=== PATIENT | female | born 1980 | race Caucasian/White ===

== ENCOUNTER 2017-11-08 15:42 | Emergency (ER) | payer BC, SELFPAY ==
[2017-11-08 15:43] VITALS: BP 166/101; PULSE 105; RESP 16; TEMP 36.1; O2SAT 97; BMI 40.2
--- NOTE | 2017-11-08 15:59 | ED.VISSUMM ---
- ER Visit Summary Date of Service: 11/08/17 Chief Complaint: Sore throat and headache and neck pain History of Present Illness: The patient is a 37 F no significant past medical history of depression. She has had viral meningitis in the past. States on Sunday at an area urgent care she was diagnosed with strep throat with strep test. Was placed on amoxicillin twice daily. She has been taking amoxicillin. States she was also diagnosed with otitis media that appears to be getting better. States she is having more neck pain and also has a headache. States the headache is gradual. She denies any fever. She denies any nausea vomiting she has had diarrhea. Physical Examination: Well-appearing young female standing up in the room. Vital signs are stable afebrile. Pulse ox 97% room air no signs of hypoxia. She does not look dehydrated. She does not look septic or toxic. She is in no distress. HEENT exam posterior pharynx with erythema and small small exudate. No trouble swallowing or breathing. No stridor or drooling. No peritonsillar abscess. Airways patent. TMs are normal bilaterally. Neck is without any lymphadenopathy. She is able to touch chin to chest. There is no significant meningismus. Trachea midline nontender. Lungs clear to auscultation bilaterally. Heart regular rate and rhythm no murmur. Rate about 100. Abdomen soft and nontender. Normal bowel sounds no peritoneal signs. She is moving all 4 extremities. Neurovascular intact. They are nontender without edema. There is no redness. There is no joint pain or swelling. There is no effusions redness. Back exam normal. Skin unremarkable no rashes. No petechiae or purpura. Neurologic exam is normal. NIH is 0. 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 Dorsi plantar flexion intact. Test Results: Patient I discussed lumbar puncture which I do not feel is necessary. She had that done previously when she had viral meningitis and defers at this time. Emergency Department Course and Treatment: Treated with Motrin and discharged home. Treatment Plan: Plenty of fluids and rest. Tylenol Motrin for pain. Return to ER feeling worse or see her primary care physician if not improving. Continue and finish her current antibiotic. Disposition: Discharge Impression: Recently diagnosed with strep tonsillitis This note was generated with [employer] dictation software. It may contain incorrect words, spelling, and punctuation that were not noted in review of the chart prior to signing ED Disposition - Plan for ED Patient: Chief Complaint: Headache Referrals: Danyelle Santacruz [Primary Care Provider] -
[2017-11-08] MEDS: Ibuprofen 600 MG Tablet PO (16:03)
--- NOTE | 2017-11-08 16:03 | ED.DCSUM_ITS ---
- ER Visit Summary Date of Service: 11/08/17 Chief Complaint: Sore throat and headache and neck pain History of Present Illness: The patient is a 37 F no significant past medical history of depression. She has had viral meningitis in the past. States on Sunday at an area urgent care she was diagnosed with strep throat with strep test. Was placed on amoxicillin twice daily. She has been taking amoxicillin. States she was also diagnosed with otitis media that appears to be getting better. States she is having more neck pain and also has a headache. States the headache is gradual. She denies any fever. She denies any nausea vomiting she has had diarrhea. Physical Examination: Well-appearing young female standing up in the room. Vital signs are stable afebrile. Pulse ox 97% room air no signs of hypoxia. She does not look dehydrated. She does not look septic or toxic. She is in no distress. HEENT exam posterior pharynx with erythema and small small exudate. No trouble swallowing or breathing. No stridor or drooling. No peritonsillar abscess. Airways patent. TMs are normal bilaterally. Neck is without any lymphadenopathy. She is able to touch chin to chest. There is no significant meningismus. Trachea midline nontender. Lungs clear to auscultation bilaterally. Heart regular rate and rhythm no murmur. Rate about 100. Abdomen soft and nontender. Normal bowel sounds no peritoneal signs. She is moving all 4 extremities. Neurovascular intact. They are nontender without edema. There is no redness. There is no joint pain or swelling. There is no effusions redness. Back exam normal. Skin unremarkable no rashes. No petechiae or purpura. Neurologic exam is normal. NIH is 0. Bilateral 5 out of 5 chief airport guide strength. Dorsi plantar flexion intact. Test Results: Patient I discussed lumbar puncture which I do not feel is necessary. She had that done previously when she had viral meningitis and defers at this time. Emergency Department Course and Treatment: Treated with Motrin and discharged home. Treatment Plan: Plenty of fluids and rest. Tylenol Motrin for pain. Return to ER feeling worse or see her primary care physician if not improving. Continue and finish her current antibiotic. Disposition: Discharge Impression: Recently diagnosed with strep tonsillitis This note was generated with [employer] dictation software. It may contain incorrect words, spelling, and punctuation that were not noted in review of the chart prior to signing ED Disposition - Plan for ED Patient: Chief Complaint: Headache Referrals: Danyelle Santacruz [Primary Care Provider] -
--- NOTE | 2017-11-08 16:03 | ED.DEP ---
ED Disposition - Plan for ED Patient: Disposition: Home or Assisted Living Chief Complaint: Headache Instructions: Strep Throat Referrals: Danyelle Santacruz [NON-STAFF] - 3-5 Days if not improving Additional Instructions: NT of fluids and rest. Tylenol and Motrin for pain. Finish your current antibiotic. Return to the ER feeling worse or see her primary care physician if not improving.
[2017-11-08 16:15] VITALS: PULSE 102; RESP 15; O2SAT 97
== END 2017-11-08 16:15 | disposition home or self-care (01) ==
PROVIDERS: Emergency Provider Emergency Medicine; Family Provider Family Medicine; PCP Family Medicine
DX: J03.00 Acute streptococcal tonsillitis, unspecified (principal); J02.0 Streptococcal pharyngitis; R19.7 Diarrhea, unspecified; F32.9 Major depressive disorder, single episode, unspecified; Z86.19 Personal history of other infectious and parasitic diseases; Z90.49 Acquired absence of other specified parts of digestive tract; Z79.2 Long term (current) use of antibiotics; Z79.899 Other long term (current) drug therapy
CPT/HCPCS: 99283

== ENCOUNTER → 2020-10-18 14:15 | Outpatient (CLI) | payer BC, SELFPAY ==
--- NOTE | 2020-10-18 14:19 | BI_ITS ---
MAMMOGRAPHY - BILATERAL DIAGNOSTIC REASON FOR EXAM: Female, 40 years old. Right breast lump and thickening. PERTINENT HISTORY: Non-contributory. TECHNIQUE: Digital bilateral breast ermias (3D mammographic acquisition) in the CC and MLO projections. 2-D mediolateral oblique (MLO) and craniocaudad (CC) views of both breasts were obtained. CAD: Full Field Digital Mammography with Computer Added Detection was performed. COMPARISON: No comparison mammograms available at this time. If any prior films become available, an addendum to this report can be generated. FINDINGS: Breast Composition: There are scattered areas of fibroglandular density. There are no dominant masses or suspicious calcifications. Asymmetry of breast tissue were more breast tissue is seen in the upper outer quadrant of the right breast as compared to the left side. This corresponds to the palpable abnormality. Correlation with ultrasound is recommended. No other significant abnormalities are identified. BI/DIAG MAMM W/CAD, BILAT IMPRESSION: Asymmetry of breast tissue where more breast tissue is seen in the upper outer quadrant of the right breast as compared to the left side. Correlation with ultrasound is recommended. ASSESSMENT CATEGORY: BIRADS Category 0: Incomplete. Need additional imaging evaluation. A letter regarding these results will be sent to the patient by the facility within 30 days. Approximately 10% of breast cancers are not detected by mammography. A normal mammogram should not delay biopsy of a clinically suspicious abnormality. Electronically Signed: Emmanuel Castro MD at 15:20 EST , Service support ,
--- NOTE | 2020-10-18 14:19 | US_ITS ---
STUDY: ULTRASOUND BREAST - RIGHT REASON FOR EXAM: Female, 40 years old. Palpable lump in the right breast. TECHNIQUE: Axial and longitudinal images of the RIGHT breast were performed with a high resolution ultrasound transducer. # OF IMAGES: 33 COMPARISON: Comparison is made with mammogram done earlier today. FINDINGS: RIGHT Breast: The lateral half of the right breast was examined by ultrasound. No sonographic abnormality is seen. US/Breast Limited Unilateral IMPRESSION: No sonographic abnormality is seen. ASSESSMENT CATEGORY: BIRADS Category 2: Benign. A letter regarding these results will be sent to the patient by the facility within 30 days. Electronically Signed: Emmanuel Castro MD at 15:52 EST , Service support ,
== END ==
PROVIDERS: PCP Family Medicine; Referring Provider Obstetrics & Gynecology; Visit Provider Obstetrics & Gynecology
DX: N63.10 Unspecified lump in the right breast, unspecified quadrant (principal)
CPT/HCPCS: 76642; 77062; 77066; G0279

== ENCOUNTER → 2021-09-22 | Outpatient (CLI) | payer OTHER, SELFPAY ==
[2021-09-28 08:41] LABS: HPV APTIMA, High Risk Negative (Negative)
== END | disposition home or self-care (01) ==
LOC: LABSPEC 10:14
PROVIDERS: PCP Family Medicine; Visit Provider Obstetrics & Gynecology
DX: Z12.4 Encounter for screening for malignant neoplasm of cervix (principal)
CPT/HCPCS: 87624; 88175; G0145

== ENCOUNTER 2022-03-20 09:56 | Day surgery (SDC) | payer OTHER, SELFPAY ==
[2022-03-20] VITALS (9 sets, daily range): BP systolic 96–153; BP diastolic 52–101; PULSE 78–98; RESP 14–18; TEMP 36.1–37.6; O2SAT 93–99; BMI 36.9
--- NOTE | 2022-03-20 10:29 | CT_ITS ---
We are attempting to reach an attending provider to discuss findings. An addendum with communication details will be sent when the communication is complete. EXAM: CT ABDOMEN AND PELVIS WITH INTRAVENOUS CONTRAST CLINICAL INDICATION: right sided abd pain. prior cholecystectomy TECHNIQUE: Helically acquired images were obtained of the abdomen and pelvis with intravenous contrast. This CT exam was performed using one or more of the following dose reduction techniques: automated exposure control, adjustment of the mA and/or kV according to patient size, and/or use of iterative reconstruction technique. This report was created using [employer] technology. CONTRAST: IV 75mL Isovue-300 COMPARISON: None. FINDINGS: LOWER THORAX: Unremarkable. Lung bases are clear. No cardiomegaly. No pericardial effusion. ABDOMEN: LIVER: Unremarkable. Homogeneous. No focal mass. GALLBLADDER AND BILE DUCTS: Cholecystectomy noted. No intra- or extrahepatic biliary ductal dilation. PANCREAS: Unremarkable. No focal cystic or solid mass. SPLEEN: Unremarkable. Normal size without focal cystic or solid mass. ADRENALS: Unremarkable. No nodules. KIDNEYS AND URETERS: 3 mm nonobstructive stone noted within the lower pole of the right kidney. STOMACH AND BOWEL: Diverticulosis of the colon noted without evidence of acute diverticulitis. PELVIS: APPENDIX: The appendix is enlarged measuring 13 mm in maximum diameter without adjacent fat stranding. The appearance may be secondary to early acute or chronic appendicitis. BLADDER: Urinary bladder is decompressed. REPRODUCTIVE: Unremarkable as visualized. No mass. ABDOMEN and PELVIS: INTRAPERITONEAL SPACE: Unremarkable. No ascites or other fluid collection. No free air. BONES/JOINTS: Unremarkable. No suspicious lytic or blastic abnormality. SOFT TISSUES: Unremarkable. No discrete abdominal or pelvic wall hernia. VASCULATURE: Unremarkable. Abdominal aorta is non-dilated. LYMPH NODES: Unremarkable. No enlarged lymph nodes. CT/Abdomen/Pelvis W IV Cont ONLY IMPRESSION: 1. 3 mm right renal stone. No urinary tract obstruction. 2. Enlarged appendix without discrete inflammatory change which may represent early acute or chronic appendicitis. Mucocele of the appendix not excluded. 3. Diverticulosis coli. Electronically Signed: Philip Green MD at 12:08 EDT ,
--- NOTE | 2022-03-20 10:30 | EDS_ITS ---
HPI HPI - GI History of Present Illness Chief Complaint: Abd Pain Informant: patient Abdominal Pain/Flank Pain Onset: Yesterday Context: Gradual Onset Timing: Continuous Quality: Aching Location: RUQ and RLQ Current Severity: Moderate Maximum Severity: Moderate Worsened by: Nothing Relieved by: Nothing Nausea/Vomiting/Emesis GI Symptom: Positive for Nausea and Vomiting Onset: Today Quality: Positive for Nonbilious Severity: Mild Diarrhea/Melena/Hematochezia GI Symptom: Negative for Diarrhea or Melena Associated Symptoms Associated Symptoms: Negative for Dysuria, Frequency or Hematuria Narrative Narrative: 41-year-old female history depression. Prior cholecystectomy. States she started having abdominal pain yesterday which began epigastric then went to her right upper and right lower quadrant. The pain is worse today. Associated nausea and vomiting. No diarrhea. No dysuria. No fever but chills yesterday and today. Denies any abdominal trauma. No dysuria. Prior similar symptoms: No Recent Illness/Hospitalization: No PFSH PFSH Home Medications sertraline 25 mg tablet (Zoloft) 50 mg PO DAILY 11/08/17 [History Last Taken 11/07/17] Allergy/AdvReac Type Severity Reaction Status Date / Time acetaminophen [From Percocet] AdvReac Itching Verified 03/20/22 09:58 oxycodone [From Percocet] AdvReac Itching Verified 03/20/22 09:58 Social History Smoking Status: Never smoker ROS ROS ED ROS Narrative Abdominal pain. Nausea and vomiting. Chills. Review of Systems ROS Unobtainable: Denies due to encephalopathy Constitutional Constitutional ED: Reports chills; Denies fever(s) ENT ENT ED: Denies ear pain or rhinorrhea Cardiovascular Cardiovascular: Denies chest pain Respiratory/Chest Respiratory/Chest: Denies cough Gastrointestinal Gastrointestinal: Reports abdominal pain, nausea and vomiting; Denies diarrhea or melena Genitourinary Genitourinary ED: Denies dysuria or hematuria Musculoskeletal Musculoskeletal: Denies arthralgias Integumentary Denies abscess Neurologic Neurologic: Denies headache(s) Psychiatric Psychiatric: Denies anxiety Endocrine Endocrinology: Denies polydipsia Hematologic/Lymphatic Hematologic/Lymphatic: Denies easy bleeding Allergic/Immunologic Allergic/Immunologic ED: Denies mouth swelling EXAM Physical Exam Narrative Exam Narrative: .41-year-old female vital signs are stable afebrile. H EENT exam unremarkable. Lungs are clear. Heart regular rhythm rate about 95 no murmur. Chest wall nontender. Abdomen soft nondistended normal bowel sounds she has pretty exquisite tenderness in both the right lower quadrant and right upper quadrant. She does guard. There is no rebound. Left side of abdomen is nontender. No hernia. No obstruction. No distention. Moving all 4 extremities. Nontender no edema. Back nontender. Neuro exam normal. Const Vital Signs: 03/20/22 09:57 Temperature 97.0 F L Temperature Source Temporal Pulse Rate 96 Respiratory Rate 14 Blood Pressure 153/101 H Blood Pressure Mean 118 Pulse Ox 99 Oxygen Delivery Method Room Air Positive well nourished, well developed and obese; Negative for cachectic, contractures or unkempt General Appearance ED: well developed; Negative for unkempt, cachectic or contractures Nutritional Appearance: obese; Negative for cachectic HEENT Reports moist mucous membranes normocephalic and atraumatic; Negative for trauma or tenderness Eyes PERRL and EOMs intact bilaterally Neck no lymphadenopathy, supple and no JVD General: Negative for tenderness Lymph Lymphatic: Negative for other Resp normal respiratory effort and clear to auscultation bilaterally Effort and Inspection: Negative for respiratory distress or retractions Auscultation: Negative for rales, rhonchi or wheezes Cardio regular rate, regular rhythm, S1 normal heart sound and S2 normal heart sound Rate: Negative for bradycardia Rhythm: Negative for abnormal rhythm GI non-distended and no masses; Negative for non-tender Inspection: Negative for abdominal distention Auscultation: normoactive bowel sounds Palpation: soft, tender and guarding; Negative for rigid, hepatomegaly, splenomegaly, hernia, mass, pulsatile mass or rebound tenderness present Back/Spine no CVA tenderness General Back: Negative for CVA tenderness Cervical Spine: Negative for cervical spine tenderness Thoracic Spine / Upper Back: Negative for thoracic spinal tenderness Lumbar Spine / Lower Back: Negative for lumbar spinal tenderness Extremity full ROM General Extremety ED: Negative for edema or tenderness General Extremity: Negative for edema Neuro moves all extremities Sensorium / Orientation: alert Motor Exam: strength 5/5 throughout Psych mental status grossly normal Appearance: Negative for unkempt Attitude: No agitated Mood & Affect: Negative for depressed Skin no wounds General Skin Exam: Negative for jaundice Lesions: no lesions Rashes: no rashes Trauma: Negative for abrasion Nails: Negative for discolored MDM MDM MDM Narrative Medical decision making narrative: 41-year-old female with right-sided abdominal pain. Prior cholecystectomy in the past. She will be treated with IV fluids, Zofran for nausea and morphine for her pain. CAT scan and labs are pending. Repeat exam patient still has exquisite pain in right lower quadrant. She and I went over test results specifically her CAT scan concerning for acute appendicitis. This fits her exam and symptoms. She will be given a second dose of morphine. I have general surgery on page Dr. William Malcolm. She will also be started on IV Zosyn. Lab Data Attestation: I reviewed the patient's lab results. Lab results narrative: CBC shows a white count 9. H&H 13 and 41. Chemistries normal gap of 5. Normal BUN and creatinine. Liver enzymes normal. Lipase normal. test negative. Urine shows 10-25 white cells. 10-25 red cells. 1+ bacteria. No nitrites. No urinary symptoms. CAT scan is concerning for a prominent appendix and the radiologist feels may be acute appendicitis. Labs: Laboratory Results - last 24 hr 03/20/22 03/20/22 03/20/22 11:10 11:10 11:10 WBC 9.0 RBC 4.61 Hgb 13.7 Hct 41.3 MCV 89.6 MCH 29.7 MCHC 33.2 RDW Std Deviation 42.6 RDW Coeff of [place]ipp[place] 13.0 Plt Count 267 MPV 10.1 Immature Gran % (Auto) 0.600 Neut % (Auto) 69.0 Lymph % (Auto) 20.1 [place] % (Auto) 7.5 Eos % (Auto) 1.8 Baso % (Auto) 1.0 Absolute Neuts (auto) 6.2 Absolute Lymphs (auto) 1.80 Nucleated RBC % 0 Sodium 140 Potassium 3.5 Chloride 108 H Carbon Dioxide 27.0 Anion Gap 5 BUN 12 Creatinine 0.85 Estim Creat Clear Calc 70.28 Est GFR (MDRD) Af Amer 95 Est GFR (MDRD) Non-Af 79 BUN/Creatinine Ratio 14.1 Glucose 91 Calcium 8.9 Total Bilirubin 0.40 AST 15 ALT 18 Alkaline Phosphatase 95 Total Protein 7.4 Albumin 3.2 Globulin 4.2 Albumin/Globulin Ratio 0.8 L Lipase 80 Serum , Qual NEGATIVE Urine Color Urine Clarity Urine pH Ur Specific [place] Urine Protein Urine Glucose (UA) Urine Ketones Urine Occult Blood Urine Nitrite Urine Bilirubin Urine Urobilinogen Ur Leukocyte Esterase Urine RBC Urine WBC Ur Squamous Epith Cells Urine Bacteria Urine Mucus 03/20/22 11:10 WBC RBC Hgb Hct MCV MCH MCHC RDW Std Deviation RDW Coeff of [place]ippa Plt Count MPV Immature Gran % (Auto) Neut % (Auto) Lymph % (Auto) [place] % (Auto) Eos % (Auto) Baso % (Auto) Absolute Neuts (auto) Absolute Lymphs (auto) Nucleated RBC % Sodium Potassium Chloride Carbon Dioxide Anion Gap BUN Creatinine Estim Creat Clear Calc Est GFR (MDRD) Af Amer Est GFR (MDRD) Non-Af BUN/Creatinine Ratio Glucose Calcium Total Bilirubin AST ALT Alkaline Phosphatase Total Protein Albumin Globulin Albumin/Globulin Ratio Lipase Serum , Qual Urine Color Yellow Urine Clarity Clear Urine pH 6.0 Ur Specific [place] 1.020 Urine Protein 15 H Urine Glucose (UA) Normal Urine Ketones 5 H Urine Occult Blood 150 H Urine Nitrite Negative Urine Bilirubin Negative Urine Urobilinogen Normal Ur Leukocyte Esterase 100 H Urine RBC 10-25 SEEN Urine WBC 10-25 SEEN Ur Squamous Epith Cells 0-5 SEEN Urine Bacteria 1+ Urine Mucus 0 SEEN Radiography Diagnostic Testing: Clinical Impression(s) from Imaging Studies Abdomen/Pelvis CT 03/20/22 10:29 IMPRESSION: 1. 3 mm right renal stone. No urinary tract obstruction. 2. Enlarged appendix without discrete inflammatory change which may represent early acute or chronic appendicitis. Mucocele of the appendix not excluded. 3. Diverticulosis coli. Electronically Signed: Philip Green MD at 12:08 EDT , ADDENDUM: 03/20/22 1220 IMPRESSION: 1. 3 mm right renal stone. No urinary tract obstruction. 2. Enlarged appendix without discrete inflammatory change which may represent early acute or chronic appendicitis. Mucocele of the appendix not excluded. 3. Diverticulosis coli. N.B. : The above Results were Read Back by Philip Green MD to Yury Kapadia MD, MD, and understanding confirmed on 03/20/2022 12:13:16 (ET). Electronically Signed: Philip Green MD at 12:08 EDT , Discharge Plan Triage Chief Complaint: Abd Pain ED Provider: Eder Kapadia Dx/Rx/DC Orders Clinical Impression: Abdominal pain, Acute appendicitis Prescriptions: No Action sertraline [Zoloft] 25 MG tablet 50 mg PO DAILY Primary Care Provider: Jr Marinelli Referrals: Jr Marinelli MD [Primary Care Provider] -
[2022-03-20] MEDS: 0.9% Normal Saline 1,000 ML 1000 ML IV (11:12)
[2022-03-20] MEDS: Ondansetron 4 MG/2 ML Vial IV ×2 (11:12→12:39)
[2022-03-20] MEDS: morphine 8 MG/ML Syringe IV ×2 (11:14→12:40)
[2022-03-20 11:29] LABS: Mucous, Urine 0 SEEN /hpf (<or=2+)
[2022-03-20 11:31] LABS: Absolute Neutrophil Count 6.2 X10^3/uL (2.0-7.7); Basophil# 0.09 X10^3/uL; Eosinophil# 0.16 X10^3/uL; Eosinophils% 1.8 % (0-5); Hematocrit 41.3 % (37-47); Hemoglobin 13.7 g/dL (12.0-15.0); Lymphocyte % 20.1 % (19-41); Mean Corp Hgb Conc 33.2 g/dL (32-36); Mean Corpuscular Hgb 29.7 pg (27.0-32.0); Mean Corpuscular Volume 89.6 fL (81-99); Mean Platelet Vol. 10.1 fl (6.2-12.0); Monocyte# 0.67 X10^3/uL; Monocyte% 7.5 % (0-10); NRBC Flagged by Analyzer 0 % (0-5); Neutrophil # 6.18 X10^3/uL (2.7-7.7); Platelet Count 267 K/mm3 (150-450); RBC Distribution Width SD 42.6 fl (35.1-43.9); Red Blood Count 4.61 M/mm3 (4.2-5.4)
[2022-03-20 11:36] LABS: Color, Urine Yellow (Yellow); Glucose, Dipstick Normal (Normal); Ketone-Dipstick 5 mg/dl (Negative); Leukocyte Esterase-Dipstick 100 /ul (Negative); Nitrite-Dipstick Negative (Negative); Occult Blood-Urine 150 /ul (Negative); Protein-Dipstick 15 mg/dl (Negative); Urine Bilirubin Dipstick Negative (Negative); Urine Clarity Clear (Clear); Urine Urobilinogen Normal (Normal)
[2022-03-20 11:48] LABS: Bacteria 1+ /hpf (None Seen); Red Blood Cells-Urine 10-25 SEEN /hpf (0-5); Squamous Epithelial Cells - UA 0-5 SEEN /hpf (5-10); White Blood Cells 10-25 SEEN /hpf (0-5)
[2022-03-20 11:49] LABS: ALB/GLOB Ratio 0.8 RATIO (0.9-2.4); AST(SGOT) 15 U/L (15-37); Alanine Aminotransfer ALT/SGPT 18 U/L (13-56); Albumin, Serum 3.2 g/dL (3.2-5.0); Alkaline Phosphatase 95 U/L (45-117); Anion Gap 5 (5-15); BUN 12 mg/dL (7-18); BUN/Creat Ratio 14.1 RATIO (10-20); Calcium,Total 8.9 mg/dL (8.5-10.1); Chloride 108 mmol/L (98-107); Creatinine, Serum 0.85 mg/dL (0.55-1.02); EST Glomerular Filtration Rate 79 mL/min (>60); Est Glom Filt Rate - Afr Amer 95 mL/min (>60); Estimated Creatinine Clearance 70.28 ml/min; Globulin 4.2 g/dL (2.2-4.2); Glucose 91 mg/dL (74-106); Lipase 80 U/L (73-393); Potassium 3.5 mmol/L (3.5-5.1); Protein, Total 7.4 g/dL (6.4-8.2); Sodium Level 140 mmol/L (136-145)
[2022-03-20 12:05] LABS: Internal QC Validated? YES +Cl - CLEAR BKGD; Pregnancy, Serum, hCG Quali. NEGATIVE Negative
--- NOTE | 2022-03-20 13:39 | EX.PCM.CON.S ---
Assessment & Plan Assessment/Plan (1) Acute appendicitis: PLAN: Plan will be to perform a laparoscopic appendectomy.I have counseled the patient as to the risks of the procedure, including but not limited to: infection, bleeding, injury to any blood vessels/nerves, injury to any bowel/bladder, injury to any intraabdominal organs such as the liver/spleen, perforation of the GI tract, intraabdominal abscess/bleeding, incisional hernias, injury to the common bile duct/biliary ducts, injury to the spermatic cord/vessels/testicles, recurrence of hernia(s), complications of anesthesia, etc. The patient verbalizes understanding. HPI Consult Data Date of Consult: 03/20/22 HPI Narrative HPI Narrative: GABE ENRIQUE, is a 41-year-old female history depression.? Prior cholecystectomy.? States she started having abdominal pain yesterday which began epigastric then went to her right upper and right lower quadrant.? The pain is worse today.? Associated nausea and vomiting.? No diarrhea.? No dysuria.? No fever but chills yesterday and today.? Denies any abdominal trauma.? No dysuria. Prior similar symptoms: No Recent Illness/Hospitalization: No [facility] Home Medications sertraline 25 mg tablet (Zoloft) 50 mg PO DAILY 11/08/17 [History Last Taken 11/07/17] Allergy/AdvReac Type Severity Reaction Status Date / Time acetaminophen [From Percocet] AdvReac Itching Verified 03/20/22 09:58 oxycodone [From Percocet] AdvReac Itching Verified 03/20/22 09:58 Social History Smoking Status: Never smoker ROS Constitutional Constitutional: Reports anorexia and chills Cardiovascular Cardiovascular: Denies chest pain Respiratory/Chest Respiratory/Chest: Denies cough Gastrointestinal Gastrointestinal: Reports abdominal pain Physical Exam Const alert and oriented x3 General Appearance: ill appearing Positive for acutely HEENT normocephalic and head/scalp atraumatic Resp clear to auscultation bilaterally Cardio Rate: regular rate Rhythm: regular rhythm GI Palpation: tender McBurney's point Lab / Micro Data Result Diagrams: 03/20/22 11:10 03/20/22 11:10 Labs: Laboratory Results - last 24 hr 03/20/22 11:10: WBC 9.0, RBC 4.61, Hgb 13.7, Hct 41.3, MCV 89.6, MCH 29.7, MCHC 33.2, RDW Std Deviation 42.6, RDW Coeff of Pippa 13.0, Plt Count 267, MPV 10.1, Immature Gran % (Auto) 0.600, Neut % (Auto) 69.0, Lymph % (Auto) 20.1, [place] % (Auto) 7.5, Eos % (Auto) 1.8, Baso % (Auto) 1.0, Absolute Neuts (auto) 6.2, Absolute Lymphs (auto) 1.80, Nucleated RBC % 0 03/20/22 11:10: Sodium 140, Potassium 3.5, Chloride 108 H, Carbon Dioxide 27.0, Anion Gap 5, BUN 12, Creatinine 0.85, Estim Creat Clear Calc 70.28, Est GFR (MDRD) Af Amer 95, Est GFR (MDRD) Non-Af 79, BUN/Creatinine Ratio 14.1, Glucose 91, Calcium 8.9, Total Bilirubin 0.40, AST 15, ALT 18, Alkaline Phosphatase 95, Total Protein 7.4, Albumin 3.2, Globulin 4.2, Albumin/Globulin Ratio 0.8 L, Lipase 80 03/20/22 11:10: Serum , Qual NEGATIVE 03/20/22 11:10: Urine Color Yellow, Urine Clarity Clear, Urine pH 6.0, Ur Specific [place] 1.020, Urine Protein 15 H, Urine Glucose (UA) Normal, Urine Ketones 5 H, Urine Occult Blood 150 H, Urine Nitrite Negative, Urine Bilirubin Negative, Urine Urobilinogen Normal, Ur Leukocyte Esterase 100 H, Urine RBC 10-25 SEEN, Urine WBC 10-25 SEEN, Ur Squamous Epith Cells 0-5 SEEN, Urine Bacteria 1+, Urine Mucus 0 SEEN Radiology Impression Abdomen/Pelvis CT 03/20/22 10:29 IMPRESSION: 1. 3 mm right renal stone. No urinary tract obstruction. 2. Enlarged appendix without discrete inflammatory change which may represent early acute or chronic appendicitis. Mucocele of the appendix not excluded. 3. Diverticulosis coli. Electronically Signed: Philip Green MD at 12:08 EDT , ADDENDUM: 03/20/22 1220 IMPRESSION: 1. 3 mm right renal stone. No urinary tract obstruction. 2. Enlarged appendix without discrete inflammatory change which may represent early acute or chronic appendicitis. Mucocele of the appendix not excluded. 3. Diverticulosis coli. N.B. : The above Results were Read Back by Philip Green MD to Yury Kapadia MD, , and understanding confirmed on 03/20/2022 12:13:16 (ET). Electronically Signed: Philip Green MD at 12:08 EDT ,
[2022-03-20] MEDS: Lactated Ringers 1,000 ML 100 ML IV (14:00)
--- NOTE | 2022-03-20 14:05 | APP_PTH ---
PATIENT: GABE MEJIA LOC: [facility] [place] U#:[id number] AGE/SX: 41/F ROOM: RE03/20/[address]: Dr. Joaquin Malcolm MD : 1980 BED: DIS: 03/20/2022 SPEC #: [id number] RECD: 03/20/22 16:56 STATUS: FRANCISCO RETanya #: [id number] JULIAN: 03/20/22 14:[address]: Joaquin Malcolm DEPT: SURGICAL PATHOLOGY RECD BY: Mahi Aguiar ENTERED: 03/21/22 06:50 SP TYPE: APPENDIX OTHR DR: Dr. Jr Marinelli MD Tissues: Appendix, NOS Procedures: Surgery Specimen Level III HEADER OPERATION: Laparoscopic appendectomy PRE-OP DIAGNOSIS: Acute appendicitis TISSUE SUBMITTED: Appendix MICROSCOPIC DIAGNOSIS Appendix, appendectomy: Acute appendicitis and periappendicitis. SUNI:kristal 03/22/2022 MICROSCOPIC DESCRIPTION Slides are reviewed. GROSS DESCRIPTION Received in fixative is one container labeled with the patient's name and designated appendix. The specimen consists of an appendix measuring 6.5 cm in length and up to 1 cm in diameter. The attached periappendiceal adipose tissue measures up to 3 cm in width. No obvious perforation is identified. The lumen contains fecal material mixed with purulent material. No fecalith is identified. Wall Steamer sections are submitted in two cassettes. / SJ:rg 03/21/2022 TC:2 CPT: 67236
[2022-03-20] MEDS: Bupivacaine Mpf 0.5% 30 ML VIAL (14:22)
--- NOTE | 2022-03-20 14:43 | OP.PCM_ITS ---
Problems Associated Problem List Diagnoses (1) Acute appendicitis: Report of Operation Date of Procedure: 03/20/22 Pre-Operative Diagnosis: Acute appendicitis Post-Operative Diagnosis: Same Surgery/Procedure Performed:: Laparoscopic appendectomy Surgeon: Joaquin Malcolm decontamination technician: Reva Lutz Type of Anesthesia: General Anesthesiologist: Jake Dockery Drains: None Estimated Blood Loss (mL): < 5 cc Description of Procedure: Patient was brought into the operating room. Placed in the supine position. Under excellent general anesthetic the abdomen was sterilely prepped and draped in the usual fashion. Local was injected infraumbilically. Incision was made and carried down to the fascia. The fascia was grasped with a [place]. Varies needle was placed inside the abdomen. The abdomen was insufflated to 15 torr. A 10/12 trocar was placed without difficulty. Suprapubic #5 trocar was placed the left lower quadrant #5 trocar was placed. Both of these were placed under direct visualization without injury to underlying structures. Patient was placed in the headdown and rotated to the left position. Patient was noted to have a dilated and acutely inflamed appendix I came down on the mesoappendix with the Enseal. I then transected the base of the appendix with a 45 linear cutter. Placed the specimen in a specimen bag and delivered through the umbilical port without difficulty. I had very little blood loss there was no pus identified. I ran the small bowel no Meckel's diverticulum was identified the small intestine all look normal.. I irrigated out the pelvis some turbid fluid was identified but no pus was seen. Trochars were removed. Good pneumostasis was noted. I closed the fascia the umbilical port with a [id number] stitch of 0 Vicryl. Skin incisions were closed with subcuticular stitches of 4-0 Monocryl. Steri-Strips were applied. Sterile dressings were applied. Patient tolerated the procedure well. Admit VTE Documentation VTE Present on Admission: No VTE Mechan Device Prophylaxis: SCD's VTE Pharm Prophylaxis ordered?: No Reason prophylaxis not ordered:: Treatment Not Indicated
--- NOTE | 2022-03-20 14:49 | DCINST_ITS ---
Discharge Instructions Procedure Appendectomy Diet Discharge Diet: Light diet - advance as tolerated (if you have questions about your diet instructions, please talk to you doctor.) Activity Discharge Activity: May Not Drive (for 3-5 days or while taking narcotic pain meds.) May shower in (days): 1 Dressing / Incision Call your doctor if your incision/area has: Continuous Slow Oozing, Sudden Increased Bleeding, Increased Pain/ Swelling, Increased Redness and Foul Smelling Discharge Call your doctor if you observe: Fever of 101 or Higher Suture Line Care: Avoid Pulling/Pushing and Avoid Pinching/Bending Additional Dressing/Incision Instructions:: Keep dressing clean and dry. Change or remove dressing in 2 days. Leave steri strips for 1 week. May protect with a gauze bandaid. Follow Up Care Please Follow Up With: Moriah Borges PA-C When: Call office to schedule an appointment to be seen in 1 week. Test Results: Test results from this visit will be discussed in further detail at your follow- up appointment, if applicable. Discharge Plan Admission Attending Provider: Joaquin aMlcolm Primary Care Provider: Jr Marinelli Discharge Orders/Prescriptions Prescriptions: New hydrocodone-acetaminophen 5-325 mg tablet 1 tab PO Q6H 5 Days Qty: 20 0RF No Action sertraline [Zoloft] 25 MG tablet 50 mg PO DAILY Referrals / Follow Up: Jr Marinelli MD [Primary Care Provider] - Moriah Borges PA-C [PHYSICIAN NEW ORDER CLERK] - Disposition Disposition (needs filled in before D/C Order can be placed): Home, Self Care
[2022-03-20] MEDS: HYDROcodone Bitartrate/Apap 5/325 Tablet PO (16:16)
== END 2022-03-20 16:37 | disposition home or self-care (01) ==
LOC: ED 12:42 → SDC 12:47
PROVIDERS: Emergency Provider Emergency Medicine; PCP Family Medicine; Visit Provider Surgery
PROC: 0DTJ4ZZ Resection of Appendix, Percutaneous Endoscopic Approach (ICD-10-PCS; CPT 44970; principal; 2022-03-20 13:45)
DX: K35.80 Unspecified acute appendicitis (principal); F32.A Depression, unspecified; E66.9 Obesity, unspecified; Z68.36 Body mass index [BMI] 36.0-36.9, adult; Z79.899 Other long term (current) drug therapy; Z90.49 Acquired absence of other specified parts of digestive tract
CPT/HCPCS: 44970; 74177; 80053; 81001; 83690; 84703; 85025; 88304; 99284; J7030; Q9967; A4216; C1760; J2405

== ENCOUNTER 2022-04-04 17:46 | Emergency (ER) | payer OTHER, SELFPAY ==
[2022-04-04 17:48] VITALS: BP 146/100; PULSE 95; RESP 16; TEMP 36.7; O2SAT 97; BMI 37.3
[2022-04-04 18:51] LABS: Squamous Epithelial Cells - UA 0 SEEN /hpf (5-10)
[2022-04-04 18:53] LABS: Absolute Lymphocyte Count 2.49 X10^3/uL (0.83-4.51); Absolute Neutrophil Count 7.8 X10^3/uL (2.0-7.7); Basophil# 0.08 X10^3/uL; Basophil% 0.7 % (0-1); Eosinophil# 0.33 X10^3/uL; Eosinophils% 2.9 % (0-5); Hematocrit 43.1 % (37-47); Lymphocyte # 2.49 X10^3/ul (0.83-4.51); Lymphocyte % 21.6 % (19-41); Mean Corp Hgb Conc 32.5 g/dL (32-36); Mean Corpuscular Hgb 29.5 pg (27.0-32.0); Mean Corpuscular Volume 90.7 fL (81-99); Mean Platelet Vol. 9.9 fl (6.2-12.0); Monocyte# 0.76 X10^3/uL; Monocyte% 6.6 % (0-10); NRBC Flagged by Analyzer 0 % (0-5); Neutrophil # 7.83 X10^3/uL (2.7-7.7); Neutrophil % 67.9 % (47-70); Platelet Count 278 K/mm3 (150-450); RBC Distribution Width CV 12.7 % (11.6-14.6); RBC Distribution Width SD 42.1 fl (35.1-43.9); Red Blood Count 4.75 M/mm3 (4.2-5.4); White Blood Count 11.5 K/mm3 (4.4-11.0)
--- NOTE | 2022-04-04 18:55 | CT_ITS ---
We are attempting to reach an attending provider to discuss findings. An addendum with communication details will be sent when the communication is complete. STUDY: CT Abdomen And Pelvis W/ Contrast Injection 04/04/2022 8:02 PM REASON FOR EXAM: Female, 41 years old. ABDOMINAL PAIN rlq pain Technologist Notes pain is mid abdomen radiating to rlq and back, n/v/d, appy 2 weeks ago TECHNIQUE: Transaxial images were obtained without oral contrast, and with IV 100mL Isovue-370 intravenous contrast. Individualized dose optimization techniques were used for this CT. COMPARISON: None. FINDINGS: The visualized lung bases are unremarkable. The visualized portions of the heart are within normal limits. Unremarkable liver. There is non-visualization of the gallbladder, which may be secondary to either contraction or a prior cholecystectomy. Unremarkable spleen. Unremarkable pancreas. Unremarkable bilateral adrenal glands. Non obstructive 2 mm right renal parenchymal stones. No acute findings of the left kidney. Unremarkable visualized stomach. Unremarkable small intestine. Unremarkable colon. There are surgical clips in the region of the appendix consistent with a prior appendectomy. There are no acute findings of the abdominal aorta. Unremarkable inferior vena cava. Subcentimeter mesenteric lymph nodes. Occluded Superior mesenteric vein. Overlying inflammatory changes causing mesenteric inflammation. Unremarkable urinary bladder. Normal visualized uterus. There is an umbilical hernia containing fat. Unremarkable osseous structures. CT/Abdomen/Pelvis W IV Cont ONLY IMPRESSION: (NOT LISTED IN ORDER OF SIGNIFICANCE) Occluded Superior mesenteric vein. Overlying inflammatory changes causing mesenteric inflammation. Other findings as above. Critical finding called and case discussed. Electronically Signed: Seth Peralta MD at 20:04 EDT ,
--- NOTE | 2022-04-04 19:00 | ED.VIS.GI ---
HPI HPI - GI History of Present Illness Chief Complaint: Abd Pain Narrative Narrative: This is a 41-year-old female presenting with right flank pain. Patient states started a couple of days ago. She states is worse than labor. She states it is dull and achy in nature. She states she is having bowel movements. She denies any dysuria or hematuria. She denies vaginal complaints. Patient recently had a pending [facility] Home Medications sertraline 25 mg tablet (Zoloft) 50 mg PO DAILY 11/08/17 [History Last Taken 11/07/17] oxycodone-acetaminophen 5 mg-325 mg tablet tab 04/04/22 [History Last Taken Unknown] Allergy/AdvReac Type Severity Reaction Status Date / Time No Known Allergies Allergy Verified 04/04/22 18:32 Social History Smoking Status: Never smoker EXAM Physical Exam Const Vital Signs: 04/04/22 17:48 04/04/22 20:00 04/04/22 21:00 Temperature 98.0 F 98 F 98.1 F Temperature Source Temporal Temporal Temporal Pulse Rate 95 99 95 Respiratory Rate 16 18 17 Blood Pressure 146/100 H 140/88 H 116/72 Blood Pressure Mean 115 105 86 Pulse Ox 97 97 96 Oxygen Delivery Method Room Air Room Air Room Air MDM MDM MDM Narrative Medical decision making narrative: Patient presenting with right-sided abdominal pain. She is status post appendectomy about a month ago. She states he had some mild pain after surgery but this pain abruptly started a couple of days ago. She presents almost like a kidney stone. Patient given morphine and Zofran as well as IV fluids. I obtained a urinalysis which does show some blood however she is currently menstruating. BMP is within normal limits. Because the patient is postoperative I opted to do a CT scan with IV contrast rather than a flank study. This did identify an occluded superior mesenteric vein. At this point the patient was asking for pain medication he was given 1 mg of Dilaudid. I spoke with on-call vascular surgeon at [facility] who recommended transport and starting a heparin drip. Accepting physician will be Dr Turner and he requested that patient be transported ED to ED. There is a delay in transport as we have no EMS that can be available within 4 hours. I did attempt to call med flight and they are not flying due to weather. Patient still having pain and given another milligram of Dilaudid. She was given another dose of Zofran as well. Updated her on the delay in transport. Patient's pain will be treated until she can be transported. Impression: 1. Superior mesenteric vein occlusion 2. Nausea Lab Data Attestation: I reviewed the patient's lab results. Labs: Laboratory Results - last 24 hr 04/04/22 04/04/22 04/04/22 18:40 18:45 18:45 WBC 11.5 H RBC 4.75 Hgb 14.0 Hct 43.1 MCV 90.7 MCH 29.5 MCHC 32.5 RDW Std Deviation 42.1 RDW Coeff of [place] 12.7 Plt Count 278 MPV 9.9 Immature Gran % (Auto) 0.300 Neut % (Auto) 67.9 Lymph % (Auto) 21.6 [place] % (Auto) 6.6 Eos % (Auto) 2.9 Baso % (Auto) 0.7 Absolute Neuts (auto) 7.8 H Absolute Lymphs (auto) 2.49 Nucleated RBC % 0 PT INR APTT Sodium 139 Potassium 3.4 L Chloride 106 Carbon Dioxide 26.0 Anion Gap 7 BUN 10 Creatinine 0.90 Estim Creat Clear Calc 66.37 Est GFR (MDRD) Af Amer 90 Est GFR (MDRD) Non-Af 74 BUN/Creatinine Ratio 11.2 Glucose 96 Calcium 9.4 Serum , Qual Urine Color Tari Urine Clarity Cloudy Urine pH 5.0 Ur Specific [place] 1.025 Urine Protein 100 H Urine Glucose (UA) Normal Urine Ketones 5 H Urine Occult Blood 250 H Urine Nitrite Negative Urine Bilirubin Negative Urine Urobilinogen Normal Ur Leukocyte Esterase 100 H Urine RBC 25-50 SEEN Urine WBC 5-10 SEEN Ur Squamous Epith Cells 0 SEEN Urine Bacteria 2+ Urine Mucus 3+ 04/04/22 04/04/22 18:45 20:35 WBC RBC Hgb Hct MCV MCH MCHC RDW Std Deviation RDW Coeff of [place] Plt Count MPV Immature Gran % (Auto) Neut % (Auto) Lymph % (Auto) [place] % (Auto) Eos % (Auto) Baso % (Auto) Absolute Neuts (auto) Absolute Lymphs (auto) Nucleated RBC % PT 13.8 INR 1.1 APTT 23.0 L Sodium Potassium Chloride Carbon Dioxide Anion Gap BUN Creatinine Estim Creat Clear Calc Est GFR (MDRD) Af Amer Est GFR (MDRD) Non-Af BUN/Creatinine Ratio Glucose Calcium Serum , Qual NEGATIVE Urine Color Urine Clarity Urine pH Ur Specific [place] Urine Protein Urine Glucose (UA) Urine Ketones Urine Occult Blood Urine Nitrite Urine Bilirubin Urine Urobilinogen Ur Leukocyte Esterase Urine RBC Urine WBC Ur Squamous Epith Cells Urine Bacteria Urine Mucus Radiography Diagnostic Testing: Clinical Impression(s) from Imaging Studies Abdomen/Pelvis CT 04/04/22 18:55 IMPRESSION: (NOT LISTED IN ORDER OF SIGNIFICANCE) Occluded Superior mesenteric vein. Overlying inflammatory changes causing mesenteric inflammation. Other findings as above. Critical finding called and case discussed. Electronically Signed: Seth Peralta MD at 20:04 EDT , ADDENDUM: 04/04/222019 IMPRESSION: (NOT LISTED IN ORDER OF SIGNIFICANCE) Occluded Superior mesenteric vein. Overlying inflammatory changes causing mesenteric inflammation. Other findings as above. Critical finding called and case discussed. N.B. : The above Results were Read Back by Seth Peralta MD to MD oriana, and understanding confirmed on 04/04/2022 20:13:36 (ET). Electronically Signed: Seth Peralta MD at 20:04 EDT , Discharge Plan Triage Chief Complaint: Abd Pain ED Provider: Kenton Alford Dx/Rx/DC Orders Prescriptions: No Action sertraline [Zoloft] 25 MG tablet 50 mg PO DAILY oxycodone-acetaminophen 5-325 mg tablet Primary Care Provider: Jr Marinelli Referrals: Jr Marinelli MD [Primary Care Provider] - Disposition Disposition: Home, Self Care
[2022-04-04 19:05] LABS: Color, Urine Amber (Yellow); Glucose, Dipstick Normal (Normal); Ketone-Dipstick 5 mg/dl (Negative); Leukocyte Esterase-Dipstick 100 /ul (Negative); Nitrite-Dipstick Negative (Negative); Occult Blood-Urine 250 /ul (Negative); Protein-Dipstick 100 mg/dl (Negative); Specific Gravity, Urine 1.025 (1.002-1.030); Urine Bilirubin Dipstick Negative (Negative); Urine Clarity Cloudy (Clear); Urine Urobilinogen Normal (Normal)
[2022-04-04 19:15] LABS: Internal QC Validated? YES +Cl - CLEAR BKGD; Pregnancy, Serum, hCG Quali. NEGATIVE Negative
[2022-04-04 19:17] LABS: Anion Gap 7 (5-15); BUN 10 mg/dL (7-18); BUN/Creat Ratio 11.2 RATIO (10-20); Calcium,Total 9.4 mg/dL (8.5-10.1); Chloride 106 mmol/L (98-107); EST Glomerular Filtration Rate 74 mL/min (>60); Est Glom Filt Rate - Afr Amer 90 mL/min (>60); Estimated Creatinine Clearance 66.37 ml/min; Glucose 96 mg/dL (74-106); Potassium 3.4 mmol/L (3.5-5.1); Sodium Level 139 mmol/L (136-145)
[2022-04-04 19:20] LABS: Bacteria 2+ /hpf (None Seen); Red Blood Cells-Urine 25-50 SEEN /hpf (0-5); White Blood Cells 5-10 SEEN /hpf (0-5)
[2022-04-04 19:21] LABS: Mucous, Urine 3+ /hpf (<or=2+)
[2022-04-04] MEDS: Ondansetron 4 MG/2 ML Vial IV ×2 (19:24→22:06)
[2022-04-04] MEDS: Morphine 4 MG/ML Syringe IV (19:24)
[2022-04-04 20:00] VITALS: BP 140/88; PULSE 99; RESP 18; TEMP 36.6; O2SAT 97
[2022-04-04] MEDS: Heparin Injection (Vial) 5,000 UNIT/ML VIAL 7500 UNIT IV (20:46)
[2022-04-04] MEDS: HYDROmorphone 1 MG/ML Syringe IV ×3 (20:47→23:55)
--- NOTE | 2022-04-04 20:47 | ED.RN ---
called physicians the eta is 4 hours, talked to doctor he said to try and see if med flight would fly the patient, but with weather coming in they will check.
[2022-04-04 20:58] LABS: International Normalized Ratio 1.1; Prothrombin Time (Protime)PT. 13.8 SECONDS (11.7-14.9)
[2022-04-04 21:00] VITALS: BP 116/72; PULSE 95; RESP 17; TEMP 36.7; O2SAT 96
[2022-04-04] MEDS: HEPARIN/D5w 25,000 UNITS 25,000 UNITS/250 ML IV.SOLN. 14 UNITS CONT INF (21:01)
[2022-04-04] MEDS: 0.9% Normal Saline 1,000 ML 999 ML IV (21:01)
--- NOTE | 2022-04-04 21:57 | ED.RN ---
physicians ambulance called and eta for transport 1 hr
[2022-04-04 22:00] VITALS: BP 110/70; PULSE 96; RESP 17; O2SAT 96
[2022-04-05] VITALS: BP 141/84; PULSE 63; RESP 12; O2SAT 95
== END 2022-04-05 00:12 | disposition short-term general hospital (02) ==
LOC: ED 19:36
PROVIDERS: Emergency Provider Student in an Organized Health Care Education/Training Program; PCP Family Medicine; Visit Provider Student in an Organized Health Care Education/Training Program
DX: K55.069 Acute infarction of intestine, part and extent unspecified (principal)
CPT/HCPCS: 74177; 80048; 81001; 84703; 85025; 85610; 85730; 87811; 96365; 96366; 96375; 96376; 99284; J7030; Q9967; A4216; J2405

== ENCOUNTER 2023-11-10 13:49 | Emergency (ER) | payer OTHER, MEDICAID, SELFPAY ==
[2023-11-10 13:50] VITALS: BP 139/111; PULSE 107; RESP 18; TEMP 37.2; O2SAT 99; BMI 42.0
--- NOTE | 2023-11-10 14:23 | CT_ITS ---
INDICATION: Pain EXAMINATION: CT ABDOMEN AND PELVIS WITHOUT CONTRAST - CT Abdomen And Pelvis W/O Contrast Injection TECHNIQUE: Helically acquired images were obtained of the abdomen and pelvis without oral or IV contrast. A radiation dose optimization technique was used for this scan. IV Contrast dosage and agent: None. Oral contrast: None. RADIATION DOSAGE (If Supplied By Facility): CTDIvol = ( 21.19 ) mGy, DLP = ( 1074.57 ) mGycm COMPARISON: Prior study dated: 04/04/2022 FINDINGS: LOWER CHEST: Lung bases are clear. No cardiomegaly or pericardial effusion. LIVER: Homogeneous. No focal mass. GALLBLADDER AND BILIARY TREE: The gallbladder again is not visualized. No intra- or extrahepatic biliary ductal dilation. PANCREAS: No focal cystic or solid mass. SPLEEN: Normal size without focal cystic or solid mass. ADRENAL GLANDS: No nodules. KIDNEYS AND URETERS: 3 mm nonobstructing stone in the lower pole of the right kidney. No hydronephrosis. PERITONEUM: No ascites or free air. No other fluid collection. BOWEL: Previous appendectomy. No stomach or bowel distension. No focal inflammatory change. LYMPH NODES: No enlarged mesenteric or retroperitoneal lymph nodes. VESSELS: Aorta is non-dilated. URINARY BLADDER: Unremarkable. REPRODUCTIVE ORGANS: Bilateral adnexal cysts measuring about 3 cm on each side. ABDOMINAL WALL: No discrete abdominal or pelvic wall hernia. BONES: No lytic or blastic abnormality. CT/Abdomen/Pelvis without Cont IMPRESSION: 1. No focal acute inflammatory changes. 2. Small bilateral adnexal cysts. Electronically Signed: Khoi Foote MD at 15:08 EST ,
--- OUTSIDE RECORDS SUMMARY | 2023-11-10 14:25 | XMS RPT_ITS | CCD ---
Author Name Unknown Address [address] [place] [address] Organization [facility] Care Team Providers Care [employer] Name Role Phone Kyle Quick Unavailable Unavailable Kyle Quick Unavailable Unavailable No Doctor Assigned, Nodr Unavailable Unavail able Kyle Quick Unavailable Unavailable Kyle Quick Unavailable Unavailable No Doctor Assigned, Nodr Unavailable Unavail able Free, Text Entry Unavailable Unavailable Kyle Quick Unavailable NATASHA, DR OR[place] Diana Admitting Unavaila ble NATASHA, DR [place] Diana Primary Care Unavaila ble NATASHA, DR [place] Diana Attending Unavaila ble VACCAKBAR CROOKS Consulting Unavailable VACCARIAKBAR MARADIAGA Referring Unavailable PROVIDER, UNKNOWN Consulting Unavailable PROVIDER, UNKNOWN Consulting Unavailable PROVIDER, UNKNOWN Consulting Unavailable AKBAR MERCADO Consulting Unavailable CAPRICE FINLEY Admitting Unavailable CAPRICE FINLEY Primary Care Unavailable CAPRICE FINLEY Attending Unavailable PROVIDER, UNKNOWN Consulting Unavailable PROVIDER, UNKNOWN Consulting Unavailable PROVIDER, UNKNOWN Consulting Unavailable Akbar Mercado Primary Care Provider Caprice Finley PA-C Primary Care Provider CONSULT, SURGERY - GENERAL (EMERGENT) Consulting Unavailable MARTIN DICKENS Admitting Unavailable MARTIN DICKENS Attending Unavailable SELF, SELF Referring Unavailable Akbar Mercado Primary Care Provider Paulina Bowers Unavailable Unavailable Unavailable Dr. PAULINA BOWERS Referring Unava ilable ELISSA, Dr. PAULINA KRAFT Attending Unava ilable ELISSA, Dr. PAULINA KRAFT Primary Care Unava ilable ANITA JENSEN Attending Unavailable VACCARIAKBAR MARADIAGA Primary Care Unavai lable VACCTANMAYELLO, AKBAR WRAY Primary Care Manavai lablatanya MERCADO, AKBAR WRAY Primary Care Taisha NAVARRO, SANTI ALVAREZ Attending Manava ilable MELANIE, SANTI ALVAREZ Admitting Unava ilable Allergies Allergy Classification Reported Allergen(s) Allergy Type Date of Onset Reaction(s) Facility (1 source) Acetaminophen / oxyCODONE Drug Allergy Itching, Hives/Urticaria [facility] (1 source) Acetaminophen / oxyCODONE Drug Allergy [facility] Repository (4 sources) oxyCODONE; Translations: [OXYCODONE] Drug Allergy 2 Itching [facility] Medications Current Medications Medication Drug Class(es) Dates Sig (Normalized) Sig (Original) acetaminophen 325 mg oral tablet (3 sources) Start: 04-07-2022 End: 04-10-2022 take 2 tablets by mouth every six hours as needed acetaminophen 325 MG tablet Take 2 tablets by mouth every 6 hours as needed for up to 3 days. 24 tablet 0 04/07/2022 04/10/2022 Active Completed/Discontinued Medications Medication Drug Class(es) Dates Sig (Normalized) Sig (Original) acetaminophen 325 mg / oxyCODONE hydrochloride 5 mg oral tablet (3 sources) Opioid Agonist Start: 03-21-2022 take 1 tablet by mouth every four hours as needed oxyCODONE-acetamino phen (PERCOCET) 5-325 mg tablet Indications: Acute appendicitis with localized peritonitis, without perforation, abscess, or gangrene Take 1 tablet by mouth every 4 hours as needed. 30 tablet 0 03/21/2022 Active Problems Active Problems Problem Classification Problem Date Documented Da te Episodic/Chronic Allergic reactions (1 source) Allergic reaction; Translations: [Allergy, unspecified, not elsewhere classified] Episodic Anxiety disorders (6 sources) Anxiety; Translations: [Anxiety disorder, unspecified] Onset: 04-06-2022 04-06-2022 Chronic Appendicitis and other appendiceal conditions (1 source) Acute appendicitis with localized peritonitis; Translations: [Acute appendicitis with localized peritonitis, without perforation or gangrene] Episodic Immunizations and screening for infectious disease (4 sources) Exposure to streptococcal pharyngitis; Translations: [Contact with or exposure to other communicable diseases] Episodic Nausea and vomiting (3 sources) Nausea and vomiting; Translations: [Nausea with vomiting] Episodic Other injuries and conditions due to external causes (2 sources) Motion sickness; Translations: [Motion sickness] Episodic Other nutritional; endocrine; and metabolic disorders (10 sources) Body mass index 40+ - severely obese; Translations: [Body Mass Index 40.0-44.9, adult] Chronic Other upper respiratory infections (1 source) Bacterial sinusitis; Translations: [Chronic sinusitis, unspecified] Chronic Peripheral and visceral atherosclerosis (3 sources) Superior mesenteric vein thrombosis ; Translations: [Acute infarction of intestine, part and extent unspecified] Onset: 04-05-2022 Episodic Phlebitis; thrombophlebitis and thromboembolism (5 sources) H/O: Deep vein thrombosis; Translations: [Personal history of venous thrombosis and embolism] Episodic Superficial injury; contusion (1 source) Contusion of hand; Translations: [Contusion of hand(s)] 09-05-2021 Episodic Unclassified (2 sources) RT HAND INJURY 09-05-2021 Past or Other Problems Problem Classification Problem Date Documented Da te Episodic/Chronic Unclassified (1 source) BILATERAL MACROMASTIA Onset: 04-09-2023 Results Test Name Value Interpretation Reference Range Facil ity Vital Signs Date Time Vital Sign Value Performing Clinician Facility 08-28-2022 09:59-0500 Body height 157.48 cm Paulina Eun [employer] Work Phone: [facility] Work Phone: 08-28-2022 09:59-0500 Body mass index (BMI) [Ratio] 43.9 kg/m2 Paulnia Eun [employer] Work Phone: [facility] Work Phone: 08-28-2022 09:59-0500 Body surface area Derived from formula 2.07 m2 Paulina L [employer] Work Phone: [facility] Work Phone: 08-28-2022 09:59-0500 Body weight 108.86 kg Paulina L [employer] Work Phone: [facility] Work Phone: 08-28-2022 09:59-0500 Diastolic blood pressure 83 mm[Hg] Paulina L Oberhauser Work Phone: [facility] Work Phone: 08-28-2022 09:59-0500 Heart rate 83 /min Paulina L Oberhauser Work Phone: [facility] Work Phone: 08-28-2022 09:59-0500 Systolic blood pressure 133 mm[Hg] Paulina L Oberhauser Work Phone: [facility] Work Phone: 07-30-2022 10:04-0400 Body temperature 97.59 [degF] Bing Praisler-Alfonso SHRIMP HEADER.[employer] Work Phone: [facility] 07-30-2022 10:04-0400 Body weight 107.41 kg Bing Praisler-Wood SHRIMP HEADER.[employer] CONSULTANT SAL[employer] Work Phone: [facility] 07-30-2022 10:04-0400 Diastolic blood pressure 80 mm[Hg] Bing Praisler-Wood SHRIMP HEADER.[employer] CONSULTANT SAL[employer] Work Phone: [facility] 07-30-2022 10:04-0400 Heart rate 87 /min Bing Praisler-Wood SHRIMP HEADER.[employer] CONSULTANT SAL[employer] Work Phone: [facility] 07-30-2022 10:04-0400 Respiratory rate 18 /min Bing Praisler-Wood SHRIMP HEADER.FASHION CONSULTANT SALES Work Phone: [facility] 07-30-2022 10:04-0400 SaO2% (BldA) [Mass fraction] 97 % Bing Praisler-Wood SHRIMP HEADER.FASHION CONSULTANT SALES Work Phone: [facility] 07-30-2022 10:04-0400 Systolic blood pressure 118 mm[Hg] Bing Praisler-Wood SHRIMP HEADER.[employer]ASH[employer] CONSULTANT SALES Work Phone: [facility] 04-07-2022 09:46-0400 Body temperature 98.29 [degF] Reggie Major MD, PhD Work Phone: [facility] 04-07-2022 09:46-0400 Diastolic blood pressure 68 mm[Hg] Reggie Major MD, PhD Work Phone: [facility] 04-07-2022 09:46-0400 Heart rate 80 /min Reggie Major MD, PhD Work Phone: [facility] 04-07-2022 09:46-0400 Respiratory rate 18 /min Reggie Major MD, PhD Work Phone: [facility] 04-07-2022 09:46-0400 SaO2% (BldA) [Mass fraction] 95 % Reggie Major MD, PhD Work Phone: [facility] 04-07-2022 09:46-0400 Systolic blood pressure 116 mm[Hg] Reggie Major MD, PhD Work Phone: [facility] 04-05-2022 17:15-0400 Body height 157.5 cm Reggie Major MD, PhD Work Phone: [facility] 04-05-2022 17:15-0400 Body mass index (BMI) [Ratio] 41.92 kg/m2 Reggie Major MD, PhD Work Phone: [facility] 04-05-2022 17:15-0400 Body weight 103.96 kg Reggie Major MD, PhD Work Phone: [facility] 03-27-2022 13:27-0400 Body height 157.5 cm Moriah Borges PA-C Work Phone: [facility] 03-27-2022 13:27-0400 Body temperature 97.3 [degF] Moriah Jony PA-C Work Phone: [facility] 03-27-2022 13:27-0400 Body weight 107.05 kg Moriah [place] PA-C Work Phone: [facility] 03-27-2022 13:27-0400 Diastolic blood pressure 80 mm[Hg] Moriah [place] PA-C Work Phone: [facility] 03-27-2022 13:27-0400 Heart rate 103 /min Moriah Jony PA-C Work Phone: [facility] 03-27-2022 13:27-0400 SaO2% (BldA) [Mass fraction] 98 % Moriah Jony PA-C Work Phone: [facility] 03-27-2022 13:27-0400 Systolic blood pressure 118 mm[Hg] Moriah Jony PA-C Work Phone: [facility] 09-05-2021 16:04-0500 Body height 157.4 cm Text Entry Free [facility] 09-05-2021 16:04-0500 Body temperature 97.7 [degF] Text Entry Free [facility] 09-05-2021 16:04-0500 Diastolic blood pressure 85 mm[Hg] Text Entry Free [facility] 09-05-2021 16:04-0500 Heart rate 87 /min Text Entry Free [facility] 09-05-2021 16:04-0500 SaO2% (BldA) [Mass fraction] 95 % Text Entry Free [facility] 09-05-2021 16:04-0500 Systolic blood pressure 135 mm[Hg] Text Entry Free [facility] Encounters Encounter Date Encounter Type Care Provider Facility Start: 04-09-2023 End: 04-09-2023 ambulatory SANTI ALVAREZ [facility] Start: 12-05-2022 End: 12-05-2022 ambulatory AKBAR MERCADO Facility:[facility] Start: 11-22-2022 AUDIT Paulina Richard user Work Phone: [facility] Work Phone: Start: 11-10-2022 AUDIT Paulina Richard user Work Phone: [facility] Work Phone: Start: 10-27-2022 AUDIT Paulina Richard user Work Phone: [facility] Work Phone: Start: 08-28-2022 Office outpatient ne w 45 minutes Paulina L Elissa Work Phone: [facility] Work Phone: Start: 08-28-[address] PAULINA BOWERS Facility:[facility] Start: 07-30-2022 End: 07-30-2022 ambulatory AKBAR MERCADO Facility:[facility] Start: 07-30-2022 End: 07-30-2022 Patient encounter procedure Bing Bauer APRN.[employer]ASHION CONSULTANT SALES Work Phone: [facility] Procedures Date Procedure Procedure Detail Performing Clinician Start: 04-07-2022 CONTINUOUS CARDIAC MONITORING STRIP Other Other Start: 04-07-2022 Assay of magnesium Adi Mccarthy MD Start: 04-06-2022 CONTINUOUS CARDIAC MONITORING STRIP Other Other Start: 04-06-2022 Thromboplastin time partial plasma/whole blood Abdoulaye Moon MD Work Phone: Start: 04-06-2022 CONTINUOUS CARDIAC MONITORING STRIP Other Other Start: 04-05-2022 Assay of lipase Marcia Baldwin MD Work Phone: Start: 04-05-2022 Cardiolipin antibody each ig class Yisel Moore MD Work Phone: Start: 04-05-2022 EXTRA LIGHT BLUE TOP DOUBLE SPIN LUPUS Adi Mccarthy MD Start: 04-05-2022 LAWUP-PATH Adi Mccarthy MD Start: 04-05-2022 Fibrinogen activity Yisel sweet MD Work Phone: Start: 04-05-2022 EXTRA MICRO Collins Chaudhry Work Phone: Start: 04-05-2022 URINALYSIS REFLEX TO CULTURE Collins Wright MD Work Phone: Start: 04-05-2022 Urnls dip stick/tablet reagent auto microscopy Collins Wright MD Work Phone: Start: 04-05-2022 Thromboplastin time partial plasma/whole blood Kyle Lind MD Work Phone: Start: 04-05-2022 Assay of lactate Abdoulaye Moon MD Work Phone: Start: 04-05-2022 Assay of lipase Reggie street MD, PhD Work Phone: Start: 04-05-2022 CBC AND ELECTRONIC DIFF Reggie Bennett MD, PhD Work Phone: Start: 04-05-2022 Complete blood count with white cell differential, automated Reggie Major MD, PhD Work Phone: Start: 04-05-2022 DNA EXTRACTION, EZ1 Yisel sweet MD Work Phone: Start: 04-05-2022 F2 gene analysis [id number] >a variant Yisel Moore MD Work Phone: Start: 04-05-[address]UBE [address] MD, PhD Work Phone: Start: 04-05-2022 Hepatic function panel Reggie Nieves MD, PhD Work Phone: Start: 04-05-2022 JAK2 SUB-TEST, BLOOD Yisel arroyo MD Work Phone: Start: 04-05-[address] TUBE Reggie [address] MD, PhD Work Phone: Start: 04-05-2022 LT BLUE TOP TUBE Reggie street MD, PhD Work Phone: Start: 04-05-2022 MINT GREEN TOP TUBE Reggie street MD, PhD Work Phone: Start: 04-05-2022 MOLECULAR SUMMARY Yisel sweet MD Work Phone: Start: 04-05-[address] MD, PhD Work Phone: Appendectomy Paulina Vaughnhau ser Work Phone: Cholecystectomy Paulina Haq Johana ismael Work Phone: History of appendectomy S/P appe ndectomy, follow-up exam Moriah Borges PA-C Work Phone: Operative procedure on ankle Paulina Vaughnhauser Work Phone: Plan of Treatment Date Care Activity Detail Author Start: 06-01-2022 Influenza vaccination [facility] Start: 2021 DEPRESSION ASSESSMENT DEPRESSION ASSESSMENT [facility] Start: 2012 HPV TESTING HPV TESTING [facility] Start: 2003 PAP TESTING PAP TESTING [facility] Start: 2003 Screening for malignant neoplasm of cervix CERVICAL CANCER SCREENING DISCUSSION [facility] Start: 2001 Third diphtheria, tetanus and acellular pertussis (DTaP) vaccination TDAP (ADULT) [facility] Start: 2001 Urine microalbumin profile DTAP,TDAP,TD (1 - Tdap) [facility] Start: 2000 HEPATITIS C SCREENING HEPATITIS C SCREENING [facility] Start: 2000 HIV SCREENING HIV SCREENING [facility] Start: 2000 Tetanus vaccination TETANUS [facility] Start: 1997 HIV screening HIV SCREENING DISCUSSION [facility] Start: 1994 Adult depression screening assessment DEPRESSION SCREENING [facility] Start: 1987 COVID-19 VACCINE (#1) COVID-19 VACCINE (#1) [facility] Start: 03-31-1983 COVID-19 VACCINE (#1) COVID-19 VACCINE (#1) [facility] Start: 1982 HEPATITIS B (1 of 3 - 3-dose series) HEPATITIS B (1 of 3 - 3-dose series) [facility] Start: 1982 Hepatitis C antibody, confirmatory test [facility]PATIT[facility] SIX [employer]ORSE HITCH DRIVER, BLOOD CALR SIX HORSE HITCH DRIVER, BLOOD Lab Routine 04/05/2022 2:27 AM EDT [facility] CALR MUTATION ANALYS IS, MYELOPROLIFERATIVE NEOPLASM MPN, BLOOD, FINAL CALR MUTATION ANALYSIS, MYELOPROLIFERATIVE NEOPLASM MPN, BLOOD, FINAL Lab Routine 04/05/2022 2:27 AM EDT [facility] EXTRA LAVENDER TOP EXTRA LAVENDE R TOP Lab Routine 04/06/2022 6:08 AM EDT [facility] URINE Lab Routine 04/06/2022 6:12 AM EDT [facility] FACTOR V & PROTHROMB IN ANALYSIS, FINAL FACTOR V & PROTHROMBIN ANALYSIS, FINAL Lab Routine 04/05/2022 2:27 AM EDT [facility] FACTOR V LEIDEN, SIX HORSE HITCH DRIVER FACT OR V LEIDEN, SIX HORSE HITCH DRIVER Lab Routine 04/05/2022 2:27 AM EDT [facility] PI LINKED AG PI LINKED AG Lab Routine 04/06/2022 8:30 AM EDT [facility] Work Phone: PROTHROMBIN VARIANT, SIX HORSE HITCH DRIVER PROTHROMBIN VARIANT, SIX HORSE HITCH DRIVER Lab Routine 04/05/2022 2:27 AM EDT [facility] Payers Date Payer Category Payer Medicaid [id number] 2021 Unknown [id number] 2021 Unknown MMO MMO [employer] [id number] 2021-Present [phone] [address] [address] [place] [address] PPO [id number] 2017 Unknown 2016 Unknown [employer]M [employer]UE CARD PPO OOS [id number] 2016-Present [phone] [address] [place] [address] PPO [id number] 2016 Unknown [id number] 1982 Unknown [id number] 1982 Unknown [id number] 1982 Unknown [id number] 1982 Unknown [id number] 1982 Unknown [id number] Social History Date Type Detail Facility [facility] Tobacco smoking consumption unknown [facility] Start: 05-09-2015 End: 07-30-2022 Tobacco smoking status NHIS Never smoked tobacco [facility] Work Phone: Start: 05-09-2015 End: 07-30-2022 Tobacco use and exposure Smokeless tobacco non-user [facility] Work Phone: Start: 03-27-2022 End: 07-30-2022 Alcohol intake Not Asked [facility] Start: 1982 Sex Assigned At Not on file C [facility] Start: 03-17-2022 End: 04-05-2022 Exposure to SARS-CoV-2 (event) Not sure [facility] Start: 04-06-2022 Alcohol intake Current drinke r of alcohol (finding) [facility] Start: 04-06-2022 History SDOH Alcohol Comment Social [facility] Drinks caffeinated tea Drinks caffeinated tea -[facility] Work Phone: Clinical Notes 03-21-2022 to 12-05-2022 Bing Bauer APRN.[employer]ASHION CONSULTANT SALES - 07/30/2022 10:19 AM EDTPatient InstructionsNursing Notes - Collins Pedroza RN - 04/07/2022 1:23 PM EDTNursing Notes - Collins Pedroza RN - 04/07/2022 1:23 PM EDTAttachments Note Date & Type Note Facility 12-05-2022 Note HNO ID: [id number] Author: Bing Bauer APRN.[employer] CONSULTANT [employer] Service: ? Author Type: Nurse Practitioner Type: Progress Notes Filed: 12/05/2022 1:26 PM Note Text: Subjective Eye Problem Pertinent negatives include no chills, congestion, fever or rash. Viridiana Enrique is a 42 year old female who presents with bilateral eyelid itching for the past 5 days. She saw her PCP and she gave her allergy eye drops and prednisone to take. She took both of these and there was no improvement. Her eyes have not been itching or red, only the eyelids. She denies associated URI symptoms. Review of Systems Constitutional: Negative for chills and fever. HENT: Negative for congestion and ear pain. Eyes: Negative for blurred vision, double vision, pain, discharge and redness. See HPI Respiratory: Negative. Skin: Positive for itching. Negative for rash. BP 106/76 Pulse 86 Temp 36.6 ?C (97.8 ?F) (Tympanic) Resp 18 Wt 105.9 kg (233 lb 6.4 oz) LMP 01/06/2019 SpO2 99% BMI 42.69 kg/m? PAST MEDICAL HISTORY Diagnosis Date Depression Viral meningitis PAST SURGICAL HISTORY Procedure Laterality Date APPENDECTOMY 03/20/2022 LAPAROSCOPY SURG CHOLECYSTECTOMY Cholecystectomy, lap ALLERGIES Oxycodone MEDICATIONS sertraline (ZOLOFT) 50 mg tablet ondansetron (ZOFRAN) 8 mg tablet Take 1 tablet by mouth every 8 hours as needed for nausea/vomiting. (Patient not taking: Reported on 07/30/2022) oxyCODONE-acetaminophen (PERCOCET) 5-325 mg tablet Take 1 tablet by mouth every 4 hours as needed. (Patient not taking: Reported on 07/30/2022) naproxen (NAPROSYN) 500 mg tablet Take 1 tablet by mouth twice daily as needed (pain/inflammation, take with food.). (Patient not taking: Reported on 07/30/2022) FAMILY HISTORY Problem Relation Age of Onset Hypertension Mother Social History Tobacco Use Smoking status: Never Smokeless tobacco: Never Objective Physical Exam Vitals and nursing note reviewed. Constitutional: General: She is not in acute distress. Appearance: She is obese. She is not toxic-appearing. Eyes: General: Lids are normal. No allergic shiner. Right eye: No discharge. Left eye: No discharge. Conjunctiva/sclera: Right eye: Right conjunctiva is not injected. No chemosis. Left eye: Left conjunctiva is not injected. No chemosis. Comments: Patient states bilateral upper eyelids are itchy. No swelling or rash noted. Cardiovascular: Rate and Rhythm: Normal rate. Pulmonary: Effort: Pulmonary effort is normal. Skin: General: Skin is warm and dry. Findings: No erythema or rash. Neurological: Mental Status: She is alert. ASSESSMENT/PLAN: 1. Eyelid abnormality - ICD9: 374.9, ICD10: H02.9 - MOMETASONE 0.1 % TOPICAL CREAM - Follow-up with dermatology or your eye doctor in 3-5 days if symptoms have not improved or sooner if symptoms worsen - Discussed expected course of illness Bing Bauer APRN.FASHION CONSULTANT SALES [facility] 07-30-2022 Note HNO ID: [id number] Author: Bing Bauer APRN.PRAVIN Service: ? Author Type: Nurse Practitioner Type: Progress Notes Filed: 07/30/2022 10:28 AM Note Text: Subjective Sinus Problem Associated symptoms include congestion, coughing and headaches. Pertinent negatives include no chills, fever, myalgias or sore throat. Viridiana Enrique is a 41 year old female who presents with 2 weeks of cough, nasal congestion and drainage, sinus pressure and headache. States her teeth have been hurting the past couple days. She has been taking OTC cough and sinus medication. Review of Systems Constitutional: Negative for chills and fever. HENT: Positive for congestion and sinus pain. Negative for ear pain and sore throat. Respiratory: Positive for cough. Negative for shortness of breath and wheezing. Cardiovascular: Negative. Musculoskeletal: Negative for myalgias. Neurological: Positive for headaches. BP 118/80 Pulse 87 Temp 36.4 ?C (97.6 ?F) (Tympanic) Resp 18 Wt 107.4 kg (236 lb 12.8 oz) LMP 01/06/2019 SpO2 97% BMI 43.31 kg/m? PAST MEDICAL HISTORY Diagnosis Date Depression Viral meningitis PAST SURGICAL HISTORY Procedure Laterality Date APPENDECTOMY 03/20/2022 LAPAROSCOPY SURG CHOLECYSTECTOMY Cholecystectomy, lap ALLERGIES Oxycodone MEDICATIONS sertraline (ZOLOFT) 50 mg tablet amoxicillin-clavulanic acid (AUGMENTIN) 875-125 mg per tablet Take 1 tablet by mouth twice daily for 7 days. ondansetron (ZOFRAN) 8 mg tablet Take 1 tablet by mouth every 8 hours as needed for nausea/vomiting. (Patient not taking: Reported on 07/30/2022) oxyCODONE-acetaminophen (PERCOCET) 5-325 mg tablet Take 1 tablet by mouth every 4 hours as needed. (Patient not taking: Reported on 07/30/2022) naproxen (NAPROSYN) 500 mg tablet Take 1 tablet by mouth twice daily as needed (pain/inflammation, take with food.). (Patient not taking: Reported on 07/30/2022) FAMILY HISTORY Problem Relation Age of Onset Hypertension Mother Social History Tobacco Use Smoking status: Never Smokeless tobacco: Never Objective Physical Exam Vitals and nursing note reviewed. Constitutional: Appearance: She is obese. HENT: Right Ear: Tympanic membrane, ear canal and external ear normal. Left Ear: Tympanic membrane, ear canal and external ear normal. Nose: Nasal tenderness, mucosal edema, congestion and rhinorrhea present. Mouth/Throat: Mouth: Mucous membranes are moist. Pharynx: Oropharynx is clear. Uvula midline. No oropharyngeal exudate or posterior oropharyngeal erythema. Cardiovascular: Rate and Rhythm: Normal rate and regular rhythm. Heart sounds: Normal heart sounds. Pulmonary: Effort: Pulmonary effort is normal. No respiratory distress. Breath sounds: Normal breath sounds. No wheezing or rales. Musculoskeletal: Cervical back: Neck supple. Lymphadenopathy: Cervical: No cervical adenopathy. Skin: General: Skin is warm and dry. Findings: No erythema or rash. Neurological: Mental Status: She is alert. ASSESSMENT/PLAN: 1. Bacterial sinusitis - ICD9: 473.9, 041.9, ICD10: J32.9, B96.89 - Will begin treatment with Augmentin 875 mg PO BID for 7 days - Supportive care with plenty of fluids, rest, and analgesia prn. - AMOXICILLIN 875 MG-POTASSIUM CLAVULANATE 125 MG TABLET - Follow-up with your PCP in 3-5 days if symptoms have not improved or sooner if symptoms worsen - Discussed red flags and need for immediate medical evaluation if any occur. - Discussed supportive care treatment with fluids, rest and analgesia. - Discussed expected course of illness Bing Bauer APRN.[facility] 07-30-2022 History of Present illness Narrative Subjective Sinus Problem Associated symptoms include congestion, coughing and headaches. Pertinent negatives include no chills, fever, myalgias or sore throat. Viridiana Enrique is a 41 year old female who presents with 2 weeks of cough, nasal congestion and drainage, sinus pressure and headache. States her teeth have been hurting the past couple days. She has been taking OTC cough and sinus medication. Review of Systems Constitutional: Negative for chills and fever. HENT: Positive for congestion and sinus pain. Negative for ear pain and sore throat. Respiratory: Positive for cough. Negative for shortness of breath and wheezing. Cardiovascular: Negative. Musculoskeletal: Negative for myalgias. Neurological: Positive for headaches. BP 118/80 Pulse 87 Temp 36.4 C (97.6 F) (Tympanic) Resp 18 Wt 107.4 kg (236 lb 12.8 oz) LMP 01/06/2019 SpO2 97% BMI 43.31 kg/m PAST MEDICAL HISTORY Diagnosis Date Depression Viral meningitis PAST SURGICAL HISTORY Procedure Laterality Date APPENDECTOMY 03/20/2022 LAPAROSCOPY SURG CHOLECYSTECTOMY Cholecystectomy, lap ALLERGIES Oxycodone MEDICATIONS sertraline (ZOLOFT) 50 mg tablet amoxicillin-clavulanic acid (AUGMENTIN) 875-125 mg per tablet Take 1 tablet by mouth twice daily for 7 days. ondansetron (ZOFRAN) 8 mg tablet Take 1 tablet by mouth every 8 hours as needed for nausea/vomiting. (Patient not taking: Reported on 07/30/2022) oxyCODONE-acetaminophen (PERCOCET) 5-325 mg tablet Take 1 tablet by mouth every 4 hours as needed. (Patient not taking: Reported on 07/30/2022) naproxen (NAPROSYN) 500 mg tablet Take 1 tablet by mouth twice daily as needed (pain/inflammation, take with food.). (Patient not taking: Reported on 07/30/2022) FAMILY HISTORY Problem Relation Age of Onset Hypertension Mother Social History Tobacco Use Smoking status: Never Smokeless tobacco: Never Objective Physical Exam Vitals and nursing note reviewed. Constitutional: Appearance: She is obese. HENT: Right Ear: Tympanic membrane, ear canal and external ear normal. Left Ear: Tympanic membrane, ear canal and external ear normal. Nose: Nasal tenderness, mucosal edema, congestion and rhinorrhea present. Mouth/Throat: Mouth: Mucous membranes are moist. Pharynx: Oropharynx is clear. Uvula midline. No oropharyngeal exudate or posterior oropharyngeal erythema. Cardiovascular: Rate and Rhythm: Normal rate and regular rhythm. Heart sounds: Normal heart sounds. Pulmonary: Effort: Pulmonary effort is normal. No respiratory distress. Breath sounds: Normal breath sounds. No wheezing or rales. Musculoskeletal: Cervical back: Neck supple. Lymphadenopathy: Cervical: No cervical adenopathy. Skin: General: Skin is warm and dry. Findings: No erythema or rash. Neurological: Mental Status: She is alert. ASSESSMENT/PLAN: 1. Bacterial sinusitis - ICD9: 473.9, 041.9, ICD10: J32.9, B96.89 - Will begin treatment with Augmentin 875 mg PO BID for 7 days - Supportive care with plenty of fluids, rest, and analgesia prn. - AMOXICILLIN 875 MG-POTASSIUM CLAVULANATE 125 MG TABLET - Follow-up with your PCP in 3-5 days if symptoms have not improved or sooner if symptoms worsen - Discussed red flags and need for immediate medical evaluation if any occur. - Discussed supportive care treatment with fluids, rest and analgesia. - Discussed expected course of illness Bing Bauer APRN.[facility] documented in this encounter [facility] 07-30-2022 Instructions Bing Bauer APRN.[facility] - 07/30/2022 10:18 AM EDT ASSESSMENT/PLAN: 1. Bacterial sinusitis - ICD9: 473.9, 041.9, ICD10: J32.9, B96.89 - Will begin treatment with Augmentin 875 mg PO BID for 7 days - Supportive care with plenty of fluids, rest, and analgesia prn. - AMOXICILLIN 875 MG-POTASSIUM CLAVULANATE 125 MG TABLET - Follow-up with your PCP in 3-5 days if symptoms have not improved or sooner if symptoms worsen - Discussed red flags and need for immediate medical evaluation if any occur. - Discussed supportive care treatment with fluids, rest and analgesia. - Discussed expected course of illness Bing Bauer APRN.[employer] [facility] PATIENT INFO ACUTE SINUSITIS OVERVIEW Rhinosinusitis, or more commonly sinusitis, is the medical term for inflammation (swelling) of the lining of the sinuses and nose. The sinuses are the hollow areas within the facial bones that are connected to the nasal openings. The sinuses are lined with mucous membranes, similar to the inside of the nose. There are two main types of sinusitis: acute and chronic. Acute sinusitis is inflammation that lasts for less than four weeks while chronic sinusitis lasts for more than 12 weeks. Acute sinusitis is common, affecting approximately one million people per year in the [place]. ACUTE SINUSITIS CAUSES The most common cause of acute sinusitis is a viral infection associated with the common cold. Bacterial sinusitis occurs much less commonly, in only 0.5 to 2 percent of cases, usually as a complication of viral sinusitis. Because antibiotics are effective only against bacterial, and not viral, infections, most people do not need antibiotics for acute sinusitis. ACUTE SINUSITIS SYMPTOMS Symptoms of acute sinusitis include: Nasal congestion or blockage Thick, yellow to green discharge from the nose Pain in the teeth Pain or pressure in the face that is worse when bending forwards Other acute sinusitis symptoms can include fever (temperature greater than 100.4 F or 38 C), fatigue, cough, difficulty or inability to smell, ear pressure or fullness, headache, and bad breath. In most cases, these symptoms develop over the course of one day and begin to improve within seven to 10 days. DO I NEED TO BE EXAMINED? It is difficult to know if you have a viral or bacterial sinus infection initially. However, most people with a viral infection improve without treatment within seven to 10 days after symptoms begin. Bacterial sinusitis also sometimes improves without treatment, although it can also worsen and require treatment. If one or more of the following bothersome symptoms last more than seven days, an examination by a healthcare provider is recommended: Thick, yellow to green discharge from the nose Face or tooth pain, especially if it is only on one side Tenderness over the maxillary sinuses (located on the left and right side of the nose, inside the cheekbones) Symptoms that initially improve and then worsen When to seek immediate help -- If you have one or more of the following symptoms, you should seek medical attention immediately (even if symptoms have been present for less than seven days): High fever (>102.5 F or 39.2 C) Sudden, severe pain in the face or head Double vision or difficulty seeing Confusion or difficulty thinking clearly Swelling or redness around one or both eyes Stiff neck, shortness of breath ACUTE SINUSITIS TREATMENT Initial treatment of a sinus infection aims to relieve symptoms since almost everyone will improve within the first seven to 10 days. Experts recommend avoiding antibiotics during this time unless there is clear evidence of a severe bacterial infection. Initial treatment Pain relief -- Non-prescription pain medications, such as acetaminophen (eg, Tylenol ) or ibuprofen (eg, Motrin , Advil ) are recommended for pain. Nasal irrigation and saline sprays -- Rinsing the nose with a salt-water (saline) solution is called nasal irrigation or nasal lavage. Saline is also available in a standard nasal spray, although this is not as effective as using larger amounts of water in an irrigation. Nasal irrigation is particularly useful for treating drainage down the back of the throat, sneezing, nasal dryness, and congestion. The treatment helps by rinsing out allergens and irritants from the nose. Saline rinses also clean the nasal lining and can be used before applying sprays containing medications, to get a better effect from the medication. Nasal lavage with warmed saline can be performed as needed, once per day, or twice daily for increased symptoms. Nasal lavage carries few risks when performed correctly. Saline nasal sprays and irrigation kits can be purchased [id number]. Saline mixes can also be purchased or patients can make their own solution. A variety of devices, including bulb syringes, Neti pots, and bottle sprayers, may be used to perform nasal lavage; instructions for nasal lavage are provided in the table. At least 200 mL (about 3/4 cup) of fluid is recommended for each nostril. Nasal decongestants -- Nasal decongestant sprays, including oxymetazoline (Afrin ) and phenylephrine (Glenn-synephrine ) can be used to temporarily treat congestion. However, these sprays should not be used for more than two to three days due to the risk of rebound congestion (when the nose is congested constantly unless the medication is used repeatedly). Other treatments -- Other treatments for congestion, such as oral antihistamines (such as diphenhydramine/Benadryl ) or zinc supplements are not proven to improve symptoms of sinusitis and can have unwanted side effects. Medications to thin secretions (such as guaifenesin) may help to clear mucus. Secondline treatment -- If symptoms have not improved in seven to ten days, you should arrange for medical evaluation. You may need further treatment. Nasal glucocorticoids -- Nasal glucocorticoids (steroids delivered by a nasal spray) can help to reduce swelling inside the nose, usually within two to three days. These drugs have few side effects and dramatically relieve symptoms in most people. There are a number of nasal glucocorticoids available by prescription. These drugs are all effective, but differ in how frequently they must be used and how much they cost. You may need to use a nasal decongestant for a few days before starting a nasal glucocorticoid to reduce nasal swelling; this will allow the nasal glucocorticoid to reach more areas of the nasal passages Do I need an antibiotic? -- If bothersome symptoms of sinusitis persist for 10 or more days, it is possible that you have bacterial sinusitis. The need for antibiotics depends upon the severity of your symptoms. Mild symptoms -- There are two possible treatment options if you have mild sinusitis symptoms: treat with antibiotics or continue to watch and wait for one week. Watching and waiting is a reasonable option because up to 75 percent of people with bacterial sinusitis improve within one month without antibiotics. During the watch and wait period, treatments to improve symptoms are recommended. If symptoms worsen or do not improve after watching and waiting, treatment with an antibiotic is usually recommended. Treatments to relieve symptoms are recommended while using antibiotics. Moderate or severe symptoms -- Most healthcare providers will prescribe an antibiotic for moderate to severe symptoms (temperature >38.3 C or 101 F and/or severe pain that interferes with usual activities). Treatments to relieve symptoms are also recommended during antibiotic treatment. One of the least expensive and most effective antibiotics for sinusitis is amoxicillin. An alternate antibiotic will be prescribed if you are allergic to penicillin. Regardless of which antibiotic is prescribed, it is important to follow the dosing instructions carefully and to finish the entire course of treatment. Taking the medication less often than prescribed or stopping the medication early can lead to complications, such as a recurrent infection. What if I do not improve with treatment? -- If you do not improve or worsen after a course of antibiotics, you should be re-examined. In some cases, symptoms of sinusitis improve but then recur. This is usually because the infection was not completely eliminated by the antibiotic. An alternate antibiotic, extended antibiotic treatment, and/or further testing may be recommended, depending upon your individual situation. documented in this encounter [facility] 04-07-2022 Note Formatting of this n ote might be different from the original. Patient discharge home in stable condition with stable vital signs. Patient left with all personal belonging, discharge instructions, and scripts, IV access discontinued, all patient questions answered at this time. Patient assisted to vehicle by [facility] staff via wheelCollins gale [facility]07[facility] Miscellaneous Notes Patient discharge home in stable condition with stable vital signs. Patient left with all personal belonging, discharge instructions, and scripts, IV access discontinued, all patient questions answered at this time. Patient assisted to vehicle by [facility] staff via wheelchairCollins RN Problem: Patient Care Overview Goal: Plan of Care Review Outcome: Met This Shift Goal: Discharge Needs Assessment Outcome: Met This Shift Problem: Pain, Acute (Adult) Goal: Acceptable Pain Control/Comfort Level Description: Patient will demonstrate the desired outcomes by discharge/transition of care. Outcome: Met This Shift Flowsheets (Taken 04/07/2022 1320) Acceptable Pain Control/Comfort Level: making progress toward outcome Problem: Patient Care Overview Goal: Individualization & Mutuality Outcome: Ongoing Problem: Pain, Acute (Adult) Goal: Identify Related Risk Factors and Signs and Symptoms Description: Related risk factors and signs and symptoms are identified upon initiation of Human Response Clinical Practice Guideline (CPG) Outcome: Ongoing I certify that this patient requires inpatient services at this time. I anticipate the expected length of stay will include at least two midnights. Inpatient services are due to the following medical concerns 41 y.o. 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 Plans for post hospitalization care will be discharge to home vs home w/ [facility] pending PT/OT evaluation. 16:02 Called [id number] to get report from ED RN, Fransisca - No answer 16:05 Called [id number] to get report from ED RN, Fransisca - No answer 16:08 Called [id number] to get report from ED RN, Fransisca - No answer 16:12 Called [phone] to get report from ED RN, Fransisca - No answer On admission to [facility], from the ED a dual RN initial assessment of skin condition was performed by Brooklyn Crain RN and Jovany Matute RN. Skin Assessment: WDL LDA Added: N Brooklyn Crain RN Report given to Jeanne on the floor at this time. All questions and concerns addressed at this time. Spoke with charge master analyst in ED, who stated he would have Fransisca the bedside nurse call to give repot on patient to receiving bed side nurse textile converter attempted to call and receive report from ED RN, no answer. Will await call back documented in this encounter [facility] 04-07-2022 Note Formatting of this n ote might be different from the original. Problem: Patient Care Overview Goal: Plan of Care Review Outcome: Met This Shift Goal: Discharge Needs Assessment Outcome: Met This Shift Problem: Pain, Acute (Adult) Goal: Acceptable Pain Control/Comfort Level Description: Patient will demonstrate the desired outcomes by discharge/transition of care. Outcome: Met This Shift Flowsheets (Taken 04/07/2022 1320) Acceptable Pain Control/Comfort Level: making progress toward outcome Problem: Patient Care Overview Goal: Individualization & Mutuality Outcome: Ongoing Problem: Pain, Acute (Adult) Goal: Identify Related Risk Factors and Signs and Symptoms Description: Related risk factors and signs and symptoms are identified upon initiation of Human Response Clinical Practice Guideline (CPG) Outcome: Ongoing [facility] 04-07-2022 History of Present illness Narrative Patient discharged prior to hematology clinic appointment was scheduled. 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 After review of chart, Electronics Computer Mechanic has not identified needs at this time. Patient is expected to discharge in 2-3 days. Should discharge needs arise please place a consult order for case management. Risk of Readmission: 2.6 Category Reference: High:16-100 Mod-High:10-16 Mod-Low: 5-10 Low: 0-5 Hayley DOMINGO RN [facility] Clinical Electronics Computer Mechanic #[id number] Occupational Therapy Attempt Note 04/06/2022 OT Therapy Completed: Screen Pt declines need for occupational therapy services as she reports independence with activities of daily living and will have assist for IADL's at home. No further acute OT warranted at this time. OT sign off 04/06/22. Paulina Simmons OT Time In: 954 Time Out: 1000 Total Visit Time: 5 minutes Total Treatment Time (skilled, billable minutes): 0 minutes Acute Physical Therapy Evaluation Prior to Admission AMPAC score(s): PRIOR LEVEL AM-PAC Mobility Raw Score: 24 Current AM-PAC score(s): CURRENT AM-PAC Mobility Raw Score: 22 Based on the above AM-PAC score(s) and PT clinical judgment, patient is a good candidate for discharge to Home Barriers to discharge home: Pain management concerns Mobility equipment available at home: none used ADL equipment available at home: Equipment needed for discharge: none Current therapy frequency recommendation in acute: Therapy Frequency: no therapy warranted Precautions and Weightbearing Status: Patient Safety Communication Prior to Visit: Nursing Respiratory Status O2 Device: room air Subjective: Pt pleasant and agreeable to PT session. Pain: General Pain Documentation (Adult, OB, Peds) Presence of Pain: complains of pain/discomfort Pain Location: abdomen, back DVPRS (Defense and Veterans Pain Rating Scale) DVPRS: Rest: 7- severe pain DVPRS: Activity: 8- severe pain Home Setting Residence: House Lives With: spouse, dependent child(lan) (kids ages 12, 9, and 5 years old) Second floor setup: bedroom, walk in shower Number of stairs to enter home: 4 Number of stairs in home: 12 Stair Railings at Home: entry - with rail, interior - with rail Mobility Equipment Available: none used Previous Level of Function Ambulation Skills: independent Level of Ambulation: community Objective/Observation: Vitals/Vitals Responses to Treatment: Vitals not assessed this session; no adverse event to warrant vitals assessment. Cognition Overall Cognitive Status: Within Functional Limits Arousal/Alertness: Appropriate responses to stimuli Orientation Level: Oriented X4 Following Commands: Follows all commands and directions without difficulty Vision Screen Currently wearing corrective lenses: Yes Speech Speech: no gross deficits noted Successful Methods (Communication Strategies): verbal speech Hearing Hearing: no gross deficits noted Extremity Assessments: RUE Assessment RUE Assessment: Within Functional Limits LUE Assessment LUE Assessment: Within Functional Limits RLE Assessment RLE Assessment: Within Functional Limits LLE Assessment LLE Assessment: Within Functional Limits Sensation Overall Sensation: Intact Skin Integrity Skin Integrity Description: WFL (visible areas) Edema Edema: none noted Mobility Assessment: Supine to Sit Mobility [place] Level: Supine->Sit: modified independence Bed Features/Set-up: Supine->Sit: Use of bed rail, Head of bed elevated Balance: Sitting Balance Static Sitting-Level of Assistance: Independent Dynamic Sitting-Level of Assistance: Independent Standing Balance Static Standing-Level of Assistance: Supervision, Independent Dynamic Standing-Level of Assistance: Supervision Transfer Assessment: Sit to Stand Transfer [place] Level: Sit->Stand: (supervision - I) Stand to Sit Transfer [place] Level: Stand->Sit: (supervision - I) Gait/Functional Mobility: Gait Assessment [place] Level: Gait: supervision Gait Distance (feet): 100 Gait Deviations Identified: decreased gait speed, decreased curtis Gait Skilled Rationale: verbal Skilled Intervention/Details - Gait: pt denies need for cane/WW Wheelchair Assessment Patient currently uses wheelchair?: No Stairs: Stairs Assessment [place] Level: Stair Negotiation: supervision Assistive Device: Stair Negotiation: right rail (ascending) Number of stairs: 6 Stairs Skilled Rationale: verbal, nonreciprocal pattern, reciprocal pattern Outcome Score(s): CURRENT [facility] Basic Mobility Inpatient Short Form Turning over in bed: 4 - No Assistance Sitting/standing from chair: 4 - No Assistance Moving from lying on back to sittin - No Assistance Moving to and from bed to chair: 4 - No Assistance Walk in hospital room: 3 - A Little Assistance Climbing 3-5 steps with a railin - A Little Assistance CURRENT [facility] Mobility Raw Score: 22 CURRENT [facility] Mobility Functional Limitation/Modifier: 20.91% Currently Impaired in Basic Mobility - CJ Assessment & Plan: Patient was admitted for with a 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 Pt presents as a transfer from [facility], where she was seen earlier today and found to have an SMV thrombus on CT and seen for therapy evaluation related to impaired functional mobility/abd/back pain. Pt Supervision - Independent with all transfers/gait/stairs without assistive device at this time. pt limited by decreased endurance and abd/back pain. PT reviewed importance of OOB activity/hallway gait at least 2-3 times/day with the pt to help improve her endurance and help manage her pain. Pt displayed understanding and reports she will comply with this mobility program. Current clinical presentation is Stable - unchanging or predictable (Low). Plan for next session: No acute care PT warranted. Acute PT Goals Notes from 04/05/2022 10:50 PM through 04/06/2022 10:50 AM All below goals are written for this pt to improve his/her mobility by discharge. 1. Educate pt on importance of OOB activity/hallway gait at least 2-3 times/day and pt display understanding - met. Evaluating Therapist: Danyelle Chang PT Additional Details: Co-evaluation/co-treatment performed?: No simultaneous skilled care performed I used facemask, protective eye shield, and gloves in today's patient interaction. Evaluation Complexity Components History: Moderate (1-2 personal factors and/or comorbidities) Body Systems Review: Low (Addressing 1-2 elements) Clinical Presentation: Stable - unchanging or predictable (Low) Clinical Decision Making: Low Time In: 718 Time Out: 727 Total Visit Time: 9 minutes Total Treatment Time (skilled, billable minutes): 9 minutes Patient location at end of session: edge of bed Alarms on at end of session: none and RN aware Needs in reach. Upon discontinuation of Acute Care Physical Therapy Services or patient discharge from the hospital this note represents the current Physical Therapy Discharge Summary. documented in this encounter [facility] 04-07-2022 Hospital Discharge instructions Yisel Moore MD - 04/07/2022 12:20 PM EDT - Continue taking Xarelto for 6 months. Follow up with your PCP 1-2 weeks after discharge (and after completion of 6 months of treatment) The following attachments cannot be sent through Care Everywhere.rivaroxaban (Malay)documented in this encounter [facility] 04-06-2022 Consult note Associated Order (s): IP CONSULT TO HEMATOLOGY HEMATOLOGY CONSULT INITIAL EVALUATION IDENTIFICATION PATIENT: Viridiana Enrique ADMIT DATE: 04/05/2022 TIME OF EVALUATION: 04/06/2022 1:21 PM HOSPITAL STAY: LOS: 1 day CONSULTING SERVICE: Hematology REASON FOR CONSULTATION: 41F hx unprovoked DVT, now with SMV thrombus on heparin. hypercoagulable work up pending. please eval for recs, thanks! HISTORY OF PRESENT ILLNESS Viridiana Enrique is a 41 y.o. female with a PMH of unprovoked proximal LLE DVT (2015), cholecystectomy and anxiety who presented with three days of nausea, vomiting, and worsening abdominal pain. Pt had an unprovoked proximal LE DVT around 2015 and was put on Xarelto for 3 months. Prior to this hospitalization, she was not on any anticoagulations. On 03/20/22, Ms. Enrique underwent appendectomy for acute appendicitis. On 04/02/22, began experiencing mild epigastric which worsened over the course of 2 days. Pain is a 10/10 stabbing pain, radiating along her right flank and around to her back. 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 She was placed on heparin gtt and transferred to [facility]. She states that she has been on a combined progesterone-estrogen OCP (norgestimate ethinyl estradiol) for a year now. She stopped taking it after presenting to OSH for this SMV thrombosis. She has no history of miscarriages or other clotting complications. PAST MEDICAL, SURGICAL, FAMILY, and SOCIAL HISTORY Past Medical History: Diagnosis Date Anxiety Past Surgical History: Procedure Laterality Date APPENDECTOMY LAPAROSCOPIC N/A 03/20/2022 acute appendicitis at OSH CHOLECYSTECTOMY Family History Problem Relation Age of Onset Bleeding or Clotting Problems Maternal Grandfather clotting issue (unknown) Social History Socioeconomic History Marital status: MEDICATIONS SCHEDULED: acetaminophen (TYLENOL) tablet 650 mg, 650 mg, Q4H sertraline (ZOLOFT) tablet 100 mg, 100 mg, Daily FLUIDS/DRIPS: heparin infusion PRNs: acetaminophen, 650 mg, Q6H PRN alum/mag hydrox.-simethicone, 30 mL, Q6H PRN benzocaine-menthol, 1 lozenge, Q2H PRN guaiFENesin, 400 mg, Q6H PRN HYDROmorphone, 0.5 mg, Q3H PRN melatonin, 6 mg, QHS PRN ondansetron 4mg/2ml, 4 mg, Q6H PRN Or ondansetron, 4 mg, Q6H PRN oxyCODONE, 5 mg, Q4H PRN polyethylene glycol, 17 g, Daily PRN Polyvinyl Alcohol-Povidone PF, 1 drop, Q1H PRN prochlorperazine, 10 mg, Q6H PRN sodium chloride 0.9%, 250 mL, PRN ALLERGIES: She has no allergies on file. REVIEW OF SYSTEMS CONSTITUTIONAL: chills and sweats SKIN: No rash, itching, lesions, bruises, ulcers. HENT: No congestion, rhinorrhea, or sore throat. EYES: No blurry or diminished vision. CARDIOVASCULAR: No chest pain, palpitations. RESPIRATORY: No cough or shortness of breath. GASTROINTESTINAL: Nausea, Vomiting, Diarrhea, Abdominal Pain GENITOURINARY: No dysuria, frequency, hesitancy, hematuria. MUSCULOSKELETAL: No joint pains, no decreased range of motion. NEUROLOGICAL: No dizziness or headaches, no weakness. PSYCHIATRIC: Anxiety, no depression ALLERGY/IMMUNOLOGY: No history of environmental allergies or urticaria. ENDOCRINE: No polydipsia or polyuria, no cold/heat intolerance. HEME: No easy bruising or easy bleeding. OBJECTIVE DATA Temp: [97.5 F (36.4 C)-98.5 F (36.9 C)] 97.5 F (36.4 C) Pulse (Heart Rate): [66-94] 66 Resp Rate: [16-20] 16 BP: (101-162)/(62-102) 101/64 O2 Sat (%): [92 %-98 %] 96 % Weight: [104 kg (229 lb 3.2 oz)] 104 kg (229 lb 3.2 oz) I/O last 3 completed shifts: In: 108.6 [I.V.:108.6] Out: 200 [Urine:200] Oxygen Therapy: Oxygen Therapy O2 Sat (%): 96 % O2 Device: room air Oxygen Concentration (%): 2 Oxygen Delivery/Consumption Hemodynamics BSA (Calculated - sq m): 2.03 m2 Physical Exam: Gen: NAD, A&Ox4, well appearing, responds appropriately HEENT: atraumatic, normocephalic, face symmetric, EOMI, sclerae anicteric, mucous membranes moist, normal oral mucosa and dentition Resp: reduced breath sounds, no visible chest wall deformities, non-labored breathing, CTAB, no wheezes/crackles/rales CV: RRR, normal S1/S2, no murmurs/rubs/gallops GI: soft, tender on palpation and rebound tenderness, non-distended, NABS, no guarding Ext: warm and well perfused, pulses intact, no LE edema, no clubbing or cyanosis Skin: intact, no rashes/bruises/ulcers Neuro: A&Ox4, speech fluent, CN II-XII grossly intact Body mass index is 41.92 kg/m . LABS AND IMAGING CBC Lab Results Component Value Date WBC 8.78 04/05/2022 HGB 11.5 04/05/2022 HCT 35.3 04/05/2022 PLATELET 224 04/05/2022 MCV 89.1 04/05/2022 EDIF Lab Results Component Value Date RBCDISTRIBU 12.7 04/05/2022 GRNLOCYT 62.5 04/05/2022 LYMPHOCYT 27.2 04/05/2022 MONOCYTELEC 6.1 04/05/2022 EOSINOPHILS 3.1 04/05/2022 BASOPHILS 0.8 04/05/2022 LYMPHOCYTABS 2.82 04/05/2022 EOSINOPHLABS 0.32 04/05/2022 PLATELET 224 04/05/2022 MPV 10.3 04/05/2022 Last 3 Hemoglobin Lab Results Component Value Date HGB 11.5 04/05/2022 HGB 12.4 04/05/2022 Last 3 WBC Lab Results Component Value Date WBC 8.78 04/05/2022 WBC 10.35 04/05/2022 Last 3 Platelets Lab Results Component Value Date PLATELET 224 04/05/2022 PLATELET 239 04/05/2022 No results found for: RETIC, RETICABS No results found for: IRON, FERRITIN No results found for: HAPTOGLOBIN Chemistry Bun/Creat/Cl/CO2/Glucose: 9/0.72/107/24/81 (04/05 2357) Na/K+/Phos/Mg/Ca: 140/3.5/3.2/2.0/-- (04/05 2357) Lab Results Component Value Date ALT 8 (L) 04/05/2022 AST 15 04/05/2022 ALKPHOS 79 04/05/2022 BILITOTAL 0.4 04/05/2022 BILIDIRECT <0.1 04/05/2022 No results found for: LDH Coagulation Studies Lab Results Component Value Date PT 13.8 04/05/2022 PTT 86.7 (H) 04/06/2022 INR 1.1 04/05/2022 Lab Results Component Value Date FIBRINOGEN 555 (H) 04/05/2022 Imaging 04/04/22 CT Abdomen/Pelvis with contrast: 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 Pt has been on combined progesterone/estregon OCP and had acute appendicitis s/p appendectomy 2 weeks prior to presentation (03/20/22). 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 Due to history of unprovoked DVT in 2016 and current provoked SMV thrombus, would recommend lifelong anticoagulation. Would not recommend hypercoagulablity workup inpatient in the setting of acute thrombosis due to consumption of protein C / S and antithrombin III and potential false elevation of lupus anticoagulant. Would recommend hypercoagulability workup in the outpatient setting. Estrogen-based OCP is a mild pro-thrombotic risk factor. Recommend switching to progesterone OCP or non-estrogen contraception. Can continue estrogen-based OCP IF patient is on full dose of anticoagulation. In terms of anticoagulation, would recommend switching from heparin to DOAC if that is okay from perspective of acute care surgery team. Pt needs to be on full dose Xarelto for at least 6 months with peak and trough monitoring at anticoagulation clinic. RECOMMENDATIONS: - do not recommend hypercoagulability workup in the acute setting due to unreliable results - will place referral for hematology outpatient appointment - recommend switching to Xarelto if acceptable from ACS standpoint - will need loading dose followed by maintenance - Xarelto for at least 6 months with outpatient peak and trough monitoring at anticoag clinic - recommend switching to [id number] contraception - okay to continue estrogen-based OCP as long as also taking full dose of Xarelto / anticoagulant This consult was discussed with Dr. Lui, the attending physician. If you have any questions or need any further information, please feel free to contact the Hematology Consult Service. Our pager number is found under the heading IM Consult Serv Hematology on [email or web address]. Thank you for allowing us to participate in the care of Viridiana Enrique. Laly Jones MS3 Associated attestation - David Carrasquillo MD - 04/06/2022 10:17 PM EDT I saw the patient independently and did a history physical exam review of the records and labs. I discussed the plan on rounds and with MS3. Robert and reviewed his note. I concur with the history physical and plan of care. 41 yo F with previous history of unprovoked LLE DVT (2016) s/p rivaroxaban x 3 months. 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 Patient is also on OCPs and has a history of thrombosis on maternal grandfather (apparently first event occurred in youth). We will recommend patient to transition OCPs to progesterone based. Will require anticoagulation t least x 6 months before determining. 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 Patient should be followed at 6 months from anticoagulation to determine length of anticoagulation. David Chavez MD Hematology [facility] 04-06-2022 Consult note Associated Order (s): IP CONSULT TO HEMATOLOGY HEMATOLOGY CONSULT INITIAL EVALUATION IDENTIFICATION PATIENT: Viridiana Enrique ADMIT DATE: 04/05/2022 TIME OF EVALUATION: 04/06/2022 1:21 PM HOSPITAL STAY: LOS: 1 day CONSULTING SERVICE: Hematology REASON FOR CONSULTATION: 41F hx unprovoked DVT, now with SMV thrombus on heparin. hypercoagulable work up pending. please eval for recs, thanks! HISTORY OF PRESENT ILLNESS Viridiana Enrique is a 41 y.o. female with a PMH of unprovoked proximal LLE DVT (2015), cholecystectomy and anxiety who presented with three days of nausea, vomiting, and worsening abdominal pain. Pt had an unprovoked proximal LE DVT around 2015 and was put on Xarelto for 3 months. Prior to this hospitalization, she was not on any anticoagulations. On 03/20/22, Ms. Enrique underwent appendectomy for acute appendicitis. On 04/02/22, began experiencing mild epigastric which worsened over the course of 2 days. Pain is a 10/10 stabbing pain, radiating along her right flank and around to her back. 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 She was placed on heparin gtt and transferred to [facility]. She states that she has been on a combined progesterone-estrogen OCP (norgestimate ethinyl estradiol) for a year now. She stopped taking it after presenting to OSH for this SMV thrombosis. She has no history of miscarriages or other clotting complications. PAST MEDICAL, SURGICAL, FAMILY, and SOCIAL HISTORY Past Medical History: Diagnosis Date Anxiety Past Surgical History: Procedure Laterality Date APPENDECTOMY LAPAROSCOPIC N/A 03/20/2022 acute appendicitis at OSH CHOLECYSTECTOMY Family History Problem Relation Age of Onset Bleeding or Clotting Problems Maternal Grandfather clotting issue (unknown) Social History Socioeconomic History Marital status: MEDICATIONS SCHEDULED: acetaminophen (TYLENOL) tablet 650 mg, 650 mg, Q4H sertraline (ZOLOFT) tablet 100 mg, 100 mg, Daily FLUIDS/DRIPS: heparin infusion PRNs: acetaminophen, 650 mg, Q6H PRN alum/mag hydrox.-simethicone, 30 mL, Q6H PRN benzocaine-menthol, 1 lozenge, Q2H PRN guaiFENesin, 400 mg, Q6H PRN HYDROmorphone, 0.5 mg, Q3H PRN melatonin, 6 mg, QHS PRN ondansetron 4mg/2ml, 4 mg, Q6H PRN Or ondansetron, 4 mg, Q6H PRN oxyCODONE, 5 mg, Q4H PRN polyethylene glycol, 17 g, Daily PRN Polyvinyl Alcohol-Povidone PF, 1 drop, Q1H PRN prochlorperazine, 10 mg, Q6H PRN sodium chloride 0.9%, 250 mL, PRN ALLERGIES: She has no allergies on file. REVIEW OF SYSTEMS CONSTITUTIONAL: chills and sweats SKIN: No rash, itching, lesions, bruises, ulcers. HENT: No congestion, rhinorrhea, or sore throat. EYES: No blurry or diminished vision. CARDIOVASCULAR: No chest pain, palpitations. RESPIRATORY: No cough or shortness of breath. GASTROINTESTINAL: Nausea, Vomiting, Diarrhea, Abdominal Pain GENITOURINARY: No dysuria, frequency, hesitancy, hematuria. MUSCULOSKELETAL: No joint pains, no decreased range of motion. NEUROLOGICAL: No dizziness or headaches, no weakness. PSYCHIATRIC: Anxiety, no depression ALLERGY/IMMUNOLOGY: No history of environmental allergies or urticaria. ENDOCRINE: No polydipsia or polyuria, no cold/heat intolerance. HEME: No easy bruising or easy bleeding. OBJECTIVE DATA Temp: [97.5 F (36.4 C)-98.5 F (36.9 C)] 97.5 F (36.4 C) Pulse (Heart Rate): [66-94] 66 Resp Rate: [16-20] 16 BP: (101-162)/(62-102) 101/64 O2 Sat (%): [92 %-98 %] 96 % Weight: [104 kg (229 lb 3.2 oz)] 104 kg (229 lb 3.2 oz) I/O last 3 completed shifts: In: 108.6 [I.V.:108.6] Out: 200 [Urine:200] Oxygen Therapy: Oxygen Therapy O2 Sat (%): 96 % O2 Device: room air Oxygen Concentration (%): 2 Oxygen Delivery/Consumption Hemodynamics BSA (Calculated - sq m): 2.03 m2 Physical Exam: Gen: NAD, A&Ox4, well appearing, responds appropriately HEENT: atraumatic, normocephalic, face symmetric, EOMI, sclerae anicteric, mucous membranes moist, normal oral mucosa and dentition Resp: reduced breath sounds, no visible chest wall deformities, non-labored breathing, CTAB, no wheezes/crackles/rales CV: RRR, normal S1/S2, no murmurs/rubs/gallops GI: soft, tender on palpation and rebound tenderness, non-distended, NABS, no guarding Ext: warm and well perfused, pulses intact, no LE edema, no clubbing or cyanosis Skin: intact, no rashes/bruises/ulcers Neuro: A&Ox4, speech fluent, CN II-XII grossly intact Body mass index is 41.92 kg/m . LABS AND IMAGING CBC Lab Results Component Value Date WBC 8.78 04/05/2022 HGB 11.5 04/05/2022 HCT 35.3 04/05/2022 PLATELET 224 04/05/2022 MCV 89.1 04/05/2022 EDIF Lab Results Component Value Date RBCDISTRIBU 12.7 04/05/2022 GRNLOCYT 62.5 04/05/2022 LYMPHOCYT 27.2 04/05/2022 MONOCYTELEC 6.1 04/05/2022 EOSINOPHILS 3.1 04/05/2022 BASOPHILS 0.8 04/05/2022 LYMPHOCYTABS 2.82 04/05/2022 EOSINOPHLABS 0.32 04/05/2022 PLATELET 224 04/05/2022 MPV 10.3 04/05/2022 Last 3 Hemoglobin Lab Results Component Value Date HGB 11.5 04/05/2022 HGB 12.4 04/05/2022 Last 3 WBC Lab Results Component Value Date WBC 8.78 04/05/2022 WBC 10.35 04/05/2022 Last 3 Platelets Lab Results Component Value Date PLATELET 224 04/05/2022 PLATELET 239 04/05/2022 No results found for: RETIC, RETICABS No results found for: IRON, FERRITIN No results found for: HAPTOGLOBIN Chemistry Bun/Creat/Cl/CO2/Glucose: 9/0.72/107/24/81 (04/05 2357) Na/K+/Phos/Mg/Ca: 140/3.5/3.2/2.0/-- (04/05 2357) Lab Results Component Value Date ALT 8 (L) 04/05/2022 AST 15 04/05/2022 ALKPHOS 79 04/05/2022 BILITOTAL 0.4 04/05/2022 BILIDIRECT <0.1 04/05/2022 No results found for: LDH Coagulation Studies Lab Results Component Value Date PT 13.8 04/05/2022 PTT 86.7 (H) 04/06/2022 INR 1.1 04/05/2022 Lab Results Component Value Date FIBRINOGEN 555 (H) 04/05/2022 Imaging 04/04/22 CT Abdomen/Pelvis with contrast: 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 Pt has been on combined progesterone/estregon OCP and had acute appendicitis s/p appendectomy 2 weeks prior to presentation (03/20/22). 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 Due to history of unprovoked DVT in 2016 and current provoked SMV thrombus, would recommend lifelong anticoagulation. Would not recommend hypercoagulablity workup inpatient in the setting of acute thrombosis due to consumption of protein C / S and antithrombin III and potential false elevation of lupus anticoagulant. Would recommend hypercoagulability workup in the outpatient setting. Estrogen-based OCP is a mild pro-thrombotic risk factor. Recommend switching to progesterone OCP or non-estrogen contraception. Can continue estrogen-based OCP IF patient is on full dose of anticoagulation. In terms of anticoagulation, would recommend switching from heparin to DOAC if that is okay from perspective of acute care surgery team. Pt needs to be on full dose Xarelto for at least 6 months with peak and trough monitoring at anticoagulation clinic. RECOMMENDATIONS: - do not recommend hypercoagulability workup in the acute setting due to unreliable results - will place referral for hematology outpatient appointment - recommend switching to Xarelto if acceptable from ACS standpoint - will need loading dose followed by maintenance - Xarelto for at least 6 months with outpatient peak and trough [facility] - recommend switching to [id number] contraception - okay to continue estrogen-based OCP as long as also taking full dose of Xarelto / anticoagulant This consult was discussed with Dr. Lui, the attending physician. If you have any questions or need any further information, please feel free to contact the Hematology Consult Service. Our pager number is found under the heading IM Consult Serv Hematology on [email or web address]. Thank you for allowing us to participate in the care of Viridiana Enrique. Laly Jones, MS3 Associated attestation - David Carrasquillo MD - 04/06/2022 10:17 PM EDT I saw the patient independently and did a history physical exam review of the records and labs. I discussed the plan on rounds and with MS3. Robert and reviewed his note. I concur with the history physical and plan of care. 41 yo F with previous history of unprovoked LLE DVT (2015) s/p rivaroxaban x 3 months. 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 Patient is also on OCPs and has a history of thrombosis on maternal grandfather (apparently first event occurred in youth). We will recommend patient to transition OCPs to progesterone based. Will require anticoagulation t least x 6 months before determining. 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 Patient should be followed at 6 months from anticoagulation to determine length of anticoagulation. David Chavez MD Hematology documented in this encounter [facility] 04-06-2022 Note Formatting of this n ote might be different from the original. I certify that this patient requires inpatient services at this time. I anticipate the expected length of stay will include at least two midnights. Inpatient services are due to the following medical concerns 41 y.o. 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 Plans for post hospitalization care will be discharge to home vs home w/ HHC pending PT/OT evaluation. [facility] 04-05-2022 Note Formatting of this n ote might be different from the original. 16:02 Called [phone] to get report from ED RN, Fransisca - No answer 16:05 Called [phone] to get report from ED RN, Fransisca - No answer 16:08 Called [phone] to get report from ED RN, Fransisca - No answer 16:12 Called [phone] to get report from ED RN, Fransisca - No answer [facility] 04-05-2022 Note Formatting of this n ote might be different from the original. On admission to [facility], from the ED a dual RN initial assessment of skin condition was performed by Brooklyn Crain RN and Jovany Matute RN. Skin Assessment: WDL LDA Added: N Brooklyn Crain RN [facility] 04-05-2022 Note Formatting of this n ote might be different from the original. Report given to Jeanne on the floor at this time. All questions and concerns addressed at this time. [facility] 04-05-2022 Note Formatting of this n ote might be different from the original. Spoke with charge master analyst in ED, who stated he would have Fransisca the bedside nurse call to give repot on patient to receiving bed side nurse [facility] 04-05-2022 Note Formatting of this n ote might be different from the original. textile converter attempted to call and receive report from ED RN, no answer. Will await call back [facility] 04-05-2022 Emergency department Note Call to the floor to give report at this time. They will have to call me back. [facility] 04-05-2022 Emergency department Note Call to the floor to give report at this time. They will have to call me back. Pt was laying on cot tearful at this time. Inquired about same and she stated, I have just been here so long and I am so tired. Pt stated she is still in pain of 9/10 and PO medication did not help. ERP notified of same. Pt medicated for pain at this time per MAR. Pt has c/o pain of 8/10 at this time. Pt is able to ambulate to the bathroom with slow steady gait. Pt is A/O x4. NAD. Denies NVD. Pt resting on bed. No c/o at this time. Heparin gtt running at ordered dose. See MAR for details. NAD. A/Ox4. Able to make own needs known. ED ATTENDING NOTE Please see resident notes from this encounter for additional information. I saw and examined the patient. I discussed the history and examination with the resident and agree with the plan of care unless otherwise indicated. RELEVANT HPI: Viridiana Enrique is a 41 y.o. female has no past medical history on file.; she presents with chief complaint of Abdominal Pain (Occlusion of mesenteric vein ) Patient with appendectomy 2 weeks represented to outside hospital with concerns for worsening abodminal pain x2 days with associated nbnb emesis and watery diarrhea. Had a CT obtained demonstrating mesenteric vein occlusion. Started on heparin and transferred. Received pain meds, zofra, and 1L NS bolus. No fevers/chills, dysuria. ROS A review of systems was obtained and is negative other than those discussed in the above HPI and accompanying resident documentation. Systems reviewed include Constitutional, eyes, ENT, Cardiovascular, Pulmonary, Gastrointestinal, neurological, genitourinary, musculoskeletal, skin Allergies: Reviewed, originally patient had oxycodone listed but she's been tolerating this postop without difficulty. PERTINENT EXAM: Vital Signs: BP 122/72 Pulse 96 Ht 1.575 m (5' 2 ) SpO2 95% Alert, oriented x4. In no acute distress. Exquisite tenderness to midabdomen. No rebound. DIAGNOSTICS Labs: Results for orders placed or performed during the hospital encounter of 04/05/22 CHEM 6 (LYTES, BUN CREA) Result Value Ref Range BUN 10 7 - 25 mg/dL Sodium 138 135 - 145 mmol/L Potassium 4.0 3.5 - 5.0 mmol/L Chloride 107 98 - 108 mmol/L CO2 21 21 - 31 mmol/L Creatinine 0.74 0.50 - 1.20 mg/dL Bun/Crea Ratio 14 Anion Gap 14 7 - 17 mmol/L eGFR, CKD-EPI, Female >90 >=60 mL/min/1.73m2 GLUCOSE Result Value Ref Range Glucose 114 (H) 70 - 99 mg/dL HEPATIC FUNCTION PANEL Result Value Ref Range Albumin 3.7 3.5 - 5.0 g/dL Bilirubin Direct <0.1 <0.3 mg/dL Bilirubin Total 0.4 <1.5 mg/dL ALP 79 32 - 126 U/L ALT 8 (L) 9 - 48 U/L AST 15 10 - 39 U/L Total Protein 6.9 6.4 - 8.3 g/dL LIPASE Result Value Ref Range Lipase 51 11 - 82 U/L BETA HCG, QUANT, BLOOD Result Value Ref Range HCG (Quant) Serum <2.6 mIU/mL CBC AND ELECTRONIC DIFF Result Value Ref Range WBC Count 10.35 3.99 - 11.19 K/uL RBC Count 4.18 3.91 - 5.04 M/uL Hemoglobin 12.4 11.4 - 15.2 g/dL Hematocrit 37.0 34.9 - 44.3 % Mean Cell Volume 88.5 79.6 - 97.7 fL Mean Cell Hgb 29.7 25.9 - 33.9 pg Mean Cell Hgb Conc 33.5 31.4 - 35.9 g/dL RBC Distribution 13.1 10.8 - 14.9 % Platelet Count 239 150 - 393 K/uL Mean Platelet Volume 10.3 8.5 - 12.2 fL DIFF STATUS Electronic Differential Segs + Bands Auto 62.5 % Immature Grans % 0.3 % Lymphocyte % Auto 27.2 % Monocyte % Auto 6.1 % Eosinophil % Auto 3.1 % Basophil % Auto 0.8 % Nucleated RBC 0.0 <=0.2 /100 WBC Segs + Bands,Absolute Auto 6.47 1.64 - 7.28 K/uL Immature Grans Absolute <0.04 <=0.08 K/uL Abs Lymph Auto 2.82 1.16 - 3.51 K/uL Abs Becker Auto 0.63 0.22 - 0.87 K/uL Abs Eos Auto 0.32 0.00 - 0.42 K/uL Abs Baso Auto 0.08 0.00 - 0.15 K/uL MEDICAL DECISION MAKING Continue heparin, consult surgery and admit. Orders Placed This Encounter RAINBOW DRAW CBC, EDIF, PLATELET CHEM 6 (LYTES, BUN CREA) GLUCOSE HEPATIC FUNCTION PANEL LIPASE BETA HCG, QUANT, BLOOD GOLD TOP TUBE MINT GREEN TOP TUBE LAVENDER TOP TUBE LT BLUE TOP TUBE CBC AND ELECTRONIC DIFF PTT PTT PLATELET COUNT DISCONTD: heparin 25,000 units in dextrose 5% 250 mL premix infusion heparin 25,000 units in dextrose 5% 250 mL premix infusion ED Course: I have reviewed the history, physical, and plan with the resident/DARCIE and agree. Prior medical records were reviewed. All pertinent labs and imaging results were reviewed and interpreted by me. The patient was updated regarding findings, and was re-assessed during ED stay. This note was dictated using medical voice recognition software. Attempts at proofreading were made, but errors may occasionally still occur. Reggie Major MD, PhD 04/05/22 0333 dEPARTMENT of Emergency Medicine CHIEF COMPLAINT Critical Lab Values HPI Viridiana Enrique is a 41 y.o. 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 Of note, did have appendectomy 2 weeks ago. Reports she is currently having bowel movements. Received morphine, zofran, 1 L fluids. Patient does reports history of DVT to her LLE which she believes was unprovoked (was treated with several months of A/C). Patient denies any fever/chills, chest pain, SOB, dysuria, hematuria, rashes, headache, lower extremity edema, hemoptysis, history of cancer. 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 PAST MEDICAL HISTORY No past medical history on file. SURGICAL HISTORY No past surgical history on file. CURRENT MEDICATIONS No current facility-administered medications for this encounter. No current outpatient medications on file. ALLERGIES Not on File FAMILY HISTORY No family history on file. SOCIAL HISTORY Social History Socioeconomic History Marital status: Not on file Spouse name: Not on file Number of children: Not on file Years of education: Not on file Highest education level: Not on file Occupational History Not on file Tobacco Use Smoking status: Not on file Smokeless tobacco: Not on file Substance and Sexual Activity Alcohol use: Not on file Drug use: Not on file Sexual activity: Not on file Other Topics Concern Not on file Social History Narrative Not on file Social Determinants of Health Financial Resource Strain: Not on file Food Insecurity: Not on file Transportation Needs: Not on file Physical Activity: Not on file Stress: Not on file Social Connections: Not on file Intimate Partner Violence: Not on file Housing Stability: Not on file PHYSICAL EXAM There were no vitals taken for this visit. Physical Exam Vitals and nursing note reviewed. Constitutional: General: She is not in acute distress. Appearance: Normal appearance. She is not ill-appearing, toxic-appearing or diaphoretic. HENT: Head: Normocephalic. Nose: Nose normal. Mouth/Throat: Mouth: Mucous membranes are moist. Pharynx: Oropharynx is clear. Eyes: Extraocular Movements: Extraocular movements intact. Pupils: Pupils are equal, round, and reactive to light. Cardiovascular: Rate and Rhythm: Normal rate and regular rhythm. Pulses: Normal pulses. Heart sounds: Normal heart sounds. No murmur heard. No friction rub. No gallop. Pulmonary: Effort: Pulmonary effort is normal. No respiratory distress. Breath sounds: Normal breath sounds. No stridor. No wheezing, rhonchi or rales. Abdominal: Palpations: Abdomen is soft. Tenderness: There is abdominal tenderness in the right upper quadrant, right lower quadrant and epigastric area. There is no right CVA tenderness or left CVA tenderness. Comments: Epigastric pain radiating to the right flank and right lower back region. Musculoskeletal: General: No tenderness. Right lower leg: No edema. Left lower leg: No edema. Skin: General: Skin is warm. Neurological: Mental Status: She is alert and oriented to person, place, and time. ED labs: Results for orders placed or performed during the hospital encounter of 04/05/22 CBC AND ELECTRONIC DIFF Result Value Ref Range WBC Count 10.35 3.99 - 11.19 K/uL RBC Count 4.18 3.91 - 5.04 M/uL Hemoglobin 12.4 11.4 - 15.2 g/dL Hematocrit 37.0 34.9 - 44.3 % Mean Cell Volume 88.5 79.6 - 97.7 fL Mean Cell Hgb 29.7 25.9 - 33.9 pg Mean Cell Hgb Conc 33.5 31.4 - 35.9 g/dL RBC Distribution 13.1 10.8 - 14.9 % Platelet Count 239 150 - 393 K/uL Mean Platelet Volume 10.3 8.5 - 12.2 fL DIFF STATUS Electronic Differential Segs + Bands Auto 62.5 % Immature Grans % 0.3 % Lymphocyte % Auto 27.2 % Monocyte % Auto 6.1 % Eosinophil % Auto 3.1 % Basophil % Auto 0.8 % Nucleated RBC 0.0 <=0.2 /100 WBC Segs + Bands,Absolute Auto 6.47 1.64 - 7.28 K/uL Immature Grans Absolute <0.04 <=0.08 K/uL Abs Lymph Auto 2.82 1.16 - 3.51 K/uL Abs Becker Auto 0.63 0.22 - 0.87 K/uL Abs Eos Auto 0.32 0.00 - 0.42 K/uL Abs Baso Auto 0.08 0.00 - 0.15 K/uL Imaging: No orders to display ED COURSE & MEDICAL DECISION MAKING Pertinent Labs & Imaging studies if performed reviewed. (See chart for details) Medication list reviewed. Viridiana Enrique is a 41 y.o. 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 Of note, did have appendectomy 2 weeks ago. 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 Patient was afebrile and hemodynamically stable on arrival. On exam, abdomen is soft and without sites of acute abdomen. There is significant TTP to the epigastric region that wraps around the right abdomen/flank and to the right lower back. General surgery consulted. Will hold off on antibiotics at this time given afebrile but would have low threshold to start. Will continue heparin gtt with standard sliding scale as recommended by central pharmacy. Weight 92.5kg at OSH. Update: No significant derangements in chemistry, chemistry, or LFTs. Beta HCG negative. Update: Per surgery, ok for medicine admission with ongoing heparin gtt and pain management if lactate normal as patient otherwise well appearing. Lactate is 0.6. Plan for medicine admission. 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 Surgery consulted. On heparin gtt. 0524 Lactate, Whole Blood: 0.6 0524 Per surgery, ok for medicine admission and ongoing heparin gtt if lactate normal as patient otherwise well appearing. Lactate is 0.6. Plan for medicine admission. Medications - No data to display This patient was discussed with the attending physician who was in the immediate care area during the evaluation and decision making process. Part of this documentation was created with voice recognition software. Efforts are made to check for errors but may occasionally go unnoticed. Abdoulaye Moon MD Resident 04/05/22 Abdoulaye Moon MD Resident 04/05/22 0530 Pt transferred from OSH c/o abdominal pain associated with n/v. 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 Pt transferred for further evaluation at this time. Pt started on Heparin at OSH. 8 mg zofran and 100 mcg given by ems prior to arrival Bed: [facility] Expected date: Expected time: Means of arrival: Comments: Zeina 10 documented in this encounter [facility] 04-05-2022 Emergency department Note Pt was laying on cot tearful at this time. Inquired about same and she stated, I have just been here so long and I am so tired. [facility] 04-05-2022 Emergency department Note Pt stated she is still in pain of 9/10 and PO medication did not help. ERP notified of same. [facility] 04-05-2022 Emergency department Note Pt medicated for pain at this time per MAR. [facility] 04-05-2022 Emergency department Note Pt has c/o pain of 8/10 at this time. Pt is able to ambulate to the bathroom with slow steady gait. Pt is A/O x4. NAD. Denies NVD. [facility] 04-05-2022 Emergency department Note Pt resting on bed. No c/o at this time. Heparin gtt running at ordered dose. See MAR for details. NAD. A/Ox4. Able to make own needs known. [facility] 04-05-2022 Physician Emergency department Note ED ATTENDING NOTE Please see resident notes from this encounter for additional information. I saw and examined the patient. I discussed the history and examination with the resident and agree with the plan of care unless otherwise indicated. RELEVANT HPI: Viridiana Enrique is a 41 y.o. female has no past medical history on file.; she presents with chief complaint of Abdominal Pain (Occlusion of mesenteric vein ) Patient with appendectomy 2 weeks represented to outside hospital with concerns for worsening abodminal pain x2 days with associated nbnb emesis and watery diarrhea. Had a CT obtained demonstrating mesenteric vein occlusion. Started on heparin and transferred. Received pain meds, zofra, and 1L NS bolus. No fevers/chills, dysuria. ROS A review of systems was obtained and is negative other than those discussed in the above HPI and accompanying resident documentation. Systems reviewed include Constitutional, eyes, ENT, Cardiovascular, Pulmonary, Gastrointestinal, neurological, genitourinary, musculoskeletal, skin Allergies: Reviewed, originally patient had oxycodone listed but she's been tolerating this postop without difficulty. PERTINENT EXAM: Vital Signs: BP 122/72 Pulse 96 Ht 1.575 m (5' 2 ) SpO2 95% Alert, oriented x4. In no acute distress. Exquisite tenderness to midabdomen. No rebound. DIAGNOSTICS Labs: Results for orders placed or performed during the hospital encounter of 04/05/22 CHEM 6 (LYTES, BUN CREA) Result Value Ref Range BUN 10 7 - 25 mg/dL Sodium 138 135 - 145 mmol/L Potassium 4.0 3.5 - 5.0 mmol/L Chloride 107 98 - 108 mmol/L CO2 21 21 - 31 mmol/L Creatinine 0.74 0.50 - 1.20 mg/dL Bun/Crea Ratio 14 Anion Gap 14 7 - 17 mmol/L eGFR, CKD-EPI, Female >90 >=60 mL/min/1.73m2 GLUCOSE Result Value Ref Range Glucose 114 (H) 70 - 99 mg/dL HEPATIC FUNCTION PANEL Result Value Ref Range Albumin 3.7 3.5 - 5.0 g/dL Bilirubin Direct <0.1 <0.3 mg/dL Bilirubin Total 0.4 <1.5 mg/dL ALP 79 32 - 126 U/L ALT 8 (L) 9 - 48 U/L AST 15 10 - 39 U/L Total Protein 6.9 6.4 - 8.3 g/dL LIPASE Result Value Ref Range Lipase 51 11 - 82 U/L BETA HCG, QUANT, BLOOD Result Value Ref Range HCG (Quant) Serum <2.6 mIU/mL CBC AND ELECTRONIC DIFF Result Value Ref Range WBC Count 10.35 3.99 - 11.19 K/uL RBC Count 4.18 3.91 - 5.04 M/uL Hemoglobin 12.4 11.4 - 15.2 g/dL Hematocrit 37.0 34.9 - 44.3 % Mean Cell Volume 88.5 79.6 - 97.7 fL Mean Cell Hgb 29.7 25.9 - 33.9 pg Mean Cell Hgb Conc 33.5 31.4 - 35.9 g/dL RBC Distribution 13.1 10.8 - 14.9 % Platelet Count 239 150 - 393 K/uL Mean Platelet Volume 10.3 8.5 - 12.2 fL DIFF STATUS Electronic Differential Segs + Bands Auto 62.5 % Immature Grans % 0.3 % Lymphocyte % Auto 27.2 % Monocyte % Auto 6.1 % Eosinophil % Auto 3.1 % Basophil % Auto 0.8 % Nucleated RBC 0.0 <=0.2 /100 WBC Segs + Bands,Absolute Auto 6.47 1.64 - 7.28 K/uL Immature Grans Absolute <0.04 <=0.08 K/uL Abs Lymph Auto 2.82 1.16 - 3.51 K/uL Abs Becker Auto 0.63 0.22 - 0.87 K/uL Abs Eos Auto 0.32 0.00 - 0.42 K/uL Abs Baso Auto 0.08 0.00 - 0.15 K/uL MEDICAL DECISION MAKING Continue heparin, consult surgery and admit. Orders Placed This Encounter RAINBOW DRAW CBC, EDIF, PLATELET CHEM 6 (LYTES, BUN CREA) GLUCOSE HEPATIC FUNCTION PANEL LIPASE BETA HCG, QUANT, BLOOD GOLD TOP TUBE MINT GREEN TOP TUBE LAVENDER TOP TUBE LT BLUE TOP TUBE CBC AND ELECTRONIC DIFF PTT PTT PLATELET COUNT DISCONTD: heparin 25,000 units in dextrose 5% 250 mL premix infusion heparin 25,000 units in dextrose 5% 250 mL premix infusion ED Course: I have reviewed the history, physical, and plan with the resident/DARCIE and agree. Prior medical records were reviewed. All pertinent labs and imaging results were reviewed and interpreted by me. The patient was updated regarding findings, and was re-assessed during ED stay. This note was dictated using medical voice recognition software. Attempts at proofreading were made, but errors may occasionally still occur. Reggie Major MD, PhD 04/05/22 0333 [facility] Work Phone: 04-05-2022 Physician Emergency department Note dEPARTMENT of Emergency Medicine CHIEF COMPLAINT Critical Lab Values HPI Viridiana Enrique is a 41 y.o. 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 Of note, did have appendectomy 2 weeks ago. Reports she is currently having bowel movements. Received morphine, zofran, 1 L fluids. Patient does reports history of DVT to her LLE which she believes was unprovoked (was treated with several months of A/C). Patient denies any fever/chills, chest pain, SOB, dysuria, hematuria, rashes, headache, lower extremity edema, hemoptysis, history of cancer. 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 PAST MEDICAL HISTORY No past medical history on file. SURGICAL HISTORY No past surgical history on file. CURRENT MEDICATIONS No current facility-administered medications for this encounter. No current outpatient medications on file. ALLERGIES Not on File FAMILY HISTORY No family history on file. SOCIAL HISTORY Social History Socioeconomic History Marital status: Not on file Spouse name: Not on file Number of children: Not on file Years of education: Not on file Highest education level: Not on file Occupational History Not on file Tobacco Use Smoking status: Not on file Smokeless tobacco: Not on file Substance and Sexual Activity Alcohol use: Not on file Drug use: Not on file Sexual activity: Not on file Other Topics Concern Not on file Social History Narrative Not on file Social Determinants of Health Financial Resource Strain: Not on file Food Insecurity: Not on file Transportation Needs: Not on file Physical Activity: Not on file Stress: Not on file Social Connections: Not on file Intimate Partner Violence: Not on file Housing Stability: Not on file PHYSICAL EXAM There were no vitals taken for this visit. Physical Exam Vitals and nursing note reviewed. Constitutional: General: She is not in acute distress. Appearance: Normal appearance. She is not ill-appearing, toxic-appearing or diaphoretic. HENT: Head: Normocephalic. Nose: Nose normal. Mouth/Throat: Mouth: Mucous membranes are moist. Pharynx: Oropharynx is clear. Eyes: Extraocular Movements: Extraocular movements intact. Pupils: Pupils are equal, round, and reactive to light. Cardiovascular: Rate and Rhythm: Normal rate and regular rhythm. Pulses: Normal pulses. Heart sounds: Normal heart sounds. No murmur heard. No friction rub. No gallop. Pulmonary: Effort: Pulmonary effort is normal. No respiratory distress. Breath sounds: Normal breath sounds. No stridor. No wheezing, rhonchi or rales. Abdominal: Palpations: Abdomen is soft. Tenderness: There is abdominal tenderness in the right upper quadrant, right lower quadrant and epigastric area. There is no right CVA tenderness or left CVA tenderness. Comments: Epigastric pain radiating to the right flank and right lower back region. Musculoskeletal: General: No tenderness. Right lower leg: No edema. Left lower leg: No edema. Skin: General: Skin is warm. Neurological: Mental Status: She is alert and oriented to person, place, and time. ED labs: Results for orders placed or performed during the hospital encounter of 04/05/22 CBC AND ELECTRONIC DIFF Result Value Ref Range WBC Count 10.35 3.99 - 11.19 K/uL RBC Count 4.18 3.91 - 5.04 M/uL Hemoglobin 12.4 11.4 - 15.2 g/dL Hematocrit 37.0 34.9 - 44.3 % Mean Cell Volume 88.5 79.6 - 97.7 fL Mean Cell Hgb 29.7 25.9 - 33.9 pg Mean Cell Hgb Conc 33.5 31.4 - 35.9 g/dL RBC Distribution 13.1 10.8 - 14.9 % Platelet Count 239 150 - 393 K/uL Mean Platelet Volume 10.3 8.5 - 12.2 fL DIFF STATUS Electronic Differential Segs + Bands Auto 62.5 % Immature Grans % 0.3 % Lymphocyte % Auto 27.2 % Monocyte % Auto 6.1 % Eosinophil % Auto 3.1 % Basophil % Auto 0.8 % Nucleated RBC 0.0 <=0.2 /100 WBC Segs + Bands,Absolute Auto 6.47 1.64 - 7.28 K/uL Immature Grans Absolute <0.04 <=0.08 K/uL Abs Lymph Auto 2.82 1.16 - 3.51 K/uL Abs Becker Auto 0.63 0.22 - 0.87 K/uL Abs Eos Auto 0.32 0.00 - 0.42 K/uL Abs Baso Auto 0.08 0.00 - 0.15 K/uL Imaging: No orders to display ED COURSE & MEDICAL DECISION MAKING Pertinent Labs & Imaging studies if performed reviewed. (See chart for details) Medication list reviewed. Viridiana Enrique is a 41 y.o. 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 Of note, did have appendectomy 2 weeks ago. 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 Patient was afebrile and hemodynamically stable on arrival. On exam, abdomen is soft and without sites of acute abdomen. There is significant TTP to the epigastric region that wraps around the right abdomen/flank and to the right lower back. General surgery consulted. Will hold off on antibiotics at this time given afebrile but would have low threshold to start. Will continue heparin gtt with standard sliding scale as recommended by central pharmacy. Weight 92.5kg at OSH. Update: No significant derangements in chemistry, chemistry, or LFTs. Beta HCG negative. Update: Per surgery, ok for medicine admission with ongoing heparin gtt and pain management if lactate normal as patient otherwise well appearing. Lactate is 0.6. Plan for medicine admission. 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 Surgery consulted. On heparin gtt. 0524 Lactate, Whole Blood: 0.6 0524 Per surgery, ok for medicine admission and ongoing heparin gtt if lactate normal as patient otherwise well appearing. Lactate is 0.6. Plan for medicine admission. Medications - No data to display This patient was discussed with the attending physician who was in the immediate care area during the evaluation and decision making process. Part of this documentation was created with voice recognition software. Efforts are made to check for errors but may occasionally go unnoticed. Abdoulaye Moon MD Resident 04/05/22 Abdoulaye Moon MD Resident 04/05/22 0530 [facility] Work Phone: 04-05-2022 Emergency department Note Pt transferred from OSH c/o abdominal pain associated with n/v. 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 Pt transferred for further evaluation at this time. Pt started on Heparin at OSH. 8 mg zofran and 100 mcg given by ems prior to arrival [facility] 04-05-2022 Emergency department Note Bed: [facility] Expected date: Expected time: Means of arrival: Comments: [id number] [facility] 03-27-2022 Note HNO ID: [id number] Author: Moriah Borges PA-C Service: ? Author Type: Physician Box Inspector Type: Progress Notes Filed: 03/27/2022 4:06 PM Note Text: FOLLOW UP VISIT - APPENDICITIS NAME: Viridiana [facility] NO.: [id number] DATE OF SERVICE: 03/27/2022 : 1980 REFERRING PHYSICIAN: Akbar Mercado MD Viridiana is a patient I am following with Dr. Malcolm for acute appendicitis. Dr. Malcolm performed a laparoscopic appendectomy on 03/20/22. The patient's appendix demonstrated acute appendicitis and periappendicitis without perforation. The patient did well post operatively. The patient currently notes nausea since surgery. She states otherwise she has been doing well, and pain has been improving each day. She is no longer taking the narcotic pain medication. she denies fever, chills or abdominal pain. she does note some mild incisional discomfort. VITALS: Blood pressure 118/80, pulse 103, temperature 36.3 ?C (97.3 ?F), height 157.5 cm (5' 2 ), weight 107 kg (236 lb), last menstrual period 01/06/2019, SpO2 98 %. On examination, the abdomen is benign. The incisions are healing well without signs of infection or inflammation. There is no right lower quadrant tenderness. Assessment IMPRESSION: status post laparoscopic appendectomy for acute appendicitis PLAN: If the patient notes any problems or signs of wound infections, the patient should contact me immediately. she may return to her regular activities as tolerated. -zofran prescribed for nausea, discussed bland diet -contact office if symptoms worsen or are not improving with these measures over the next few days Diagnoses: (Z09) S/P appendectomy, follow-up exam (primary encounter diagnosis) Return to Clinic: The patient is instructed to follow-up with me as needed. Moriah Borges PA-C [facility] 03-27-2022 Instructions Moriah Borges PA-C - 03/27/2022 1:39 PM EDT The following instructions are important for you related to your office visit today with the [facility]. INSTRUCTIONS FOLLOWING YOUR RECENT SURGERY You should be returning to your regular diet, If you have having persistent issues with tolerating your diet, please contact our office It is not unusual to have incisional pain for the first 1-2 weeks following surgery. If this persists beyond 2 weeks, contact the office You may return to your regular activities. You may drive if you are no longer taking narcotic pain medication. You should perform no lifting greater than 20lbs for the next 3weeks. It is not unusual to have loose stools following surgery. This is usually self limited and related to the antibiotics that were given during your surgical procedure. Fiber supplementation and yogurt with active cultures may help you return to regular bowel activity. If you note loose stools persisting for over 2 weeks, or significant cramping or loose bloody stools, contact the office immediately. Contact the office immediately if any of your incisions become increasingly tender, red or have drainage. Again, if you have any difficulties or concerns, contact our office immediately. If you note any additional difficulties, questions, or concerns, you should contact our office immediately @ [phone] and ask to be transferred to the General Surgery department. documented in this encounter [facility] 03-27-2022 History of Present illness Narrative FOLLOW UP VISIT - APPENDICITIS NAME: Viridiana Enrique [facility] NO.: [id number] DATE OF SERVICE: 03/27/2022 : 1980 REFERRING PHYSICIAN: Akbar Mercado MD Viridiana is a patient I am following with Dr. Malcolm for acute appendicitis. Dr. Malcolm performed a laparoscopic appendectomy on 03/20/22. The patient's appendix demonstrated acute appendicitis and periappendicitis without perforation. The patient did well post operatively. The patient currently notes nausea since surgery. She states otherwise she has been doing well, and pain has been improving each day. She is no longer taking the narcotic pain medication. she denies fever, chills or abdominal pain. she does note some mild incisional discomfort. VITALS: Blood pressure 118/80, pulse 103, temperature 36.3 C (97.3 F), height 157.5 cm (5' 2 ), weight 107 kg (236 lb), last menstrual period 01/06/2019, SpO2 98 %. On examination, the abdomen is benign. The incisions are healing well without signs of infection or inflammation. There is no right lower quadrant tenderness. Assessment IMPRESSION: status post laparoscopic appendectomy for acute appendicitis PLAN: If the patient notes any problems or signs of wound infections, the patient should contact me immediately. she may return to her regular activities as tolerated. -zofran prescribed for nausea, discussed bland diet -contact office if symptoms worsen or are not improving with these measures over the next few days Diagnoses: (Z09) S/P appendectomy, follow-up exam (primary encounter diagnosis) Return to Clinic: The patient is instructed to follow-up with me as needed. Moriah Borges PA-C documented in this encounter [facility] 03-21-2022 Miscellaneous Notes Sent an order for Percocet to her pharmacy in [facility] since the [place] is not working. Patient called stating that the [place] is not working, taking every 4 hours, taking 500 mg of tylenol with the [place] and ibuprofen 600mg in between. Is walking and icing site, unable control pain. Patient willing to take benadryl d/t itching with oxycode. Please advise. documented in this encounter [facility] Acute appendicitis with localized peritonitis, without perforation, abscess, or gangrene- Primary [facility] Diagnosis Superior mesenteric vein thrombosis- Primary Acute vascular insufficiency of intestine Superior mesenteric artery thrombosis Acute vascular insufficiency of intestine [facility] Bacterial sinusitis- Primary Unspecified sinusitis (chronic) [facility] Patient is a 41 y.o. female who is here to establish care. 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 They did not find anything clotting disorder. * Anxiety - she is on sertraline 150mg qhs and Vistaril prn. She has tried to get off of it and has withdrawal symptoms. -[facility] Phone: History of Present illness Narrative* Patient is a 41 y.o. female who is here to establish care. 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 They did not find anything clotting disorder. * Anxiety - she is on sertraline 150mg qhs and Vistaril prn. She has tried to get off of it and has withdrawal symptoms. [facility] Work Phone: Reason for referral (narrative)* Consultation (Routine) - New Request Specialty Diagnoses / Procedures Referred By Dominique sandoval Referred To Contact Hematology Diagnoses Superior mesenteric vein thrombosis Martin Dickens MD [address] [place] [id number] Referral ID Status Reason Start Date Expiration Date V isits Requested Visits Authorized [id number] New Request 04/07/2022 05/02/2023 1 1 * Adjunctive Therapy (Routine) - New Request Specialty Diagnoses / Procedures Referred By Dominique t Referred To Contact Cardiovascular Medicine Diagnoses Superior mesenteric vein thrombosis David Carrasquillo MD [address] [place] [address] Referral ID Status Reason Start Date Expiration Date V isits Requested Visits Authorized [id number] New Request 04/07/2022 05/02/2023 1 1 * (Routine) Specialty Diagnoses / Procedures Referred By Dominique t Referred To Contact Adi Mccarthy MD Referral ID Status Reason Start Date Expiration Date Visits Re quested Visits Authorized * (Routine) Specialty Diagnoses / Procedures Referred By Dominique t Referred To Contact Adi Mccarthy MD Referral ID Status Reason Start Date Expiration Date Visits Re quested Visits Authorized * (Routine) - New Request Specialty Diagnoses / Procedures Referred By Contac t Referred To Contact Procedures DVT/VTE RISK ASSESSMENT Martin Dickens MD [address] [place] [address] Referral ID Status Reason Start Date Expiration Date V isits Requested Visits Authorized [id number] New Request 04/05/2022 04/30/2023 1 1 * (Routine) - New Request Specialty Diagnoses / Procedures Referred By Contac t Referred To Contact Procedures PLATELET MONITORING PER PROTOCOL Reggie Major MD, PhD [address] [place] [address] Referral ID Status Reason Start Date Expiration Date V isits Requested Visits Authorized [id number] New Request 04/05/2022 04/30/2023 1 1 [facility] Summary Purpose Family History No Family History Records FoundUnknown Family Member Name Dates Details Family history of diabetes m ellitus: Other(V18.0, Z83.3) Status:Active Family history of hypertensi on: Other(V17.49, Z82.49) Status:Active Unknown Family Member Name Dates Details Family history of diabetes m ellitus: Other(V18.0, Z83.3) Status:Active Family history of hypertensi on: Other(V17.49, Z82.49) Status:Active Unknown Family Member Name Dates Details Family history of diabetes m ellitus: Other(V18.0, Z83.3) Status:Active Family history of hypertensi on: Other(V17.49, Z82.49) Status:Active Unknown Family Member Name Dates Details Family history of diabetes m ellitus: Other(V18.0, Z83.3) Status:Active Family history of hypertensi on: Other(V17.49, Z82.49) Status:Active Unknown Family Member Name Dates Details Family history of hypertensi on: Other(V17.49, Z82.49) Status:Active Family history of diabetes m ellitus: Other(V18.0, Z83.3) Status:Active Advance Directives No Advanced Directives Records FoundLatest Code Status on File Code Status Date Activated Date Inactivated Comments Full Code 04/05/2022 3:39 PM Chief Complaint * 41 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 * Medication proposed * Pt recently released from hematology due to DVT in stomach * 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 * 41 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 * Medication proposed * Pt recently released from hematology due to DVT in stomach * 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 Additional Source Comments INFORMATION SOURCE (unrecogn ized section and content) DATE CREATED AUTHOR AUTHOR'S ORGANIZ ATION 09/09/2021 [facility] DATE CREATED AUTHOR AUTHOR'S ORGANIZ ATION 10/29/2021 [facility] DATE CREATED AUTHOR AUTHOR'S ORGANIZ ATION 12/08/2021 [facility] DATE CREATED AUTHOR AUTHOR'S ORGANIZ ATION 05/12/2022 [facility] DATE CREATED AUTHOR AUTHOR'S ORGANIZ ATION 08/28/2022 [facility] DATE CREATED AUTHOR AUTHOR'S ORGANIZ ATION 08/28/2022 [facility] DATE CREATED AUTHOR AUTHOR'S ORGANIZ ATION 12/07/2022 [facility] DATE CREATED AUTHOR AUTHOR'S ORGANIZ ATION 04/14/2023 [facility] <item> Privacy Markings (unrecogniz ed section and content) Section Author: Esme Bassett PROHIBITION ON REDISCLOSURE OF CONFIDENTIAL INFORMATION This notice accompanies a disclosure of information concerning a client made to you with the consent of such client. Source Comments (unrecognize d section and content) In the event this informatio n is protected by the Federal Confidentiality of Alcohol and Drug Abuse Patient Records regulations: The Federal rules restrict any use of the information to criminally investigate or prosecute any alcohol or drug abuse patient.[facility] the event this information is protected by the Federal Confidentiality of Alcohol and Drug Abuse Patient Records regulations: The Federal rules restrict any use of the information to criminally investigate or prosecute any alcohol or drug abuse patient.[facility] the event this information is protected by the Federal Confidentiality of Alcohol and Drug Abuse Patient Records regulations: The Federal rules restrict any use of the information to criminally investigate or prosecute any alcohol or drug abuse patient.[facility] Reason for Visit (unrecogniz ed section and content) Reason Comments Pain post surgical Reason Comments Abdominal Pain Occlusion of mesente ismael vein Specialty Diagnoses / Procedures Referred By Dominique sandoval Referred To Contact Martin Dickens MD [address] [place] [address] [facility] [address] [place] [address] Referral ID Status Reason Start Date Expiration Date Visits Re quested Visits Authorized [id number] 1 1 Reason Comments Sinus Problem Sinus pain and press ure, WARD and chest congestion x 2 weeks Care Teams (unrecognized sec tion and content) [employer] Relationship Specialty Start Date End Date Akbar Mercado [address] [phone] PCP - General Family Practice 06/03/17 [employer] Relationship Specialty Start Date End Date Caprice Finley PA-C [address] [place] [phone] PCP - General Physician Box Inspector 04/05/22 [employer] Relationship Specialty Start Date End Date Akbar Mercado [address] [place] [phone] PCP - General Family Medicine 06/03/17 Scheduled Active and Recently Administ ered Medications (unrecognized section and content) Continuous Medication Order 04/05/2022 04/06/2022 04/07/2022 heparin 25,000 units in dextrose 5% 250 mL premix infusion (CANCELED) STANDARD SLIDING SCALE FOR PATIENTS WEIGHT LESS THAN 125KG: Initiate dose at 18 units/kg/hr. If PTT is less than 47, increase dose by 3 units/kg/hr. If PTT is 47-60, increase dose by 2 units/kg/hr. If PTT is 61-71, increase dose by 1 unit/kg/hr. If PTT is 72-95, no change. If PTT is 96-111, decrease dose by 1 unit/kg/hr. If PTT is 112-126, hold infusion for 60 minutes and decrease dose by 2 units/kg/hr. If PTT greater than 126, hold infusion and check PTT every 2 hours. Once PTT is in goal range or below, restart infusion at 3 units/kg/hr lower than the most recent dose. Note: Round PTT to nearest whole number (e.g. 70.5=71, 70.4=70)., Indications: Superior mesenteric vein occlusion 0349 ($$New Bag$$ - Provider: Praveen Barragan RN)0352 (Rate/Dose Verify - Provider: Luda Eagle RN)0606 (Paused - Provider: Luda Eagle RN)0611 (Restarted - Provider: Luda Eagle RN)0723 (Paused - Provider: Luda Eagle RN)0725 (Paused - Provider: Luda Eagle RN)0725 (Paused - Provider: Luda Eagle RN)0731 (Rate/Dose Change - Provider: Luda Eagle RN)0736 (Rate/Dose Verify - Provider: Luda Eagle RN)0808 (Rate/Dose Verify - Provider: Luda Eagle RN)1035 (Rate/Dose Change - Provider: Luda Eagle RN)1044 (Rate/Dose Verify - Provider: Luda Eagle RN)1340 ($$New Bag$$ - Provider: Aliyah Murillo RN)1731 (Rate/Dose Change - Provider: Brooklyn Crain RN)2000 (Rate/Dose Verify - Provider: Summer Keating RN) 0358 ($$New Bag$$ - Provider: Summer Keating RN)1900 (Stopped - Provider: Summer Keating RN) PRN Medication Order 04/05/2022 04/06/2022 04/07/2022 acetaminophen (TYLENOL) tablet 650 mg 650 mg, Oral, EVERY 6 HOURS NEEDED, Starting on Sun04/05/22 at 1538, Until Sun04/07/22 at 1529, Mild Pain, Oral temp > 100.4 F, Maximum dose of acetaminophen is 4000 mg from all sources in 24 hours. 2311 (Given - Provider: Summer Keating RN - Comment: Given per MD approval.) alum/mag hydrox.-simethicone oral suspension 30 mL 30 mL, Oral, EVERY 6 HOURS NEEDED, Starting on Sun04/05/22 at 1538, Until Sun04/07/22 at 1529, Indigestion, Per 5 mL is equivalent to: (Alum-Mag Hydroxide 200-225 mg and Simethicone 20 mg) and (Alum-Mag Hydroxide 200-200 mg and Simethicone 20 mg) benzocaine-menthol (CEPACOL) 15-3.6 MG per lozenge 1 lozenge 1 lozenge, Oral, EVERY 2 HOURS NEEDED, Starting on Sun04/05/22 at 1538, Until Sun04/07/22 at 1529, Sore Throat, Max 8 lozenges/day Patient may self-administer. guaiFENesin (ROBITUSSIN) oral solution 400 mg 400 mg, Oral, EVERY 6 HOURS NEEDED, Starting on Sun04/05/22 at 1538, Until Sun04/07/22 at 1529, Cough, Congestion HYDROmorphone (DILAUDID) injection 0.5 mg (CANCELED) 0.5 mg, Intravenous, EVERY 3 HOURS NEEDED, Starting on Sun04/05/22 at 1709, Until Sun04/06/22 at 1439, Severe Pain, only for breakthrough pain if oxycodone not working after 30 minutes 2053 (Given - Provider: Summer Keating RN) 08 (Given - Provider: Libertad Bergeron RN) melatonin tablet 6 mg 6 mg, Oral, DAILY AT BEDTIME NEEDED, Starting on Sun04/05/22 at 1538, Until Sun04/07/22 at 1529, Insomnia ondansetron (ZOFRAN) tablet 4 mg(Linked Group 2) 4 mg, Oral, EVERY 6 HOURS NEEDED, Starting on Sun04/05/22 at 1538, Until Sun04/07/22 at 1529, Nausea / Vomiting, 1st line for Nausea/Vomiting 0609 (See Alternative - Provider: Summer Keating RN)1452 (See Alternative - Provider: Libertad Bergeron RN)2311 (See Alternative - Provider: Summer Keating RN) 0817 (See Alternative - Provider: Collins Pedroza, RN) ondansetron 4mg/2ml (ZOFRAN) injection 4 mg(Linked Group 2) 4 mg, Intravenous, EVERY 6 HOURS NEEDED, Starting on Sun04/05/22 at 1538, Until Sun04/07/22 at 1529, Nausea / Vomiting, 1st line for Nausea/Vomiting 0609 (Given - Provider: Summer Keating RN)1452 (Given - Provider: Libertad Bergeron RN)2311 (Given - Provider: Summer Keating RN) 0817 (Given - Provider: Collins Pedroza, RN) oxyCODONE (ROXICODONE) tablet 5 mg 5 mg, Oral, EVERY 4 HOURS NEEDED, Starting on Sun04/05/22 at 1710, Until Sun04/07/22 at 1529, Moderate Pain, Severe Pain 2000 (Given - Provider: Azalia Worrell RN) 0252 (Given - Provider: Summer Keating RN)0650 (Given - Provider: Summer Keating RN)1356 (Given - Provider: Libertad Bergeron RN)2026 (Given - Provider: Summer Keating RN) 0024 (Given - Provider: Summer Keating RN)0817 (Given - Provider: Collins Pedroza, RN)1259 (Given - Provider: Collins Pedroza, JASON) polyethylene glycol (MIRALAX) packet 17 g 17 g, Oral, DAILY NEEDED, Starting on Sun04/05/22 at 1538, Until Sun04/07/22 at 1529, Constipation 1st Line Polyvinyl Alcohol-Povidone PF (REFRESH) ophthalmic solution 1 drop 1 drop, Both Eyes, EVERY 1 HOUR NEEDED, Starting on Sun04/05/22 at 1538, Until Sun04/07/22 at 1529, Dry Eyes, Patient may self-administer. prochlorperazine (COMPAZINE) injection 10 mg 10 mg, Intravenous, EVERY 6 HOURS NEEDED, Starting on Sun04/05/22 at 2129, Until Sun04/07/22 at 1529, Nausea / Vomiting, Refractory Nausea Vomiting, For IV route: dilute dose with 10mL normal saline and give by slow IV push at a rate of 5mg/min. Maximum of 40mg/day. sodium chloride 0.9% IV solution 250 mL Intravenous, at 20 mL/hr, NEEDED, Starting on Sun04/05/22 at 1534, Until Sun04/07/22 at 1529, Carrier Fluid - See Admin. Inst, 250mL 0.9NS to be used as carrier fluid for intermittent small volume or piggyback medication administration as needed. Infusion rate of the carrier fluid should be set at 20 mL/hr unless the rate as the intermittent medication is less than 20 mL/hr. For intermittent medications with a rate less than 20 mL/hr set the carrier fluid at that rate of the intermittent or piggy back medication. Linked Groups Order Group 1: Rivaroxaban (XARELTO) tablet 15 mgJump to med 15 mg, Oral, 2 TIMES DAILY, 42 doses, First dose on Sun04/06/22 at 1700, Last dose on Sun04/27/22 at 0900
Due to the rapid onset of action of rivaroxaban, no overlap is needed with other anticoagulants (e.g. enoxaparin, heparin). Administer doses of 15mg or greater with food. For patients who cannot swallow whole tablets, the tablets may be crushed and mixed with applesauce immediately prior to use. If administered via feeding tube, crush tablets and mix with 50 mL water. Tube must empty into the stomach for this route.
Indications: Venous Thromboembolism Followed by Rivaroxaban (XARELTO) tablet 20 mgJump to med 20 mg, Oral, DAILY WITH DINNER, First dose on Sun04/27/22 at 1700, Until Discontinued
Due to the rapid onset of action of rivaroxaban, no overlap is needed with other anticoagulants (e.g. enoxaparin, heparin). Administer doses of 15mg or greater with food. For patients who cannot swallow whole tablets, the tablets may be crushed and mixed with applesauce immediately prior to use. If administered via feeding tube, crush tablets and mix with 50 mL water. Tube must empty into the stomach for this route.
Indications: Venous Thromboembolism Group 2: ondansetron 4mg/2ml (ZOFRAN) injection 4 mgJump to med 4 mg, Intravenous, EVERY 6 HOURS NEEDED, Starting on Sun04/05/22 at 1538, Until Sun04/07/22 at 1529, Nausea / Vomiting, 1st line for Nausea/Vomiting Or ondansetron (ZOFRAN) tablet 4 mgJump to med 4 mg, Oral, EVERY 6 HOURS NEEDED, Starting on Sun04/05/22 at 1538, Until Sun04/07/22 at 1529, Nausea / Vomiting, 1st line for Nausea/Vomiting FOR RECORDS PERTAINING TO PATIENTS WHO ARE OR HAVE BEEN ENROLLED IN A CHEMICAL DEPENDENCY/SUBSTANCEABUSE PROGRAM, SOME INFORMATION MAY BE OMITTED. This clinical summary was aggregated from multiple sources. Caution should be exercised in using it in the provision of clinical care. This summary normalizes information from multiple sources, and as a consequence, information in this document may materially change the coding, format and clinical context of patient data. In addition, data may be omitted in some cases. CLINICAL DECISIONS SHOULD BE BASED ON THE PRIMARY CLINICAL RECORDS. [email or web address] [facility]. provides no warranty or guarantee of the accuracy or completeness of information in this document.
[2023-11-10] MEDS: 0.9% Normal Saline (1000mL) 1,000 ML 1000 ML IV (14:27)
[2023-11-10] MEDS: Ondansetron 4 MG/2 ML Vial IV (14:27)
[2023-11-10] MEDS: Morphine 4 MG/ML Syringe IV ×2 (14:28→15:06)
--- NOTE | 2023-11-10 14:32 | EDS_ITS ---
HPI History of Present Illness Chief Complaint: Flank Pain Informant: patient Narrative Narrative: Patient presents with right lower quadrant and flank pain. Patient states she woke up about 4:00 this morning. Thought she just had a little upset stomach. She had some discomfort in the right lower quadrant. Occasionally radiates to the back. She thinks the pain woke her up but it was not as bad then. Has been waxing and waning since but never goes away. When the pain is bad she gets nauseated. Still in the same position. No urinary symptoms. No vaginal symptoms. Last menstrual period couple weeks ago and normal. She has had appendectomy and cholecystectomy in the past. No fevers or chills. Never had kidney stones. She states at home she just could not get comfortable and was pacing and moving. PFSH [facility] Medical History DVT (deep venous thrombosis) Knee injury Lupus anticoagulant positive Right leg DVT Superior mesenteric vein thrombosis Home Medications sertraline 25 mg tablet (Zoloft) 50 mg PO DAILY 11/08/17 [History Last Taken 11/07/17] hydroxyzine HCl 25 mg tablet 25 mg PO Q8H PRN anxiety 05/04/22 [History Last Taken Unknown] ondansetron 4 mg disintegrating tablet 4 mg PO Q8H PRN PRN Nausea #10 tabs 11/10/23 [Rx Last Taken Unknown] oxycodone-acetaminophen 5 mg-325 mg tablet 1 tab PO Q6H PRN PRN Pain 3 days #12 TABLETS 11/10/23 [Rx Last Taken Unknown] sulfamethoxazole 800 mg-trimethoprim 160 mg tablet (Bactrim DS) 1 tab PO BID #14 tabs 11/10/23 [Rx Last Taken Unknown] tamsulosin 0.4 mg capsule (Flomax) 0.4 mg PO DAILY #7 caps 11/10/23 [Rx Last Taken Unknown] Allergy/AdvReac Type Severity Reaction Status Date / Time No Known Allergies Allergy Verified 11/10/23 13:49 Family History Mother Hypertension Grandmother Hypertension Grandfather DVT (deep venous thrombosis) maternal Surgical History Hx of appendectomy Hx of cholecystectomy Social History number of children: 3 current occupational status: employed 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 Some specific details below. Constitutional: No recent fevers or chills. EYE: No visual complaints or pain. ENT: No difficulty swallowing. No swelling. No pain. CV: No chest pain or palpitations. Respiratory: No dyspnea. No hemoptysis. No difficulty taking breaths. GI: Please see history of present illness. : No frequency dysuria or hematuria. Some radiation of the pain to her right flank area. Musculoskeletal: No recent trauma. No pains. No numbness tingling weakness or radicular symptoms. Skin: No rash. Nondiaphoretic. Neuro: No weakness or numbness. Endocrine: No polyuria or polydipsia. EXAM Physical Exam Narrative Exam Narrative: CONSTITUTIONAL: Patient is nontoxic in appearance. The patient looks somewhat uncomfortable. She is sitting on a chair at the edge of the bed leaning forward on her hands. HEENT: No notable trauma. Mucous membranes moist. EYES: No conjunctival injection. No pallor. CARDIOVASCULAR: Regular rate. Regular rhythm. No notable murmur. No JVD. RESPIRATORY: No respiratory distress. Breathing is unlabored. No wheezes. No rhonchi. No rales. No pain with a deep breath. GASTROINTESTINAL: Not distended. Bowel sounds are normal. Despite the pain, pressing on her abdomen really does not change it. No rebound or guarding. GENITOURINARY: No tenderness over the bladder. She does have some mild right- sided CVA tenderness. MUSCULOSKELETAL: Atraumatic. No peripheral edema. No cord. No tenderness along the deep venous system. No asymmetry. NEUROLOGICAL: Patient is alert and appropriate. No focal deficit noted. SKIN: No noted rashes. No diaphoresis. PSYCHIATRIC: Patient is calm. Mood is appropriate. Const Vital Signs: 11/10/23 13:50 11/10/23 16:07 Temperature 99 F Temperature Source Temporal Pulse Rate 107 H 90 Respiratory Rate 18 16 Blood Pressure 139/111 H 123/80 H Blood Pressure Mean 120 94 Pulse Ox 99 94 Oxygen Delivery Method Room Air Room Air MDM MDM MDM Narrative Medical decision making narrative: My independent interpretation of her CT does show a stone in the right kidney and a few calcifications along the right ureter but no significant hydro. Final reading shows no acute process. Patient's CBC is normal. Patient's electrolytes show no marked abnormalities. Minimally low potassium. LFTs are normal. Lipase is normal. Serum is negative. Urine does show some red cells few white cells 2+ bacteria. A little bit concerning for potential UTI. Although this does not seem to fully explain her symptoms. Since there was some ovarian cyst on scan, I did do pelvic ultrasound to make sure there is no sign of torsion and this is negative. Patient's uncomfortable. Her onset of pain was somewhat sudden. She is pacing when it started. She could not get comfortable. But there is really no tenderness. Everything points to a kidney stone is the origin of her symptoms and I am going to treat this as if it is a kidney stone. Because her urine show s some borderline findings I am going to treat as a UTI also. We discussed returning with fevers, vomiting, worsening pain, lightheadedness or any other concern. Lab Data Attestation: I reviewed the patient's lab results. Labs: Laboratory Results - last 24 hr 11/10/23 14:17 WBC 9.8 RBC 4.45 Hgb 13.2 Hct 40.5 MCV 91.0 MCH 29.7 MCHC 32.6 RDW Std Deviation 43.2 RDW Coeff of Pippa 13.0 Plt Count 265 MPV 10.4 Immature Gran % (Auto) 0.300 Neut % (Auto) 73.9 H Lymph % (Auto) 18.3 L Person % (Auto) 5.2 Eos % (Auto) 1.7 Baso % (Auto) 0.6 Absolute Neuts (auto) 7.2 Absolute Lymphs (auto) 1.79 Nucleated RBC % 0 Sodium 141 Potassium 3.4 L Chloride 111 H Carbon Dioxide 26.0 Anion Gap 4 L BUN 10 Creatinine 0.92 Estim Creat Clear Calc 91.24 Est GFR (MDRD) Af Amer 87 Est GFR (MDRD) Non-Af 72 BUN/Creatinine Ratio 10.9 Glucose 119 H Calcium 8.9 Total Bilirubin 0.30 AST 18 ALT 15 Alkaline Phosphatase 78 Total Protein 7.1 Albumin 3.3 Globulin 3.8 Albumin/Globulin Ratio 0.9 Lipase 29 Serum , Qual NEGATIVE Urine Color Yellow Urine Clarity Clear Urine pH 6.0 Ur Specific [place] 1.020 Urine Protein 30 H Urine Glucose (UA) Normal Urine Ketones 5 H Urine Occult Blood 250 H Urine Nitrite Negative Urine Bilirubin 1 H Urine Urobilinogen 1 H Ur Leukocyte Esterase 100 H Urine RBC 10-25 SEEN Urine WBC 5-10 SEEN Ur Squamous Epith Cells 0-5 SEEN Urine Bacteria 2+ Urine Mucus 0 SEEN Radiography Diagnostic Testing: Clinical Impression(s) from Imaging Studies Abdomen/Pelvis CT 11/10/23 14:23 IMPRESSION: 1. No focal acute inflammatory changes. 2. Small bilateral adnexal cysts. Electronically Signed: Khoi Foote MD at 15:08 EST , Transvaginal US 11/10/23 15:59 IMPRESSION: No evidence of ovarian torsion. Multi fibroid uterus. Electronically Signed: David Kaplan MD at 17:59 EST , Discharge Plan Triage Chief Complaint: Flank Pain ED Provider: Yared Polanco Dx/Rx/DC Orders Clinical Impression: Acute right flank pain, UTI (urinary tract infection) Instructions: ED Flank Pain, Uncertain Cause, ED Kidney Stone with Pain Prescriptions: New oxycodone-acetaminophen [oxycodone-acetaminophen] 5-325 mg tablet 1 tab PO Q6H PRN PRN (Reason: Pain) 3 Days Qty: 12 0RF ondansetron [ondansetron] 4 mg tablet,disintegrating 4 mg PO Q8H PRN PRN (Reason: Nausea) Qty: 10 0RF tamsulosin [Flomax] 0.4 mg capsule 0.4 mg PO DAILY Qty: 7 0RF sulfamethoxazole-trimethoprim [Bactrim DS] 800-160 mg tablet 1 tab PO BID Qty: 14 0RF No Action hydroxyzine HCl 25 mg tablet 25 mg PO Q8H PRN (Reason: anxiety) sertraline [Zoloft] 25 MG tablet 50 mg PO DAILY Primary Care Provider: Bindu Finley Referrals: Bindu Finley, AMADA [Primary Care Provider] - 3-5 Days Disposition Disposition: Home, Self Care
[2023-11-10 14:36] LABS: Mucous, Urine 0 SEEN /hpf (<or=2+)
[2023-11-10 14:40] LABS: Absolute Lymphocyte Count 1.79 X10^3/uL (0.83-4.51); Absolute Neutrophil Count 7.2 X10^3/uL (2.0-7.7); Basophil# 0.06 X10^3/uL; Basophil% 0.6 % (0-1); Eosinophil# 0.17 X10^3/uL; Eosinophils% 1.7 % (0-5); Hematocrit 40.5 % (37-47); Hemoglobin 13.2 g/dL (12.0-15.0); Lymphocyte # 1.79 X10^3/ul (0.83-4.51); Lymphocyte % 18.3 % (19-41); Mean Corp Hgb Conc 32.6 g/dL (32-36); Mean Corpuscular Hgb 29.7 pg (27.0-32.0); Mean Platelet Vol. 10.4 fl (6.2-12.0); Monocyte# 0.51 X10^3/uL; Monocyte% 5.2 % (0-10); NRBC Flagged by Analyzer 0 % (0-5); Neutrophil # 7.22 X10^3/uL (2.7-7.7); Neutrophil % 73.9 % (47-70); Platelet Count 265 K/mm3 (150-450); RBC Distribution Width SD 43.2 fl (35.1-43.9); Red Blood Count 4.45 M/mm3 (4.2-5.4); White Blood Count 9.8 K/mm3 (4.4-11.0)
[2023-11-10 14:41] LABS: Color, Urine Yellow (Yellow); Glucose, Dipstick Normal (Normal); Ketone-Dipstick 5 mg/dl (Negative); Leukocyte Esterase-Dipstick 100 /ul (Negative); Nitrite-Dipstick Negative (Negative); Occult Blood-Urine 250 /ul (Negative); Protein-Dipstick 30 mg/dl (Negative); Urine Clarity Clear (Clear); Urine Urobilinogen 1 mg/dl (Normal)
[2023-11-10 14:43] LABS: Urine Bilirubin Dipstick 1 mg/dL (Negative)
[2023-11-10 14:49] LABS: White Blood Cells 5-10 SEEN /hpf (0-5)
[2023-11-10 14:50] LABS: Bacteria 2+ /hpf (None Seen); Red Blood Cells-Urine 10-25 SEEN /hpf (0-5); Squamous Epithelial Cells - UA 0-5 SEEN /hpf (5-10)
[2023-11-10 14:53] LABS: ALB/GLOB Ratio 0.9 RATIO (0.9-2.4); AST(SGOT) 18 U/L (15-37); Alanine Aminotransfer ALT/SGPT 15 U/L (13-56); Albumin, Serum 3.3 g/dL (3.2-5.0); Alkaline Phosphatase 78 U/L (45-117); Anion Gap 4 (5-15); BUN 10 mg/dL (7-18); BUN/Creat Ratio 10.9 RATIO (10-20); Calcium,Total 8.9 mg/dL (8.5-10.1); Chloride 111 mmol/L (98-107); Creatinine, Serum 0.92 mg/dL (0.55-1.02); EST Glomerular Filtration Rate 72 mL/min (>60); Est Glom Filt Rate - Afr Amer 87 mL/min (>60); Estimated Creatinine Clearance 91.24 ml/min; Globulin 3.8 g/dL (2.2-4.2); Glucose 119 mg/dL (74-106); Lipase 29 U/L (13-75); Potassium 3.4 mmol/L (3.5-5.1); Protein, Total 7.1 g/dL (6.4-8.2); Sodium Level 141 mmol/L (136-145)
[2023-11-10 15:06] LABS: Pregnancy, Serum, hCG Quali. NEGATIVE Negative (0-9 Nonpreg)
[2023-11-10] MEDS: Ketorolac 15 MG/ML Vial IV (15:06)
--- NOTE | 2023-11-10 15:59 | US_ITS ---
INDICATION: Right pelvic side pain, question torsion EXAMINATION: Ultrasound US Transvaginal Non-OB TECHNIQUE: Transvaginal (for optimal evaluation of the adnexa) pelvic ultrasound was performed. Grayscale, spectral waveform, and color flow Doppler evaluation of the adnexa. COMPARISON: None. FINDINGS: UTERUS: Anteverted. The uterus measures 8.9 cm in length.. Multiple uterine fibroids. The endometrial stripe measures 5 mm in AP diameter which is within normal limits. RIGHT OVARY: Measures 4.1 x 2.9 x 2.6 cm. Non-enlarged, normal echogenicity. There is normal arterial inflow and venous outflow present in the right ovary. LEFT OVARY: Measures 3.3 x 3.3 x 2.4 cm. Non-enlarged, normal echogenicity. There is normal arterial inflow and venous outflow present in the left ovary. FREE FLUID: None. US/Transvaginal Non- IMPRESSION: No evidence of ovarian torsion. Multi fibroid uterus. Electronically Signed: David Kaplan MD at 17:59 EST ,
[2023-11-10] MEDS: HYDROmorphone 0.5 MG/0.5 ML SYRINGE IV ×2 (16:04→18:52)
[2023-11-10 16:07] VITALS: BP 123/80; PULSE 90; RESP 16; O2SAT 94
[2023-11-10 18:50] VITALS: BP 130/87; PULSE 90; RESP 20; O2SAT 96
== END 2023-11-10 18:58 | disposition home or self-care (01) ==
PROVIDERS: Emergency Provider Emergency Medicine; PCP Physician Assistant; Visit Provider Emergency Medicine
DX: N20.0 Calculus of kidney (principal); N39.0 Urinary tract infection, site not specified; R10.31 Right lower quadrant pain; Z90.49 Acquired absence of other specified parts of digestive tract; Z86.718 Personal history of other venous thrombosis and embolism; Z79.899 Other long term (current) drug therapy
CPT/HCPCS: 74176; 76830; 80053; 81001; 83690; 84703; 85025; 93976; 96361; 96374; 96375; 96376; 99283; A4216; J2405

== ENCOUNTER 2025-03-05 18:44 | Emergency (ER) | payer MEDICAID, SELFPAY ==
[2025-03-05 18:45] VITALS: BP 187/109; PULSE 101; RESP 16; TEMP 37.1; O2SAT 98; BMI 45.1
--- NOTE | 2025-03-05 18:54 | EKG12_ITS ---
Test Reason : DYSRHYTHMIA Blood Pressure : */* mmHG Vent. Rate : 86 BPM Atrial Rate : 86 BPM P-R Int : 134 ms QRS Dur : 82 ms QT Int : 396 ms P-R-T Axes : 26 3 7 degrees QTcB Int : 473 ms Normal sinus rhythm Minimal voltage criteria for LVH, may be normal variant ( R in aVL ) Borderline ECG Confirmed by AMA ABREU, ZULEYKA ([id number]), film or videotape editor MÓNICA MAGANA ([id number]) on 03/09/2025 6:47:18 AM Referred By: TL Confirmed By: ZULEYKA SERRATO MD
--- NOTE | 2025-03-05 19:04 | US_ITS ---
PROCEDURE: VENOUS DUPLEX IMAG/HEBER EXTREM 03/05/2025 REASON FOR EXAM: F 44 y/o with bilateral lower extremity swelling TECHNIQUE: Grayscale color flow and doppler analysis of the bilateral lower extremities. COMPARISON: None FINDINGS: There is no intraluminal echogenicity to suggest the presence of a deep venous thrombosis. Appropriate respiratory variation, augmentation and venous compression is noted. US/Venous Duplex Imag/Heber Extrem IMPRESSION: No evidence of deep venous thrombosis in either lower extremity. Reading Location: [id number]
[2025-03-05 19:12] LABS: Absolute Lymphocyte Count 2.85 X10^3/uL (0.83-4.51); Absolute Neutrophil Count 8.4 X10^3/uL (2.0-7.7); Basophil% 0.8 % (0-1); Eosinophil# 0.37 X10^3/uL; Eosinophils% 2.9 % (0-5); Hematocrit 39.5 % (37-47); Hemoglobin 13.3 g/dL (12.0-15.0); Lymphocyte # 2.85 X10^3/ul (0.83-4.51); Lymphocyte % 22.7 % (19-41); Mean Corp Hgb Conc 33.7 g/dL (32-36); Mean Corpuscular Hgb 30.1 pg (27.0-32.0); Mean Corpuscular Volume 89.4 fL (81-99); Mean Platelet Vol. 10.1 fl (6.2-12.0); Monocyte# 0.81 X10^3/uL; Monocyte% 6.5 % (0-10); NRBC Flagged by Analyzer 0 % (0-5); Neutrophil # 8.37 X10^3/uL (2.7-7.7); Neutrophil % 66.7 % (47-70); Platelet Count 275 K/mm3 (150-450); RBC Distribution Width CV 12.9 % (11.6-14.6); Red Blood Count 4.42 M/mm3 (4.2-5.4); White Blood Count 12.6 K/mm3 (4.4-11.0)
[2025-03-05 19:52] LABS: Troponin T High Sensitivity < 6 ng/L (<=14)
[2025-03-05 19:55] LABS: Anion Gap 13 (5-15); BUN 10 mg/dL (4-19); BUN/Creat Ratio 14.3 RATIO (10-20); Calcium,Total 8.5 mg/dL (7.6-11.0); Chloride 103 mmol/L (98-108); EST Glomerular Filtration Rate 111 (>60); Estimated Creatinine Clearance 123.59 ml/min (50-250); Glucose 109 mg/dL (70-99); Potassium 3.6 mmol/L (3.3-5.1); Sodium Level 138 mmol/L (133-145)
--- NOTE | 2025-03-05 19:55 | EDS_ITS ---
HPI History of Present Illness Chief Complaint: Edema Informant: patient and parent Narrative Narrative: Here with mother for evaluation on off leg swelling last 2 weeks however worsening left side. Today noticed some chest discomfort. No dyspnea. No recent travel or surgeries. No PEs however she had a right lower extremity nonprovoked DVT 6 years ago. She had later abdominal vein DVT post appendectomy. She was on anticoagulants both x 3 to 6 months. None currently. Denies cough. Called her PCP started on Lasix today. Swelling seems warm worsening throughout the day improves in the morning. Mild pain at the ankles. Denies tobacco history. Denies family history of MIs at young age. Denies hypertension diabetes or hyperlipidemia. 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 DVT (deep venous thrombosis) Knee injury Home Medications ?Medication ?Instructions ?Recorded ?Last Taken ?Type sertraline 25 mg tablet (Zoloft) 50 mg PO DAILY 11/07/17 History hydroxyzine HCl 25 mg tablet 25 mg PO Q8H PRN anxiety 05/04/22 Unknown History ondansetron 4 mg disintegrating 4 mg PO Q8H PRN PRN Na usea #10 tabs 11/10/23 Unknown Rx tablet oxycodone-acetaminophen 5 mg-325 1 tab PO Q6H PRN PRN Pain 3 days 11/10/23 Unknown Rx mg tablet #12 TABLETS sulfamethoxazole 800 1 tab PO BID #14 tabs Unknown Rx mg-trimethoprim 160 mg tablet (Bactrim DS) tamsulosin 0.4 mg capsule (Flomax) 0.4 mg PO DAILY #7 caps 11/10/23 Unknown Rx Allergy/AdvReac Type Severity Reaction Status Date / Time No Known Allergies Allergy Verified 03/05/25 18:45 Family History Mother Hypertension Grandmother Hypertension Grandfather DVT (deep venous thrombosis) maternal Surgical History Hx of cholecystectomy Hx of appendectomy Social History number of children: 3 current occupational status: employed 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 Smoking Status: Never smoker alcohol intake: never substance use type: does not use caffeine: No ROS ROS ED Constitutional Constitutional ED: Denies chills, fever(s) or sweats ENT ENT ED: Denies sore throat Cardiovascular Cardiovascular: Reports chest pain and leg edema; Denies palpitations or racing heartbeat Respiratory/Chest Respiratory/Chest: Denies cough, dyspnea or dyspnea on exertion Gastrointestinal Gastrointestinal: Denies abdominal pain, diarrhea, nausea or vomiting Genitourinary Genitourinary ED: Denies dysuria, hematuria or urinary frequency Musculoskeletal Musculoskeletal: Denies back pain, extremity pain or neck pain Integumentary Denies rash or wounds Neurologic Neurologic: Denies headache(s), paresthesias or weakness EXAM Physical Exam Const Vital Signs: 03/05/25 18:45 03/05/25 19:05 03/05/25 19:06 Temperature 98.7 F Temperature Source Temporal Pulse Rate 101 H Respiratory Rate 16 Respiratory Effort Normal Non-Labored Respiratory Pattern Normal Blood Pressure 187/109 H Blood Pressure Mean 135 Pulse Ox 98 Oxygen Delivery Method Room Air Room Air 03/05/25 20:43 Temperature Temperature Source Pulse Rate 83 Respiratory Rate Respiratory Effort Respiratory Pattern Blood Pressure 151/102 H Blood Pressure Mean 118 Pulse Ox Oxygen Delivery Method Positive well nourished and well developed General Appearance ED: well developed and NAD HEENT Reports moist mucous membranes normocephalic and atraumatic Eyes General Eye ED: Yes normal appearance of both eyes Neck full ROM Chest Wall Chest: Negative for tenderness Resp normal respiratory effort and normal air movement Effort and Inspection: symmetric chest movement; Negative for respiratory distress Cardio regular rhythm and no murmurs Peripheral Pulses: pulses 2+ throughout GI normal to inspection, nondistended, normoactive bowel sounds and non-tender Palpation: Negative for guarding or rebound tenderness present Extremity normal to inspection Extremity Narrative: No calf tenderness bilaterally. Pulses intact distally. General Extremety ED: Negative for edema or tenderness General Extremity: Negative for edema Neuro oriented x3 and no sensory deficits noted Sensorium / Orientation: awake and alert Skin no rashes or lesions noted and no wounds MDM MDM MDM Narrative Medical decision making narrative: Interventions / MDM: Differential diagnosis: Atypical chest pain, peripheral edema Diagnosis considered but do not suspect: DVT ultrasound negative. PE however D- dimer negative. My EKG interpretation: Sinus rhythm 86, no ST changes isolated T wave version lead III nonspecific. QTc 473. Imaging independently reviewed and interpreted by myself: 1 view chest x-ray: No acute process. External documents reviewed: N/A Test considered but not ordered:N/A ED course: Bilateral leg swelling left greater than right. No significant swelling on my exam. Slight tachycardia in triage at 101. She has chest discomfort. Ultrasounds of legs will be ordered. Cardiac workup including D-di amarjit for low risk Wells criteria for PE. 2133: Workup negative. Troponin negative x 2 D-dimer negative. Chest x-ray negative. Ultrasounds negative for DVT both legs. Reassured on findings. She will continue her diuretics and follow-up with her PCP. She states that appointment on Sunday. All questions were answered. Re-evaluation: stable Disposition discussed with patient/family/significant other: Patient and mother Case discussed with consulting clinician: N/A This note was generated with [employer] ([employer]) dictation software. It may contain incorrect words, spelling, and punctuation that were not noted in checking the note before signing. Lab Data Attestation: I reviewed the patient's lab results. Labs: Laboratory Results - last 24 hr 03/05/25 03/05/25 03/05/25 19:00 19:05 20:48 WBC 12.6 H RBC 4.42 Hgb 13.3 Hct 39.5 MCV 89.4 MCH 30.1 MCHC 33.7 RDW Std Deviation 42.0 RDW Coeff of Pippa 12.9 Plt Count 275 MPV 10.1 Immature Gran % (Auto) 0.400 Neut % (Auto) 66.7 Lymph % (Auto) 22.7 Gem % (Auto) 6.5 Eos % (Auto) 2.9 Baso % (Auto) 0.8 Absolute Neuts (auto) 8.4 H Absolute Lymphs (auto) 2.85 Nucleated RBC % 0 PT 12.7 INR 0.9 APTT 23.8 L D-Dimer Quant (PE/DVT) < 0.27 L Sodium 138 Potassium 3.6 Chloride 103 Carbon Dioxide 22.0 Anion Gap 13 BUN 10 Creatinine 0.70 Estim Creat Clear Calc 123.59 Est GFR (MDRD) Non-Af 111 BUN/Creatinine Ratio 14.3 Glucose 109 H Calcium 8.5 Troponin T High Sens < 6 Troponin T Hi Sens 2 Hr < 6 Urine Test Negative Radiography Diagnostic Testing: Clinical Impression(s) from Imaging Studies Venous Duplex 03/05/25 19:04 IMPRESSION: No evidence of deep venous thrombosis in either lower extremity. Reading Location: [id number] Chest X-Ray 03/05/25 21:10 IMPRESSION: No acute airspace abnormality. Reading [facility] Discharge Plan Triage Chief Complaint: Edema ED Provider: Vj Andersen Dx/Rx/DC Orders Clinical Impression: Peripheral edema, Chest pain Instructions: ED Chest Pain, Uncertain Cause, ED Peripheral Edema, Bilateral Prescriptions: No Action hydroxyzine HCl 25 mg tablet 25 mg PO Q8H PRN (Reason: anxiety) sertraline [Zoloft] 25 MG tablet 50 mg PO DAILY oxycodone-acetaminophen [oxycodone-acetaminophen] 5-325 mg tablet 1 tab PO Q6H PRN PRN (Reason: Pain) 3 Days Qty: 12 0RF ondansetron [ondansetron] 4 mg tablet,disintegrating 4 mg PO Q8H PRN PRN (Reason: Nausea) Qty: 10 0RF tamsulosin [Flomax] 0.4 mg capsule 0.4 mg PO DAILY Qty: 7 0RF sulfamethoxazole-trimethoprim [Bactrim DS] 800-160 mg tablet 1 tab PO BID Qty: 14 0RF Primary Care Provider: Luisa Bowers Referrals: Luisa Bowers DO [Primary Care Provider] - 3-5 Days Activity Restrictions/Additional Instructions: Ultrasound of both legs negative for DVT. Your cardiac workup including D-dimer negative. Continue your diuretics by your PCP. Follow-up with your doctor for reevaluation. Print Language: Greek Disposition Disposition: Home, Self Care
[2025-03-05 19:56] LABS: Internal QC Validated? YES +Cl - CLEAR BKGD; Pregnancy, Urine Negative Negative; Record Kit Lot#,Urine Preg 947241
[2025-03-05 20:43] VITALS: BP 151/102; PULSE 83
[2025-03-05 21:00] LABS: International Normalized Ratio 0.9; Prothrombin Time (Protime)PT. 12.7 SECONDS (11.7-14.9)
[2025-03-05 21:01] LABS: D-Dimer Quantitative (DVT/PE) < 0.27 FEU/ug/m (0.27-0.49); Partial Thromboplast Time 23.8 Seconds (24.1-36.2)
--- NOTE | 2025-03-05 21:10 | RAD_ITS ---
PROCEDURE: CHEST 1 VIEW (PORTABLE) 03/05/2025 REASON FOR EXAM: CHEST PAIN TECHNIQUE: Frontal view of the chest. COMPARISON: None FINDINGS: Cardiomediastinal silhouette is within normal limits. Lungs are clear. No sizable pneumothorax. RAD/Chest 1 View (Portable) IMPRESSION: No acute airspace abnormality. Reading Location: [facility]
[2025-03-05 21:28] LABS: Troponin T High Sens 2 HR < 6 ng/L (<=14)
[2025-03-05 21:48] VITALS: BP 149/109; PULSE 83; RESP 18; TEMP 36.4; O2SAT 99
== END 2025-03-05 21:48 | disposition home or self-care (01) ==
PROVIDERS: Emergency Provider Emergency Medicine; PCP Internal Medicine; Visit Provider Emergency Medicine
DX: R60.0 Localized edema (principal); R07.89 Other chest pain
CPT/HCPCS: 71045; 80048; 81025; 84484; 85025; 85379; 85610; 85730; 93005; 93970; 99284; A4216

== ENCOUNTER 2025-03-17 00:11 | Emergency (ER) | payer MEDICAID, SELFPAY ==
[2025-03-17 00:13] VITALS: BP 166/102; PULSE 103; RESP 18; TEMP 36.4; O2SAT 97; BMI 45.1
--- NOTE | 2025-03-17 01:38 | CT_ITS ---
PROCEDURE: ABDOMEN/PELVIS WITHOUT CONT 03/17/2025 REASON FOR EXAM: FLANK PAIN TECHNIQUE: ABDOMEN/PELVIS WITHOUT CONT Noncontrast technique limits evaluation of the abdominal and pelvic viscera. Coronal and Sagittal reconstruction series were provided. One or more dose reduction techniques were used (e.g., Automated exposure control, adjustment of the mA and/or kV according to patient size, use of iterative reconstruction technique). ORAL CONTRAST TYPE: None. AMOUNT: mL COMPARISON: 11-10-2023 FINDINGS: Non visualized right renal calculus. Currently detected mild right hydroureteronephrosis with no obvious distal ureteric calculi, possibly sequel of passed stone. Both kidneys are of average size and showing smooth outline with preserved parenchymal thickness. No renal calculi. No left hydronephrosis. Average sized liver showing homogenous parenchymal attenuation. No dilated intra or extra-hepatic biliary tracts. Gall bladder is not identified Fatty changes of the pancreas with clear surrounding fat planes. The unenhanced spleen, adrenal glands, aorta and IVC are unremarkable. Under distension of the urinary bladder showing minimal uniform mural thickening with no obvious masses. Few pelvic phleboli. No obvious masses related to the pelvic viscera. The appendix is not identified. No right iliac inflammatory changes. The examined ascending colon, the transverse colon, the descending colon & small bowel loops are unremarkable. The stomach is unremarkable. No ascites or free air. No obvious pathologically enlarged lymph nodes. Scanned osseous structures show no osseous destruction. Scanned lung bases show no obvious abnormalities. CT/Abdomen/Pelvis without Cont IMPRESSION: Non visualized right renal calculus. Currently detected mild right hydroureteronephrosis with no obvious distal uret modesto calculi, possibly sequel of passed stone. No acute pelvi-abdominal abnormalities, collections or free air. Reading Location: [facility]
[2025-03-17 01:43] LABS: Mucous, Urine 0 SEEN /hpf (<or=2+); Squamous Epithelial Cells - UA 0 SEEN /hpf (5-10)
[2025-03-17 01:44] VITALS: BP 115/57
[2025-03-17] MEDS: 0.9% Normal Saline (1000mL) 1,000 ML 999 ML IV (01:44)
[2025-03-17] MEDS: HYDROmorphone 1 MG/ML Syringe IV (01:45)
[2025-03-17] MEDS: Ondansetron 4 MG/2 ML Vial IV (01:45)
[2025-03-17 01:46] LABS: Absolute Neutrophil Count 7.5 X10^3/uL (2.0-7.7); Basophil# 0.14 X10^3/uL; Basophil% 1.1 % (0-1); Eosinophil# 0.41 X10^3/uL; Eosinophils% 3.1 % (0-5); Hematocrit 41.8 % (37-47); Hemoglobin 13.8 g/dL (12.0-15.0); Lymphocyte % 30.4 % (19-41); Mean Corpuscular Hgb 29.7 pg (27.0-32.0); Mean Corpuscular Volume 90.1 fL (81-99); Mean Platelet Vol. 10.3 fl (6.2-12.0); Monocyte# 1.04 X10^3/uL; Monocyte% 7.9 % (0-10); NRBC Flagged by Analyzer 0 % (0-5); Neutrophil # 7.51 X10^3/uL (2.7-7.7); Neutrophil % 57.2 % (47-70); Platelet Count 288 K/mm3 (150-450); RBC Distribution Width CV 13.1 % (11.6-14.6); RBC Distribution Width SD 42.8 fl (35.1-43.9); Red Blood Count 4.64 M/mm3 (4.2-5.4); White Blood Count 13.1 K/mm3 (4.4-11.0)
[2025-03-17 01:47] LABS: Color, Urine Yellow (Yellow); Glucose, Dipstick Normal (Normal); Ketone-Dipstick Negative (Negative); Leukocyte Esterase-Dipstick 100 /ul (Negative); Nitrite-Dipstick Negative (Negative); Occult Blood-Urine 250 /ul (Negative); Protein-Dipstick 30 mg/dl (Negative); Specific Gravity, Urine 1.025 (1.002-1.030); Urine Clarity Sl. Cloudy (Clear); Urine Urobilinogen Normal (Normal)
[2025-03-17 02:04] LABS: Bacteria 2+ /hpf (None Seen); Internal QC Validated? YES +Cl - CLEAR BKGD; Pregnancy, Urine Negative Negative; Red Blood Cells-Urine 5-10 SEEN /hpf (0-5); Urine Bilirubin Dipstick 1 mg/dL (Negative); White Blood Cells 0-5 SEEN /hpf (0-5)
[2025-03-17 02:08] LABS: Anion Gap 13 (5-15); BUN 13 mg/dL (4-19); BUN/Creat Ratio 15.7 RATIO (10-20); Calcium,Total 9.4 mg/dL (7.6-11.0); Carbon Dioxide 22.6 mmol/L (21.0-32.0); Chloride 102 mmol/L (98-108); EST Glomerular Filtration Rate 95 (>60); Glucose 106 mg/dL (70-99); Potassium 3.5 mmol/L (3.3-5.1); Sodium Level 138 mmol/L (133-145)
[2025-03-17] MEDS: Ketorolac 30 MG/ML Syringe IV (02:32)
[2025-03-17 02:34] VITALS: BP 118/56; PULSE 75; RESP 12; O2SAT 96
--- OUTSIDE RECORDS SUMMARY | 2025-03-17 02:36 | XMS RPT_ITS | CCD ---
Author Organization [facility] CliniSyct Care Team Providers Care Manager Talent Name Role Phone Lev Quick Unavailable Unavailable Lev Quick Unavailable Unavailable No Doctor Assigned, Nodr Unavailable Unavail able Lve Quick Unavailable Unavailable Lev Quick Unavailable Unavailable No Doctor Assigned, Nodr Unavailable Unavail able Free, Text Entry Unavailable Unavailable Lev Quick Unavailable NATASHA, DR EDGARD Diana Admitting Unavaila ble NATASHA, DR EDGARD Diana Primary Care Unavaila ble NATASHA, DR EDGARD Diana Attending Unavaila ble VACCAKBAR CROOKS Consulting Unavailable VACCARIHIREN, AKBAR Referring Unavailable PROVIDER, UNKNOWN Consulting Unavailable PROVIDER, UNKNOWN Consulting Unavailable PROVIDER, UNKNOWN Consulting Unavailable VACCVALERIY, AKBAR Consulting Unavailable BINDU FINLEY Admitting Unavailable BINDU FINLEY Primary Care Unavailable BINDU FINLEY Attending Unavailable PROVIDER, UNKNOWN Consulting Unavailable PROVIDER, UNKNOWN Consulting Unavailable PROVIDER, UNKNOWN Consulting Unavailable Akbar Marinelli Primary Care Provider Bindu Finley PA-C Primary Care Provider CONSULT, SURGERY - GENERAL (EMERGENT) Consulting Unavailable MARTIN DICKENS Admitting Unavailable MARTIN DICKENS Attending Unavailable SELF, SELF Referring Unavailable Akbar Marinelli Primary Care Provider Paulina Bowers Unavailable Unavailable Unavailable Dr. PAULINA BOWERS Referring Unava ilable LILIANA, Dr. PAULINA KRAFT Attending Unava ilable LILIANA, Dr. PAULINA KRAFT Primary Care Unava ilable AVINASH SEE Attending Unavailab le PAULINA BOWERS Primary Care Unavailable Paulina Bowers DO Primary Care Provider [phone] SANTI NAVARRO Attending Unava ilable SANTI NAVARRO Admitting Unava ilable Yves Akbar Rickey Primary Care Provider Paulina Bowers DO Primary Care Provider PAULINA BOWERS Primary Care Unavailable JOANN ANDINO Referring Unavailable OBPAULINA VEGA Primary Care Unavailable OBPAULINA VEGA Primary Care Unavailable Unavailable Primary Care Provider UnavailDr. Vj Abernathy Emergency Provider ObDr. Paulina vega DO Primary Care Provider PAULINA BOWERS Referring Unavailable PAULINA BOWERS Attending Unavailable PAULINA BOWERS Attending Unavailable PAULINA BOWERS Referring Unavailable Vj Andersen Attending Unavailable Paulina Bowers Primary Care Unavailable Allergies Allergy Classification Reported Allergen(s) Allergy Type Date of Onset Reaction(s) Facility (1 source) Acetaminophen / oxyCODONE Drug Allergy Itching, Hives/Urticaria [facility] (1 source) Acetaminophen / oxyCODONE Drug Allergy [facility] (1 source) Acetaminophen Drug Allergy 2 Itching [facility] Work Phone: (9 sources) oxyCODONE; Translations: [OXYCODONE] Drug Allergy [address] [facility] Medications Current Medications Medication Drug Class(es) Dates Sig (Normalized) Sig (Original) acetaminophen 325 mg oral tablet (5 sources) Start: 04-07-2022 End: 04-10-2022 take 2 tablets by mouth every six hours as needed acetaminophen 325 MG tablet Take 2 tablets by mouth every 6 hours as needed for up to 3 days. 24 tablet 04/07/2022 Active Start: 04-05-2022 End: 04-07-2022 acetaminophen (TYLENOL) tabl et 650 mg acetaminophen 325 mg / HYDROcodone bitartrate 5 mg oral tablet (1 source) Opioid Agonist Start: 03-20-2022 take 1 tablet by mouth every six hours Hydrocodone-Acetaminophen Active 1 TABLET PO EVERY 6 HOURS 20 5 March 20, 2022 acetaminophen 325 mg / oxyCODONE hydrochloride 5 mg oral tablet (10 sources) Opioid Agonist Start: 11-10-2023 take 1 tablet by mouth every six hours as needed for pain Oxycodone-Acetaminophen 5-325 mg tablet Active 1 {tbl} PO EVERY 6 HOURS NEEDED as needed for Pain 12 November 10, 2023 Start: 11-10-2023 take 1 tablet by khang th every six hours as needed Oxycodone-Acetaminophen Active 1 TABLET PO EVERY 6 HOURS NEEDED 12 November 10, 2023 Start: 04-04-2022 End: 05-04-2022 Oxycodone-Acetaminophen 5-32 5 mg tablet Discontinued {tbl} April 04, 2022 12:00am May 04, 2022 2:43pm Start: 04-04-2022 End: 05-04-2022 Oxycodone-Acetaminophen Disc ontinued TABLET April 03, 2022 11:00pm May 04, 2022 1:43pm Start: 03-21-2022 End: 12-26-2024 take 1 tablet by mouth every four hours as needed oxyCODONE-acetaminophen (PERCOCET) 5-325 mg tablet Indications: Acute appendicitis with localized peritonitis, without perforation, abscess, or gangrene Take 1 tablet by mouth every 4 hours as needed. 30 tablet 03/21/2022 12/26/2024 Discontinued (Other) Comment on above: Take 1 tablet by khang th every 4 hours as needed. amoxicillin 875 mg / clavulanate 125 mg oral tablet (2 sources) Penicillin-class Antibacterial Start: 2 End: 2 take 1 tablet by mouth twice daily amoxicillin-clavul anic acid (AUGMENTIN) 875-125 mg per tablet Indications: Bacterial sinusitis Take 1 tablet by mouth twice daily for 7 days. 14 tablet 0 07/30/2022 08/06/2022 Active Start: 08-05-2019 End: 08-11-2019 take 1 tablet by mouth twice daily at mealtime amoxicillin-clavulanate 875 mg-125 mg oral tablet ; 875 milligram(s) orally 2 times a day Quantity: 14 Refills: 0 Ordered: 05-Aug-2019 Yury Angel Start: 05-Aug-2019 End: 11-Aug-2019 Status: Other Generic Substitution Allowed Comments: Finish all this medication unless otherwise directed by prescriber.Take with food or milk. Comment on above: Finish all this medi cation unless otherwise directed by prescriber.Take with food or milk. Take 1 tablet by khang th twice daily for 7 days. CONTROL (1 source) CONTROL Quantity: 0 Refills: 0 Ordered: 05-Sep-2021 Ruby Perdomo Generic Substitution Allowed doxycycline monohydrate 100 mg oral tablet (1 source) Tetracycline-class Drug Start: 04-30-20 24 End: 05-07-20 24 take 1 tablet by mouth twice daily doxycycline monohydrate 100 mg tablet Take 1 tablet by mouth two times a day for 7 days. 14 tablet 0 04/30/2024 05/07/2024 Active furosemide 20 mg oral tablet (2 sources) Loop Diuretic Start: 03-05-20 End: 03-17-20 take 1 tablet by mouth once daily furOSEmide (Lasix) 20 MG tablet Indications: Leg edema Take 1 tablet by mouth daily for 7 days. 7 tablet 03/10/2025 03/17/2025 Active norethindrone 0.35 mg oral tablet (2 sources) take 1 tablet by mouth once daily Jencycla 0.35 MG tablet Take 1 tablet by mouth daily. Active oxyCODONE hydrochloride 5 mg oral capsule (6 sources) Opioid Agonist Start: 04-07-20 End: 04-10-20 take 1 capsule by mouth every six hours as needed oxycodone 5 MG capsule Indications: Superior mesenteric vein thrombosis Take 1 capsule by mouth every 6 hours as needed for up to 3 days. 12 capsule 04/07/2022 Active Start: 04-05-2022 End: 04-07-2022 take 1 tablet by mouth every four hours as needed oxyCODONE (ROXICODONE) tablet 5 mg sulfamethoxazole 800 mg / trimethoprim 160 mg oral tablet (2 sources) Dihydrofolate Reductase Inhibitor Antibacterial, Sulfonamide Antimicrobial Start: 11-10-2023 Sulfamethoxazole-Trimethopri m (Bactrim Ds) 800-160 mg tablet Active 1 {tbl} PO TWICE A DAY November 10, 2023 1:00am tamsulosin hydrochloride 0.4 mg oral capsule (2 sources) alpha-Adrenergic Ingris Start: 11-10-2023 take 1 capsule by mouth once daily Tamsulosin (Flomax) 0.4 mg capsule Active 0.4 mg PO DAILY 7 February 10th, 2024 1:00am Completed/Discontinued Medications Medication Drug Class(es) Dates Sig (Normalized) Sig (Original) aluminum hydroxide 40 mg/ml / magnesium hydroxide 40 mg/ml / simethicone 4 mg/ml oral suspension (1 source) Start: 04-05-2022 End: 04-07-2022 take 30 mL by mouth every six hours as needed alum/mag hydrox.-simethicone oral suspension 30 mL apixaban 5 mg oral tablet (2 sources) Factor Xa Inhibitor Start: 04-06-2022 End: 04-06-2022 take 1 tablet by mouth every twelve hours apixaban 5 MG tablet Indications: Superior mesenteric vein thrombosis Take 1 tablet by mouth every 12 hours. 60 tablet 1 04/06/2022 04/06/2022 Discontinued (Stop Taking at Discharge) Start: 04-06-2022 End: 04-07-2022 take 2 tablets by mouth twice daily, then take 1 tablet by mouth twice daily Apixaban Starter Pack (Eliquis DVT/PE Starter Pack) 5 MG Tab Therapy Pack Indications: Superior mesenteric vein thrombosis Take 10 mg by mouth 2 times daily for 7 days, THEN 5 mg 2 times daily. 60 Each 1 04/06/2022 04/07/2022 Discontinued (Stop Taking at Discharge) azithromycin 500 mg oral tablet (4 sources) Macrolide Antimicrobial Start: 09-15-2022 take 1 tablet by mouth once daily Azithromycin 500 MG Oral Tablet TAKE 1 TABLET DAILY UNTIL FINISHED. Quantity: 7 Refills: 0 Ordered: 15-Sep-2022 Paulina Bowers DO Start : 15-Sep-2022 Active benzocaine 15 mg / menthol 3.6 mg oral lozenge (1 source) Standardized Chemical Allergen Start: 04-05-2022 End: 04-07-2022 benzocaine-menthol (CEPACOL) 15-3.6 MG per lozenge 1 lozenge benzonatate 100 mg oral capsule (2 sources) Non-narcotic Antitussive Start: 04-30-2024 End: 12-26-2024 take 1 capsule by mouth every eight hours as needed benzonatate (TESSALON PERLES) 100 mg capsule Take 1 capsule by mouth three times a day as needed. 21 capsule 04/30/2024 12/26/2024 Discontinued (Other) guaiFENesin 20 mg/ml oral solution (1 source) Start: 04-05-2022 End: 04-07-2022 take 400 mg by mouth every six hours as needed guaiFENesin (ROBITUSSIN) oral solution 400 mg 250 ml heparin sodium, porcine 100 unt/ml injection (1 source) Unfractionated Heparin, Anti-coagulant Start: 04-05-2022 End: 04-06-2022 heparin 25,000 units in dextrose 5% 250 mL premix infusion 1 ml HYDROmorphone hydrochloride 1 mg/ml cartridge (6 sources) Opioid Agonist Start: 04-05-2022 End: 04-06-2022 HYDROmorphone (DILAUDID) injection 0.5 mg Start: 04-05-2022 End: 04-05-2022 HYDROmorphone (DILAUDID) inj ection 1 mg hydrOXYzine hydrochloride 25 mg oral tablet (10 sources) Antihistamine Start: 08-28-2022 take 1 tablet by mouth three to four times daily as needed hydrOXYzine HCl - 25 MG Oral Tablet TAKE 1 TABLET 3 TO 4 TIMES DAILY NEEDED FOR ITCHING. Quantity: 30 Refills: 0 Ordered: 22-Nov-2022 Paulina Bowers DO Start : 22-Nov-2022 Active Start: 05-04-2022 take 1 tablet by khang th every eight hours as needed for anxiety Hydroxyzine Hcl 25 mg tablet Active 25 mg PO Q8H as needed for anxiety May 04, 2022 2:42pm Start: 04-26-2022 End: 05-04-2022 Hydroxyzine Hcl 25 mg tablet Discontinued NMA PO April 26, 2022 12:00am May 04, 2022 2:44pm Start: 04-26-2022 End: 05-04-2022 Hydroxyzine Hcl Discontinued EACH PO April 25, 2022 11:00pm May 04, 2022 1:44pm melatonin 3 mg oral tablet (1 source) Start: 04-05-2022 End: 04-07-2022 melatonin tablet 6 mg naproxen 500 mg oral tablet (6 sources) Nonsteroidal Anti-inflammatory Drug Start: 04-21-2021 End: 12-26-2024 take 1 tablet by mouth every twelve hours as needed naproxen (NAPROSYN) 500 mg tablet Take 1 tablet by mouth twice daily as needed (pain/inflammation , take with food.). 20 tablet 04/21/2021 12/26/2024 Discontinued (Other) Comment on above: Take 1 tablet by khang th twice daily as needed (pain/inflammation, take with food.). ondansetron 4 mg disintegrating oral tablet (19 sources) Serotonin-3 Receptor Antagonist Start: 11-10-2023 End: 01-12-2025 take 1 tablet by mouth every eight hours as needed Ondansetron 4 MG Tab Dispersible tablet Take 1 tablet by mouth Every 8 hours as needed. 11/20/2024 01/12/2025 Discontinued (Therapy completed) Start: 10-27-2022 take 1 tablet by khang th every four to six hours as needed for nausea Ondansetron 4 MG Oral Tablet Disintegrating take 1 tablets every 4-6 hours as needed for nausea Quantity: 30 Refills: 0 Ordered: 10-Nov-2022 Paulina Bowers DO Start : 10-Nov-2022 Active Start: 04-26-2022 End: 08-16-2022 take 1 tablet by mouth every eight hours as needed for nausea and vomiting Ondansetron Hcl 4 mg tablet Discontinued 4 mg PO Q8H as needed for nausea and vomiting May 04, 2022 2:43pm August 16, 2022 2:38pm Start: 04-05-2022 End: 04-05-2022 ondansetron 4mg/2ml (ZOFRAN) injection 4 mg Start: 03-27-2022 End: 12-26-2024 take 1 tablet by mouth every eight hours as needed ondansetron (ZOFRAN) 8 mg tablet Take 1 tablet by mouth every 8 hours as needed for nausea/vomiting. 10 tablet 03/27/2022 12/26/2024 Discontinued (Other) Comment on above: Take 1 tablet by khang th every 8 hours as needed for nausea/vomiting. ondansetron 4mg/2ml (ZOFRAN) injection 4 mg (1 source) Start : 04-05 End: 04-07 take 4 mg intravenously every six hours as needed ondansetron 4mg/2ml (ZOFRAN) injection 4 mg polyethylene glycol 3350 52810 mg powder for oral solution (2 sources) Osmotic Laxative Start : 04-05 End: 04-07 polyethylene glycol (MIRALAX) packet 17 g polyvinyl alcohol 0.014 ml/ml / povidone 6 mg/ml ophthalmic solution (1 source) Start : 04-05 End: 04-07 take 1 drop(s) into the eye(s) every hour as needed Polyvinyl Alcohol-Povidone PF (REFRESH) ophthalmic solution 1 drop predniSONE 20 mg oral tablet (1 source) Start : 11-22 take 2 tablets by mouth once daily predniSONE 20 MG Oral Tablet Take 2 tablets by mouth daily x 5 days Quantity: 10 Refills: 0 Ordered: 22-Nov-2022 Paulina Bowers DO Start : 22-Nov-2022 Active 2 ml prochlorperazine 5 mg/ml injection (1 source) Phenothiazine Start : 04-05 End: 04-07 take 10 mg intravenously every six hours as needed prochlorperazine (COMPAZINE) injection 10 mg rivaroxaban 20 mg oral tablet (7 sources) Factor Xa Inhibitor Start : 04-26 End: 08-16 take 1 tablet by mouth once daily at dinner Rivaroxaban (Xarelto) 20 mg tablet Discontinued 20 mg PO DAILY April 26, 2022 12:00am August 16, 2022 2:37pm must administer with evening meal Start: 04-06-2022 End: 04-07-2022 Rivaroxaban (XARELTO) tablet 15 mg Start: 04-06-2022 End: 05-08-2022 Rivaroxaban (Xarelto Starter Pack) 15 & 20 MG Tab Therapy Pack tablet Indications: Superior mesenteric vein thrombosis Take 15 mg by mouth 2 times daily for 21 days, THEN 20 mg daily for 10 days. 52 Each 3 04/07/2022 Active 72 hr scopolamine 0.0139 mg/hr transdermal system (2 sources) Anticholinergic Start: 11-10-2022 Scopolamine 1 MG/3DAYS Transdermal Patch 72 Hour APPLY 1 PATCH EVERY 3 DAYS Quantity: 8 Refills: 0 Ordered: 10-Nov-2022 Paulina Bowers DO Start : 10-Nov-2022 Active 0.25 mg, 0.5 mg dose 1.5 ml semaglutide 1.34 mg/ml pen injector (5 sources) Start: 08-28-2022 inject 0.25 mg by subcutaneous injection every week, then inject 0.5 mg by subcutaneous injection every week Ozempic (0.25 or 0.5 MG/DOSE) 2 MG/1.5ML Subcutaneous Solution Pen-injector Inject 0.25mg subq once weekly x 4 weeks, then increase to 0.5mg once weekly Quantity: 4 Refills: 5 Ordered: 28-Aug-2022 Paulina Bowers DO Start : 28-Aug-2022 Active sertraline 150 mg oral capsule (20 sources) Serotonin Reuptake Inhibitor Start: 08-28-2022 take 1 tablet by mouth once daily Sertraline HCl - 150 MG Oral Capsule Take 1 tablet once daily Quantity: 90 Refills: 3 Ordered: 28-Aug-2022 Paulina Bowers DO Start : 28-Aug-2022 Active Start: 02-20-2022 End: 04-07-2022 take 1 tablet by mouth once daily sertraline 100 MG tablet Take 1 tablet by mouth daily. 02/20/2022 Active Start: 11-08-2017 take 2 tablets by mo [facility] once daily Sertraline (Zoloft) 25 MG tablet Active 50 mg PO DAILY November 08, 2017 1:00am Start: 05-03-2017 sertraline (ZO LOFT) 50 mg tablet 05/03/2017 Active take 1 tablet by khang once daily Zoloft 25 mg oral tablet ; 1 tab(s) orally once a day Quantity: 0 Refills: 0 Ordered: 10-Jul-2019 Teresa Villalobos Generic Substitution Allowed 1000 ml sodium chloride 9 mg /ml injection (1 source) Start: 04-05-2022 End: 04-07-2022 sodium chloride 0.9% IV solution 250 mL Problems Active Problems Problem Classification Problem Date Documented Da te Episodic/Chronic Abdominal pain (8 sources) Abdominal pain; Translations: [Unspecified abdominal pain] Episodic Allergic reactions (1 source) Allergic reaction; Translations: [Allergy, unspecified, not elsewhere classified] Episodic Anxiety disorders (11 sources) Anxiety; Translations: [Anxiety disorder, unspecified] Onset: 04-06-2022 04-06-2022 Chronic Appendicitis and other appendiceal conditions (7 sources) Acute appendicitis; Translations: [Unspecified acute appendicitis] Episodic Fluid and electrolyte disorders (2 sources) Dehydration; Translations: [Dehydration] Onset: 02-09-2024 Episodic Immunizations and screening for infectious disease (6 sources) Exposure to streptococcal pharyngitis; Translations: [Contact with or exposure to other communicable diseases] 08-16-2022 Episodic Intestinal infection (2 sources) Viral intestinal infection, unspecified; Translations: [Viral intestinal infection, unspecified] Onset: 02-09-2024 Episodic Nausea and vomiting (3 sources) Nausea and vomiting; Translations: [Nausea with vomiting] Episodic Nonmalignant breast conditions (2 sources) Breast lump; Translations: [Unspecified lump in unspecified breast] 04-26-2022 Episodic Nonspecific chest pain (3 sources) Chest discomfort; Translations: [Other chest pain] 04-26-2022 Episodic Other injuries and conditions due to external causes (2 sources) Motion sickness; Translations: [Motion sickness] Episodic Other lower respiratory disease (2 sources) Dyspnea; Translations: [Shortness of breath] 04-26-2022 Episodic Other lower respiratory disease (2 sources) Cough; Translations: [Acute cough] 04-30-2024 Episodic Other non-traumatic joint disorders (1 source) Pain in left knee; Translations: [Pain in joint, lower leg] 04-21-2021 Episodic Other nutritional; endocrine; and metabolic disorders (13 sources) Body mass index 40+ - severely obese; Translations: [Body Mass Index 40.0-44.9, adult] Onset: 01-12-2025 01-12-2025 Chronic Other nutritional; endocrine; and metabolic disorders (2 sources) Obesity; Translations: [Obesity, unspecified] 04-26-2022 Chronic Other upper respiratory disease (2 sources) Nasal congestion; Translations: [Nasal congestion] 01-12-2025 Episodic Other upper respiratory infections (1 source) Bacterial sinusitis; Translations: [Chronic sinusitis, unspecified] Chronic Other upper respiratory infections (1 source) Viral upper respiratory tract infection; Translations: [Acute upper respiratory infection, unspecified] 12-26-2024 Episodic Phlebitis; thrombophlebitis and thromboembolism (7 sources) H/O: Deep vein thrombosis; Translations: [Personal history of venous thrombosis and embolism] 05-04-2022 Episodic Comment on above: 2016 Pneumonia (except that caused by tuberculosis or sexually transmitted disease) (1 source) Infective pneumonia; Translations: [Pneumonia, unspecified organism] 04-30-2024 Episodic Residual codes; unclassified (1 source) Peripheral edema; Translations: [Localized edema] 03-05-2025 Episodic Residual codes; unclassified (1 source) Edema of lower extremity; Translations: [Localized edema] 03-10-2025 Episodic Residual codes; unclassified (1 source) Localized edema; Translations: [Localized edema] Onset: 03-11-2025 Episodic Superficial injury; contusion (1 source) Contusion of hand; Translations: [Contusion of hand(s)] 09-05-2021 Episodic Unclassified (2 sources) RT HAND INJURY 09-05-2021 Comment on above: RT HAND INJURY Unclassified (1 source) Contusion of right hand 09-05-2021 Unclassified (1 source) Acute cough; Translations: [Acute cough] Onset: 04-30-2024 Urinary tract infections (2 sources) Urinary tract infectious disease; Translations: [Urinary tract infection, site not specified] 11-10-2023 Episodic Past or Other Problems Problem Classification Problem Date Documented Da te Episodic/Chronic Mood disorders (2 sources) Mood disorders Onset: 01-12-2025 01-12-2025 Peripheral and visceral atherosclerosis (9 sources) Superior mesenteric vein thrombosis ; Translations: [Acute infarction of intestine, part and extent unspecified] Onset: 04-05-2022 Episodic Comment on above: March 2022, post appe ndectomy Unclassified (1 source) BILATERAL MACROMASTIA Onset: 04-09-2023 Results Test Name Value Interpretation Reference Range Facility 12 Lead EKGon 03-05-2025 [address] [facility] Cardiovascular Services [address] [place] [address] 12 Lead EKG 03/05/251942 MR#: [id number] Acct: [id number] Name: VIRIDIANA NICK Rep #: [id number] : 1980 44 From: Mariely Cason MD Attending Dr: Status: DEP ER Ordering Dr: Vj Andersen DO Date: 03/05/25 Location: ED Sex: F C Admitted: Test Reason : DYSRHYTHMIA Blood Pressure : */* mmHG Vent. Rate : 86 BPM Atrial Rate : 86 BPM P-R Int : 134 ms QRS Dur : 82 ms QT Int : 396 ms P-R-T Axes : 26 3 7 degrees QTcB Int : 473 ms Normal sinus rhythm Minimal voltage criteria for LVH, may be normal variant ( R in aVL ) Borderline ECG Confirmed by AMA ABREU, ZULEYKA ([id number]), editor map MORIAH MAGANA ([id number]) on 03/09/2025 6:47:18 AM Referred By: TL Confirmed By: ZULEYKA CASON MD 03/09/25 0647 Date Mariely Cason MD CC: Dr. Paulina Bowers DO; Dr. Vj Andersen DO Signed Normal [facility] Absolute lymphocyte countOrd ered By: Vj Andersen on 03-05-2025 Lymphocytes Auto (Unsp spec) [#/Vol] 2.85 10*3/uL 0.83-4.51 [facility] Absolute neutrophil countOrd ered By: Vj Andersen on 03-05-2025 Neutrophils (Bld) [#/Vol] 8.4 10*3/uL High 2.0-7.7 [facility] Activated partial thrombopla stin time (aPTT) in platelet poor plasma by coagulation aOrdered By: Vj Andersen on 03-05-2025 aPTT Coag (PPP) [Time] 23.8 s Low 24.1-36.2 [facility] Anion gap in Serum or Plasma Ordered By: Vj Andersen on 03-05-2025 Anion gap [Moles/Vol] 13 mmol/L 5-15 [facility] Automated lymphocyte count a s percentage of total leukocytesOrdered By: Vj Andersen on 03-05-2025 Lymphocytes/100 WBC Auto (Unsp spec) 22.7 % 19-41 [facility] BUN/creatinine ratioOrdered By: Vj Andersen on 03-05-2025 Urea nitrogen/Creatinine [Mass ratio] 14.3 mg/mg 10-20 [facility] Basic Metabolic Profile (BMP )on 03-05-2025 BUN/CRE 14.3 RATIO Normal - [facility] Comment on above: Performed By: #### L 100.0100, L500.2500, L501.4021, L300.4310, L300.8000, L300.3900 #### [facility] [address] [place], [address] Calcium [Mass/Vol] 8.5 mg/dL Normal 7.6-11.0 [facility] Comment on above: Performed By: #### L 100.0100, L500.2500, L501.4021, L300.4310, L300.8000, L300.3900 #### [facility] [address] [place], [address] Chloride [Moles/Vol] 103 mmol/L Normal 98-108 [facility] Comment on above: Performed By: #### L 100.0100, L500.2500, L501.4021, L300.4310, L300.8000, L300.3900 #### [facility] [address] [place], [address] CO2 [Moles/Vol] 22.0 mmol/L Normal 21.0-32.0 [facility] Comment on above: Performed By: #### L 100.0100, L500.2500, L501.4021, L300.4310, L300.8000, L300.3900 #### [facility] [address] [place], [address] Creatinine [Mass/Vol] 0.70 mg/dL Normal 0.70-1.20 [facility] Comment on above: Performed By: #### L 100.0100, L500.2500, L501.4021, L300.4310, L300.8000, L300.3900 #### [facility] [address] [place], [address] ECRCL 123.59 ml/min Normal 50-250 [facility] Comment on above: Performed By: #### L 100.0100, L500.2500, L501.4021, L300.4310, L300.8000, L300.3900 #### [facility] [address] [place], [address] GAP 13 Normal 5-15 [facility] Comment on above: Performed By: #### L 100.0100, L500.2500, L501.4021, L300.4310, L300.8000, L300.3900 #### [facility] [address] [place], [address] GFR/1.73 sq M.predicted among non-blacks MDRD (S/P/Bld) [Vol rate/Area] 111 mL/min/{1.73_m2} Normal >60 [facility] Comment on above: Result Comment: mL/m in/1.73m2 CKD-EPI Creatinine Equation (2020) Performed By: #### L 100.0100, L500.2500, L501.4021, L300.4310, L300.8000, L300.3900 #### [facility] [address] [place], [address] Glucose [Mass/Vol] 109 mg/dL High 70-99 [facility] Comment on above: Performed By: #### L 100.0100, L500.2500, L501.4021, L300.4310, L300.8000, L300.3900 #### [facility] [address] [place], [address] Potassium [Moles/Vol] 3.6 mmol/L Normal 3.3-5.1 [facility] Comment on above: Result Comment: Hemo lysis present, Results??could be affected. ?? Performed By: #### L 100.0100, L500.2500, L501.4021, L300.4310, L300.8000, L300.3900 #### [facility] [facility] [address] [place], [address] Sodium [Moles/Vol] 138 mmol/L Normal 133-145 [facility] Comment on above: Performed By: #### L 100.0100, L500.2500, L501.4021, L300.4310, L300.8000, L300.3900 #### [facility] [address] [place], [address] Urea nitrogen [Mass/Vol] 10 mg/dL Normal 4-19 [facility] Comment on above: Performed By: #### L 100.0100, L500.2500, L501.4021, L300.4310, L300.8000, L300.3900 #### [facility] [address] [place], [address] Basophil percentageOrdered B y: Vj Andersen on 03-05-2025 Basophils/100 WBC (Bld) 0.8 % 0-1 [facility] CBC W/Diff, Automatedon Absolute Lymph 2.85 X10 3/uL Normal 0.83-4.51 [facility] Comment on above: Performed By: #### L 100.0100, L500.2500, L501.4021, L300.4310, L300.8000, L300.3900 #### [facility] [address] [place], [address] Absolute Neut 8.4 X10 3/uL High 2.0-7.7 [facility] Comment on above: Performed By: #### L 100.0100, L500.2500, L501.4021, L300.4310, L300.8000, L300.3900 #### [facility] [address] [place], [address] Basophils/100 WBC (Bld) 0.8 % Normal 0-1 [facility] Comment on above: Performed By: #### L 100.0100, L500.2500, L501.4021, L300.4310, L300.8000, L300.3900 #### [facility] [address] [place], [address] Eosinophils/100 WBC (Bld) 2.9 % Normal 0-5 [facility] Comment on above: Performed By: #### L 100.0100, L500.2500, L501.4021, L300.4310, L300.8000, L300.3900 #### [facility] [address] [place], [address] Erythrocyte distribution width (RBC) [Ratio] 12.9 % Normal 11.6-14.6 [facility] Comment on above: Performed By: #### L 100.0100, L500.2500, L501.4021, L300.4310, L300.8000, L300.3900 #### [facility] [address] [place], [address] Hematocrit (Bld) [Volume fraction] 39.5 % Normal 37-47 [facility] Comment on above: Performed By: #### L 100.0100, L500.2500, L501.4021, L300.4310, L300.8000, L300.3900 #### [facility] [address] [place], [address] Hemoglobin (Bld) [Mass/Vol] 13.3 g/dL Normal 12.0-15.0 [facility] Comment on above: Performed By: #### L 100.0100, L500.2500, L501.4021, L300.4310, L300.8000, L300.3900 #### [facility] [address] [place], [address] IG% 0.400 Normal 0.0-0.9 [facility] Comment on above: Result Comment: IG% - Immature Granulocytes (promyelocytes, myelocytes and metamyelocytes) > 1% indicates that a LEFT SHIFT is Present. Performed By: #### L 100.0100, L500.2500, L501.4021, L300.4310, L300.8000, L300.3900 #### [facility] [address] [place], [address] Lymphocytes/100 WBC (Bld) 22.7 % Normal 19-41 [facility] Comment on above: Performed By: #### L 100.0100, L500.2500, L501.4021, L300.4310, L300.8000, L300.3900 #### [facility] [address] [place], [address] MCH (RBC) [Entitic mass] 30.1 pg Normal 27.0-32.0 [facility] Comment on above: Performed By: #### L 100.0100, L500.2500, L501.4021, L300.4310, L300.8000, L300.3900 #### [facility] [address] [place], [address] MCHC (RBC) [Mass/Vol] 33.7 g/dL Normal 32-36 [facility] Comment on above: Performed By: #### L 100.0100, L500.2500, L501.4021, L300.4310, L300.8000, L300.3900 #### [facility] [address] [place], [address] MCV (RBC) [Entitic vol] 89.4 fL Normal 81-99 [facility] Comment on above: Performed By: #### L 100.0100, L500.2500, L501.4021, L300.4310, L300.8000, L300.3900 #### [facility] [address] [place], [address] Monocytes/100 WBC (Bld) 6.5 % Normal 0-10 [facility] Comment on above: Performed By: #### L 100.0100, L500.2500, L501.4021, L300.4310, L300.8000, L300.3900 #### [facility] [address] [place], [address] Neutrophils/100 WBC (Bld) 66.7 % Normal 47-70 [facility] Comment on above: Performed By: #### L 100.0100, L500.2500, L501.4021, L300.4310, L300.8000, L300.3900 #### [facility] [address] [place], [address] Nucleated RBC (Bld) [#/Vol] 0 10*3/uL Normal 0-5 [facility] Comment on above: Performed By: #### L 100.0100, L500.2500, L501.4021, L300.4310, L300.8000, L300.3900 #### [facility] [address] [place], [address] Platelet mean volume (Bld) [Entitic vol] 10.1 fL Normal 6.2-12.0 [facility] Comment on above: Performed By: #### L 100.0100, L500.2500, L501.4021, L300.4310, L300.8000, L300.3900 #### [facility] [address] [place], [address] Platelets (Bld) [#/Vol] 275 10*3/uL Normal 150-450 [facility] Comment on above: Performed By: #### L 100.0100, L500.2500, L501.4021, L300.4310, L300.8000, L300.3900 #### [facility] [address] [place], [address] RBC (Bld) [#/Vol] 4.42 10*6/uL Normal 4.2-5.4 [facility] Comment on above: Performed By: #### L 100.0100, L500.2500, L501.4021, L300.4310, L300.8000, L300.3900 #### [facility] [address] [place], [address] RDW SD 42.0 fl Normal 35.1-43.9 [facility] Comment on above: Performed By: #### L 100.0100, L500.2500, L501.4021, L300.4310, L300.8000, L300.3900 #### [facility] [address] [place], [address] WBC (Bld) [#/Vol] 12.6 10*3/uL High 4.4-11.0 [facility] Comment on above: Performed By: #### L 100.0100, L500.2500, L501.4021, L300.4310, L300.8000, L300.3900 #### [facility] [address] [place], [address] Carbon dioxide, total [Moles /volume] in Central venous bloodOrdered By: Vj Andersen on 03-05-2025 CO2 [Moles/Vol] 22.0 mmol/L 21.0-32.0 [facility] Chest 1 View (Portable)on Chest 1 View (Portable) [facility] Imaging Services [address] [place] [address] Chest 1 View (Portable) MR#: [id number] Acct: [id number] Name: VIRIDIANA NICK Rep #: [id number] : 1980 F 44 From: Master He PCP: Dr. Paulina Bowers DO Status: REG ER Study: Chest 1 View (Portable) Date of Exam: 03/05/25 Exam# [id number] Ordering Dr: Vj Andersen DO PROCEDURE: CHEST 1 VIEW (PORTABLE) 03/05/2025 REASON FOR EXAM: CHEST PAIN TECHNIQUE: Frontal view of the chest. COMPARISON: None FINDINGS: Cardiomediastinal silhouette is within normal limits. Lungs are clear. No sizable pneumothorax. RAD/Chest 1 View (Portable) IMPRESSION: No acute airspace abnormality. Reading [facility] CC: Dr. Paulina Bowers DO; Dr. Vj Andersen DO Enterprise Architect Manager: Signed Normal [facility] Chloride assayOrdered By: Gera Andersen on 03-05-2025 Chloride [Moles/Vol] 103 mmol/L 98-108 [facility] D-Dimer Quantitative (DVT/PE )on 03-05-2025 D-DIMER QUANT < 0.27 Low 0.27-0.49 [facility] Comment on above: Result Comment: NORM AL D-Dimer level (<0.50) indicates no DVT or PE. Performed By: #### L 100.0100, L500.2500, L501.4021, L300.4310, L300.8000, L300.3900 #### [facility] [address] [facility] [place], [address] Emergency Department Summary on 03-05-2025 Emergency Department Summary [facility] Medical Records Department [address] [place] [address] Emergency Department Summary 03/05/25 MR#: [id number] Acct: [id number] Name: VIRIDIANA NICK Rep #: [id number] : 1980 44 From: Vj Adrian PCP: Dr. Paulina Bowers DO Status:REG ER Location: ED HPI History of Present Illness Chief Complaint: Edema Informant: patient and parent Narrative Narrative: Here with mother for evaluation on off leg swelling last 2 weeks however worsening left side. Today noticed some chest discomfort. No dyspnea. No recent travel or surgeries. No PEs however she had a right lower extremity nonprovoked DVT 6 years ago. She had later abdominal vein DVT post appendectomy. She was on anticoagulants both x 3 to 6 months. None currently. Denies cough. Called her PCP started on Lasix today. Swelling seems warm worsening throughout the day improves in the morning. Mild pain at the ankles. Denies tobacco history. Denies family history of MIs at young age. Denies hypertension diabetes or hyperlipidemia. 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 Right leg DVT DVT (deep venous thrombosis) Knee injury Home Medications ???Medication ???Instructions ???Recorded ???Last Taken ???Type sertraline 25 mg tablet (Zoloft) 50 mg PO DAILY 11/08/17 11/07/17 H istory hydroxyzine HCl 25 mg tablet 25 mg PO Q8H PRN anxiety 05/04/22 Unknown History ondansetron 4 mg disintegrating 4 mg PO Q8H PRN PRN Nausea #10 tab s 11/10/23 Unknown Rx tablet oxycodone-acetaminop hen 5 mg-325 1 tab PO Q6H PRN PRN Pain 3 days 0 11/10/23 Unknown Rx mg tablet #12 TABLETS sulfamethoxazole 800 1 tab PO BID #14 tabs 11/10/23 Unk nown Rx mg-trimethoprim 160 mg tablet (Bactrim DS) tamsulosin 0.4 mg capsule (Flomax) 0.4 mg PO DAILY #7 caps 11/10/23 Unknown Rx Allergy/AdvReac Type Severity Reaction Status Date / Time No Known Allergies Allergy Verified 03/05/25 18:45 Family History Mother Hypertension Grandmother Hypertension Grandfather DVT (deep venous thrombosis) maternal Surgical History Hx of cholecystectomy Hx of appendectomy Social History number of children: 3 current occupational status: employed 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 Smoking Status: Never smoker alcohol intake: never substance use type: does not use caffeine: No ROS ROS ED Constitutional Constitutional ED: Denies chills, fever(s) or sweats ENT ENT ED: Denies sore throat Cardiovascular Cardiovascular: Reports chest pain and leg edema; Denies palpitations or racing heartbeat Respiratory/Chest Respiratory/Chest: Denies cough, dyspnea or dyspnea on exertion Gastrointestinal Gastrointestinal: Denies abdominal pain, diarrhea, nausea or vomiting Genitourinary Genitourinary ED: Denies dysuria, hematuria or urinary frequency Musculoskeletal Musculoskeletal: Denies back pain, extremity pain or neck pain Integumentary Denies rash or wounds Neurologic Neurologic: Denies headache(s), paresthesias or weakness EXAM Physical Exam Const Vital Signs: 03/05/25 18:45 03/05/25 19:05 03/05/25 19:06 Temperature 98.7 F Temperature Source Temporal Pulse Rate 101 H Respiratory Rate 16 Respiratory Effort Normal Non-Labored Respiratory Pattern Normal Blood Pressure 187/109 H Blood Pressure Mean 135 Pulse Ox 98 Oxygen Delivery Method Room Air Room Air 03/05/25 20:43 Temperature Temperature Source Pulse Rate 83 Respiratory Rate Respiratory Effort Respiratory Pattern Blood Pressure 151/102 H Blood Pressure Mean 118 Pulse Ox Oxygen Delivery Method Positive well nourished and well developed General Appearance ED: well developed and NAD HEENT Reports moist mucous membranes normocephalic and atraumatic Eyes General Eye ED: Yes normal appearance of both eyes Neck full ROM Chest Wall Chest: Negative for tenderness Resp normal respiratory effort and normal air movement Effort and Inspection: symmetric chest movement; Negative for respiratory distress Cardio regular rhythm and no murmurs Peripheral Pulses: pulses 2+ throughout GI normal to inspection, nondistended, normoactive bowel sounds and non-tender Palpation: Negative for guarding or rebound tenderness present Extremity normal to inspection Extremity Narrative: No calf tenderness bilaterally. Pulses intact distally. General Extremety ED: Negative for edema or tenderness General Extremity: Negative for edema Neuro oriented x3 and no sensory deficits noted Sensorium (more content not included)... Normal [facility] Eosinophil percentageOrdered By: Vj Andersen on 03-05-2025 Eosinophils/100 WBC (Bld) 2.9 % 0-5 [facility] Erythrocyte distribution wid th ratioOrdered By: Vj Andersen on 03-05-2025 Erythrocyte distribution width (RBC) [Ratio] 12.9 % 11.6-14.6 [facility] Erythrocyte distribution wid th standard deviationOrdered By: Vj Andersen on 03-05-2025 Erythrocyte distribution width (RBC) [Ratio] 42.0 fl 35.1-43.9 [facility] Glomerular filtration rate ( GFR) estimation/1.73 sq m using serum, plasma, or whole bOrdered By: Vj Andersen on 03-05-2025 GFR/1.73 sq M.predicted among non-blacks MDRD (S/P/Bld) [Vol rate/Area] 111 mL/min/{1.73_m2} >60 [facility] Comment on above: mL/min/1.73m2 CKD-EP I Creatinine Equation (2020) Hematocrit Auto (Bld) [Volum e fraction]Ordered By: Vj Andersen on 03-05-2025 Hematocrit (Bld) [Volume fraction] 39.5 % 37-47 [facility] Hemoglobin measurementOrdere d By: Vj Andersen on 03-05-2025 Hemoglobin (Bld) [Mass/Vol] 13.3 g/dL 12.0-15.0 [facility] Immature granulocytes/100 WB C Auto (Bld)Ordered By: Vj Andersen on 03-05-2025 Immature granulocytes/100 WBC (Bld) 0.400 % 0.0-0.9 [facility] Comment on above: IG% - Immature Granu locytes (promyelocytes, myelocytes and metamyelocytes) > 1% indicates that a LEFT SHIFT is Present. International normalized rat io (INR) calculationOrdered By: Vj Andersen on 03-05-2025 INR Coag (Bld) [Relative time] 0.9 {INR} [facility] L499.0042on 03-05-2025 Trop T High Sen < 6 Normal <=14 [facility] Comment on above: Performed By: #### L 499.0042 #### [facility] [address] [place], [address] L499.0043on 03-05-2025 Trop T High Sen Normal <=14 [facility] Comment on above: Result Comment: Canc elled via OM: Order cancelled - Patient discharged Performed By: #### L 499.0043 ####[facility] [address] [place], [address] L501.4021on 03-05-2025 Trop T High Sen < 6 Normal <=14 [facility] Comment on above: Performed By: #### L 100.0100, L500.2500, L501.4021, L300.4310, L300.8000, L300.3900 #### [facility] [address] [place], [place], [address] MCV (mean corpuscular volume ) determinationOrdered By: Vj Andersen on 03-05-2025 MCV (RBC) [Entitic vol] 89.4 fL 81-99 [facility] Mean corpuscular hemoglobin (MCH) determinationOrdered By: Vj Andresen on 03-05-2025 MCH (RBC) [Entitic mass] 30.1 pg 27.0-32.0 [facility] Mean corpuscular hemoglobin concentration (MCHC) determinationOrdered By: Vj Andersen on 03-05-2025 MCHC (RBC) [Mass/Vol] 33.7 g/dL 32-36 [facility] Mean platelet volume determi nationOrdered By: Vj Andersen on 03-05-2025 Platelet mean volume (Bld) [Entitic vol] 10.1 fL 6.2-12.0 [facility] Monocyte percentageOrdered B y: Vj Andersen on 03-05-2025 Monocytes/100 WBC (Bld) 6.5 % 0-10 [facility] Neutrophil percentageOrdered By: Vj Andersen on 03-05-2025 Neutrophils/100 WBC (Bld) 66.7 % 47-70 [facility] Nucleated red blood cell per centageOrdered By: Vj Andersen on 03-05-2025 Nucleated RBC/100 WBC (Bld) [Ratio] 0 % 0-5 [facility] Partial Thromboplast Timeon 03-05-2025 aPTT Coag (Bld) [Time] 23.8 s Low 24.1-36.2 [facility] Comment on above: Performed By: #### L 100.0100, L500.2500, L501.4021, L300.4310, L300.8000, L300.3900 #### [facility] [address] [place], [address] Platelet countOrdered By: Gera Andersen on 03-05-2025 Platelets (Bld) [#/Vol] 275 10*3/uL 150-450 [facility] Potassium measurement (mass/ volume)Ordered By: Vj Andersen on 03-05-2025 Potassium (Unsp spec) [Mass/Vol] 3.6 mmol/L 3.3-5.1 [facility] Comment on above: Hemolysis present, R esults could be affected. ,Urineon 03-05-2025 Beta HCG ( test) Ql (U) Negative Normal [facility] Comment on above: Result Comment: Very dilute urine specimens, as indicated by a low specific gravity, may not contain denial management representative levels of hCG. If is still suspected, a first morning urine specimen should be collected 48 hours later and tested. Performed By: #### L 400.7600 #### [facility] [address] [place], [address] Prothrombin Time w/INRon INR Coag (PPP) [Relative time] 0.9 {INR} Normal [facility] Comment on above: Performed By: #### L 100.0100, L500.2500, L501.4021, L300.4310, L300.8000, L300.3900 #### [facility] [address] [place], [address] Prothrombin timeOrdered By: Vj Andersen on 03-05-2025 PT Coag (PPP) [Time] 12.7 s Normal 11.7-14.9 [facility] Comment on above: Performed By: #### L 100.0100, L500.2500, L501.4021, L300.4310, L300.8000, L300.3900 #### [facility] [address] [place], [address] RBC Auto (Bld) [#/Vol]Ordere d By: Vj Andersen on 03-05-2025 RBC (Bld) [#/Vol] 4.42 10*6/uL 4.2-5.4 [facility] Serum creatinine measurement (mass/volume)Ordered By: Vj Andersen on 03-05-2025 Creatinine [Mass/Vol] 0.70 mg/dL 0.70-1.20 [facility] Serum glucose measurement (m ass/volume)Ordered By: Vj Andersen on 03-05-2025 Glucose [Mass/Vol] 109 mg/dL High 70-99 [facility] Serum or plasma calcium diana urement (mass/volume)Ordered By: Vj Andersen on 03-05-2025 Calcium [Mass/Vol] 8.5 mg/dL 7.6-11.0 [facility] Serum or plasma urea nitroge n measurement (mass/volume)Ordered By: Vj Andersen on 03-05-2025 Urea nitrogen [Mass/Vol] 10 mg/dL 4-19 [facility] Sodium levelOrdered By: Vj Andersen on 03-05-2025 Sodium [Moles/Vol] 138 mmol/L 133-145 [facility] Troponin T.cardiac [Mass/vol ume] in Serum or Plasma by High sensitivity methodOrdered By: Vj Andersen on 03-05-2025 Troponin T.cardiac High sensitivity method [Mass/Vol] < 6 ng/L <14 [facility] Troponin T.cardiac High sensitivity method [Mass/Vol] < 6 ng/L <14 [facility] Urine testOrdered By: Vj Andersen on 03-05-2025 HCG ( test) Ql (U) Negative [facility] Comment on above: Very dilute urine sp ecimens, as indicated by a low specificgravity, may not contain denial management representative levels of hCG. If is still suspected, a first morning urinespecimen should be collected 48 hours later and tested. Venous Duplex Imag/Heber Extre [facility] 03-05-2025 Venous Duplex Imag/Heber Extrem [facility] Imaging Services [address] [place] [address] Venous Duplex Imag/Heber Extrem MR#: [id number] Acct: [id number] Name: VIRIDIANA NICK Rep #: [id number] : 1980 F 44 From: Christiano Tariq MD PCP: Dr. Paulina Bowers, DO Status: REG ER Study: Venous Duplex Imag/Heber Extrem Date of Exam: Exam# [id number] Ordering Dr: Vj Andersen DO PROCEDURE: VENOUS DUPLEX IMAG/HEBER EXTREM 03/05/2025 REASON FOR EXAM: F 44 y/o with bilateral lower extremity swelling TECHNIQUE: Grayscale color flow and doppler analysis of the bilateral lower extremities. COMPARISON: None FINDINGS: There is no intraluminal echogenicity to suggest the presence of a deep venous thrombosis. Appropriate respiratory variation, augmentation and venous compression is noted. US/Venous Duplex Imag/Heber Extrem IMPRESSION: No evidence of deep venous thrombosis in either lower extremity. Reading Location: [id number] CC: Dr. Paulina Bowers, DO; Dr. Vj Andersen, DO Enterprise Architect Manager: Signed Normal [facility] White blood cell (WBC) count Ordered By: Vj Andersen on 03-05-2025 WBC (Bld) [#/Vol] 12.6 10*3/uL High 4.4-11.0 [facility] CBC (INCLUDES DIFF/PLT)on Basophils (Bld) [#/Vol] 0.099 10*3/uL Normal 0-200 [facility] Comment on above: Performed By: #### 6 399, 7600, 13720 #### [facility] [place] [address] Commercial Portfolio Manager: Lenny Jean MD Basophils/100 WBC (Bld) 1.0 % Normal [facility] Comment on above: Performed By: #### 6 399, 7600, 15128 #### [facility] [place] [address] Commercial Portfolio Manager: Lenny Jean MD Eosinophils (Bld) [#/Vol] 0.238 10*3/uL Normal 15-500 [facility] Comment on above: Performed By: #### 6 399, 7600, 77281 #### [facility] [place] [address] Commercial Portfolio Manager: Lenny Jean MD Eosinophils/100 WBC (Bld) 2.4 % Normal [facility] Comment on above: Performed By: #### 6 399, 7600, 65422 #### [facility] of [address], [address] [place] [address] Commercial Portfolio Manager: Lenny Jean MD Erythrocyte distribution width (RBC) [Ratio] 12.3 % Normal 11.0-15.0 [facility] Comment on above: Performed By: #### 6 399, 7600, 09038 #### [facility] of [address], [address] [place] [address] Commercial Portfolio Manager: Lenny Jean MD Hematocrit (Bld) [Volume fraction] 43.4 % Normal 35.0-45.0 [facility] Comment on above: Performed By: #### 6 399, 7600, 74862 #### [facility] of [address], [address] [place] [address] Commercial Portfolio Manager: Lenny Jean MD Hemoglobin (Bld) [Mass/Vol] 14.3 g/dL Normal 11.7-15.5 [facility] Comment on above: Performed By: #### 6 399, 7600, 67259 #### [facility] of [address], [address] [place] [address] Commercial Portfolio Manager: Lenny Jean MD Lymphocytes (Bld) [#/Vol] 2.455 10*3/uL Normal 850-3900 [facility] Comment on above: Performed By: #### 6 399, 7600, 59641 #### [facility] of [address], [address] [place] [address] Commercial Portfolio Manager: Lenny Jean MD Lymphocytes/100 WBC (Bld) 24.8 % Normal [facility] Comment on above: Performed By: #### 6 399, 7600, 48051 #### [facility] of [address], [address] [place] [address] Commercial Portfolio Manager: Lenny Jean MD MCH (RBC) [Entitic mass] 30.1 pg Normal 27.0-33.0 [facility] Comment on above: Performed By: #### 6 399, 7600, 23079 #### [facility] of [place] [address] Commercial Portfolio Manager: Lenny Jean MD MCHC (RBC) [Mass/Vol] 32.9 g/dL Normal 32.0-36.[address] [facility] Comment on above: Result Comment: For adults, a slight decrease in the calculated MCHC value (in the range of 30 to 32 g/dL) is most likely not clinically significant; however, it should be interpreted with caution in correlation with other red cell parameters and the patient's clinical condition. Performed By: #### 6 399, 7600, 28593 #### [facility] [place] [address] Commercial Portfolio Manager: Lenny Jean MD MCV (RBC) [Entitic vol] 91.4 fL Normal 80.0-100.0 [facility] Comment on above: Performed By: #### 6 399, 7600, 78387 #### [facility] [place] [address] Commercial Portfolio Manager: Lenny Jean MD Monocytes (Bld) [#/Vol] 0.644 10*3/uL Normal 200-950 [facility] Comment on above: Performed By: #### 6 399, 7600, 14117 #### [facility] [place] [address] Commercial Portfolio Manager: Lenny Jean MD Monocytes/100 WBC (Bld) 6.5 % Normal [facility] Comment on above: Performed By: #### 6 399, 7600, 56134 #### [facility] [place] [address] Commercial Portfolio Manager: Lenny Jean MD Neutrophils (Bld) [#/Vol] 6.465 10*3/uL Normal 2243-9329 [facility] Comment on above: Performed By: #### 6 399, 7600, 45554 #### [facility] [place] [address] Commercial Portfolio Manager: Lenny Jean MD Neutrophils/100 WBC (Bld) 65.3 % Normal [facility] Comment on above: Performed By: #### 6 399, 7600, 08493 #### [facility] of [address], [address] [place] [address] Commercial Portfolio Manager: Lenny Jean MD Platelet mean volume (Bld) [Entitic vol] 10.2 fL Normal 7.5-12.5 [facility] Comment on above: Performed By: #### 6 399, 7600, 88877 #### [facility] of [address], [address] [place] [address] Commercial Portfolio Manager: Lenny Jean MD Platelets (Bld) [#/Vol] 290 10*3/uL Normal 140-400 [facility] Comment on above: Performed By: #### 6 399, 7600, 91116 #### [facility] of [place] [address] Commercial Portfolio Manager: Lenny Jean MD RBC (Bld) [#/Vol] 4.75 10*6/uL Normal 3.80-5.10 [facility] Comment on above: Performed By: #### 6 399, 7600, 83696 #### [facility] of [place] [address] Commercial Portfolio Manager: Lenny Jean MD WBC (Bld) [#/Vol] 9.9 10*3/uL Normal 3.8-10.8 [facility] Comment on above: Performed By: #### 6 399, 7600, 23762 #### [facility] of [place] [address] Commercial Portfolio Manager: Lenny Jean MD [facility] METABOLIC PANE [facility] 01-20-2025 Albumin [Mass/Vol] 4.4 g/dL Normal 3.6-5.1 [facility] Comment on above: Performed By: #### 6 399, 7600, [id number] #### [facility] of [place] [address] Commercial Portfolio Manager: Lenny Jean MD Albumin/Globulin [Mass ratio] 1.6 {ratio} Normal 1.0-2.5 [facility] Comment on above: Performed By: #### 6 399, 7600, 11470 #### [facility] of [address], [address] [place] [address] Commercial Portfolio Manager: Lenny Jean MD ALP [Catalytic activity/Vol] 74 U/L Normal 31-125 [facility] Comment on above: Performed By: #### 6 399, 7600, [id number] #### [facility] of [address], [address] [place] [address] Commercial Portfolio Manager: Lenny Jean MD ALT [Catalytic activity/Vol] 8 U/L Normal 6-29 [facility] Comment on above: Performed By: #### 6 399, 7600, [id number] #### [facility] of [address], [address] [place] [address] Commercial Portfolio Manager: Lenny Jean MD AST [Catalytic activity/Vol] 13 U/L Normal 10-30 [facility] Comment on above: Performed By: #### 6 399, 7600, 64326 #### [facility] of [address], [address] [place] [address] Commercial Portfolio Manager: Lenny Jean MD Bilirubin [Mass/Vol] 0.3 mg/dL Normal 0.2-1.2 [facility] Comment on above: Performed By: #### 6 399, 7600, 98054 #### [facility] of [address], [address] [place] [address] Commercial Portfolio Manager: Lenny Jean MD BUN/CREATININE RATIO SEE NOTE: Normal 6-22 [facility] Comment on above: Result Comment: Not Reported: BUN and Creatinine are within reference range. Performed By: #### 6 399, 7600, 09255 #### [facility] of [address], [address] [place] [address] Commercial Portfolio Manager: Lenny Jean MD Calcium [Mass/Vol] 9.1 mg/dL Normal 8.6-10.2 [facility] Comment on above: Performed By: #### 6 399, 7600, [id number] #### [facility] of [address], [address] [place] [address] Commercial Portfolio Manager: Lenny Jean MD Chloride [Moles/Vol] 103 mmol/L Normal 98-110 [facility] Comment on above: Performed By: #### 6 399, 7600, 36494 #### [facility] of [address], [address] [place] [address] Commercial Portfolio Manager: Lenny Jean MD CO2 [Moles/Vol] 24 mmol/L Normal 20-32 [facility] Comment on above: Performed By: #### 6 399, 7600, 44171 #### [facility] of [address], [address] [place] [address] Commercial Portfolio Manager: Lenny Jean MD Creatinine [Mass/Vol] 0.72 mg/dL Normal 0.50-0.[address] [facility] Comment on above: Performed By: #### 6 399, 7600, 15951 #### [facility] of [address], [address] [place] [address] Commercial Portfolio Manager: Lenny Jean MD GFR/1.73 sq M.predicted among non-blacks MDRD (S/P/Bld) [Vol rate/Area] 107 mL/min/{1.73_m2} Normal > OR = 60 [facility] Comment on above: Performed By: #### 6 399, 7600, 90656 #### [facility] [address], [address] [place] [address] Commercial Portfolio Manager: Lenny Jean MD Globulin (S) [Mass/Vol] 2.7 g/dL Normal 1.9-3.7 [facility] Comment on above: Performed By: #### 6 399, 7600, [id number] #### [facility] of [address], [address] [place] [address] Commercial Portfolio Manager: Lenny Jean MD Glucose [Mass/Vol] 90 mg/dL Normal 65-99 [facility] Comment on above: Result Comment: Fasting reference interval Performed By: #### 6 399, 7600, 82083 #### [facility] of [address], [address] [place] [address] Commercial Portfolio Manager: Lenny Jean MD Potassium [Moles/Vol] 3.8 mmol/L Normal 3.5-5.[address] [facility] Comment on above: Performed By: #### 6 399, 7600, 99184 #### [facility] of [place] [address] Commercial Portfolio Manager: Lenny Jean MD Protein [Mass/Vol] 7.1 g/dL Normal 6.1-8.1 [facility] Comment on above: Performed By: #### 6 399, 7600, 22231 #### [facility] of [address], [address] [place] [address] Commercial Portfolio Manager: Lenny Jean MD Sodium [Moles/Vol] 138 mmol/L Normal 135-146 [facility] Comment on above: Performed By: #### 6 399, 7600, 05151 #### [facility] of [place] [address] Commercial Portfolio Manager: Lenny Jean MD Urea nitrogen [Mass/Vol] 10 mg/dL Normal 7-25 [facility] Comment on above: Performed By: #### 6 399, 7600, 67600 #### [facility] [place] [address] Commercial Portfolio Manager: Lenny Jean MD LIPID PANEL, STANDARD 04-2 Cholesterol [Mass/Vol] 135 mg/dL Normal <200 [facility] Comment on above: Performed By: #### 6 399, 7600, 42384 #### [facility] [place] [address] Commercial Portfolio Manager: Lenny Jean MD Cholesterol in HDL [Mass/Vol] 54 mg/dL Normal > OR = 50 [facility] Comment on above: Performed By: #### 6 399, 7600, 15801 #### [facility] [place] [address] Commercial Portfolio Manager: Lenny Jean MD Cholesterol in LDL [Mass/Vol] 66 mg/dL Normal [facility] Comment on above: Result Comment: Refe rence range: <100 Desirable range <100 mg/dL for primary prevention; <70 mg/dL for patients with CHD or diabetic patients with > or = 2 CHD risk factors. LDL-C is now calculated using the Soledad calculation, which is a validated novel method providing better accuracy than the Friedewald equation in the estimation of LDL-C. Emanuel CASTILLO et al. JAVI. 2013;310(19): 1291-1443 (http://education.[employer]/faq/UEX622) Performed By: #### 6 399, 7600, 90332 #### [facility] [address], [address] [place] [address] Commercial Portfolio Manager: Lenny Jean MD Cholesterol.total/Cally sterol in HDL [Mass ratio] 2.5 {ratio} Normal <5.0 [facility] Comment on above: Performed By: #### 6 399, 7600, 67953 #### [facility] [address], [address] [place] [address] Commercial Portfolio Manager: Lenny Jean MD NON HDL CHOLESTEROL 81 mg/dL (calc) Normal <130 [facility] Comment on above: Result Comment: For patients with diabetes plus 1 major ASCVD risk factor, treating to a non-HDL-C goal of <100 mg/dL (LDL-C of <70 mg/dL) is considered a therapeutic option. Performed By: #### 6 399, 7600, 30698 #### [facility] [address], [address] [place] [address] Commercial Portfolio Manager: Lenny Jean MD Triglyceride [Mass/Vol] 74 mg/dL Normal <150 [facility] Comment on above: Performed By: #### 6 399, 7600, 21842 #### [facility] [place] [address] Commercial Portfolio Manager: Lenny Jean MD TSH W/REFLEX TO FT4on 2024 TSH W/REFLEX TO FT4 2.01 mIU/L Normal [facility] Comment on above: Result Comment: Refe rence Range > or = 20 Years 0.40-4.50 Ranges First trimester 0.26-2.66 Second trimester 0.55-2.73 Third trimester 0.43-2.91 Performed By: #### 6 399, 1440, 19545 #### [facility] [address] [facility], [address] [place] [address] Commercial Portfolio Manager: Lenny Jean MD CNOVviviana 12-26-2024 CNOV Office Visit (UCWSTR) VIRIDIANA NICK ([id number]) 1980 F Date Time Provider Department 12/26/24 9:30 AM VIRGIL ARANA [facility] During your visit today, we recorded the following information about you: Temperature Pulse Respiration Blood pressure 97.1 degrees 80/minute 20/minute 132/85 Weight Last Period 108 kg 12/04/24 Virgil Arana MD 12/26/2024 10:05 AM Signed [facility] Subjective Viridiana Nick is a 44 year old female. Patient presents with: Cough: Chest congestion, sore throat, sinus pressure and pain, pressure in teeth, headeache x 3 days Patient had 4 days of upper respiratory symptoms. Has had nasal congestion, rhinorrhea, postnasal drainage, sore throat from drainage, ear pressure, and sinus pressure with radiation to her teeth. She denies fever vomiting or diarrhea but has had nausea. She has used NyQuil, cold and sinus medicine, and Sudafed. Cough Review of Systems Respiratory: Positive for cough. Objective BP 132/85 Pulse 80 Temp 36.2 ?C (97.1 ?F) Resp 20 Wt 108 kg (238 lb 1.6 oz) LMP 12/04/2024 (Approximate) SpO2 96% BMI 43.55 kg/m? Physical Exam Constitutional: Appearance: She is ill-appearing (Mild). HENT: Right Ear: Tympanic membrane and ear canal normal. Left Ear: Tympanic membrane and ear canal normal. Nose: Congestion present. Mouth/Throat: Pharynx: No oropharyngeal exudate or posterior oropharyngeal erythema. Eyes: Extraocular Movements: Extraocular movements intact. Conjunctiva/sclera: Conjunctivae normal. Pupils: Pupils are equal, round, and reactive to light. Cardiovascular: Rate and Rhythm: Normal rate and regular rhythm. Heart sounds: No murmur heard. Pulmonary: Effort: No respiratory distress. Breath sounds: No wheezing, rhonchi or rales. Musculoskeletal: Cervical back: Neck supple. No tenderness. Lymphadenopathy: Cervical: No cervical adenopathy. Neurological: Mental Status: She is alert. {ASSESSMENT/PLAN: 1. Viral URI - ICD9: 465.9, ICD10: J06.9 - suspect viral URI - Discussed supportive care treatment with rest, cold medicine, and analgesia (she can add ibuprofen for sore throat and sinus pressure). Decline strep testing - feels sore throat is related to drainage. She has viral sinusitis. An antibiotic may be useful if sinus symptoms persist beyond 1 week without improvement suggesting a secondary bacterial infection. Virgil Arana MD Differential Diagnoses - Viral URI is more likely for the following reason(s): suggested by HANDP Procedures Allergies As of Date: 12/26/2024 Noted Allergy Reaction OXYCODONE 03/21/2022 9 - Itching Date Reviewed: 12/26/2024 Reviewed by: Carolyn Feng LPN - Fully Assessed Reason for Visit: Cough [28] Cmt: Chest congestion, sore throat, sinus pressure and pain, pressure in teeth, headeache x 3 days Primary Visit Diagnosis:Viral URI [J06.9] Prescriptions as of 12/26/2024 - sertraline (ZOLOFT) 50 mg tablet Problem List As Of Date: 12/26/2024 (None) Medications Discontinued During This Encounter Prescriptions - naproxen (NAPROSYN) 500 mg tablet (Discontinued) Reported on 07/30/2022 - oxyCODONE-acetaminop hen (PERCOCET) 5-325 mg tablet (Discontinued) Reported on 07/30/2022 - ondansetron (ZOFRAN) 8 mg tablet (Discontinued) Reported on 07/30/2022 - benzonatate (TESSALON PERLES) 100 mg capsule (Discontinued) Reported on 12/26/2024 Level of Service: OFFICE/OUTPATIENT ESTABLISHED LOW [facility] 20 MIN [93169] Letter Text Encounter Status:Closed by VIRGIL ARANA on 12/26/24 [facility] CNOVon 04-30-2024 CNOV Office Visit (UCWSTR) VIRIDIANA NICK ([id number]) 1980 F Date Time Provider Department 04/30/24 11:45 AM JOANN ANDINO [facility] During your visit today, we recorded the following information about you: Temperature Pulse Respiration Blood pressure 97.7 degrees 98/minute 16/minute 110/70 Weight 105.2 kg Joann Andino APRN.C++ PROFESSOR 04/30/2024 12:45 PM Signed This note was created using [employer]. Subjective Viridiana Nick is a 43 year old female. 43 year old female with PMH presents for illness. Acute onset 4 days ago +fever +chest congestion + cough Non productive +body aches +fatigue, citing she has been sleeping nonstop Feeling of ear fullness Denies N/V/D Denies hemoptysis. Denies CP. Denies SOB Denies rhinorrhea Has used Robitussin, Tylenol and Ibuprofen Denies tobacco usage The history is provided by the patient. No senior application software engineer was used. Sinus Problem This is a new problem. The current episode started in the past 7 days. The problem occurs constantly. The problem has been gradually worsening. Associated symptoms include congestion, coughing, fatigue, a fever and headaches. Pertinent negatives include no abdominal pain, anorexia, arthralgias, change in bowel habit, chest pain, chills, diaphoresis, joint swelling, myalgias, nausea, neck pain, numbness, rash, sore throat, swollen glands, urinary symptoms, vertigo, visual change, vomiting or weakness. Nothing aggravates the symptoms. Treatments tried: see HPI. The treatment provided no relief. PAST MEDICAL HISTORY No date: Depression No date: Viral meningitis PAST SURGICAL HISTORY 03/20/2022: APPENDECTOMY Comment: No date: LAPAROSCOPY SURG CHOLECYSTECTOMY Comment: Cholecystectomy, lap ALLERGIES Oxycodone MEDICATIONS sertraline (ZOLOFT) 50 mg tablet doxycycline monohydrate 100 mg tablet Take 1 tablet by mouth two times a day for 7 days. benzonatate (TESSALON PERLES) 100 mg capsule Take 1 capsule by mouth three times a day as needed. ondansetron (ZOFRAN) 8 mg tablet Take 1 tablet by mouth every 8 hours as needed for nausea/vomiting. (Patient not taking: Reported on 07/30/2022) oxyCODONE-acetaminop hen (PERCOCET) 5-325 mg tablet Take 1 tablet by mouth every 4 hours as needed. (Patient not taking: Reported on 07/30/2022) naproxen (NAPROSYN) 500 mg tablet Take 1 tablet by mouth twice daily as needed (pain/inflammation, take with food.). (Patient not taking: Reported on 07/30/2022) FAMILY HISTORY Problem Relation Age of Onset Hypertension Mother Social History Tobacco Use Smoking status: Never Smokeless tobacco: Never Review of Systems Constitutional: Positive for fatigue and fever. Negative for chills and diaphoresis. HENT: Positive for congestion. Negative for sore throat. Respiratory: Positive for cough. Negative for apnea, choking and chest tightness. Cardiovascular: Negative for chest pain, palpitations and leg swelling. Gastrointestinal: Negative for abdominal pain, anorexia, change in bowel habit, nausea and vomiting. Musculoskeletal: Negative for arthralgias, joint swelling, myalgias and neck pain. Skin: Negative for color change, pallor and rash. Allergic/Immunologic : Negative for environmental allergies, food allergies and immunocompromised state. Neurological: Positive for headaches. Negative for dizziness, vertigo, facial asymmetry, weakness and numbness. Hematological: Negative for adenopathy. Does not bruise/bleed easily. Psychiatric/Behavior al: Negative for agitation and behavioral problems. Objective BP 110/70 Pulse 98 Temp 36.5 ?C (97.7 ?F) Resp 16 Wt 105.2 kg (231 lb 14.8 oz) LMP 01/06/2019 SpO2 97% BMI 42.42 kg/m? Physical Exam Vitals and nursing note reviewed. Constitutional: General: She is not in acute distress. Appearance: Normal appearance. She is normal weight. She is not ill-appearing, toxic-appearing or diaphoretic. HENT: Head: Normocephalic and atraumatic. Right Ear: Ear canal and external ear normal. Left Ear: Ear canal and external ear normal. Nose: Nose normal. No congestion or rhinorrhea. Mouth/Throat: Mouth: Mucous membranes are moist. Pharynx: No oropharyngeal exudate or posterior oropharyngeal erythema. Eyes: General: Right eye: No discharge. Left eye: No discharge. Extraocular Movements: Extraocular movements intact. Conjunctiva/sclera: Conjunctivae normal. Pupils: Pupils are equal, round, and reactive to light. Cardiovascular: Rate and Rhythm: Normal rate and regular rhythm. Pulses: Normal pulses. Heart sounds: Normal heart sounds. No murmur heard. No friction rub. Pulmonary: Effort: Pulmonary effort is normal. No respiratory distress. Breath sounds: Normal breath sounds. No stridor. No wheezing, rhonchi or rales. Chest: Chest wall: No tenderness. Abdominal: General: Abdomen (more content not included)... Normal [facility] XR CHEST 2V FRONTAL/LATon XR CHEST 2V FRONTAL/LAT * * *Final Repor t* * * DATE OF EXAM: Apr 30 2024 12:07PM WOX [id number] - XR CHEST 2V FRONTAL/LAT / PROCEDURE REASON: Acute cough * * * * Physician Interpretation * * * * EXAMINATION: CHEST RADIOGRAPH (2 VIEW FRONTAL and LATERAL) CLINICAL HISTORY: Acute cough MQ: XC2_6 EXAM DATE/TIME: 04/30/2024 12:07 PM COMPARISON: No relevant prior studies available. RESULT: Lines, tubes, and devices: None. Lungs and pleura: Focal airspace consolidation in the right lower lobe. No pleural effusion or pneumothorax. Cardiomediastinal silhouette: Normal cardiomediastinal silhouette. Bones and soft tissues: Mild degenerative changes IMPRESSION: Right lower lobe pneumonia. Enterprise Architect Manager: NABOR Transcribe Date/Time: Apr 30 2024 12:11P Dictated by : CHRISTOPH PERALES MD This examination was interpreted and the report reviewed and electronically signed by: CHRISTOPH PERALES MD on Apr 30 2024 12:11PM EST [id number] CN Normal [facility] XR Chest PA and Lateralon IMPRESSION: Right lower lobe pneumonia. Enterprise Architect Manager: NABOR Transcribe Date/Time: Apr 30 2024 12:11P Dictated by : CHRISTOPH PERALES MD This examination was interpreted and the report reviewed and electronically signed by: CHRISTOPH PERALES MD on Apr 30 2024 12:11PM [facility] DIVISION OF RADIOLOGY * * *Final Report* * * DATE OF EXAM: Apr 30 2024 12:07PM WOX [id number] - XR CHEST 2V FRONTAL/LAT / PROCEDURE REASON: Acute cough * * * * Physician Interpretation * * * * EXAMINATION: CHEST RADIOGRAPH (2 VIEW FRONTAL & LATERAL) CLINICAL HISTORY: Acute cough MQ: XC2_6 EXAM DATE/TIME: 04/30/2024 12:07 PM COMPARISON: No relevant prior studies available. RESULT: Lines, tubes, and devices: None. Lungs and pleura: Focal airspace consolidation in the right lower lobe. No pleural effusion or pneumothorax. Cardiomediastinal silhouette: Normal cardiomediastinal silhouette. Bones and soft tissues: Mild degenerative changes DIVISION OF RADIOLOGY Provider, [facility] Imaging Rule - 04/30/2024 * * *Final Report* * * DATE OF EXAM: Apr 30 2024 12:07PM WOX [id number] - XR CHEST 2V FRONTAL/LAT / PROCEDURE REASON: Acute cough * * * * Physician Interpretation * * * * EXAMINATION: CHEST RADIOGRAPH (2 VIEW FRONTAL & LATERAL) CLINICAL HISTORY: Acute cough MQ: XC2_6 EXAM DATE/TIME: 04/30/2024 12:07 PM COMPARISON: No relevant prior studies available. RESULT: Lines, tubes, and devices: None. Lungs and pleura: Focal airspace consolidation in the right lower lobe. No pleural effusion or pneumothorax. Cardiomediastinal silhouette: Normal cardiomediastinal silhouette. Bones and soft tissues: Mild degenerative changes IMPRESSION IMPRESSION: Right lower lobe pneumonia. Enterprise Architect Manager: NABOR Transcribe Date/Time: Apr 30 2024 12:11P Dictated by : CHRISTOPH PERALES MD This examination was interpreted and the report reviewed and electronically signed by: CHRISTOPH PERALES MD on Apr 30 2024 12:11PM [facility] Radiology Study observation (narrative) Bertram silva [facility] XR Chest PA and LateralOrder ed By: [facility] Provider on 04-30-[address] [facility] ED Prov Noteon 02-09-2024 ED Prov Note ED PROVIDER NOTE [facility] EMERGENCY DEPARTMENT NAME: Viridiana Enrique AGE: 43 y.o. : 1980 VISIT DATE: 02/09/2024 CSN: [id number] PCP: Paulina Bowers DO Chief Complaint Patient presents with Emesis With diarrhea x3 days, zofran not helping Chief complaint nausea vomiting History of present illness this is a 43-year-old female who is here with nausea vomiting diarrhea since . Abdominal cramping. Anything that she drinks goes through her system she is feeling her mouth dry. Dehydrated and weak. Denies hematemesis hematochezia or melena Past Medical History: Diagnosis Date Anxiety Past Surgical History: Procedure Laterality Date APPENDECTOMY BREAST REDUCTION Bilateral 04/09/2023 Procedure: BILATERAL VERTICAL REDUCTION MAMMOPLASTY; Surgeon: Santi Navarro DO; Location: [facility]; Service: Plastics CHOLECYSTECTOMY ORTHOPEDIC SURGERY History reviewed. No pertinent family history. Social History Socioeconomic History Marital status: Legally Tobacco Use Smoking status: Never Passive exposure: Never Smokeless tobacco: Never Vaping Use Vaping Use: Never used Substance and Sexual Activity Alcohol use: Yes Comment: occasional Drug use: Never Previous Medications Medication Sig sertraline (ZOLOFT) 50 MG tablet Take 1 (one) tablet (50 mg total) by mouth daily . No Known Allergies Review of Systems All other systems reviewed and are negative. Patient Vitals for the past 24 hrs: BP Temp Temp src Pulse Resp SpO2 Height Weight 02/09/24 1745 (!) 115/93 -- -- -- -- 96 % -- -- 02/09/24 1742 (!) 115/93 -- -- -- -- -- -- -- 02/09/24 1736 -- 97.8 degrees F (36.6 degrees C) Temporal (!) 105 16 95 % 5' 2 102.1 kg (225 lb) Physical Exam Vitals and nursing note reviewed. Exam conducted with a pastry sous chef present. Constitutional: General: She is in acute distress. Appearance: She is normal weight. HENT: Head: Normocephalic and atraumatic. Right Ear: Tympanic membrane normal. Left Ear: Tympanic membrane normal. Nose: Rhinorrhea present. Mouth/Throat: Mouth: Mucous membranes are dry. Eyes: Extraocular Movements: Extraocular movements intact. Pupils: Pupils are equal, round, and reactive to light. Cardiovascular: Rate and Rhythm: Normal rate and regular rhythm. Musculoskeletal: Cervical back: Normal range of motion and neck supple. Pulmonary: Effort: Pulmonary effort is normal. Breath sounds: Normal breath sounds. Skin: General: Skin is dry. Capillary Refill: Capillary refill takes 2 to 3 seconds. Neurological: Mental Status: She is alert. . Laboratory & Radiographic Imaging (if done): Results for orders placed or performed during the hospital encounter of 02/09/24 POC CBC and Differential Result Value Ref Range WBC 12.78 (H) 4.50 - 11.00 K/mcL RBC 5.73 (H) 4.00 - 5.20 M/mcL Hemoglobin 17.1 (H) 12.0 - 16.0 g/dL Hematocrit 52.9 (H) 36.0 - 46.0 % MCV 92.3 80.0 - 100.0 fL MCH 29.8 26.0 - 34.0 pg MCHC 32.3 31.0 - 37.0 g/dL RDW - CV 13.1 11.6 - 14.8 % Platelets 99 (L) 150 - 400 K/mcL MPV 11.8 9.4 - 12.4 fL Neutrophils 77.3 % Lymphocytes 13.8 % Monocytes 6.1 % Eosinophils 2.5 % Basophils 0.2 % IG Percent 0.10 % Neutrophils Abs 9.88 (H) 1.70 - 7.00 K/mcL Lymphocytes Abs 1.76 0.90 - 4.00 K/mcL Monocytes Abs 0.78 0.30 - 0.90 K/mcL Eosinophils Abs 0.32 0.00 - 0.50 K/mcL Basophils Abs 0.03 0.00 - 0.30 K/mcL IG Absolute 0.01 0.00 - 0.30 K/mcL Comment See Comment (CR) (none) POC CBC and Differential Result Value Ref Range WBC 12.39 (H) 4.50 - 11.00 K/mcL RBC 5.14 4.00 - 5.20 M/mcL Hemoglobin 15.4 12.0 - 16.0 g/dL Hematocrit 46.3 (H) 36.0 - 46.0 % MCV 90.1 80.0 - 100.0 fL MCH 30.0 26.0 - 34.0 pg MCHC 33.3 31.0 - 37.0 g/dL RDW - CV 12.5 11.6 - 14.8 % Platelets 292 150 - 400 K/mcL MPV 10.0 9.4 - 12.4 fL Neutrophils 78.7 % Lymphocytes 12.1 % Monocytes 6.1 % Eosinophils 2.7 % Basophils 0.2 % IG Percent 0.20 % Neutrophils Abs 9.76 (H) 1.70 - 7.00 K/mcL Lymphocytes Abs 1.50 0.90 - 4.00 K/mcL Monocytes Abs 0.76 0.30 - 0.90 K/mcL Eosinophils Abs 0.33 0.00 - 0.50 K/mcL Basophils Abs 0.02 0.00 - 0.30 K/mcL IG Absolute 0.02 0.00 - 0.30 K/mcL POC Basic Metabolic Panel Result Value Ref Range Glucose 97 65 - 99 mg/dL BUN 9 8 - 25 mg/dL Creatinine 0.74 0.40 - 1.10 mg/dL GFR 104 >=60 mL/min/1.73 m2 Sodium 128 (L) 135 - 145 mmol/L Potassium 11.6 (CH) 3.5 - 5.1 mmol/L Chloride 118 (H) 98 - 108 mmol/L TCO2 15 (L) 21 - 32 mmol/L Ionized Calcium 2.8 (CL) 4.5 - 5.3 mg/dL POC Basic Metabolic Panel Result Value Ref Range Glucose 102 (H) 65 - 99 mg/dL BUN 10 8 - 25 mg/dL Creatinine 0.74 0.40 - 1.10 mg/dL GFR 104 >=60 mL/min/1.73 m2 Sodium 144 135 - 145 mmol/L Potassium 3.1 (L) 3.5 - 5.1 mmol/L Chloride 109 (H) 98 - 108 mmol/L TCO2 19 (L) 21 - 32 mmol/L Ionized Calcium 4.6 4.5 - 5.3 mg/dL POC Liver Panel Pl (more content not included)... [facility] POC BASIC METABOLIC PANEL [facility] 02-09-2024 Chloride [Moles/Vol] 109 mmol/L High 98-108 [facility] Comment on above: Order Comment: [facility] has implemented the eGFR calculation approach that does not have a coefficient for race that conforms to the NKF-ASN Task Force Recommendations. CO2 [Moles/Vol] 19 mmol/L Low 21-32 [facility] Comment on above: Order Comment: [facility] has implemented the eGFR calculation approach that does not have a coefficient for race that conforms to the NKF-ASN Task Force Recommendations. Creatinine [Mass/Vol] 0.74 mg/dL Normal 0.40-1.10 [facility] Comment on above: Order Comment: [facility] has implemented the eGFR calculation approach that does not have a coefficient for race that conforms to the NKF-ASN Task Force Recommendations. Glucose [Mass/Vol] 102 mg/dL High 65-99 [facility] Comment on above: Order Comment: [facility] has implemented the eGFR calculation approach that does not have a coefficient for race that conforms to the NKF-ASN Task Force Recommendations. POC GFR 104 mL/min/1.73 m2 Normal >=60 [facility] Comment on above: Order Comment: [facility] has implemented the eGFR calculation approach that does not have a coefficient for race that conforms to the NKF-ASN Task Force Recommendations. Result Comment: Radha mated GFR was calculated using the 2020 CKD-EPI creatinine equation. POC IONIZED CALCIUM 4.6 mg/dL Normal 4.5-5.3 [facility] Comment on above: Order Comment: [facility] has implemented the eGFR calculation approach that does not have a coefficient for race that conforms to the NKF-ASN Task Force Recommendations. Potassium [Moles/Vol] 3.1 mmol/L Low 3.5-5.1 [facility] Comment on above: Order Comment: [facility] has implemented the eGFR calculation approach that does not have a coefficient for race that conforms to the NKF-ASN Task Force Recommendations. Sodium [Moles/Vol] 144 mmol/L Normal 135-145 [facility] Comment on above: Order Comment: [facility] has implemented the eGFR calculation approach that does not have a coefficient for race that conforms to the NKF-ASN Task Force Recommendations. Urea nitrogen [Mass/Vol] 10 mg/dL Normal 8-25 [facility] Comment on above: Order Comment: [facility] has implemented the eGFR calculation approach that does not have a coefficient for race that conforms to the NKF-ASN Task Force Recommendations. Chloride [Moles/Vol] 118 mmol/L High 98-108 [facility] Comment on above: Order Comment: Criti rah result acted upon time of test. Test performed at bedside. [facility] has implemented the eGFR calculation approach that does not have a coefficient for race that conforms to the NKF-ASN Task Force Recommendations. CO2 [Moles/Vol] 15 mmol/L Low 21-32 [facility] Comment on above: Order Comment: Criti rah result acted upon time of test. Test performed at bedside. [facility] has implemented the eGFR calculation approach that does not have a coefficient for race that conforms to the NKF-ASN Task Force Recommendations. Creatinine [Mass/Vol] 0.74 mg/dL Normal 0.40-1.10 [facility] Comment on above: Order Comment: Criti rah result acted upon time of test. Test performed at bedside. [facility] has implemented the eGFR calculation approach that does not have a coefficient for race that conforms to the NKF-ASN Task Force Recommendations. Glucose [Mass/Vol] 97 mg/dL Normal 65-99 [facility] Comment on above: Order Comment: Criti rah result acted upon time of test. Test performed at bedside. [facility] has implemented the eGFR calculation approach that does not have a coefficient for race that conforms to the NKF-ASN Task Force Recommendations. POC GFR 104 mL/min/1.73 m2 Normal >=60 [facility] Comment on above: Order Comment: Criti rah result acted upon time of test. Test performed at bedside. [facility] has implemented the eGFR calculation approach that does not have a coefficient for race that conforms to the NKF-ASN Task Force Recommendations. Result Comment: Radha mated GFR was calculated using the 2020 CKD-EPI creatinine equation. POC IONIZED CALCIUM 2.8 mg/dL Off scale low 4.5-5.3 [facility] Comment on above: Order Comment: Criti rah result acted upon time of test. Test performed at bedside. [facility] has implemented the eGFR calculation approach that does not have a coefficient for race that conforms to the NKF-ASN Task Force Recommendations. Potassium [Moles/Vol] 11.6 mmol/L Off scale high 3.5-5.1 [facility] Comment on above: Order Comment: Criti rah result acted upon time of test. Test performed at bedside. [facility] has implemented the eGFR calculation approach that does not have a coefficient for race that conforms to the NKF-ASN Task Force Recommendations. Sodium [Moles/Vol] 128 mmol/L Low 135-145 [facility] Comment on above: Order Comment: Criti rah result acted upon time of test. Test performed at bedside. [facility] has implemented the eGFR calculation approach that does not have a coefficient for race that conforms to the NKF-ASN Task Force Recommendations. Urea nitrogen [Mass/Vol] 9 mg/dL Normal 8-25 [facility] Comment on above: Order Comment: Criti rah result acted upon time of test. Test performed at bedside. [facility] has implemented the eGFR calculation approach that does not have a coefficient for race that conforms to the NKF-ASN Task Force Recommendations. POC CBC AND DIFFERENTIALon 0 02-09-2024 BASOPHILS ABSOLUTE COUNT 0.02 K/mcL Normal 0.00-0.30 [facility] Basophils/100 WBC (Bld) 0.2 % Normal [facility] Eosinophils (Bld) [#/Vol] 0.33 10*3/uL Normal 0.00-0.50 [facility] Eosinophils/100 WBC (Bld) 2.7 % Normal [facility] Erythrocyte distribution width (RBC) [Ratio] 12.5 % Normal 11.6-14.8 [facility] Hematocrit (Bld) [Volume fraction] 46.3 % High 36.0-46.0 [facility] Hemoglobin (Bld) [Mass/Vol] 15.4 g/dL Normal 12.0-16.0 [facility] IG ABSOLUTE 0.02 K/mcL Normal 0.00-0.30 [facility] IG PERCENT 0.20 % Normal [facility] Comment on above: Result Comment: The IG parameter is the percentage of metamyelocytes, myelocytes and promyelocytes. An immature granulocyte count (IG) of 1% or more suggests the possibility of infection, an IG count of 3% is very likely related to an infection. Lymphocytes (Bld) [#/Vol] 1.50 10*3/uL Normal 0.90-4.00 [facility] Lymphocytes/100 WBC (Bld) 12.1 % Normal [facility] MCH (RBC) [Entitic mass] 30.0 pg Normal 26.0-34.0 [facility] MCV (RBC) [Entitic vol] 90.1 fL Normal 80.0-100.0 [facility] MEAN CORPUSCULAR HEMOGLOBIN CONC 33.3 g/dL Normal 31.0-37.0 [facility] Monocytes (Bld) [#/Vol] 0.76 10*3/uL Normal 0.30-0.90 [facility] Monocytes/100 WBC (Bld) 6.1 % Normal [facility] NEUTROPHILS ABSOLUTE COUNT 9.76 K/mcL High 1.70-7.00 [facility] Neutrophils/100 WBC (Bld) 78.7 % Normal [facility] Platelet mean volume (Bld) [Entitic vol] 10.0 fL Normal 9.4-12.4 [facility] Platelets (Bld) [#/Vol] 292 10*3/uL Normal 150-400 [facility] RBC (Bld) [#/Vol] 5.14 10*6/uL Normal 4.00-5.20 [facility] WBC (Bld) [#/Vol] 12.39 10*3/uL High 4.50-11.00 [facility] BASOPHILS ABSOLUTE COUNT 0.03 K/mcL Normal 0.00-0.30 [facility] Basophils/100 WBC (Bld) 0.2 % Normal [facility] Eosinophils (Bld) [#/Vol] 0.32 10*3/uL Normal 0.00-0.50 [facility] Eosinophils/100 WBC (Bld) 2.5 % Normal [facility] Erythrocyte distribution width (RBC) [Ratio] 13.1 % Normal 11.6-14.8 [facility] Hematocrit (Bld) [Volume fraction] 52.9 % High 36.0-46.0 [facility] Hemoglobin (Bld) [Mass/Vol] 17.1 g/dL High 12.0-16.0 [facility] Comment on above: Result Comment: Hemo globin result outside normal range for a female patient, consider a mixing issue. IG ABSOLUTE 0.01 K/mcL Normal 0.00-0.30 [facility] IG PERCENT 0.10 % Normal [facility] Comment on above: Result Comment: The IG parameter is the percentage of metamyelocytes, myelocytes and promyelocytes. An immature granulocyte count (IG) of 1% or more suggests the possibility of infection, an IG count of 3% is very likely related to an infection. Lymphocytes (Bld) [#/Vol] 1.76 10*3/uL Normal 0.90-4.00 [facility] Lymphocytes/100 WBC (Bld) 13.8 % Normal [facility] MCH (RBC) [Entitic mass] 29.8 pg Normal 26.0-34.0 [facility] MCV (RBC) [Entitic vol] 92.3 fL Normal 80.0-100.0 [facility] MEAN CORPUSCULAR HEMOGLOBIN CONC 32.3 g/dL Normal 31.0-37.0 [facility] Monocytes (Bld) [#/Vol] 0.78 10*3/uL Normal 0.30-0.90 [facility] Monocytes/100 WBC (Bld) 6.1 % Normal [facility] NEUTROPHILS ABSOLUTE COUNT 9.88 K/mcL High 1.70-7.00 [facility] Neutrophils/100 WBC (Bld) 77.3 % Normal [facility] Platelet mean volume (Bld) [Entitic vol] 11.8 fL Normal 9.4-12.4 [facility] Platelets (Bld) [#/Vol] 99 10*3/uL Low 150-400 [facility] RBC (Bld) [#/Vol] 5.73 10*6/uL High 4.00-5.20 [facility] WBC (Bld) [#/Vol] 12.78 10*3/uL High 4.50-11.00 [facility] [id number] See Comment Critically abnormal (none) [facility] Comment on above: Result Comment: CRIHipolito ICAL. CBCD reordered and sent to . Abnormally low platelet count. POC LIVER PANEL PLUS Raymond 02-09-2024 Albumin [Mass/Vol] 4.2 g/dL Normal 3.2-5.2 [facility] ALP [Catalytic activity/Vol] 81 U/L Normal 40-150 [facility] ALT [Catalytic activity/Vol] 13 U/L Normal 0-40 [facility] Amylase [Catalytic activity/Vol] 31 U/L Normal 25-115 [facility] Amylase [Catalytic activity/Vol] 19 U/L Normal 7-33 [facility] AST [Catalytic activity/Vol] 10 U/L Normal 0-45 [facility] Bilirubin [Mass/Vol] 0.8 mg/dL Normal 0.0-1.3 [facility] Protein [Mass/Vol] 8.3 g/dL High 6.0-8.0 [facility] Absolute lymphocyte countOrd ered By: Yared Polanco on 11-10-2023 Lymphocytes Auto (Unsp spec) [#/Vol] 1.79 10*3/uL 0.83-4.51 [facility] Automated lymphocyte count a s percentage of total leukocytesOrdered By: Yared Polanco on 11-10-2023 Lymphocytes/100 WBC Auto (Unsp spec) 18.3 % 19-41 [facility] Basophil percentageOrdered B y: Yared Polanco on 11-10-2023 Basophil percentage 5-10 SEEN /hpf 0-5 [facility] Basophils/100 WBC (Bld) 0.6 % 0-1 [facility] Bilirubin [Mass/Vol] 0.30 mg/dL 0.20-1.00 [facility] Comment on above: For patients on eltr ombopag therapy, use of Dimension [place] TBIL is not recommended. Chloride [Moles/Vol] 111 mmol/L 98-107 [facility] Eosinophils/100 WBC (Bld) 1.7 % 0-5 [facility] Glucose [Mass/Vol] 119 mg/dL 74-106 [facility] Comment on above: Fasting Glucose resu lt from 100 to 125 mg/dL suggests IMPAIRED HOMEOSTASIS per A.D.A. criteria. Hemoglobin (Bld) [Mass/Vol] 13.2 g/dL 12.0-15.0 [facility] Monocytes/100 WBC (Bld) 5.2 % 0-10 [facility] Neutrophils (Bld) [#/Vol] 7.2 10*3/uL 2.0-7.7 [facility] Neutrophils/100 WBC (Bld) 73.9 % 47-70 [facility] Potassium [Moles/Vol] 3.4 mmol/L 3.5-5.1 [facility] Protein [Mass/Vol] 7.1 g/dL 6.4-8.2 [facility] Sodium [Moles/Vol] 141 mmol/L 136-145 [facility] WBC (Bld) [#/Vol] 9.8 10*3/uL 4.4-11.0 [facility] Bilirubin Test strip Ql (U)O rdered By: Yared Polanco on 11-10-2023 Bilirubin Ql (U) 1 mg/dL Negative [facility] Comment on above: COLOR OF URINE MAY A FFECT DIPSTICK RESULTS. Determination of erythrocyte mean corpuscular volume (MCV)Ordered By: Yared Polanco on 11-10-2023 MCV (RBC) [Entitic vol] 91.0 fL 81-99 [facility] Erythrocyte distribution wid th ratioOrdered By: Yared Polanco on 11-10-2023 Erythrocyte distribution width (RBC) [Ratio] 13.0 % 11.6-14.6 [facility] Erythrocyte distribution wid th standard deviationOrdered By: Yared Polanco on 11-10-2023 Erythrocyte distribution width (RBC) [Entitic vol] 43.2 fL 35.1-43.9 [facility] Hematocrit Auto (Bld) [Volum e fraction]Ordered By: Yared Polanco on 11-10-2023 Hematocrit (Bld) [Volume fraction] 40.5 % 37-47 [facility] Immature granulocytes/100 WB C Auto (Bld)Ordered By: Yared Polanco on 11-10-2023 Immature granulocytes/100 WBC (Bld) 0.300 % 0.0-0.9 [facility] Comment on above: IG% - Immature Granu locytes (promyelocytes, myelocytes and metamyelocytes) > 1% indicates that a LEFT SHIFT is Present. Ketones Test strip Ql (U)Ord ered By: Yared Polanco on 11-10-2023 Ketones Ql (U) 5 mg/dl Negative [facility] - Chemistry and C hemistry - challengeOrdered By: Yared Polanco on 11-10-2023 Albumin/Globulin [Mass ratio] 0.9 {ratio} 0.9-2.4 [facility] ALP [Catalytic activity/Vol] 78 U/L 45-117 [facility] ALT [Catalytic activity/Vol] 15 U/L 13-56 [facility] CO2 [Moles/Vol] 26.0 mmol/L 21.0-32.0 [facility] Globulin (S) [Mass/Vol] 3.8 g/dL 2.2-4.2 [facility] Lipase [Catalytic activity/Vol] 29 U/L 13-75 [facility] Comment on above: Please note:LIPASE r evised reference range effective 23. New Lipase methodology. Expected to produce lower values than the previous assay method. NEW Reference Range: 13 - 75 U/L Urea nitrogen/Creatinine [Mass ratio] 10.9 mg/mg 10-20 [facility] - Hematology and Cell countsOrdered By: Yared Polanco on 11-10-2023 MCH (RBC) [Entitic mass] 29.7 pg 27.0-32.0 [facility] MCHC (RBC) [Mass/Vol] 32.6 g/dL 32-36 [facility] Nucleated RBC/100 WBC (Bld) [Ratio] 0 % 0-5 [facility] Platelet mean volume (Bld) [Entitic vol] 10.4 fL 6.2-12.0 [facility] Platelets (Bld) [#/Vol] 265 10*3/uL 150-450 [facility] Mucus LM Ql (Urine sed)Order ed By: Yared Polanco on 11-10-2023 Mucus Ql (Urine sed) 0 SEEN /hpf [facility] Nitrite Test strip Ql (U)Ord ered By: Yared Polanco on 11-10-2023 Nitrite Ql (U) Negative Negative [facility] No Panel InformationOrdered By: Yared Polanco on 11-10-2023 Estimated Creatinine Clearance Calc 91.24 ml/min [facility] Estimated GFR (MDRD) Amer 87 mL/min >60 [facility] Comment on above: GFR Calc Estimated GFR (MDRD) Non-Af Amer 72 mL/min >60 [facility] Comment on above: Non- GFR Calc Urine RBC 10-25 SEEN /hpf 0-5 [facility] Protein Test strip Ql (U)Ord ered By: Yared Polanco on 11-10-2023 Protein Ql (U) 30 mg/dl Negative [facility] RBC Auto (Bld) [#/Vol]Ordere d By: Yared Polanco on 11-10-2023 RBC (Bld) [#/Vol] 4.45 10*6/uL 4.2-5.4 [facility] Serum or plasma calcium diana urement (mass/volume)Ordered By: Yared Polanco on 11-10-2023 Calcium [Mass/Vol] 8.9 mg/dL 8.5-10.1 [facility] Serum or plasma choriogonado tropin detectionOrdered By: Yared Polanco on 11-10-2023 HCG ( test) Ql Negative 0-9 Nonpreg [facility] Serum or plasma creatinine m easurement (mass/volume)Ordered By: Yared Polanco on 11-10-2023 Creatinine [Mass/Vol] 0.92 mg/dL 0.55-1.02 [facility] Comment on above: The validity of the calculated GFR & GFRAA in patients over 70 years has not been determined. Clinical correlation is essential. Serum or plasma urea nitroge n measurement (mass/volume)Ordered By: Yared Polanco on 11-10-2023 Urea nitrogen [Mass/Vol] 10 mg/dL 7-18 [facility] Squamous epithelial cells de tection in urine sediment by light microscopyOrdered By: Yared Polanco on 11-10-2023 Epithelial cells.squamous LM Ql (Urine sed) 0-5 SEEN /hpf 5-10 [facility] Thin prep Papanicolaou smear with manual screeningOrdered By: Yared Polanco on 11-10-2023 Thin prep Papanicolaou smear with manual screening 3.3 g/dL 3.2-5.0 [facility] Thin prep Papanicolaou smear with manual screening 18 U/L 15-37 [facility] Thin prep Papanicolaou smear with manual screening 4 5-15 [facility] Urine blood detectionOrdered By: Yared Polanco on 11-10-2023 RBC Ql (U) 250 /ul Negative [facility] Urine clarityOrdered By: Gris Polanco on 11-10-2023 Clarity (U) Clear Clear [facility] Urine color determinationOrd ered By: Yared Polanco on 11-10-2023 Color (U) Yellow Yellow [facility] Urine glucose detectionOrder ed By: Yared Polanco on 11-10-2023 Glucose Ql (U) Normal mg/dl Normal [facility] Urine leukocyte esterase det ection by dipstickOrdered By: Yared Polanco on 11-10-2023 Leukocyte esterase Test strip Ql (U) 100 /ul Negative [facility] Urine pHOrdered By: Yared brown on 11-10-2023 pH (U) 6.0 [pH] 5.0 - 8.0 [facility] Urine sediment bacteria coun t by microscopy (number/high power field)Ordered By: Yared Polanco on 11-10-2023 Bacteria LM.HPF (Urine sed) [#/Area] 2 /[HPF] None Seen [facility] Urine specific gravity measu rementOrdered By: Yared Polanco on 11-10-2023 Specific gravity (U) [Rel density] 1.020 1.002-1.030 [facility] Urine urobilinogen measureme ntOrdered By: Yared Polanco on 11-10-2023 Urobilinogen Ql (U) 1 mg/dl Normal [facility] Falls Screening (Age 18+)on 08-28-2022 Adult depression screening assessment No [facility] Work Phone: Fall risk assessment a) No falls within the last year [facility] Work Phone: Tobacco use status [facility] b) No [facility] Work Phone: Office Visit (Internal Medic ine)on 08-28-2022 Follow-up visit Diagnoses/Problems Assessed Anxiety (300.00) (F41.9) BMI 40.0-44.9, adult (V85.41) (Z68.41) Body mass index [BMI] 40.0-44.9, adult (V85.41) (Z68.41) Orders Anxiety Renew: hydrOXYzine HCl - 25 MG Oral Tablet; TAKE 1-2 TABLET 3 TO 4 TIMES DAILY NEEDED FOR anxiety Rx By: Paulina Bowers; Dispense: 8 Days ; #:90 Tablet; Refill: 3;For: Anxiety; SALINAS = N; Sent To: [facility] BMI 40.0-44.9, adult Start: Ozempic (0.25 or 0.5 MG/DOSE) 2 MG/1.5ML Subcutaneous Solution Pen-injector; Inject 0.25mg subq once weekly x 4 weeks, then increase to 0.5mg once weekly Rx By: Paulina Bowers; Dispense: 30 Days ; #:4 X 1.5 ML Pen; Refill: 5;For: BMI 40.0-44.9, adult; SALINAS = N; Sent To: [facility]; COUPON: Available SocHx: Non-smoker Tobacco Use Screening; Status:Complete; Done: 28Aug2022 Perform:Not Applicable;Ordered; For:SocHx: Non-smoker; Ordered By:Ayah Manning; Provider Impressions 1. Anxiety, controlled - continue sertraline 150mg qhs - continue Vistaril prn - discussed if she wants to wean off the sertraline would do very long slow taper, 25mg drop every few months 2. 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 female who is here to establish care. 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 They did not find anything clotting disorder. Anxiety - she is on sertraline 150mg qhs and Vistaril prn. She has tried to get off of it and has withdrawal symptoms. Review of Systems Constitutional: not feeling poorly, no fever, no recent weight gain and no recent weight loss. Eyes: no blurred vision and no diplopia. ENT: no hearing loss, no tinnitus, no earache, no sore throat, no hoarseness and no swollen glands in the neck. Cardiovascular: no chest pain, no tightness or heavy pressure, no shortness of breath, no palpitations and no lower extremity edema. Respiratory: no cough, not coughing up sputum and no wheezing that is consistent with asthma. Gastrointestinal: no change in bowel habits, no diarrhea, no constipation, no bloody stools, no nausea, no vomiting, no abdominal pain, no signs and symptoms of ulcer disease, no demi colored stools and no intolerance to fatty foods. Genitourinary: no urinary frequency, no dysuria, no burning sensation during urination and no hematuria. Musculoskeletal: no arthralgias, no joint stiffness, no muscle weakness, no back pain and no difficulty walking. Skin: no rashes, no change in skin color and pigmentation, no skin lesions and no skin lumps. Neurological: no headaches, no dizziness, no seizures, no tingling, no numbness, no signs and symptoms of stroke and no limb weakness. Psychiatric: no confusion, no memory lapses or loss, no depression and no sleep disturbances. Endocrine: no goiter, no thyroid disorder, no diabetes mellitus, no excessive thirst, no dry skin, no cold intolerance, no heat intolerance and no increased urinary frequency. Hematologic/Lymphati c: is not slow to heal, does not bleed easily, does not bruise easily, no thrombophlebitis, no anemia and no history of blood transfusion. All other systems have been reviewed and are negative for complaint. Active Problems Problems Anxiety (300.00) (F41.9) Past Medical History Problems History of deep venous thrombosis (V12.51) (Z86.718) Surgical History Problems History of Ankle surgery History of Appendectomy History of Cholecystectomy Family History Other Family history of diabetes mellitus (V18.0) (Z83.3) Family history of hypertension (V17.49) (Z82.49) Social History Problems Consumes caffeine from carbonated beverages (V49.89) (Z78.9) Drinks caffeinated tea No illicit drug use Non-smoker (V49.89) (Z78.9) Allergies Medication No Known Drug Allergies Recorded By: Ayah Manning; 08/28/2022 9:56:06 AM Current Meds Medication NameInstruction hydrOXYzine HCl - 25 MG Oral TabletTAKE 1-2 TABLET 3 TO 4 TIMES DAILY NEEDED FOR anxiety Sertraline (more content not included)... Normal [facility] CBC,PLATELETSon 04-07-2022 Hematocrit (Bld) [Volume fraction] 33.8 % Low 34.9-44.3 [facility] Comment on above: Performed By: #### L IPA, CHM6, PROCAL, GLUC, HFP #### [facility] (DEFAULT) [address] [place] [id number] Hemoglobin (Bld) [Mass/Vol] 11.2 g/dL Low 11.4-15.2 [facility] Comment on above: Performed By: #### L IPA, CHM6, PROCAL, GLUC, HFP #### [facility] (DEFAULT) [address] [place] [id number] MCV (RBC) [Entitic vol] 87.8 fL Normal 79.6-97.7 [facility] [facility] Comment on above: Performed By: #### L IPA, CHM6, PROCAL, GLUC, HFP #### [facility] (DEFAULT) [address] [place] [address] 68492 Mean Cell Hgb 29.1 pg Normal 25.9-33.9 [facility] Comment on above: Performed By: #### L IPA, CHM6, PROCAL, GLUC, HFP #### [facility] (DEFAULT) [address] [place] [address] 59752 Mean Cell Hgb Conc 33.1 g/dL Normal 31.4-35.9 [facility] Comment on above: Performed By: #### L IPA, CHM6, PROCAL, GLUC, HFP #### [facility] (DEFAULT) [address] [place] [address] 58004 Platelet mean volume (Bld) [Entitic vol] 10.7 fL Normal 8.5-12.2 [facility] Comment on above: Performed By: #### L IPA, CHM6, PROCAL, GLUC, HFP #### [facility] (DEFAULT) [address] [place] [address] 09355 Platelets (Bld) [#/Vol] 227 10*3/uL Normal 150-393 [facility] Comment on above: Performed By: #### L IPA, CHM6, PROCAL, GLUC, HFP #### [facility] (DEFAULT) [address] [place] [address] 83769 RBC (Bld) [#/Vol] 3.85 10*6/uL Low 3.91-5.04 [facility] Comment on above: Performed By: #### L IPA, CHM6, PROCAL, GLUC, HFP #### [facility] (DEFAULT) [address] [place] [address] 38455 RBC Distribution 12.4 % Normal 10.8-14.9 [facility] Comment on above: Performed By: #### L IPA, CHM6, PROCAL, GLUC, HFP #### [facility] (DEFAULT) [address] [place] [address] 66997 WBC (Bld) [#/Vol] 6.94 10*3/uL Normal 3.99-11.19 [facility] Comment on above: Performed By: #### L IPA, CHM6, PROCAL, GLUC, HFP #### [facility] (DEFAULT) [address] [place] [address] 44489 Erythrocyte distribution width (RBC) [Ratio] 12.4 % 10.8 - 14.9 % [facility] Hematocrit (Bld) [Volume fraction] 33.8 % Low 34.9 - 44.3 % [facility] Hemoglobin (Bld) [Mass/Vol] 11.2 g/dL Low 11.4 - 15.2 g/dL [facility] Interpretation and review of laboratory results Abnormal [facility] MCH (RBC) [Entitic mass] 29.1 pg 25.9 - 33.9 pg [facility] MCHC (RBC) [Mass/Vol] 33.1 g/dL 31.4 - 35.9 g/dL [facility] MCV (RBC) [Entitic vol] 87.8 fL 79.6 - 97.7 fL [facility] Platelet mean volume (Bld) [Entitic vol] 10.7 fL 8.5 - 12.2 fL [facility] Platelets (Bld) [#/Vol] 227 10*3/uL 150 - 393 K/uL [facility] RBC (Bld) [#/Vol] 3.85 10*6/uL Low [facility] WBC (Bld) [#/Vol] 6.94 10*3/uL 3.99 - 11. 19 K/uL [facility] CHEM 7 (LYTES,BUN,CREA,GLUC) on 04-07-2022 Anion gap [Moles/Vol] 14 mmol/L Normal 7-17 [facility] Comment on above: Performed By: #### L IPA, CHM6, PROCAL, GLUC, HFP #### [facility] (DEFAULT) [address] [place] [address] 59776 Chloride [Moles/Vol] 105 mmol/L Normal 98-108 [facility] Comment on above: Performed By: #### L IPA, CHM6, PROCAL, GLUC, HFP #### [facility] (DEFAULT) [address] [place] [address] 36547 CO2 [Moles/Vol] 24 mmol/L Normal 21-31 [facility] Comment on above: Performed By: #### L IPA, CHM6, PROCAL, GLUC, HFP #### [facility] (DEFAULT) [address] [place] [address] 92457 Creatinine [Mass/Vol] 0.68 mg/dL Normal 0.50-1.20 [facility] Comment on above: Performed By: #### L IPA, CHM6, PROCAL, GLUC, HFP #### [facility] (DEFAULT) [address] [place] [address] 51299 eGFR, CKD-EPI, Female >90 Normal >=60 [facility] Comment on above: Result Comment: Repo rted eGFR is based on the CKD-EPI 2020 equation using creatinine, age, and sex. Performed By: #### L IPA, CHM6, PROCAL, GLUC, HFP #### [facility] (DEFAULT) [address] [place] [address] 29400 Glucose [Mass/Vol] 74 mg/dL Normal 70-99 [facility] Comment on above: Performed By: #### L IPA, CHM6, PROCAL, GLUC, HFP #### [facility] (DEFAULT) [address] [place] [address] 01495 Osmolality [Osmolality] 286 mosm/kg Normal 278-305 [facility] Comment on above: Performed By: #### L IPA, CHM6, PROCAL, GLUC, HFP #### [facility] (DEFAULT) [address] [place] [address] 90948 Potassium [Moles/Vol] 3.5 mmol/L Normal 3.5-5.0 [facility] Comment on above: Performed By: #### L IPA, CHM6, PROCAL, GLUC, HFP #### [facility] (DEFAULT) [address] [place] [address] 85361 Sodium [Moles/Vol] 139 mmol/L Normal 135-145 [facility] Comment on above: Performed By: #### L IPA, CHM6, PROCAL, GLUC, HFP #### [facility] (DEFAULT) [address] [place] [address] 02365 Urea nitrogen [Mass/Vol] 7 mg/dL Normal 7-25 [facility] Comment on above: Performed By: #### L IPA, CHM6, PROCAL, GLUC, HFP #### [facility] (DEFAULT) [address] [place] [address] 26774 Urea nitrogen/Creatinine [Mass ratio] 10 mg/mg Normal [facility] Comment on above: Performed By: #### L IPA, CHM6, PROCAL, GLUC, HFP #### [facility] (DEFAULT) [address] [place] [address] 56918 Anion gap [Moles/Vol] 14 mmol/L 7 - 17 mmol/L [facility] Chloride [Moles/Vol] 105 mmol/L 98 - 10 8 mmol/L [facility] CO2 [Moles/Vol] 24 mmol/L 21 - 31 mmol/L [facility] Creatinine [Mass/Vol] 0.68 mg/dL 0.50 - 1.20 mg/dL [facility] GFR/1.73 sq M.predicted CKD-EPI (S/P/Bld) [Vol rate/Area] >90 >=60 mL/min/1.73m 2 [facility] Comment on above: Reported eGFR is bas ed on the CKD-EPI 2020 equation using creatinine, age, and sex. Glucose [Mass/Vol] 74 mg/dL 70 - 99 mg/dL [facility] Osmolality Calc [Osmolality] 286 [facility] Potassium [Moles/Vol] 3.5 mmol/L 3.5 - 5.0 mmol/L [facility] Sodium [Moles/Vol] 139 mmol/L 135 - 145 mmol/L [facility] Urea nitrogen [Mass/Vol] 7 mg/dL 7 - 25 mg/dL [facility] Urea nitrogen/Creatinine [Mass ratio] 10 mg/mg [facility] CONTINUOUS CARDIAC MONITORIN G STRIPon 04-07-2022 [facility] LIPASEon 04-07-2022 Interpretation and review of laboratory results Normal [facility] Lipase [Catalytic activity/Vol] 43 U/L 11 - 82 U/L [facility] MAGNESIUMon 04-07-2022 Magnesium [Mass/Vol] 1.9 mg/dL Normal 1.6-2.6 [facility] Comment on above: Performed By: #### L IPA, CHM6, PROCAL, GLUC, HFP #### [facility] (DEFAULT) [address] [place] [address] 24179 Magnesium [Mass/Vol] 1.9 mg/dL 1.6 - 2 .6 mg/dL [facility] No Panel Informationon 04-07 Interpretation and review of laboratory results Normal [facility] PHOSPH[facility], INORGANICon 04-07 Phosphorous 2.7 mg/dL Normal 2.2-4.6 [facility] Comment on above: Performed By: #### L IPA, CHM6, PROCAL, GLUC, HFP #### [facility] (DEFAULT) [address] [place] [address] 19293 Phosphate [Mass/Vol] 2.7 mg/dL 2.2 - 4 .6 mg/dL [facility] PTTon 04-07-2022 aPTT Coag (Bld) [Time] 42.0 s High 24.0-34.3 [facility] Comment on above: Order Comment: After initiation a PTT should be checked every 6 hours from time of last dose change or, if dose has not changed, 6 hours after last PTT result posted.? The frequent monitoring should occur until PTT in goal range for two consecutive lab draws without dose changes at which time PTTs may be checked no less frequently than every 12 hours.? If dose requires a change, PTT should be monitored at least every 6 hours until titration is no longer indicated, then as directed above.? If PTT above goal range refer to medication administration instructions. Performed By: #### L IPA, CHM6, PROCAL, GLUC, HFP #### [facility] (DEFAULT) [address] [place] [address] 98838 PTTOrdered By: Jessica jimenez 04-07-2022 aPTT Coag (PPP) [Time] 42.0 s High [facility] Interpretation and review of laboratory results Abnormal [facility] ANTI PHOSPHOLIPID ANTIBODYOr dered By: Lev Perea on 04-06-2022 Cardiolipin IgG IA Qn (S) <10.0 [facility] Cardiolipin IgM IA Qn (S) <10.0 [facility] Interpretation and review of laboratory results Normal [facility] ANTI PHOSPHOLIPID ANTIBODYon 04-06-2022 Anti-Cardiolipin Antibody, IgG <10.0 Normal 0.0-20.0 [facility] Comment on above: Performed By: #### L IPA, CHM6, PROCAL, GLUC, HFP #### [facility] (DEFAULT) [address] [place] [address] Anti-Cardiolipin Antibody, IgM <10.0 Normal 0.0-20.0 [facility] Comment on above: Performed By: #### L IPA, CHM6, PROCAL, GLUC, HFP #### [facility] (DEFAULT) [address] [place] [address] ANTITHROMBIN IIIon 2 Antithrombin actual/normal Chromogenic method (PPP) [Rel catalytic activity/Vol] 80 % Low 85 - 118 % [facility] Interpretation and review of laboratory results Abnormal [facility] Antithrombin 80 % Low 85-118 [facility] Comment on above: Performed By: #### L IPA, CHM6, PROCAL, GLUC, HFP #### [facility] (DEFAULT) [address] [place] [address] 63443 CALR MUTATION ANALYSIS, MYEL OPROLIFERATIVE NEOPLASM MPN, BLOODOrdered By: Sergei Rosado on 04-06-2022 Receiving Status Accessioned in Lab [facility] CBC,PLATELETSon 04-06-2022 Hematocrit (Bld) [Volume fraction] 35.3 % Normal 34.9-44.3 [facility] Comment on above: Performed By: #### L IPA, CHM6, PROCAL, GLUC, HFP #### [facility] (DEFAULT) [address] [place] [address] 99147 Hemoglobin (Bld) [Mass/Vol] 11.5 g/dL Normal 11.4-15.2 [facility] Comment on above: Performed By: #### L IPA, CHM6, PROCAL, GLUC, HFP #### [facility] (DEFAULT) [address] [place] [address] 81248 MCV (RBC) [Entitic vol] 89.1 fL Normal 79.6-97.7 [facility] Comment on above: Performed By: #### L IPA, CHM6, PROCAL, GLUC, HFP #### [facility] (DEFAULT) [address] [place] [address] 57829 Mean Cell Hgb 29.0 pg Normal 25.9-33.9 [facility] Comment on above: Performed By: #### L IPA, CHM6, PROCAL, GLUC, HFP #### [facility] (DEFAULT) [address] [place] [address] 12616 Mean Cell Hgb Conc 32.6 g/dL Normal 31.4-35.9 [facility] Comment on above: Performed By: #### L IPA, CHM6, PROCAL, GLUC, HFP #### [facility] (DEFAULT) [address] [place] [address] 00765 Platelet mean volume (Bld) [Entitic vol] 10.3 fL Normal 8.5-12.2 [facility] Comment on above: Performed By: #### L IPA, CHM6, PROCAL, GLUC, HFP #### [facility] (DEFAULT) [address] [place] [address] 05535 Platelets (Bld) [#/Vol] 224 10*3/uL Normal 150-393 [facility] Comment on above: Performed By: #### L IPA, CHM6, PROCAL, GLUC, HFP #### [facility] (DEFAULT) [address] [place] [address] 42789 RBC (Bld) [#/Vol] 3.96 10*6/uL Normal 3.91-5.04 [facility] Comment on above: Performed By: #### L IPA, CHM6, PROCAL, GLUC, HFP #### [facility] (DEFAULT) [address] [place] [address] 63797 RBC Distribution 12.7 % Normal 10.8-14.9 [facility] Comment on above: Performed By: #### L IPA, CHM6, PROCAL, GLUC, HFP #### [facility] (DEFAULT) [address] [place] [address] 30137 WBC (Bld) [#/Vol] 8.78 10*3/uL Normal 3.99-11.19 [facility] Comment on above: Performed By: #### L IPA, CHM6, PROCAL, GLUC, HFP #### [facility] (DEFAULT) [address] [place] [address] 39718 Erythrocyte distribution width (RBC) [Ratio] 12.7 % 10.8 - 14.9 % [facility] Hematocrit (Bld) [Volume fraction] 35.3 % 34.9 - 44.3 % [facility] Hemoglobin (Bld) [Mass/Vol] 11.5 g/dL 11.4 - 15.2 g/dL [facility] Interpretation and review of laboratory results Normal [facility] MCH (RBC) [Entitic mass] 29.0 pg 25.9 - 33.9 pg [facility] MCHC (RBC) [Mass/Vol] 32.6 g/dL 31.4 - 35.9 g/dL [facility] MCV (RBC) [Entitic vol] 89.1 fL 79.6 - 97.7 fL [facility] Platelet mean volume (Bld) [Entitic vol] 10.3 fL 8.5 - 12.2 fL [facility] Platelets (Bld) [#/Vol] 224 10*3/uL 150 - 393 K/uL [facility] RBC (Bld) [#/Vol] 3.96 10*6/uL [facility] WBC (Bld) [#/Vol] 8.78 10*3/uL 3.99 - 11. 19 K/uL [facility] CHEM 7 (LYTES,BUN,CREA,GLUC) on 04-06-2022 Anion gap [Moles/Vol] 13 mmol/L Normal 7-17 [facility] Comment on above: Performed By: #### L IPA, CHM6, PROCAL, GLUC, HFP #### [facility] (DEFAULT) [address] [place] [address] 40450 Chloride [Moles/Vol] 107 mmol/L Normal 98-108 [facility] Comment on above: Performed By: #### L IPA, CHM6, PROCAL, GLUC, HFP #### [facility] (DEFAULT) [address] [place] [address] 34475 CO2 [Moles/Vol] 24 mmol/L Normal 21-31 [facility] Comment on above: Performed By: #### L IPA, CHM6, PROCAL, GLUC, HFP #### [facility] (DEFAULT) [address] [place] [address] 86527 Creatinine [Mass/Vol] 0.72 mg/dL Normal 0.50-1.20 [facility] Comment on above: Performed By: #### L IPA, CHM6, PROCAL, GLUC, HFP #### [facility] (DEFAULT) [address] [place] [address] 38848 eGFR, CKD-EPI, Female >90 Normal >=60 [facility] Comment on above: Result Comment: Repo rted eGFR is based on the CKD-EPI 2020 equation using creatinine, age, and sex. Performed By: #### L IPA, CHM6, PROCAL, GLUC, HFP #### [facility] (DEFAULT) [address] [place] [address] 66774 Glucose [Mass/Vol] 81 mg/dL Normal 70-99 [facility] Comment on above: Performed By: #### L IPA, CHM6, PROCAL, GLUC, HFP #### [facility] (DEFAULT) [address] [place] [address] 92309 Osmolality [Osmolality] 289 mosm/kg Normal 278-305 [facility] Comment on above: Performed By: #### L IPA, CHM6, PROCAL, GLUC, HFP #### [facility] (DEFAULT) [address] [place] [address] 04490 Potassium [Moles/Vol] 3.5 mmol/L Normal 3.5-5.0 [facility] Comment on above: Performed By: #### L IPA, CHM6, PROCAL, GLUC, HFP #### [facility] (DEFAULT) [address] [place] [address] 73586 Sodium [Moles/Vol] 140 mmol/L Normal 135-145 [facility] Comment on above: Performed By: #### L IPA, CHM6, PROCAL, GLUC, HFP #### [facility] (DEFAULT) [address] [place] [address] 67625 Urea nitrogen [Mass/Vol] 9 mg/dL Normal 7-25 [facility] Comment on above: Performed By: #### L IPA, CHM6, PROCAL, GLUC, HFP #### [facility] (DEFAULT) [address] [place] [address] 75499 Urea nitrogen/Creatinine [Mass ratio] 13 mg/mg Normal [facility] Comment on above: Performed By: #### L IPA, CHM6, PROCAL, GLUC, HFP #### [facility] (DEFAULT) [address] [place] [address] 51253 Anion gap [Moles/Vol] 13 mmol/L 7 - 17 mmol/L [facility] Chloride [Moles/Vol] 107 mmol/L 98 - 10 8 mmol/L [facility] CO2 [Moles/Vol] 24 mmol/L 21 - 31 mmol/L [facility] Creatinine [Mass/Vol] 0.72 mg/dL 0.50 - 1.20 mg/dL [facility] GFR/1.73 sq M.predicted CKD-EPI (S/P/Bld) [Vol rate/Area] >90 >=60 mL/min/1.73m 2 [facility] Comment on above: Reported eGFR is bas ed on the CKD-EPI 2020 equation using creatinine, age, and sex. Glucose [Mass/Vol] 81 mg/dL 70 - 99 mg/dL [facility] Osmolality Calc [Osmolality] 289 [facility] Potassium [Moles/Vol] 3.5 mmol/L 3.5 - 5.0 mmol/L [facility] Sodium [Moles/Vol] 140 mmol/L 135 - 145 mmol/L [facility] Urea nitrogen [Mass/Vol] 9 mg/dL 7 - 25 mg/dL [facility] Urea nitrogen/Creatinine [Mass ratio] 13 mg/mg [facility] CONTINUOUS CARDIAC MONITORIN G STRIPon 04-06-2022 [facility] CONTINUOUS CARDIAC MONITORIN G STRIPOrdered By: Unassigned Pacs on 04-06-2022 [facility] Work Phone: DNA EXTRACTION, [id number] y: Anthony Wheatley on 04-06-2022 [facility] EXTRA LIGHT BLUE TOP DOUBLE SPIN LUPUSon 04-06-2022 Dummy LRR - Route to Double Spin Received [facility] EXTRA MICROon 04-06-2022 [facility] FACTOR II ACTIVITYOrdered By : Mini Robledo on 04-06-2022 Coagulation factor II inhibitor Coag Qn (PPP) 126 [facility] Comment on above: Factor II activity l evel is unrelated to the presence of Prothrombin [id number] gene mutation. Recommend ordering DNA test for Prothrombin [id number] gene mutation if clinically indicated. Interpretation and review of laboratory results Normal [facility] FACTOR II ACTIVITYon 022 Factor II 126 % Activity Normal 60-150 [facility] Comment on above: Result Comment: Fact or II activity level is unrelated to the presence of Prothrombin [id number] gene mutation. Recommend ordering DNA test for Prothrombin [id number] gene mutation if clinically indicated. Performed By: #### F A2 #### [facility] (DEFAULT) [address] [place] [address] FACTOR V + PROTHROMBIN YAMINI SISOrdered By: Maryana Espinoza on 04-06-2022 Receiving Status Accessioned in Lab [facility] JAK2 JIG BUILDER HELPER, BLOODOrdere d By: Luda Llamas on 04-06-2022 [facility] JAK2 V617 MUTATION DETECTION , BLOODon 04-06-2022 Receiving Status Accessioned in Lab [facility] JAK2 V617 MUTATION DETECTION , FINALOrdered By: Ran Thornton on 04-06-2022 JAK2 Interpretation No mutation is detected in codon 617 of JAK2. This finding does not exclude the possibility of a myeloid neoplasm. See comment below for additional testing that may be useful. Run and sample controls meet acceptable criteria. [facility] JAK2 V617F Mutation Not detected <1% mutant [facility] Level (%) 0 % [facility] Method/Limitations: Methodology/Limitati ons: Genomic DNA is assessed for the JAK2 V617F mutation by PCR-based pyrosequencing. The limitation of detection of this assay is approximately 2% mutation-bearing alleles. JAK2 V617F mutation (or rarely other variants at this or adjacent codons) is associated with 95% of polycythemia vera (PV), 40-50% of essential thrombocythemia (ET) and primary myelofibrosis (PMF) and less commonly in other myeloid neoplasms. If a sample is negative for JAK2 V617F mutation, CALR analysis is useful for evaluation for PMF and ET, and the myeloid neoplasm sequencing panel is useful to assess for exon 12/13 mutations in PV and mutations in other commonly mutated genes. This test was developed and its performance determined by the [facility] the [facility] under the medical direction of Kalani Stoddard MD, PhD. It has not been cleared or approved by the U.S. Food and Drug Administrations. Since FDA (U.S. Food and Drug Administration) approval is not required for clinical use of this test, this laboratory has established and validated the test's accuracy and precision, pursuant to the requirement of CLIA '88. [facility] Reviewed by Ran Thornton, PhD [facility] LAWUP-PATHOrdered By: Daniel Pierson on 04-06-2022 Pathologist interpretation (Unsp spec) [Interp] Coagulation assays for the presence of a Lupus Anticoagulant (LA) are NEGATIVE at this time. [facility] Work Phone: Pathologist interpretation (Unsp spec) [Interp] [facility] Work Phone: Comment on above: Daniel Pierson MD [facility] Work Phone: LAWUP-PATHon 04-06-2022 Interpretation By: Normal [facility] Comment on above: Result Comment: Jose Pierson MD Performed By: #### L IPA, CHM6, PROCAL, GLUC, HFP #### [facility] (DEFAULT) [address] [place] [address] 02673 Lupus Anticoagulant Interpretation Coagulation assays for the presence of a Lupus Anticoagulant (LA) are NEGATIVE at this time. Normal [facility] Comment on above: Performed By: #### L IPA, CHM6, PROCAL, GLUC, HFP #### [facility] (DEFAULT) [address] [place] [address] 53455 LAWUP-ROUTon 04-06-2022 INR Coag (PPP) [Relative time] 1.1 {INR} Normal 0.9-1.1 [facility] Comment on above: Performed By: #### L IPA, CHM6, PROCAL, GLUC, HFP #### [facility] (DEFAULT) [address] [place] [address] 71649 PT Coag (PPP) [Time] 13.8 s Normal 11.9-14.2 [facility] Comment on above: Performed By: #### L IPA, CHM6, PROCAL, GLUC, HFP #### [facility] (DEFAULT) [address] [address] Thrombin Time >120.0 High 13.0-20.0 [facility] Comment on above: Result Comment: Spec imen integrity checked. Repeated and verified Performed By: #### L IPA, CHM6, PROCAL, GLUC, HFP #### [facility] (DEFAULT) [address] [place] [address] TT Mixing Study With Protamine Sulfate 19.7 sec Normal 13.0-20.0 [facility] Comment on above: Performed By: #### L IPA, CHM6, PROCAL, GLUC, HFP #### [facility] (DEFAULT) [address] [place] [address] LAWUP-ROUTOrdered By: Ken Nicole on 04-06-2022 INR Coag (Bld) [Relative time] 1.1 {INR} [facility] Interpretation and review of laboratory results Abnormal [facility] PT Coag (PPP) [Time] 13.8 s [facility] Thrombin time.factor substitution immediately after addition of bovine thrombin Coag (PPP) [Time] >120.0 High [facility] Comment on above: Specimen integrity c uriel. Repeated and verified Thrombin time.factor substitution immediately after addition of protamine sulfate Coag (PPP) [Time] 19.7 [facility] LAWUP-SPECon 04-06-2022 aPTT Coag (PPP) [Time] 72.9 s High <=41.8 sec [facility] aPTT W excess hexagonal phase phospholipid Coag (PPP) [Time] 6.8 <=8.2 sec [facility] aPTT.lupus sensitive Coag (PPP) [Time] 90.7 High <=41.8 sec [facility] Comment on above: With the exception o f therapeutic levels of warfarin and heparin, patients on antithrombotic medications may have false positive test results for lupus anticoagulant. Therefore, interpretation of positive results should be made in the context of the patient's current medications. dRVVT Confirm Ratio Not Indicated [facility] dRVVT Normalized Ratio Not Indicated [facility] dRVVT/dRVVT.excess phospholipid Coag (PPP) [Ratio] 0.97 <=1.22 [facility] Interpretation and review of laboratory results Abnormal [facility] dRVVT Confirm Ratio Not Indicated Normal [facility] Comment on above: Performed By: #### L IPA, CHM6, PROCAL, GLUC, HFP #### [facility] (DEFAULT) [address] [place] [address] 45818 dRVVT Normalized Ratio Not Indicated Normal [facility] Comment on above: Performed By: #### L IPA, CHM6, PROCAL, GLUC, HFP #### [facility] (DEFAULT) [address] [place] [address] 53104 dRVVT Screen Ratio 0.97 Normal <=1.22 [facility] Comment on above: Performed By: #### L IPA, CHM6, PROCAL, GLUC, HFP #### [facility] (DEFAULT) [address] [place] [address] [address] Neutralization 6.8 sec Normal <=8.2 [facility] Comment on above: Performed By: #### L IPA, CHM6, PROCAL, GLUC, HFP #### [facility] (DEFAULT) [address] [place] [address] 76757 PTT-Lupus Sensitive 90.7 sec High <=41.8 [facility] Comment on above: Result Comment: With the exception of therapeutic levels of warfarin and heparin, patients on antithrombotic medications may have false positive test results for lupus anticoagulant. Therefore, interpretation of positive results should be made in the context of the patient's current medications. Performed By: #### L IPA, CHM6, PROCAL, GLUC, HFP #### [facility] (DEFAULT) [address] [place] [address] 58154 PTT-Lupus Sensitive Mixing Study With Normal Plasma 72.9 sec High <=41.8 [facility] Comment on above: Performed By: #### L IPA, CHM6, PROCAL, GLUC, HFP #### [facility] (DEFAULT) [address] [place] [address] 86130 LIPASEon 04-06-2022 Lipase [Catalytic activity/Vol] 43 U/L Normal - [facility] Comment on above: Performed By: #### L IPA, CHM6, PROCAL, GLUC, HFP #### [facility] (DEFAULT) [address] [place] [address] 62107 LT BLUE TOP TUBEon 2 [facility] MAGNESIUMon 04-06-2022 Magnesium [Mass/Vol] 2.0 mg/dL Normal 1.6-2.6 [facility] Comment on above: Performed By: #### L IPA, CHM6, PROCAL, GLUC, HFP #### [facility] (DEFAULT) [address] [place] [address] 50122 Magnesium [Mass/Vol] 2.0 mg/dL 1.6 - 2 .6 mg/dL [facility] MOLECULAR SUMMARYon 04-06-20 [facility] No Panel Informationon 04-06 Interpretation and review of laboratory results Normal [facility] PHOSPHATE, INORGANICon 04-06 Phosphorous 3.2 mg/dL Normal 2.2-4.6 [facility] Comment on above: Performed By: #### L IPA, CHM6, PROCAL, GLUC, HFP #### [facility] (DEFAULT) [address] [place] [address] 24200 Phosphate [Mass/Vol] 3.2 mg/dL 2.2 - 4 .6 mg/dL [facility] PI LINKED AGon 04-06-2022 CD59 RBC (% DEFICIENT) 0.00 % Normal 0.00-0.01 [facility] Comment on above: Performed By: #### L IPA, CHM6, PROCAL, GLUC, HFP #### [facility] (DEFAULT) [address] [place] [address] 74194 Monocytes/100 WBC (Bld) 0.00 % Normal 0.00-0.05 [facility] Comment on above: Result Comment: Test Performed by: [facility] [address] [address] [employer] Truck Driver: Edgard Crow M.D. Ph.D.; CLIA# [id number] Performed By: #### L IPA, CHM6, PROCAL, GLUC, HFP #### [facility] (DEFAULT) [address] [place] [address] 54472 Neutrophils/100 WBC (Bld) 0.00 % Normal 0.00-0.01 [facility] Comment on above: Performed By: #### L IPA, CHM6, PROCAL, GLUC, HFP #### [facility] (DEFAULT) [address] [address] PNH INTERPRETATION SEE COMMENTS Normal [facility] Comment on above: Result Comment: Dionna pheral blood, flow cytometric immunophenotyping for paroxysmal nocturnal hemoglobinuria (PNH): Normal immunophenotyping results. No PNH clone is detected in RBC, granulocytes, or monocytes. Clinical correlation is recommended. Recent transfusion can decrease the sensitivity of this test and interfere with accuracy. The specimen received is satisfactory for quality analysis. Reviewed by: Ran Wheeler M.D. Testing results: See table ADDITIONAL INFORMATION Antibodies to the following antigens were used for cell gating and interpretation. RBCs: PS974f and CD59. WBCs: CD14, CD15, CD16, CD24, CD33, CD45, FLAER. This test was developed using an analyte specific reagent. Its performance characteristics were determined by [facility] in a manner consistent with CLIA requirements. This test has not been cleared or approved by the U.S. Food and Drug Administration. Performed By: #### L IPA, CHM6, PROCAL, GLUC, HFP #### [facility] (DEFAULT) [address] [place] [address] 47166 RBC TYPE II (PARTIAL EXPRESSION) 0.02 % Normal 0.00-0.99 [facility] Comment on above: Performed By: #### L IPA, CHM6, PROCAL, GLUC, HFP #### [facility] (DEFAULT) [address] [place] [address] 97603 PROTEIN C ACTIVITYon Interpretation and review of laboratory results Normal [facility] Protein C actual/normal Coag (PPP) [Relative time] 127 [facility] Protein C Activity 127 % Activity Normal 72-220 [facility] Comment on above: Performed By: #### P ROTC #### [facility] (DEFAULT) [address] [place] [address] 52967 PROTEIN S ACTIVITYon Interpretation and review of laboratory results Normal [facility] Protein S actual/normal Coag (PPP) [Relative time] 80 [facility] Protein S Activity 80 % Activity Normal 50-168 [facility] Comment on above: Performed By: #### L IPA, CHM6, PROCAL, GLUC, HFP #### [facility] (DEFAULT) [address] [place] [address] 84584 PTTon 04-06-2022 aPTT Coag (Bld) [Time] 86.7 s High 24.0-34.3 [facility] Comment on above: Order Comment: After initiation a PTT should be checked every 6 hours from time of last dose change or, if dose has not changed, 6 hours after last PTT result posted.? The frequent monitoring should occur until PTT in goal range for two consecutive lab draws without dose changes at which time PTTs may be checked no less frequently than every 12 hours.? If dose requires a change, PTT should be monitored at least every 6 hours until titration is no longer indicated, then as directed above.? If PTT above goal range refer to medication administration instructions. Performed By: #### L IPA, CHM6, PROCAL, GLUC, HFP #### [facility] (DEFAULT) [address] [place] [address] 83777 aPTT Coag (PPP) [Time] 86.7 s High [facility] Interpretation and review of laboratory results Abnormal [facility] aPTT Coag (Bld) [Time] 78.6 s High 24.0-34.3 [facility] Comment on above: Order Comment: After initiation a PTT should be checked every 6 hours from time of last dose change or, if dose has not changed, 6 hours after last PTT result posted.? The frequent monitoring should occur until PTT in goal range for two consecutive lab draws without dose changes at which time PTTs may be checked no less frequently than every 12 hours.? If dose requires a change, PTT should be monitored at least every 6 hours until titration is no longer indicated, then as directed above.? If PTT above goal range refer to medication administration instructions. Performed By: #### L IPA, CHM6, PROCAL, GLUC, HFP #### [facility] (DEFAULT) [address] [address] aPTT Coag (PPP) [Time] 78.6 s High [facility] Interpretation and review of laboratory results Abnormal [facility] BETA HCG, QUANT, BLOODon HCG (Quant) Serum <2.6 Normal [facility] Comment on above: Result Comment: Non- : <10 mIU/mL Postmenopause: <10 mIU/mL Male: <10 mIU/mL FEMALE GESTATIONAL AGE 2-4 Weeks: 39.1-8,388 mIU/mL 5-6 Weeks: 861-88,769 mIU/mL 6-8 Weeks: 8,636-218,085 mIU/mL 8-10 Weeks: 18,700-244,467 mIU/mL 10-12 Weeks: 23,143-181,899 mIU/mL 13-27 Weeks: 6,303-97,171 mIU/mL 24-40 Weeks: 4,360-74,883 mIU/mL Test results cannot be interpreted as absolute evidence for the presence or absence of malignant disease. Performed By: #### L IPA, CHM6, PROCAL, GLUC, HFP #### [facility] (DEFAULT) [address] [address] CBC AND ELECTRONIC DIFFon Basophils (Bld) [#/Vol] 0.08 10*3/uL Normal 0.00-0.15 [facility] Comment on above: Performed By: #### L IPA, CHM6, PROCAL, GLUC, HFP #### [facility] (DEFAULT) [address] [place] [address] 36605 Basophils/100 WBC (Bld) 0.8 % Normal [facility] Comment on above: Performed By: #### L IPA, CHM6, PROCAL, GLUC, HFP #### [facility] (DEFAULT) [address] [place] [address] 66332 DIFF STATUS Electronic Differential Normal [facility] Comment on above: Performed By: #### L IPA, CHM6, PROCAL, GLUC, HFP #### [facility] (DEFAULT) [address] [place] [address] 87284 Eosinophils (Bld) [#/Vol] 0.32 10*3/uL Normal 0.00-0.42 [facility] Comment on above: Performed By: #### L IPA, CHM6, PROCAL, GLUC, HFP #### [facility] (DEFAULT) [address] [place] [address] 90155 Eosinophils/100 WBC (Bld) 3.1 % Normal [facility] Comment on above: Performed By: #### L IPA, CHM6, PROCAL, GLUC, HFP #### [facility] (DEFAULT) [address] [place] [address] 39411 Hematocrit (Bld) [Volume fraction] 37.0 % Normal 34.9-44.3 [facility] Comment on above: Performed By: #### L IPA, CHM6, PROCAL, GLUC, HFP #### [facility] (DEFAULT) [address] [place] [address] 61283 Hemoglobin (Bld) [Mass/Vol] 12.4 g/dL Normal 11.4-15.2 [facility] Comment on above: Performed By: #### L IPA, CHM6, PROCAL, GLUC, HFP #### [facility] (DEFAULT) [address] [place] [address] 59027 Immature Grans % 0.3 % Normal [facility] Comment on above: Performed By: #### L IPA, CHM6, PROCAL, GLUC, HFP #### [facility] (DEFAULT) [address] [place] [address] 84190 Immature Grans Absolute <0.04 Normal <=0.08 [facility] Comment on above: Performed By: #### L IPA, CHM6, PROCAL, GLUC, HFP #### [facility] (DEFAULT) [address] [place] [address] 46835 Lymphocytes (Bld) [#/Vol] 2.82 10*3/uL Normal 1.16-3.51 [facility] Comment on above: Performed By: #### L IPA, CHM6, PROCAL, GLUC, HFP #### [facility] (DEFAULT) [address] [place] [address] 90991 Lymphocytes/100 WBC (Bld) 27.2 % Normal [facility] Comment on above: Performed By: #### L IPA, CHM6, PROCAL, GLUC, HFP #### [facility] (DEFAULT) [address] [place] [address] 21799 MCV (RBC) [Entitic vol] 88.5 fL Normal 79.6-97.7 [facility] Comment on above: Performed By: #### L IPA, CHM6, PROCAL, GLUC, HFP #### [facility] (DEFAULT) [address] [place] [address] 81216 Mean Cell Hgb 29.7 pg Normal 25.9-33.9 [facility] Comment on above: Performed By: #### L IPA, CHM6, PROCAL, GLUC, HFP #### [facility] (DEFAULT) [address] [place] [address] 75317 Mean Cell Hgb Conc 33.5 g/dL Normal 31.4-35.9 [facility] Comment on above: Performed By: #### L IPA, CHM6, PROCAL, GLUC, HFP #### [facility] (DEFAULT) [address] [place] [address] 33816 Monocytes (Bld) [#/Vol] 0.63 10*3/uL Normal 0.22-0.87 [facility] Comment on above: Performed By: #### L IPA, CHM6, PROCAL, GLUC, HFP #### [facility] (DEFAULT) [address] [place] [address] 58768 Monocytes/100 WBC (Bld) 6.1 % Normal [facility] Comment on above: Performed By: #### L IPA, CHM6, PROCAL, GLUC, HFP #### [facility] (DEFAULT) [address] [place] [address] 16692 Nucleated RBC 0.0 /100 WBC Normal <=0.2 [facility] Comment on above: Performed By: #### L IPA, CHM6, PROCAL, GLUC, HFP #### [facility] (DEFAULT) [address] [place] [address] 97795 Platelet mean volume (Bld) [Entitic vol] 10.3 fL Normal 8.5-12.2 [facility] Comment on above: Performed By: #### L IPA, CHM6, PROCAL, GLUC, HFP #### [facility] (DEFAULT) [address] [place] [address] 10476 Platelets (Bld) [#/Vol] 239 10*3/uL Normal 150-393 [facility] Comment on above: Performed By: #### L IPA, CHM6, PROCAL, GLUC, HFP #### [facility] (DEFAULT) [address] [place] [address] 76212 RBC (Bld) [#/Vol] 4.18 10*6/uL Normal 3.91-5.04 [facility] Comment on above: Performed By: #### L IPA, CHM6, PROCAL, GLUC, HFP #### [facility] (DEFAULT) [address] [place] [address] 56159 RBC Distribution 13.1 % Normal 10.8-14.9 [facility] Comment on above: Performed By: #### L IPA, CHM6, PROCAL, GLUC, HFP #### [facility] (DEFAULT) [address] [place] [address] 88762 Segs + Bands Auto 62.5 % Normal [facility] Comment on above: Performed By: #### L IPA, CHM6, PROCAL, GLUC, HFP #### [facility] (DEFAULT) [address] [place] [address] 61032 Segs + Bands,Absolute Auto 6.47 K/uL Normal 1.64-7.28 [facility] Comment on above: Performed By: #### L IPA, CHM6, PROCAL, GLUC, HFP #### [facility] (DEFAULT) [address] [place] [address] 98899 WBC (Bld) [#/Vol] 10.35 10*3/uL Normal 3.99-11.19 [facility] Comment on above: Performed By: #### L IPA, CHM6, PROCAL, GLUC, HFP #### [facility] (DEFAULT) [address] [place] [address] 25245 Basophils (Bld) [#/Vol] 0.08 10*3/uL 0.00 - 0.15 K/uL [facility] Basophils/100 WBC (Bld) 0.8 % [place] Differential cell count method Nom (Bld) Electronic Differential [facility] Eosinophils (Bld) [#/Vol] 0.32 10*3/uL 0.00 - 0.42 K/uL [facility] Eosinophils/100 WBC (Bld) 3.1 % [facility] Erythrocyte distribution width (RBC) [Ratio] 13.1 % 10.8 - 14.9 % [facility] Hematocrit (Bld) [Volume fraction] 37.0 % 34.9 - 44.3 % [facility] Hemoglobin (Bld) [Mass/Vol] 12.4 g/dL 11.4 - 15.2 g/dL [facility] Immature granulocytes (Bld) [#/Vol] 10*3/uL <=0.08 K/uL [facility] Immature granulocytes/100 WBC (Bld) 0.3 % [facility] Lymphocytes (Bld) [#/Vol] 2.82 10*3/uL 1.16 - 3.51 K/uL [facility] Lymphocytes/100 WBC (Bld) 27.2 % [facility] MCH (RBC) [Entitic mass] 29.7 pg 25.9 - 33.9 pg [facility] MCHC (RBC) [Mass/Vol] 33.5 g/dL 31.4 - 35.9 g/dL [facility] MCV (RBC) [Entitic vol] 88.5 fL 79.6 - 97.7 fL [facility] Monocytes (Bld) [#/Vol] 0.63 10*3/uL 0.22 - 0.87 K/uL [facility] Monocytes/100 WBC (Bld) 6.1 % [place] Neutrophils (Bld) [#/Vol] 6.47 10*3/uL 1.64 - 7.28 K/uL [facility] Nucleated RBC/100 WBC (Bld) [Ratio] 0.0 % <=0.2 /100 WBC [facility] Platelet mean volume (Bld) [Entitic vol] 10.3 fL 8.5 - 12.2 fL [facility] Platelets (Bld) [#/Vol] 239 10*3/uL 150 - 393 K/uL [facility] RBC (Bld) [#/Vol] 4.18 10*6/uL [facility] Segmented neutrophils/100 WBC (Bld) 62.5 % [facility] WBC (Bld) [#/Vol] 10.35 10*3/uL 3.99 - 11 .19 K/uL [facility] CHEM 6 (LYTES, BUN CREA)on 0 04-05-2022 Anion gap [Moles/Vol] 14 mmol/L Normal 7-17 [facility] Comment on above: Performed By: #### L IPA, CHM6, PROCAL, GLUC, HFP #### [facility] (DEFAULT) [address] [place] [address] 97728 Chloride [Moles/Vol] 107 mmol/L Normal 98-108 [facility] Comment on above: Performed By: #### L IPA, CHM6, PROCAL, GLUC, HFP #### [facility] (DEFAULT) [address] [place] [address] 07248 CO2 [Moles/Vol] 21 mmol/L Normal 21-31 [facility] Comment on above: Performed By: #### L IPA, CHM6, PROCAL, GLUC, HFP #### [facility] (DEFAULT) [address] [place] [address] 20793 Creatinine [Mass/Vol] 0.74 mg/dL Normal 0.50-1.20 [facility] Comment on above: Performed By: #### L IPA, CHM6, PROCAL, GLUC, HFP #### [facility] (DEFAULT) [address] [place] [address] 57380 eGFR, CKD-EPI, Female >90 Normal >=60 [facility] Comment on above: Result Comment: Repo rted eGFR is based on the CKD-EPI 2020 equation using creatinine, age, and sex. Performed By: #### L IPA, CHM6, PROCAL, GLUC, HFP #### [facility] (DEFAULT) [address] [place] [address] 55294 Potassium [Moles/Vol] 4.0 mmol/L Normal 3.5-5.0 [facility] Comment on above: Performed By: #### L IPA, CHM6, PROCAL, GLUC, HFP #### [facility] (DEFAULT) [address] [place] [address] 93914 Sodium [Moles/Vol] 138 mmol/L Normal 135-145 [facility] Comment on above: Performed By: #### L IPA, CHM6, PROCAL, GLUC, HFP #### [facility] (DEFAULT) [address] [place] [address] Urea nitrogen [Mass/Vol] 10 mg/dL Normal 7-25 [facility] Comment on above: Performed By: #### L IPA, CHM6, PROCAL, GLUC, HFP #### [facility] (DEFAULT) [address] [place] [address] Urea nitrogen/Creatinine [Mass ratio] 14 mg/mg Normal [facility] Comment on above: Performed By: #### L IPA, CHM6, PROCAL, GLUC, HFP #### [facility] (DEFAULT) [address] [place] [address] 25182 Anion gap [Moles/Vol] 14 mmol/L 7 - 17 [facility] Chloride [Moles/Vol] 107 mmol/L 98 - 10 8 mmol[facility]L [facility] CO2 [Moles/Vol] 21 mmol/L 21 - 31 mmol/L [facility] Creatinine [Mass/Vol] 0.74 mg/dL 0.50 - 1.20 mg/dL [facility] GFR/1.73 sq M.predicted CKD-EPI (S/P/Bld) [Vol rate/Area] >90 >=60 mL/min/1.73m 2 [facility] Comment on above: Reported eGFR is bas ed on the CKD-EPI 2020 equation using creatinine, age, and sex. Potassium [Moles/Vol] 4.0 mmol/L 3.5 - 5.0 mmol/L [facility] Sodium [Moles/Vol] 138 mmol/L 135 - 145 mmol/L [facility] Urea nitrogen [Mass/Vol] 10 mg/dL 7 - 25 mg/dL [facility] Urea nitrogen/Creatinine [Mass ratio] 14 mg/mg [facility] FACTOR V + PROTHROMBIN YAMINI Tila 04-05-2022 Receiving Status Accessioned in Lab Normal [facility] Comment on above: Performed By: #### L IPA, CHM6, PROCAL, GLUC, HFP #### [facility] (DEFAULT) [address] [place] [address] FIBRINOGEN, CLOTTABLEon 07- Fibrinogen-Clottable 555 mg/dL High 220-410 [facility] Comment on above: Order Comment: Fibr inogen levels may be altered by the normal physiologic changes of and should be interpreted considering reference ranges specific to gestational age. First Trimester: 244-510 mg/dL Second Trimester: 291-538 mg/dL Third Trimester: 373-619 mg/dL Reference: Deb Singh LG, Joseline KAUFMAN. and laboratory studies: a reference table for clinicians. Obstet Gynecol 2009; 114:1326. Result Comment: Func tional Fibrinogen (activity) levels can be affected by direct thrombin inhibitors such as heparins (>2.0 IU/ml) and dabigatran. Abnormal results should be interpreted with caution. Performed By: #### P TPTT, PTT, FIB #### [facility] (DEFAULT) [address] [place] [address] Fibrinogen Coag (PPP) [Mass/Vol] 555 mg/dL High 220 - 410 mg/dL [facility] Comment on above: Functional Fibrinoge n (activity) levels can be affected by direct thrombin inhibitors such as heparins (>2.0 IU/ml) and dabigatran. Abnormal results should be interpreted with caution. Interpretation and review of laboratory results Abnormal [facility] Fibrinogen levels may be altered by the normal physiologic changes of and should be interpreted considering reference ranges specific to gestational age. First Trimester: 244-510 mg/dL Second Trimester: 291-538 mg/dL Third Trimester: 373-619 mg/dL Reference: Deb Singh LG, Joseline FG. and laboratory studies: a reference table for clinicians. Obstet Gynecol 2009; 114:1326. [facility] GLUCOSEon 04-05-2022 Glucose [Mass/Vol] 114 mg/dL High 70-99 [facility] Comment on above: Performed By: #### L IPA, CHM6, PROCAL, GLUC, HFP #### [facility] (DEFAULT) [address] [place] [address] 44319 Glucose [Mass/Vol] 114 mg/dL High 70 - 99 mg/dL [facility] HCG ( test) QlOrder ed By: Marlena Michel on 04-05-2022 HCG.beta subunit [Moles/Vol] mmol/L mIU/mL [facility] Comment on above: Non-: <10 mI U/mL Postmenopause: <10 mIU/mL Male: <10 mIU/mL FEMALE GESTATIONAL AGE 2-4 Weeks: 39.1-8,388 mIU/mL 5-6 Weeks: 861-88,769 mIU/mL 6-8 Weeks: 8,636-218,085 mIU/mL 8-10 Weeks: 18,700-244,467 mIU/mL 10-12 Weeks: 23,143-181,899 mIU/mL 13-27 Weeks: 6,303-97,171 mIU/mL 24-40 Weeks: 4,360-74,883 mIU/mL Test results cannot be interpreted as absolute evidence for the presence or absence of malignant disease. [facility] HEPATIC FUNCTION PANELon Albumin [Mass/Vol] 3.7 g/dL Normal 3.5-5.0 [facility] Comment on above: Performed By: #### L IPA, CHM6, PROCAL, GLUC, HFP #### [facility] (DEFAULT) [address] [place] [address]86 ALP [Catalytic activity/Vol] 79 U/L Normal 32-126 [facility] Comment on above: Performed By: #### L IPA, CHM6, PROCAL, GLUC, HFP #### [facility] (DEFAULT) [address] [place] [address] 87794 ALT [Catalytic activity/Vol] 8 U/L Low 9-48 [facility] Comment on above: Performed By: #### L IPA, CHM6, PROCAL, GLUC, HFP #### [facility] (DEFAULT) [address] [place] [address] 59881 AST [Catalytic activity/Vol] 15 U/L Normal 10-39 [facility] Comment on above: Performed By: #### L IPA, CHM6, PROCAL, GLUC, HFP #### [facility] (DEFAULT) [address] [place] [address] 39841 Bilirubin [Mass/Vol] 0.4 mg/dL Normal <1.5 [facility] Comment on above: Performed By: #### L IPA, CHM6, PROCAL, GLUC, HFP #### [facility] (DEFAULT) [address] [place] [address] 91640 Bilirubin.indirect [Mass/Vol] mg/dL Normal <0.3 [facility] Comment on above: Performed By: #### L IPA, CHM6, PROCAL, GLUC, HFP #### [facility] (DEFAULT) [address] [place] [address] 21863 Protein [Mass/Vol] 6.9 g/dL Normal 6.4-8.3 [facility] Comment on above: Performed By: #### L IPA, CHM6, PROCAL, GLUC, HFP #### [facility] (DEFAULT) [address] [place] [address] 95615 Albumin [Mass/Vol] 3.7 g/dL 3.5 - 5.0 g/dL [facility] ALP [Catalytic activity/Vol] 79 U/L 32 - 126 U/L [facility] ALT [Catalytic activity/Vol] 8 U/L Low 9 - 48 U/L [facility] AST [Catalytic activity/Vol] 15 U/L 10 - 39 U/L [facility] Bilirubin [Mass/Vol] 0.4 mg/dL <1.5 [facility] Bilirubin.direct [Mass/Vol] mg/dL <0.3 mg/dL [facility] Protein [Mass/Vol] 6.9 g/dL 6.4 - 8.3 g/dL [facility] LACTATE, WHOLE BLOODon 04-05 Lactate, Whole Blood 0.6 mmol/L Normal 0.5-1.6 [facility] Comment on above: Performed By: #### L IPA, CHM6, PROCAL, GLUC, HFP #### [facility] (DEFAULT) [address] [place] [address] Interpretation and review of laboratory results Normal [facility] Lactate [Moles/Vol] 0.6 mmol/L 0.5 - 1. 6 mmol/L [facility] LIPASEon 04-05-2022 Lipase [Catalytic activity/Vol] 51 U/L Normal 11-82 [facility] Comment on above: Performed By: #### L IPA, CHM6, PROCAL, GLUC, HFP #### [facility] (DEFAULT) [address] [place] [address]459 Interpretation and review of laboratory results Normal [facility] Lipase [Catalytic activity/Vol] 51 U/L 11 - 82 U/L [facility] No Panel Informationon 04-05 Interpretation and review of laboratory results Abnormal [facility] PROCALCITONINOrdered By: Lars Miller on 04-05-2022 Interpretation and review of laboratory results Normal [facility] Procalcitonin [Mass/Vol] ng/mL <0.50 ng/mL [facility] Comment on above: Procalcitonin is an FDA-approved assay to help manage antibiotic treatment in patients with sepsis/septic shock and lower respiratory tract infections. Specifically, trending procalcitonin in these situations can be used to reduce the duration of antibiotics. Please refer to the Procalcitonin Guide on the Antimicrobial Stewardship Webpage for more guidance on how to use and trend procalcitonin in various clinical settings. [email or web address]/departments/[email or web address]/_[email or web address] [email or web address]?sourcedoc=/departments/Pharmacy/Documents/[email or web address] calcitonin.docx&action=default&DefaultItemOpen=1 Two common cutoffs associated with bacterial infections are as follows. Respiratory tract infections: >0.25 ng/mL Sepsis/septic shock: >0.5 ng/mL Procalcitonin should not be used alone as a diagnostic tool, however. All procalcitonin results should be interpreted in association with the patients clinical condition and all laboratory findings. [facility] PROCALCITONINon 04-05-2022 Procalcitonin <0.04 Normal <0.50 [facility] Comment on above: Result Comment: Proc alcitonin is an FDA-approved assay to help manage antibiotic treatment in patients with sepsis/septic shock and lower respiratory tract infections. Specifically, trending procalcitonin in these situations can be used to reduce the duration of antibiotics. Please refer to the Procalcitonin Guide on the Antimicrobial Stewardship Webpage for more guidance on how to use and trend procalcitonin in various clinical settings. [email or web address]://[email or web address]/departments/Pharmacy/_[email or web address] [email or web address]?sourcedoc=/departments/Pharmacy/Documents/GDLPro calcitonin.docx&action=default&DefaultItemOpen=1 Two common cutoffs associated with bacterial infections are as follows. Respiratory tract infections: >0.25 ng/mL Sepsis/septic shock: >0.5 ng/mL Procalcitonin should not be used alone as a diagnostic tool, however. All procalcitonin results should be interpreted in association with the patients clinical condition and all laboratory findings. Performed By: #### L IPA, CHM6, PROCAL, GLUC, HFP #### [facility] (DEFAULT) [address] [address] PT,INR,PTTon 04-05-2022 aPTT Coag (Bld) [Time] 78.4 s High 24.0-34.3 [facility] Comment on above: Performed By: #### P TPTT, PTT, FIB #### [facility] (DEFAULT) [address] [address] INR Coag (PPP) [Relative time] 1.1 {INR} Normal 0.9-1.1 [facility] Comment on above: Performed By: #### P TPTT, PTT, FIB #### [facility] (DEFAULT) [address] [place] [address] 81668 PT Coag (PPP) [Time] 13.9 s Normal 11.9-14.2 [facility] Comment on above: Performed By: #### P TPTT, PTT, FIB #### [facility] (DEFAULT) [address] [place] [address] 18189 aPTT Coag (PPP) [Time] 78.4 s High OS [facility] INR Coag (Bld) [Relative time] 1.1 {INR} [facility] Interpretation and review of laboratory results Abnormal [facility] PT Coag (PPP) [Time] 13.9 s [facility] PTTon 04-05-2022 aPTT Coag (Bld) [Time] 71.0 s High 24.0-34.3 [facility] Comment on above: Order Comment: After initiation a PTT should be checked every 6 hours from time of last dose change or, if dose has not changed, 6 hours after last PTT result posted.? The frequent monitoring should occur until PTT in goal range for two consecutive lab draws without dose changes at which time PTTs may be checked no less frequently than every 12 hours.? If dose requires a change, PTT should be monitored at least every 6 hours until titration is no longer indicated, then as directed above.? If PTT above goal range refer to medication administration instructions. Performed By: #### P TPTT, PTT, FIB #### [facility] (DEFAULT) [address] [place] [address]29 aPTT Coag (Bld) [Time] 50.6 s High 24.0-34.3 [facility] Comment on above: Performed By: #### L IPA, CHM6, PROCAL, GLUC, HFP #### [facility] (DEFAULT) [address] [place] [address]258 aPTT Coag (PPP) [Time] 50.6 s High OS [facility] Interpretation and review of laboratory results Abnormal [facility] PTTOrdered By: Lev Colon on 04-05-2022 aPTT Coag (PPP) [Time] 71.0 s High OS [facility] Interpretation and review of laboratory results Abnormal [facility] URINALYSIS REFLEX TO CULTURE PERFORMABLEon 04-05-2022 Appearance (U) Clear Normal Clear [facility] Comment on above: Order Comment: For i ndwelling catheters, specimen collection is acceptable on catheter day 1 and 2 only. ? Performed By: #### L IPA, CHM6, PROCAL, GLUC, HFP #### [facility] (DEFAULT) [address] [place] [address] 69655 Bacteria ABSENT Normal ABSENT [facility] Comment on above: Order Comment: For i ndwelling catheters, specimen collection is acceptable on catheter day 1 and 2 only. ? Performed By: #### L IPA, CHM6, PROCAL, GLUC, HFP #### [facility] (DEFAULT) [address] [place] [address] 67506 Blood Urine Large Abnormal Negative [facility] Comment on above: Order Comment: For i ndwelling catheters, specimen collection is acceptable on catheter day 1 and 2 only. ? Performed By: #### L IPA, CHM6, PROCAL, GLUC, HFP #### [facility] (DEFAULT) [address] [place] [address] 45616 Color (U) Yellow Normal Yellow [facility] Comment on above: Order Comment: For i ndwelling catheters, specimen collection is acceptable on catheter day 1 and 2 only. ? Performed By: #### L IPA, CHM6, PROCAL, GLUC, HFP #### [facility] (DEFAULT) [address] [place] [address] 37878 Glucose Ql (U) Negative Normal Negative [facility] Comment on above: Order Comment: For i ndwelling catheters, specimen collection is acceptable on catheter day 1 and 2 only. ? Performed By: #### L IPA, CHM6, PROCAL, GLUC, HFP #### [facility] (DEFAULT) [address] [place] [address] 02072 Ketones Ql (U) Negative Normal Negative [facility] Comment on above: Order Comment: For i ndwelling catheters, specimen collection is acceptable on catheter day 1 and 2 only. ? Performed By: #### L IPA, CHM6, PROCAL, GLUC, HFP #### [facility] (DEFAULT) [address] [place] [address] 25833 Leukocyte esterase Test strip Ql (U) Negative Normal Negative [facility] Comment on above: Order Comment: For i ndwelling catheters, specimen collection is acceptable on catheter day 1 and 2 only. ? Performed By: #### L IPA, CHM6, PROCAL, GLUC, HFP #### [facility] (DEFAULT) [address] [place] [address] 84483 Nitrites Urine Negative Normal Negative [facility] Comment on above: Order Comment: For i ndwelling catheters, specimen collection is acceptable on catheter day 1 and 2 only. ? Performed By: #### L IPA, CHM6, PROCAL, GLUC, HFP #### [facility] (DEFAULT) [address] [place] [address] 73168 pH (U) 5.5 [pH] Normal 5.0-7.0 [facility] Comment on above: Order Comment: For i ndwelling catheters, specimen collection is acceptable on catheter day 1 and 2 only. ? Performed By: #### L IPA, CHM6, PROCAL, GLUC, HFP #### [facility] (DEFAULT) [address] [place] [address] 89595 Protein Urine Negative Normal Negative [facility] Comment on above: Order Comment: For i ndwelling catheters, specimen collection is acceptable on catheter day 1 and 2 only. ? Performed By: #### L IPA, CHM6, PROCAL, GLUC, HFP #### [facility] (DEFAULT) [address] [place] [address] 67437 RBC Urine 10-20 Abnormal 0-2 [facility] Comment on above: Order Comment: For i ndwelling catheters, specimen collection is acceptable on catheter day 1 and 2 only. ? Performed By: #### L IPA, CHM6, PROCAL, GLUC, HFP #### [facility] (DEFAULT) [address] [place] [address]123 Specific [place] Urine >=1.030 Normal 1.001-1.035 [facility] Comment on above: Order Comment: For i ndwelling catheters, specimen collection is acceptable on catheter day 1 and 2 only. ? Performed By: #### L IPA, CHM6, PROCAL, GLUC, HFP #### [facility] (DEFAULT) [address] [place] [address] 19602 Squamous/Epithelial Cells 2-5/hpf = 2+ Normal 1/hpf = 1+, 2-5/hpf = 2+, 0/hpf = 0+, ABSENT [facility] Comment on above: Order Comment: For i ndwelling catheters, specimen collection is acceptable on catheter day 1 and 2 only. ? Performed By: #### L IPA, CHM6, PROCAL, GLUC, HFP #### [facility] (DEFAULT) [address] [place] [address] 03331 Urobilinogen Urine 0.2 E.U./dL Normal 0.2 E.U/d L, 1.0 E.U/dL [facility] Comment on above: Order Comment: For i ndwelling catheters, specimen collection is acceptable on catheter day 1 and 2 only. ? Performed By: #### L IPA, CHM6, PROCAL, GLUC, HFP #### [facility] (DEFAULT) [address] [place] [address] 00640 WBC Urine 0-5 Normal 0-5 [facility] Comment on above: Order Comment: For i ndwelling catheters, specimen collection is acceptable on catheter day 1 and 2 only. ? Performed By: #### L IPA, CHM6, PROCAL, GLUC, HFP #### [facility] (DEFAULT) [address] [place] [address] 54593 URINALYSIS REFLEX TO CULTURE PERFORMABLEOrdered By: Wilian Plummer on 04-05-2022 Appearance (U) Clear Clear [facility] Bacteria LM Ql (Urine sed) ABSENT ABSENT [facility] Color (U) Yellow Yellow [facility] Epithelial cells.squamous LM Ql (Urine sed) 2-5/hpf = 2+ 1/hpf = 1+, 2-5/hpf = 2+, 0/hpf = 0+, ABSENT [facility] Glucose Test strip (U) [Mass/Vol] Negative Negative [facility] Interpretation and review of laboratory results [facility] Ketones (U) [Mass/Vol] Negative Negative [facility] Leukocyte esterase Test strip Ql (U) Negative Negative [facility] Nitrite Ql (U) Negative [facility] pH (U) 5.5 [pH] 5.0 - 7.0 [facility] Protein (U) [Mass/Vol] Negative Negative [facility] RBC (U) [#/Vol] Large [facility] RBC LM.HPF (Urine sed) [#/Area] 10-20 Abnormal 0 - 2 /HPF [facility] Specific gravity (U) [Rel density] >=1.030 [facility] Urobilinogen (U) [Mass/Vol] 0.2 E.U./dL 0.2 E.U/dL, 1.0 E.U/dL [facility] WBC LM.HPF (Urine sed) [#/Area] 0-5 0 - 5 /HPF [facility] Absolute lymphocyte counton 03-20-2022 Lymphocytes Auto (Unsp spec) [#/Vol] 1.80 10*3/uL 0.83-4.51 [facility] Work Phone: Basophil percentageon 2021 Basophil percentage 10-25 SEEN /hpf 0-5 [facility] Work Phone: Basophils/100 WBC (Bld) 1.0 % 0-1 [facility] Work Phone: Bilirubin [Mass/Vol] 0.40 mg/dL 0.20-1.00 [facility] Work Phone: Comment on above: For patients on eltr ombopag therapy, use of Dimension [place] TBIL is not recommended. Chloride [Moles/Vol] 108 mmol/L 98-107 [facility] Work Phone: [phone] Eosinophils/100 WBC (Bld) 1.8 % 0-5 [facility] Work Phone: [phone] Glucose [Mass/Vol] 91 mg/dL 74-106 [facility] Work Phone: [phone] Neutrophils (Bld) [#/Vol] 6.2 10*3/uL 2.0-7.7 [facility] Work Phone: [phone] Neutrophils/100 WBC (Bld) 69.0 % 47-70 [facility] Work Phone: [phone] Potassium [Moles/Vol] 3.5 mmol/L 3.5-5.1 [facility] Work Phone: [phone] Protein [Mass/Vol] 7.4 g/dL 6.4-8.2 [facility] Work Phone: [phone] Sodium [Moles/Vol] 140 mmol/L 136-145 [facility] Work Phone: [phone] WBC (Bld) [#/Vol] 9.0 10*3/uL 4.4-11.0 [facility] Work Phone: Beta hCG serum qualon 2021 Beta HCG ( test) Ql Negative [facility] Work Phone: Bilirubin Test strip Ql (U)o n 03-20-2022 Bilirubin Ql (U) Negative Negative [facility] Work Phone: Blood erythrocytes count (nu mber/volume)on 03-20-2022 RBC (Bld) [#/Vol] 4.61 10*6/uL 4.2-5.4 [facility] Work Phone: [phone] Blood hemoglobin measurement (mass/volume)on 03-20-2022 Hemoglobin (Bld) [Mass/Vol] 13.7 g/dL 12.0-15.0 [facility] Work Phone: Blood lymphocytes/100 leukoc yteson 03-20-2022 Lymphocytes/100 WBC (Bld) 20.1 % 19-41 [facility] Work Phone: Blood monocytes/100 leukocyt eson 03-20-2022 Monocytes/100 WBC (Bld) 7.5 % 0-10 [facility] Work Phone: Blood platelet mean volumeon 03-20-2022 Platelet mean volume (Bld) [Entitic vol] 10.1 fL 6.2-12.0 [facility] Work Phone: Determination of erythrocyte mean corpuscular volume (MCV)on 03-20-2022 MCV (RBC) [Entitic vol] 89.6 fL 81-99 [facility] Work Phone: Hematocrit Auto (Bld) [Volum e fraction]on 03-20-2022 Hematocrit (Bld) [Volume fraction] 41.3 % 37-47 [facility] Work Phone: Ketones Test strip Ql (U)on 03-20-2022 Ketones Ql (U) 5 mg/dl Negative [facility] Work Phone: Laboratory - Chemistry and C hemistry - challengeon 03-20-2022 ALP [Catalytic activity/Vol] 95 U/L 45-117 [facility] Work Phone: ALT [Catalytic activity/Vol] 18 U/L 13-56 [facility] Work Phone: CO2 [Moles/Vol] 27.0 mmol/L 21.0-32.0 [facility] Work Phone: Globulin (S) [Mass/Vol] 4.2 g/dL 2.2-4.2 [facility] Work Phone: Lipase [Catalytic activity/Vol] 80 U/L 73-393 [facility] Work Phone: Urea nitrogen/Creatinine [Mass ratio] 14.1 mg/mg 10-20 [facility] Work Phone: Laboratory - Hematology and Cell countson 03-20-2022 Erythrocyte distribution width (RBC) [Entitic vol] 42.6 fL 35.1-43.9 [facility] Work Phone: Erythrocyte distribution width (RBC) [Ratio] 13.0 % 11.6-14.6 [facility] Work Phone: Immature granulocytes/100 WBC (Bld) 0.600 % 0.0-0.9 [facility] Work Phone: Comment on above: IG% - Immature Granu locytes (promyelocytes, myelocytes and metamyelocytes) > 1% indicates that a LEFT SHIFT is Present. MCH (RBC) [Entitic mass] 29.7 pg 27.0-32.0 [facility] Work Phone: Nucleated RBC/100 WBC (Bld) [Ratio] 0 % 0-5 [facility] Work Phone: MCHC Auto (RBC) [Mass/Vol]on 03-20-2022 MCHC (RBC) [Mass/Vol] 33.2 g/dL 32-36 [facility] Work Phone: Mucus LM Ql (Urine sed)on Mucus Ql (Urine sed) 0 SEEN /hpf [facility] Work Phone: Nitrite Test strip Ql (U)on 03-20-2022 Nitrite Ql (U) Negative Negative [facility] Work Phone: No Panel Informationon 03-20 Estimated Creatinine Clearance Calc 70.28 ml/min [facility] Work Phone: Estimated GFR (MDRD) Amer 95 mL/min >60 [facility] Work Phone: Comment on above: GFR Calc Estimated GFR (MDRD) Non-Af Amer 79 mL/min >60 [facility] Work Phone: Comment on above: Non- GFR Calc Platelets bldon 03-20-2022 Platelets (Bld) [#/Vol] 267 10*3/uL 150-450 [facility] Work Phone: Protein Test strip Ql (U)on 03-20-2022 Protein Ql (U) 15 mg/dl Negative [facility] Work Phone: Serum or plasma albumin diana urement (mass/volume)on 03-20-2022 Albumin [Mass/Vol] 3.2 g/dL 3.2-5.0 [facility] Work Phone: Serum or plasma albumin/glob ulin mass ratioon 03-20-2022 Albumin/Globulin [Mass ratio] 0.8 {ratio} 0.9-2.4 [facility] Work Phone: Serum or plasma calcium diana urement (mass/volume)on 03-20-2022 Calcium [Mass/Vol] 8.9 mg/dL 8.5-10.1 [facility] Work Phone: Serum or plasma creatinine m easurement (mass/volume)on 03-20-2022 Creatinine [Mass/Vol] 0.85 mg/dL 0.55-1.02 [facility] Work Phone: Comment on above: The validity of the calculated GFR & GFRAA in patients over 70 years has not been determined. Clinical correlation is essential. Serum or plasma urea nitroge n measurement (mass/volume)on 03-20-2022 Urea nitrogen [Mass/Vol] 12 mg/dL 7-18 [facility] Work Phone: Squamous epithelial cells de tection in urine sediment by light microscopyon 03-20-2022 Epithelial cells.squamous LM Ql (Urine sed) 0-5 SEEN /hpf 5-10 [facility] Work Phone: Thin prep Papanicolaou smear with manual screeningon 03-20-2022 Thin prep Papanicolaou smear with manual screening 15 U/L 15-37 [facility] Work Phone: Thin prep Papanicolaou smear with manual screening 5 5-15 [facility] Work Phone: Urine blood detectionon 06- RBC Ql (U) 150 /ul Negative [facility] Work Phone: RBC Ql (U) 10-25 SEEN /hpf 0-5 [facility] Work Phone: Urine clarityon 03-20-2022 Clarity (U) Clear Clear [facility] Work Phone: Urine color determinationon 03-20-2022 Color (U) Yellow Yellow [facility] Work Phone: Urine glucose detectionon Glucose Ql (U) Normal mg/dl Normal [facility] Work Phone: Urine leukocyte esterase det ection by dipstickon 03-20-2022 Leukocyte esterase Test strip Ql (U) 100 /ul Negative [facility] Work Phone: Urine pHon 03-20-2022 pH (U) 6.0 [pH] 5.0 - 8.0 [facility] Work Phone: Urine sediment bacteria coun t by microscopy (number/high power field)on 03-20-2022 Bacteria LM.HPF (Urine sed) [#/Area] 1 /[HPF] None Seen [facility] Work Phone: Urine specific gravity measu rementon 03-20-2022 Specific gravity (U) [Rel density] 1.020 1.002-1.030 [facility] Work Phone: Urobilinogen Auto test strip Ql (U)on 03-20-2022 Urobilinogen Ql (U) Normal mg/dl Normal [facility] Work Phone: EMERGENCY REPORTon EMERGENCY REPORT [facility] EMERGENCY ROOM REPORT NAME ACCOUNT SEX AGE ADMIT DISCHARGE PT MED. RECORD# NUMBER DATE DATE TYPE VIRIDIANA ENRIQUE [id number] F 41 11/29/21 11/29/21 3 M [id number] ROOM: ER DATE OF : 1980 DICTATING PHYSICIAN: Edgard Summers INCOMPLETE REPORT. Dictated By: Edgard Summers DO 11/29/21 18:06 JOB #: [id number] Transcribed By: am 11/30/21 05:57 Electronically signed by: TIP Summers DO 12/07/21 07:49 Page 1 of 1 VIRIDIANA ENRIQUE Emergency Room Report Normal [facility] EMERGENCY REPORTon 2 EMERGENCY REPORT [facility] EMERGENCY ROOM REPORT NAME ACCOUNT SEX AGE ADMIT DISCHARGE PT MED. RECORD# NUMBER DATE DATE TYPE VIRIDIANA ENRIQUE [id number] F 41 11/29/21 11/29/21 5 M [id number] ROOM: ER DATE OF : 1980 DICTATING PHYSICIAN: Edgard Summers HISTORY OF PRESENT ILLNESS: The patient came in and presents to the emergency department with a cough. She said she is short of breath. She has had pain in her left upper quadrant. It hurts when she takes a deep breath. Today, she just felt spacey. She said she had a fever. She has had COVID-19 last month. She had a chest x-ray, which was unremarkable and she still felt very poorly. They are concerned she may have a blood clot in her chest and sent her to the emergency department. She said the pain is a 5 out of 10. She said she really has not felt well since she has had COVID-19. PAST MEDICAL HISTORY: She has a history of epiploica appendagitis. She has had a blood clot in her leg. PAST SURGICAL HISTORY: She has had ankle surgery, cholecystectomy. SOCIAL HISTORY: She does not smoke or drink. REVIEW OF SYSTEMS: Ten systems reviewed and negative except as mentioned above. PHYSICAL EXAMINATION: VITAL SIGNS: She is afebrile. Pulse 90, respirations 16, blood pressure 129/80, and pulse ox 97% on room air. HEENT: Head is normocephalic and atraumatic. Eyes: Pupils are equal, round, and reactive to light. Extraocular muscles are intact. Nares are patent. Throat has adequate oral moisture. Uvula is midline. NECK: Neck is supple without petechiae or rash. HEART: Heart is regular rate and rhythm without murmur. S1 equals S2. No S3 or S4 appreciated. LUNGS: Lungs are clear to auscultation bilaterally. No rales, rhonchi, or retractions. ABDOMEN: Abdomen is soft, nontender, and nondistended. SKIN: Skin is warm and dry. DIAGNOSTIC DATA: She had an EKG which showed a normal sinus rhythm at a rate of 86, normal axis. No obvious ST elevation or depression. Chemistries were unremarkable. Potassium was 3.3, BUN 13, creatinine 0.78. White count was normal, H&H 13 and 41. We did a CT of her chest, which was unremarkable. Page 1 of 2 VIRIDIANA ENRIQUE Emergency Room Report VIRIDIANA ENRIQUE : 1980 EMERGENCY DEPARTMENT COURSE AND TREATMENT: She has no abdominal tenderness. No right upper quadrant tenderness. The patient was given fluids. She is taking doxycycline for possible infection. I was thinking about adding Rocephin, and that was before I realized she was on doxycycline. I was going to give her another liter of fluids, but she said she just wanted to go home. DIAGNOSES: 1. Cough. 2. Fever. 3. Shortness of breath, cause not clear. 4. Possible viral syndrome. 5. Bronchitis. PLAN/DISPOSITION: She was told to return if any problems or concerns. She will be discharged in stable condition. I also offered to retest her for COVID-19, which she declined. Risks and benefits were explained. Dictated By: Edgard Summers DO 11/29/21 18:06 JOB #: [id number] Transcribed By: am 11/30/21 05:50 Electronically signed by: TIP Summers DO 12/02/21 08:07 Page 2 of 2 VIRIDIANA ENRIQUE Emergency Room Report Normal [facility] CBC + DIFFon 11-29-2021 Baso # 0.10 x10EE3/UL Normal 0.00 - 0.10 [facility] Comment on above: Performed By: #### 2 43955 #### [facility],[address] [place], [place] [id number] Basophils/100 WBC (Bld) 1.5 % Normal 0.0 - 2.0 [facility] Comment on above: Performed By: #### 2 02044 #### [facility],[address] [place] [address] CBC + DIFF Normal [facility] Comment on above: Result Comment: CBC- COMPLETE BLOOD COUNT Performed By: #### 2 99360 #### [facility],[address] [place] [address] EO # 0.10 x10EE3/UL Normal 0.00 - 0.50 [facility] Comment on above: Performed By: #### 2 13199 #### [facility],[address] [place], [place] [id number] Eosinophils/100 WBC (Bld) 0.6 % Normal 0.0 - 7.0 [facility] Comment on above: Performed By: #### 2 82355 #### [facility],[address] [place] [address] Erythrocyte distribution width (RBC) [Ratio] 13.6 % Normal 12.0 - 15.6 [facility] Comment on above: Performed By: #### 2 50928 #### [place] [address] Hematocrit (Bld) [Volume fraction] 41.2 % Normal 34.0 - 46.0 [facility] Comment on above: Performed By: #### 2 64514 #### [facility],[address] [place] [address] Hemoglobin (Bld) [Mass/Vol] 13.8 g/dL Normal 12.0 - 16.0 [facility] Comment on above: Performed By: #### 2 42093 #### [facility],[address] [place] [address] Lymph # 2.60 x10EE3/UL Normal 0.80 - 2.80 [facility] Comment on above: Performed By: #### 2 22178 #### [facility],[address] [place] [address]39[address] Lymphocytes/100 WBC (Bld) 26.0 % Normal 20.0 - 45.0 [facility] Comment on above: Performed By: #### 2 49002 #### [place] [id number] MANUAL DIFF N/A Normal [facility] Comment on above: Performed By: #### 2 09241 #### [facility],[address] [place] [address]40 MCH (RBC) [Entitic mass] 30 pg Normal 27 - 33 [facility] Comment on above: Performed By: #### 2 15146 #### [facility],[address] [place] [address]36 MCHC 34 X10 3 Normal 32 - 36 [facility] Comment on above: Performed By: #### 2 04069 #### [facility],[address] [place] [address] 24690 MCV (RBC) [Entitic vol] 88 fL Normal 80 - 99 [facility] Comment on above: Performed By: #### 2 34554 #### [facility],[address] [place] [address] [place] # 0.70 x10EE3/UL Normal 0.20 - 1.00 [facility] Comment on above: Performed By: #### 2 12389 #### [facility],[address] [place] [address] 09557 MONOS % 6.6 % Normal 0.0 - 10.0 [facility] Comment on above: Performed By: #### 2 52909 #### [facility],[address] [place] [address]641 Morphology Yasir (Bld) [Interp] N/A Normal [facility] Comment on above: Result Comment: {CD] Performed By: #### 2 62433 #### [facility],[address] [place] [address]13 Neut # 6.60 x10EE3/UL Normal 1.50 - 7.10 [facility] Comment on above: Performed By: #### 2 56721 #### [facility],[address] [place] [address] 93521 Neutrophils/100 WBC (Bld) 65.3 % Normal 46.0 - 76.0 [facility] Comment on above: Performed By: #### 2 37477 #### [facility],[address] [place] [address] PLATELET 273 x10EE3/UL Normal 150 - 450 [facility] Comment on above: Performed By: #### 2 42336 #### [facility],[address] [place] [address] 28995 Platelet mean volume (Bld) [Entitic vol] 8.3 fL Normal 6.6 - 10.5 [facility] Comment on above: Result Comment: AUTO MATED DIFFERENTIAL Performed By: #### 2 15212 #### [facility],[address] [place] [address] 73631 RBC 4.67 x 10EE6/UL Normal 4.10 - 5.30 [facility] Comment on above: Performed By: #### 2 32501 #### [facility],[address] [place] [address] 34667 WBC 10.1 x 10EE3/UL Normal 4.5 - 10.8 [facility] Comment on above: Performed By: #### 2 64878 #### [facility],[address] [place] [address] 55298 CHEST 2 VIEWSon 11-29-2021 CHEST 2 VIEWS [place] [address] Patient: VIRIDIANA ENRIQUE Phone#: : 1980 Age: 41 Gender: F Pt. Type: Out Account: [id number] Location: [facility] Ordering: STEPH LOCO Exam Date: 11/29/2021/10:26 Family Phys: Charge Code: [id number] Physician: [place] Order #: [id number] DLP Dose#: PROCEDURE: X-RAY CHEST 2 VIEWS COMPARISON: [facility], XR, CHEST PA/LAT, 06/21/2017, 9:27. INDICATIONS: Shortness of breath FINDINGS: LUNGS: Normal. No significant pulmonary parenchymal abnormalities. VASCULATURE: Normal. Unremarkable pulmonary vasculature. CARDIAC: Normal. No cardiac silhouette abnormality or cardiomegaly. MEDIASTINUM: Normal. No visible mass or adenopathy. PLEURA: Normal. No effusion or pleural thickening. BONES: Normal. No fracture or visible bony lesion. OTHER: Negative. CONCLUSION: No acute disease. No significant change has occurred. Dictated by: Angela Gonzalez MD on 11/29/2021 at 10:53 Approved by: Angela Gonzalez MD on 11/29/2021 at 11:00 Normal [facility] CMP with eGFRon 11-29-2021 AGE 41 years Normal [facility] Comment on above: Performed By: #### 2 49982 #### [facility],[address] [place] [address] 60669 Albumin [Mass/Vol] 3.2 g/dL Low 3.4 - 5.0 [facility] Comment on above: Performed By: #### 2 29512 #### [facility],[address] [place] [address] 55813 Albumin/Globulin [Mass ratio] 0.7 {ratio} Low 0.9 - 1.6 [facility] Comment on above: Performed By: #### 2 79424 #### [facility],[address] [place] [address] 06808 ALK PHOS 90 U/L Normal 46 - 116 [facility] Comment on above: Performed By: #### 2 24351 #### [facility],[address] [place] [address] 00856 ALT [Catalytic activity/Vol] 18 U/L Normal 14 - 59 [facility] Comment on above: Performed By: #### 2 23506 #### [facility],[address] [place] [address] 67043 Anion gap [Moles/Vol] 15 mmol/L Normal 10 - 20 [facility] Comment on above: Performed By: #### 2 99531 #### [facility],[address] [place] [address] 24443 AST [Catalytic activity/Vol] 13 U/L Normal 13 - 39 [facility] Comment on above: Performed By: #### 2 71972 #### [facility],[address] [place] [address] 20674 B/C RATIO 17 ratio Normal 0 - 30 [facility] Comment on above: Performed By: #### 2 17578 #### [facility],[address] [place] [address] 55487 Bilirubin [Mass/Vol] 0.2 mg/dL Normal 0.2 - 1.0 [facility] Comment on above: Performed By: #### 2 13122 #### [facility],[address] [place] [address] 59409 Calcium [Mass/Vol] 8.9 mg/dL Normal 8.5 - 10.1 [facility] Comment on above: Performed By: #### 2 86064 #### [facility],[address] [place] [address]279 Chloride [Moles/Vol] 105 mmol/L Normal 98 - 107 [facility] Comment on above: Performed By: #### 2 35202 #### [facility],[address] [place] [address]3874 CMP with eGFR Normal [facility] Comment on above: Result Comment: COMP REHENSIVE METABOLIC PANEL Performed By: #### 2 42789 #### [facility],[address] [place] [address] 76408 CO2 [Moles/Vol] 24.5 mmol/L Normal 21.0 - 32.0 [facility] Comment on above: Performed By: #### 2 39881 #### [facility],[address] [place] [address] 80956 Creatinine [Mass/Vol] 0.78 mg/dL Normal 0.55 - 1.02 [facility] Comment on above: Performed By: #### 2 02381 #### [facility],[address] [place] [address] 41853 GFR/1.73 sq M.predicted among non-blacks MDRD (S/P/Bld) [Vol rate/Area] mL/min/{1.73_m2} Normal 60 - 999 [facility] Comment on above: Performed By: #### 2 85818 #### [facility],[address] [place] [address] 75185 Result Comment: ACCO RDING TO THE NATIONAL KIDNEY DISEASE EDUCATION PROGRAM(NKDE), A NORMAL eGFR IS A VALUE GREATER THAN OR EQUAL TO 60 ML/MIN/1.73 SQ METERS. CHRONIC KIDNEY DISEASE: <60mL/MIN/1.73 SQ METERS KIDNEY FAILURE: <15mL/MIN/1.73 SQ METERS THIS TEST SHOULD ONLY BE USED FOR PATIENTS 18 YEARS OF AGE AND OLDER. Globulin (S) [Mass/Vol] 4.7 g/dL High 1.5 - 3.8 [facility] Comment on above: Performed By: #### 2 18330 #### [facility],[address] [place] [address] 26638 Glucose [Mass/Vol] 127 mg/dL High 74 - 106 [facility] Comment on above: Performed By: #### 2 51258 #### [facility],[address] [place] [address] 67038 Potassium [Moles/Vol] 3.3 mmol/L Low 3.5 - 5.1 [facility] Comment on above: Performed By: #### 2 96616 #### [facility],[address] [place] [address] 51845 Protein [Mass/Vol] 7.9 g/dL Normal 6.4 - 8.2 [facility] Comment on above: Performed By: #### 2 09879 #### [facility],[address] [place] [address] 93314 Sodium [Moles/Vol] 141 mmol/L Normal 136 - 145 [facility] Comment on above: Performed By: #### 2 08435 #### [facility],[address] [place] [address] 28943 Urea nitrogen [Mass/Vol] 13 mg/dL Normal 7 - 18 [facility] Comment on above: Performed By: #### 2 30935 #### [facility],[address] [place] [address] CHEST (PE PROTOCOL)on CT CHEST (PE PROTOCOL) [place] [id number] Patient: VIRIDIANA ENRIQUE Phone#: : 1980 Age: 41 Gender: F Pt. Type: ER Account: [id number] Location: [facility] Ordering: EDGARD SUMMERS Exam Date: 11/29/2021/15:10 Family Phys: AKBAR MARINELLI Charge Code: [id number] Physician: [place] Order #: [id number] DLP Dose#: PROCEDURE: CT CHEST WITH CONTRAST FOR PE COMPARISON: None. INDICATIONS: Cough shortness of breath. TECHNIQUE: After obtaining the patient's consent, CT images were obtained with non-ionic intravenous contrast material. Multi-planar images were created to optimize visualization of vascular anatomy with MPR/MIPS and 3D imaging. All CT scans at this facility use dose modulation, iterative reconstruction, and/or weight based dosing when appropriate to reduce radiation dose to as low as reasonably achievable. IV CONTRAST: Omnipaque 350,100ml TOTAL DOSE: 9.0 CTDIvol(mGy) FINDINGS: VASCULATURE: Normal. No visible pulmonary arterial thrombus or attenuation. AORTA: Normal. No aneurysm or dissection. LUNGS: Normal. No visible pulmonary disease. ZACHARIAH: Normal. No mass or adenopathy. MEDIASTINUM: Normal. No mass or adenopathy. CARDIAC: Normal. No enlargement, pericardial thickening, or significant calcification. PLEURA: Normal. No mass or effusion. CHEST WALL: Normal. No mass or axillary adenopathy. LIMITED ABDOMEN: Normal. Limited images of the upper abdomen are unremarkable. BONES: Normal. No bony lesion or fracture. OTHER: Negative. CONCLUSION: 1. There is no evidence of pulmonary embolus. 2. There is no acute pulmonary abnormality. [place] [address] Patient: VIRIDIANA ENRIQUE Phone#: : 1980 Age: 41 Gender: F Pt. Type: ER Account: [id number] Location: [facility] Ordering: EGDARD SUMMERS Exam Date: 11/29/2021/15:10 Family Phys: AKBAR ORTIZVALERIY Charge Code: [id number] Physician: [place] Order #: [id number] DLP Dose#: Dictated by: Angela Gonzalez MD on 11/29/2021 at 15:30 Approved by: Angela Gonzalez MD on 11/29/2021 at 15:32 Normal [facility] CBC (INCLUDES DIFF/PLT)on Basophils (Bld) [#/Vol] 0.088 10*3/uL Normal 0-200 [facility] Comment on above: Performed By: #### 1 0231, 6399 #### [facility] of [address], [address] [place] [address] Commercial Portfolio Manager: Lenny Jean MD Basophils/100 WBC (Bld) 0.9 % Normal [facility] Comment on above: Performed By: #### 1 0231, 6399 #### [facility] of [address], [address] [place] [address] Commercial Portfolio Manager: Lenny Jean MD Eosinophils (Bld) [#/Vol] 0.157 10*3/uL Normal 15-500 [facility] Comment on above: Performed By: #### 1 0231, 6399 #### [facility] [address], [address] [place] [address] Commercial Portfolio Manager: Lenny Jean MD Eosinophils/100 WBC (Bld) 1.6 % Normal [facility] Comment on above: Performed By: #### 1 0231, 6399 #### [facility] [address], [address] [place] [address] Commercial Portfolio Manager: Lenny Jean MD Erythrocyte distribution width (RBC) [Ratio] 12.6 % Normal 11.0-15.0 [facility] Comment on above: Performed By: #### 1 0231, 6399 #### [facility] of [place] [address] Commercial Portfolio Manager: Lenny Jean MD Hematocrit (Bld) [Volume fraction] 41.0 % Normal 35.0-45.0 [facility] Comment on above: Performed By: #### 1 0231, 6399 #### [facility] of [place] [address] Commercial Portfolio Manager: Lenny Jean MD Hemoglobin (Bld) [Mass/Vol] 13.6 g/dL Normal 11.7-15.5 [facility] Comment on above: Performed By: #### 1 230, 6399 #### [facility] of [place] [address] Commercial Portfolio Manager: Lenny Jean MD Lymphocytes (Bld) [#/Vol] 1.803 10*3/uL Normal 850-3900 [facility] Comment on above: Performed By: #### 1 0231, 6399 #### [facility] of [place] [address] Commercial Portfolio Manager: Lenny Jean MD Lymphocytes/100 WBC (Bld) 18.4 % Normal [facility] Comment on above: Performed By: #### 1 0231, 6399 #### [facility] of [place] [address] Commercial Portfolio Manager: Lenny Jean MD MCH (RBC) [Entitic mass] 29.7 pg Normal 27.0-33.0 [facility] Comment on above: Performed By: #### 1 0231, 6399 #### [facility] of [place] [address] Commercial Portfolio Manager: Lenny Jean MD MCHC (RBC) [Mass/Vol] 33.2 g/dL Normal 32.0-36.[address] [facility] Comment on above: Performed By: #### 1 0231, 6399 #### [facility] of [place] [address] Commercial Portfolio Manager: Lenny Jean MD MCV (RBC) [Entitic vol] 89.5 fL Normal 80.0-100.0 [facility] Comment on above: Performed By: #### 1 0231, 6399 #### [facility] of [address], [address] [place] [address] Commercial Portfolio Manager: Lenny Jean MD Monocytes (Bld) [#/Vol] 0.617 10*3/uL Normal 200-950 [facility] Comment on above: Performed By: #### 1 0231, 6399 #### [facility] of [place] [address] Commercial Portfolio Manager: Lenny Jean MD Monocytes/100 WBC (Bld) 6.3 % Normal [facility] Comment on above: Performed By: #### 1 0231, 6399 #### [facility] of [place] [address] Commercial Portfolio Manager: Lenny Jean MD Neutrophils (Bld) [#/Vol] 7.134 10*3/uL Normal 3216-9504 [facility] Comment on above: Performed By: #### 1 0231, 6399 #### [facility] of [place] [address] Commercial Portfolio Manager: Lenny Jean MD Neutrophils/100 WBC (Bld) 72.8 % Normal [facility] Comment on above: Performed By: #### 1 0231, 6399 #### [facility] of [place] [address] Commercial Portfolio Manager: Lenny Jean MD Platelet mean volume (Bld) [Entitic vol] 11.0 fL Normal 7.5-12.5 [facility] Comment on above: Performed By: #### 1 0231, 6399 #### [facility] of [address] [address] Commercial Portfolio Manager: Lenny Jean MD Platelets (Bld) [#/Vol] 254 10*3/uL Normal 140-400 [facility] Comment on above: Performed By: #### 1 0231, 6399 #### [facility] of [address], [address] [place] [address] Commercial Portfolio Manager: Lenny Jean MD RBC (Bld) [#/Vol] 4.58 10*6/uL Normal 3.80-5.10 [facility] Comment on above: Performed By: #### 1 0231, 6399 #### [facility] of [address], [address] [place] [address] Commercial Portfolio Manager: Lenny Jean MD WBC (Bld) [#/Vol] 9.8 10*3/uL Normal 3.8-10.8 [facility] Comment on above: Performed By: #### 1 0231, 6399 #### [facility] of [address], [address] [place] [address] Commercial Portfolio Manager: Lenny Jean MD [facility]OL[facility] 10-29-2021 Albumin [Mass/Vol] 4.0 g/dL Normal 3.6-5.1 [facility] Comment on above: Performed By: #### 1 0231, 6399 #### [facility] of [place] [address] Commercial Portfolio Manager: Lenny Jean MD Albumin/Globulin [Mass ratio] 1.4 {ratio} Normal 1.0-2.5 [facility] Comment on above: Performed By: #### 1 0231, 6399 #### [facility] of [address], [address] [place] [address] Commercial Portfolio Manager: Lenny Jean MD ALP [Catalytic activity/Vol] 74 U/L Normal 31-125 [facility] Comment on above: Performed By: #### 1 0231, 6399 #### [facility] of [place] [address] Commercial Portfolio Manager: Lenny Jean MD ALT [Catalytic activity/Vol] 11 U/L Normal 6-29 [facility] Comment on above: Performed By: #### 1 0231, 6399 #### [facility] of [address], [address] [place] [address] Commercial Portfolio Manager: Lenny Jean MD AST [Catalytic activity/Vol] 13 U/L Normal 10-30 [facility] Comment on above: Performed By: #### 1 0231, 6399 #### [facility] of [address], [address] [place] [address] Commercial Portfolio Manager: Lenny Jean MD Bilirubin [Mass/Vol] 0.4 mg/dL Normal 0.2-1.2 [facility] Comment on above: Performed By: #### 1 0231, 6399 #### [facility] of [place] [address] Commercial Portfolio Manager: Lenny Jean MD BUN/CREATININE RATIO NOT APPLICABLE Normal 6-22 [facility] Comment on above: Performed By: #### 1 0231, 6399 #### [facility] of [address], [address] [place] [address] Commercial Portfolio Manager: Lenny Jean MD Calcium [Mass/Vol] 9.1 mg/dL Normal 8.6-10.2 [facility] Comment on above: Performed By: #### 1 0231, 6399 #### [facility] of [place] [address] Commercial Portfolio Manager: Lenny Jean MD Chloride [Moles/Vol] 105 mmol/L Normal 98-110 [facility] Comment on above: Performed By: #### 1 0231, 6399 #### [facility] of [place] [address] Commercial Portfolio Manager: Lenny Jean MD CO2 [Moles/Vol] 28 mmol/L Normal 20-32 [facility] Comment on above: Performed By: #### 1 0231, 6399 #### [facility] of [place] [address] Commercial Portfolio Manager: Lenny Jean MD Creatinine [Mass/Vol] 0.71 mg/dL Normal 0.50-1.[address] [facility] Comment on above: Performed By: #### 1 230, 6399 #### [facility] of [address], [address] [place] [address] Commercial Portfolio Manager: Lenny Jean MD eGFR NON-AFR. DANISH 107 mL/min/1.73m2 Normal > OR = 60 [facility] Comment on above: Performed By: #### 1 023, 6399 #### [facility] of [address], [address] [place] [address] Commercial Portfolio Manager: Lenny Jean MD GFR/1.73 sq M.predicted among blacks MDRD (S/P/Bld) [Vol rate/Area] 124 mL/min/{1.73_m2} Normal > OR = 60 [facility] Comment on above: Performed By: #### 1 230, 6399 #### [facility] of [address], [address] [place] [address] Commercial Portfolio Manager: Lenny Jean MD Globulin (S) [Mass/Vol] 2.8 g/dL Normal 1.9-3.7 [facility] Comment on above: Performed By: #### 1 023, 6399 #### [facility] of [address], [address] [place] [address] Commercial Portfolio Manager: Lenny Jean MD Glucose [Mass/Vol] 83 mg/dL Normal 65-99 [facility] Comment on above: Result Comment: Fasting reference interval Performed By: #### 1 023, 6399 #### [facility] of [address], [address] [place] [address] Commercial Portfolio Manager: Lenny Jean MD Potassium [Moles/Vol] 3.9 mmol/L Normal 3.5-5.[address] [facility] Comment on above: Performed By: #### 1 023, 6399 #### [facility] of [address], [address] [place] [address] Commercial Portfolio Manager: Lenny Jean MD Protein [Mass/Vol] 6.8 g/dL Normal 6.1-8.1 [facility] Comment on above: Performed By: #### 1 0231, 6399 #### [facility] [address], [address] [place] [address] Commercial Portfolio Manager: Lenny Jean MD Sodium [Moles/Vol] 140 mmol/L Normal 135-146 [facility] Comment on above: Performed By: #### 1 0231, 6399 #### [facility] of [address], [address] [place] [address] Commercial Portfolio Manager: Lenny Jean MD Urea nitrogen [Mass/Vol] 11 mg/dL Normal 7-25 [facility] Comment on above: Performed By: #### 1 0231, 6399 #### [facility] [address], [address] [place] [address] Commercial Portfolio Manager: Lenny Jean MD LIPASEon 10-29-2021 Lipase [Catalytic activity/Vol] 14 U/L Normal 7-60 [facility] Comment on above: Performed By: #### 1 0231, 6399 #### [facility] of [place] [address] Commercial Portfolio Manager: Lenny Jean MD ABDOMEN 2 VIEWSon 10-28-2021 ABDOMEN 2 VIEWS [place] [address] Patient: VIRIDIANA ENRIQUE Phone#: : 1980 Age: 41 Gender: F Pt. Type: Out Account: [id number] Location: [facility] Ordering: BINDU FINLEY Exam Date: 10/28/2021/10:36 Family Phys: AKBAR MARINELLI Charge Code: 935907 Physician: [place] Order #: [id number] DLP Dose#: PROCEDURE: ABDOMEN 2 VIEWS COMPARISON: None. INDICATIONS: Nausea FINDINGS: BOWEL GAS PATTERN: Normal. No abnormal dilation or deviation. No dilated air-filled loops of bowel. No significant stool burden. CALCIFICATIONS: None significant. OTHER: Negative. No abnormal gaseous collections. CONCLUSION: 1. Unremarkable bowel gas pattern. Dictated by: Sadaf Jackson MD on 10/28/2021 at 15:36 Approved by: Sadaf Jackson MD on 10/28/2021 at 15:42 Normal [facility] HAND MIN 3 VIEWSon 1 HAND MIN 3 VIEWS Patient Name: VIRIDIANA ENRIQUE STUDY: HAND MIN 3 VIEWS; 09/05/2021 2:10 pm INDICATION: Right hand pain . COMPARISON: None. ACCESSION NUMBER(S): [id number] ORDERING CLINICIAN: LEV QUICK TECHNIQUE: Three views of the right hand including AP, oblique and lateral projections were obtained. FINDINGS: There is no evidence of acute fracture or dislocation identified. The joint spaces are well preserved throughout without significant degenerative changes. IMPRESSION: 1. No fracture or dislocation. Electronically signed by: DOMINGA ELDRIDGE MD [facility] Provider Note - ED v2on 0 Provider Note - ED v2 Provider Note - ED v2: Chart Review: HISTORY OF PRESENTING ILLNESS VIRIDIANA is a 40 year old Female and was seen by me at 05-Sep-2021 13:59. Triage Information: Most recent Vital Sign Value Date PAST MEDICAL HISTORY ATTESTATION: I have reviewed and confirmed nurse's/medic's notes for patient's medications, allergies, and medical, surgical, family and social history ALLERGIES/INTOLERANC ES: Allergy Allergen: Percocet Type: Drug Reaction: Itching Hives/Urticaria HEALTH HISTORY: No documented data. OUTPATIENT MEDICATIONS: Home Medications Review Status for Reconciliation: Complete Med Status: Patient Currently Takes Medications Drug Name: Zoloft 25 mg oral tablet Instructions: 1 tab(s) orally once a day Drug Name: CONTROL Instructions: null SIGNIFICANT EVENTS: No documented data. AIR VALVE MECHANIC: Is : no Is : no RESULTS/VITAL SIGNS VITAL SIGNS: T PRBP SpO2O2(LPM) %FiO2 Method 05-Sep-2021 14:04:[id number] MEDICAL DECISION MAKING/ED COURSE MDM/ED COURSE: This note was generated with voice recognition software and may contain errors including spelling, grammar, syntax, and misrecognization of what was dictated Chief Complaint Right hand pain History of Present Illness Patient presents with complaint of right hand pain after injuring herself after tripping over a child's toy and catching herself on the corner of a table. She complains of pain at the base of the third and fourth digits of the right hand. She states she has full range of motion and denies any numbness or tingling. Review of Systems 10 systems reviewed negative with exception of history of present illness listed above Physical Examination General: Alert and oriented, No acute distress. Eye: Pupils are equal, round and reactive to light. HENT: Normocephalic Neck: Supple, Non-tender, No lymphadenopathy. Musculoskeletal: Normal range of motion, normal strength, with some tenderness at the base of the third and fourth digits with a contusion noted integumentary: [place], warm, dry, and Intact. Neurologic: Alert, Oriented, Normal sensory, Normal motor function. Cognition and Speech: Oriented, Speech clear and coherent. Psychiatric: Cooperative, Appropriate mood & affect. Impression and Plan Course: Unchanged Plan: X-ray of the right hand was obtained and found to be free of any fractures or dislocations per my interpretation. Patient will be discharged home with instructions to use ibuprofen and ice for symptom management. Patient agrees with plan of care, questions were encouraged and answered. Patient Instructions: Right hand pain CLINICAL IMPRESSION Diagnosis/Annotation : ED Dx Name:Contusion of right hand Code:S60.221A Disposition: discharged Type: home ATTESTATION CRITICAL CARE TIME Is this a critically ill patient: no Electronic Signatures: Lev Quick (EDUCATION REVIEWER-C++ PROFESSOR) (Signed 05-Sep-2021 14:18) Authored: HPI, PMH, PE, Results/Vital Signs, MDM/ED Course, Clinical Impression, Attestation, Chart Review, Scores Last Updated: 05-Sep-2021 14:18 by Lev Quick (EDUCATION REVIEWER-C++ PROFESSOR) Normal [facility] XR Knee - left AP and Latera l and obliqueon 04-21-2021 IMPRESSION: No acute osseous abnormality identified. Enterprise Architect Manager: NABOR Transcribe Date/Time: Apr 21 2021 9:57A Dictated by : GET DE LA PAZ MD This examination was interpreted and the report reviewed and electronically signed by: GET DE LA PAZ MD on Apr 21 2021 9:57AM [facility] DIVISION OF RADIOLOGY * * *Final Report* * * DATE OF EXAM: Apr 21 2021 9:53AM WOX 5204 - XR KNEE 4V AP/LAT/OBLS LT / PROCEDURE REASON: Acute pain of left knee * * * * Physician Interpretation * * * * Left knee radiographs HISTORY: 40 years old Clinical information: Acute pain of left knee pt states fell down some steps 2 weeks ago pain medial side of left knee r/o tibial plateau fx TECHNIQUE: Images: XR KNEE 4V AP/LAT/OBLS LT Comparison: None. RESULT: Findings: Joint spaces are maintained. No fracture or dislocation. No joint effusion. No soft tissue abnormality identified. DIVISION OF RADIOLOGY Provider, [facility] Imaging Rule - 04/21/2021 * * *Final Report* * * DATE OF EXAM: Apr 21 2021 9:53AM WOX 5204 - XR KNEE 4V AP/LAT/OBLS LT / PROCEDURE REASON: Acute pain of left knee * * * * Physician Interpretation * * * * Left knee radiographs HISTORY: 40 years old Clinical information: Acute pain of left knee pt states fell down some steps 2 weeks ago pain medial side of left knee r/o tibial plateau fx TECHNIQUE: Images: XR KNEE 4V AP/LAT/OBLS LT Comparison: None. RESULT: Findings: Joint spaces are maintained. No fracture or dislocation. No joint effusion. No soft tissue abnormality identified. IMPRESSION IMPRESSION: No acute osseous abnormality identified. Enterprise Architect Manager: [facility] Transcribe Date/Time: Apr 21 2021 9:57A Dictated by : GET DE LA PAZ MD This examination was interpreted and the report reviewed and electronically signed by: GET DE LA PAZ MD on Apr 21 2021 9:57AM [facility] Radiology Study observation (narrative) [facility] XR Knee - left AP and Latera l and obliqueOrdered By: [facility] Provider on 04-21-[address] [facility] CBC (INCLUDES DIFF/PLT)on Basophils (Bld) [#/Vol] 0.08 10*3/uL Normal 0-200 [facility] Comment on above: Performed By: #### 6 06, 69471, 3850, 8960 #### [facility] [address], [address] [place] [address] Commercial Portfolio Manager: Lenny Jean MD Basophils/100 WBC (Bld) 0.9 % Normal [facility] Comment on above: Performed By: #### 6 , , 63, 7600 #### [facility] of [address], [address] [place] [address] Commercial Portfolio Manager: Lenny Jean MD Eosinophils (Bld) [#/Vol] 0.16 10*3/uL Normal 15-500 [facility] Comment on above: Performed By: #### 6 , , 6398, 7600 #### [facility] of [address], [address] [place] [address] Commercial Portfolio Manager: Lenny Jean MD Eosinophils/100 WBC (Bld) 1.8 % Normal [facility] Comment on above: Performed By: #### 6 , , 6398, 7600 #### [facility] of [address], [address] [place] [address] Commercial Portfolio Manager: Lenny Jean MD Erythrocyte distribution width (RBC) [Ratio] 12.3 % Normal 11.0-15.0 [facility] Comment on above: Performed By: #### 6 , , 6398, 7600 #### [facility] of [address], [address] [place] [address] Commercial Portfolio Manager: Lenny Jean MD Hematocrit (Bld) [Volume fraction] 42.3 % Normal 35.0-45.0 [facility] Comment on above: Performed By: #### 6 , , 63, 7600 #### [facility] of [address], [address] [place] [address] Commercial Portfolio Manager: Lenny Jean MD Hemoglobin (Bld) [Mass/Vol] 14.0 g/dL Normal 11.7-15.5 [facility] Comment on above: Performed By: #### 6 , , 63, 7600 #### [facility] of [address], [address] [place] [address] Commercial Portfolio Manager: Lenny Jean MD Lymphocytes (Bld) [#/Vol] 1.958 10*3/uL Normal 850-3900 [facility] Comment on above: Performed By: #### 6 06, , 63, 7600 #### [facility] of [address], [address] [place] [address] Commercial Portfolio Manager: Lenny Jean MD Lymphocytes/100 WBC (Bld) 22.0 % Normal [facility] Comment on above: Performed By: #### 6 06, , 6398, 7600 #### [facility] of [address], [address] [place] [address] Commercial Portfolio Manager: Lenny Jean MD MCH (RBC) [Entitic mass] 29.4 pg Normal 27.0-33.0 [facility] Comment on above: Performed By: #### 6 , , 6398, 7600 #### [facility] of [address], [address] [place] [address] Commercial Portfolio Manager: Lenny Jean MD MCHC (RBC) [Mass/Vol] 33.1 g/dL Normal 32.0-36.[address] [facility] Comment on above: Performed By: #### 6 , , 6398, 7600 #### [facility] of [address], [address] [place] [address] Commercial Portfolio Manager: Lenny Jean MD MCV (RBC) [Entitic vol] 88.9 fL Normal 80.0-100.0 [facility] Comment on above: Performed By: #### 6 , , 6398, 7600 #### [facility] of [address], [address] [place] [address] Commercial Portfolio Manager: Lenny Jean MD Monocytes (Bld) [#/Vol] 0.472 10*3/uL Normal 200-950 [facility] Comment on above: Performed By: #### 6 , , 63, 7600 #### [facility] of [address], [address] [place] [address] Commercial Portfolio Manager: Lenny Jean MD Monocytes/100 WBC (Bld) 5.3 % Normal [facility] Comment on above: Performed By: #### 6 06, , 63, 7600 #### [facility] of [address], [address] [place] [address] Commercial Portfolio Manager: Lenny Jean MD Neutrophils (Bld) [#/Vol] 6.23 10*3/uL Normal 6793-4659 [facility] Comment on above: Performed By: #### 6 06, , 63, 7600 #### [facility] of [address], [address] [place] [address] Commercial Portfolio Manager: Lenny Jean MD Neutrophils/100 WBC (Bld) 70 % Normal [facility] Comment on above: Performed By: #### 6 , , 63, 7600 #### [facility] of [address], [address] [place] [address] Commercial Portfolio Manager: Lenny Jean MD Platelet mean volume (Bld) [Entitic vol] 10.6 fL Normal 7.5-12.5 [facility] Comment on above: Performed By: #### 6 06, , 63, 7600 #### [facility] of [place] [address] Commercial Portfolio Manager: Lenny Jean MD Platelets (Bld) [#/Vol] 282 10*3/uL Normal 140-400 [facility] Comment on above: Performed By: #### 6 , , 63, 7600 #### [facility] of [address], [address] [place] [address] Commercial Portfolio Manager: Lenny Jean MD RBC (Bld) [#/Vol] 4.76 10*6/uL Normal 3.80-5.10 [facility] Comment on above: Performed By: #### 6 06, , 63, 7600 #### [facility] of [address], [address] [place] [address] Commercial Portfolio Manager: Lenny Jean MD WBC (Bld) [#/Vol] 8.9 10*3/uL Normal 3.8-10.8 [facility] Comment on above: Performed By: #### 6 06, , 63, 7600 #### [facility] of [place] [address] Commercial Portfolio Manager: Lenny Jean MD [facility] 01-20-2021 Albumin [Mass/Vol] 3.9 g/dL Normal 3.6-5.1 [facility] Comment on above: Performed By: #### 6 06, , 63, 7600 #### [facility] of [place] [address] Commercial Portfolio Manager: Lenny Jean MD Albumin/Globulin [Mass ratio] 1.3 {ratio} Normal 1.0-2.5 [facility] Comment on above: Performed By: #### 6 , , 63, 7600 #### [facility] of [place] [address] Commercial Portfolio Manager: Lenny Jean MD ALP [Catalytic activity/Vol] 89 U/L Normal 31-125 [facility] Comment on above: Performed By: #### 6 06, , 63, 7600 #### [facility] of [place] [address] Commercial Portfolio Manager: Lenny Jean MD ALT [Catalytic activity/Vol] 11 U/L Normal 6-29 [facility] Comment on above: Performed By: #### 6 , , 63, 7600 #### [facility] of [place] [address] Commercial Portfolio Manager: Lenny Jean MD AST [Catalytic activity/Vol] 12 U/L Normal 10-30 [facility] Comment on above: Performed By: #### 6 , , 63, 7600 #### [facility] of [place] [address] Commercial Portfolio Manager: Lenny Jean MD Bilirubin [Mass/Vol] 0.3 mg/dL Normal 0.2-1.2 [facility] Comment on above: Performed By: #### 6 06, 56678, 63, 7600 #### [facility] of [place] [address] Commercial Portfolio Manager: Lenny Jean MD BUN/CREATININE RATIO NOT APPLICABLE Normal 6-22 [facility] Comment on above: Performed By: #### 6 , , 63, 7600 #### [facility] of [place] [address] Commercial Portfolio Manager: Lenny Jean MD Calcium [Mass/Vol] 8.9 mg/dL Normal 8.6-10.2 [facility] Comment on above: Performed By: #### 6 , 22521, 63, 7600 #### [facility] [place] [address] Commercial Portfolio Manager: Lenny Jean MD Chloride [Moles/Vol] 105 mmol/L Normal 98-110 [facility] Comment on above: Performed By: #### 6 , , 63, 7600 #### [facility] [place] [address] Commercial Portfolio Manager: Lenny Jean MD CO2 [Moles/Vol] 26 mmol/L Normal 20-32 [facility] Comment on above: Performed By: #### 6 , 28293, 63, 7600 #### [facility] of [place] [address] Commercial Portfolio Manager: Lenny Jean MD Creatinine [Mass/Vol] 0.78 mg/dL Normal 0.50-1.[address] [facility] Comment on above: Performed By: #### 6 06, 70785, 6399, 7600 #### [facility] of [place] [address] Commercial Portfolio Manager: Lenny Jean MD eGFR NON-AFR. DANISH 96 mL/min/1.73m2 Normal > OR = 60 [facility] Comment on above: Performed By: #### 6 06, 58961, 6398, 7600 #### [facility] of [place] [address] Commercial Portfolio Manager: Lenny Jean MD GFR/1.73 sq M.predicted among blacks MDRD (S/P/Bld) [Vol rate/Area] 112 mL/min/{1.73_m2} Normal > OR = 60 [facility] Comment on above: Performed By: #### 6 , , 6398, 7600 #### [facility] of [address], [address] [place] [address] Commercial Portfolio Manager: Lenny Jean MD Globulin (S) [Mass/Vol] 2.9 g/dL Normal 1.9-3.7 [facility] Comment on above: Performed By: #### 6 , , 6398, 7600 #### [facility] of [place] [address] Commercial Portfolio Manager: Lenny Jean MD Glucose [Mass/Vol] 93 mg/dL Normal 65-99 [facility] Comment on above: Result Comment: Fasting reference interval Performed By: #### 6 06, , 6398, 7600 #### [facility] of [place] [address] Commercial Portfolio Manager: Lenny Jean MD Potassium [Moles/Vol] 4.2 mmol/L Normal 3.5-5.[address] [facility] Comment on above: Performed By: #### 6 , , 6398, 7600 #### [facility] of [place] [address] Commercial Portfolio Manager: Lenny Jean MD Protein [Mass/Vol] 6.8 g/dL Normal 6.1-8.1 [facility] Comment on above: Performed By: #### 6 , , 63, 7600 #### [facility] of [place] [address] Commercial Portfolio Manager: Lenny Jean MD Sodium [Moles/Vol] 136 mmol/L Normal 135-146 [facility] Comment on above: Performed By: #### 6 06, 05637, 6399, 7600 #### [facility] [place] [address] Commercial Portfolio Manager: Lenny Jean MD Urea nitrogen [Mass/Vol] 13 mg/dL Normal 7-25 [facility] Comment on above: Performed By: #### 6 06, 50276, 6399, 7600 #### [facility] [place] [address] Commercial Portfolio Manager: Lenny Jean MD LIPASEon 01-20-2021 Lipase [Catalytic activity/Vol] 10 U/L Normal 7-60 [facility] Comment on above: Performed By: #### 6 06, 36108, 6399, 7600 #### [facility] [place] [address] Commercial Portfolio Manager: Lenny Jean MD LIPID PANEL, STANDARDon 12-31 Cholesterol [Mass/Vol] 155 mg/dL Normal <200 [facility] Comment on above: Performed By: #### 6 06, 03719, 6399, 7600 #### [facility] [place] [address] Commercial Portfolio Manager: Lenny Jean MD Cholesterol in HDL [Mass/Vol] 62 mg/dL Normal > OR = 50 [facility] Comment on above: Performed By: #### 6 06, 63867, 6399, 7600 #### [facility] [place] [address] Commercial Portfolio Manager: Lenny Jean MD Cholesterol in LDL [Mass/Vol] 76 mg/dL Normal [facility] Comment on above: Result Comment: Refe rence range: <100 Desirable range <100 mg/dL for primary prevention; <70 mg/dL for patients with CHD or diabetic patients with > or = 2 CHD risk factors. LDL-C is now calculated using the Soledad calculation, which is a validated novel method providing better accuracy than the Friedewald equation in the estimation of LDL-C. Emanuel CASTILLO et al. JAVI. 2013;310(19): 4920-0010 (http://education.International Sportsbook.Hiveoo/faq/XRJ278) Performed By: #### 6 06, 55104, 6399, 7600 #### [facility] of [address], [address] [place] [address] Commercial Portfolio Manager: Lenny Jean MD Cholesterol.total/Cally sterol in HDL [Mass ratio] 2.5 {ratio} Normal <5.0 [facility] Comment on above: Performed By: #### 6 06, 56911, 6399, 7600 #### [facility] [address], [address] [place] [address] Commercial Portfolio Manager: Lenny Jean MD NON HDL CHOLESTEROL 93 mg/dL (calc) Normal <130 [facility] Comment on above: Result Comment: For patients with diabetes plus 1 major ASCVD risk factor, treating to a non-HDL-C goal of <100 mg/dL (LDL-C of <70 mg/dL) is considered a therapeutic option. Performed By: #### 6 06, 56821, 6399, 7600 #### [facility] [address], [address] [place] [address] Commercial Portfolio Manager: Lenny Jean MD Triglyceride [Mass/Vol] 91 mg/dL Normal <150 [facility] Comment on above: Performed By: #### 6 06, 58951, 6399, 7600 #### [facility] [address], [address] [place] [address] Commercial Portfolio Manager: Lenny Jean MD TSHon 01-20-2021 TSH Qn 1.68 m[IU]/L Normal [facility] Comment on above: Result Comment: Refe rence Range > or = 20 Years 0.40-4.50 Ranges First trimester 0.26-2.66 Second trimester 0.55-2.73 Third trimester 0.43-2.91 Performed By: #### 6 06, 52044, 6399, 7600 #### [facility] [address], [address] [place] [address] Commercial Portfolio Manager: Lenny Jean MD POC Strep Aon 11-06-2017 Strep A Screen Negative Normal Negative [facility] Comment on above: Performed By: #### C [id number] ####[facility] [id number] [place] [address] Vital Signs Date Time Vital Sign Value Performing Clinician Facility 03-10-2025 15:25-0400 Body height 157.5 cm Paulina Oberhauser DO Work Phone: [facility] 03-10-2025 15:25-0400 Body mass index (BMI) [Ratio] 44.63 kg/m2 Paulina Oberhauser DO Work Phone: [facility] 03-10-2025 15:25-0400 Body weight 110.68 kg Paulina Oberhauser DO Work Phone: [facility] 03-10-2025 15:25-0400 Diastolic blood pressure 89 mm[Hg] Paulina Oberhauser DO Work Phone: [facility] 03-10-2025 15:25-0400 Heart rate 98 /min Paulina Oberhauser DO Work Phone: [facility] 03-10-2025 15:25-0400 Systolic blood pressure 131 mm[Hg] Paulina Oberhauser DO Work Phone: [facility] 03-05-2025 21:48-0400 Body temperature 97.6 [degF] Dr. Vj Andersen DO Work Phone: [facility] 03-05-2025 21:48-0400 Diastolic blood pressure 109 mm[Hg] Dr. Vj Andersen DO Work Phone: [facility] 03-05-2025 21:48-0400 Heart rate 83 /min Dr. Vj Andersen DO Work Phone: [facility] 03-05-2025 21:48-0400 Respiratory rate 18 /min Dr. Vj Andersen DO Work Phone: [facility] 03-05-2025 21:48-0400 SaO2% (BldA) [Mass fraction] 99 % Dr. Vj Andersen DO Work Phone: [facility] 03-05-2025 21:48-0400 Systolic blood pressure 149 mm[Hg] Dr. Vj Andersen DO Work Phone: [facility] 03-05-2025 18:45-0400 Body height 157.[address] jV Andersen DO Work Phone: [facility] 03-05-2025 18:45-0400 Body mass index (BMI) [Ratio] 45.1 kg/m2 Dr. Vj Andersen DO Work Phone: [facility] 03-05-2025 18:45-0400 Body weight 111.[address] Vj Andersen DO Work Phone: [facility] 01-12-2025 15:39-0400 Body height 157.5 cm Paulina Bowers DO Work Phone: [facility] 01-12-2025 15:39-0400 Body mass index (BMI) [Ratio] 44.26 kg/m2 Paulina Oberismael DO Work Phone: [facility] 01-12-2025 15:39-0400 Body weight 109.77 kg Paulina Oberspencerer DO Work Phone: [facility] 01-12-2025 15:39-0400 Diastolic blood pressure 82 mm[Hg] Paulina Oberspencerer DO Work Phone: [facility] 01-12-2025 15:39-0400 Heart rate 92 /min Paulina Oberspencerer DO Work Phone: [facility] 01-12-2025 15:39-0400 Systolic blood pressure 130 mm[Hg] Paulina Oberhauser DO Work Phone: [facility] 12-26-2024 09:36-0400 Body mass index (BMI) [Ratio] 43.55 kg/m2 Virgil Arana MD Work Phone: [facility] 12-26-2024 09:36-0400 Body temperature 97.11 [degF] Virgil Arana MD Work Phone: [facility] 12-26-2024 09:36-0400 Body weight 108 kg Virgil Arana MD Work Phone: [facility] 12-26-2024 09:36-0400 Diastolic blood pressure 85 mm[Hg] Virgil Arana MD Work Phone: [facility] 12-26-2024 09:36-0400 Heart rate 80 /min Virgil Arana MD Work Phone: [facility] 12-26-2024 09:36-0400 Respiratory rate 20 /min Virgil Arana MD Work Phone: [facility] 12-26-2024 09:36-0400 SaO2% (BldA) [Mass fraction] 96 % Virgil Arana MD Work Phone: [facility] 12-26-2024 09:36-0400 Systolic blood pressure 132 mm[Hg] Virgil Arana MD Work Phone: [facility] 04-30-2024 11:39-0400 Body mass index (BMI) [Ratio] 42.42 kg/m2 Joann Andino EDUCATION REVIEWER.C++ PROFESSOR Work Phone: [facility] 04-30-2024 11:39-0400 Body temperature 97.7 [degF] Joann Andino EDUCATION REVIEWER.C++ PROFESSOR Work Phone: [facility] 04-30-2024 11:39-0400 Body weight 105.2 kg Joann Andino EDUCATION REVIEWER.C++ PROFESSOR Work Phone: [facility] 04-30-2024 11:39-0400 Diastolic blood pressure 70 mm[Hg] Joann Andino EDUCATION REVIEWER.C++ PROFESSOR Work Phone: [facility] 04-30-2024 11:39-0400 Heart rate 98 /min Joann Andino EDUCATION REVIEWER.C++ PROFESSOR Work Phone: [facility] 04-30-2024 11:39-0400 Respiratory rate 16 /min Joann Andino EDUCATION REVIEWER.C++ PROFESSOR Work Phone: [facility] 04-30-2024 11:39-0400 SaO2% (BldA) [Mass fraction] 97 % Joann Andino EDUCATION REVIEWER.C++ PROFESSOR Work Phone: [facility] 04-30-2024 11:39-0400 Systolic blood pressure 110 mm[Hg] Joann Andino EDUCATION REVIEWER.C++ PROFESSOR Work Phone: [facility] 11-10-2023 18:50-0500 Diastolic blood pressure 87 mm[Hg] [facility] 11-10-2023 18:50-0500 Heart rate 90 /min [facility] 11-10-2023 18:50-0500 Respiratory rate 20 /min [facility] 11-10-2023 18:50-0500 SaO2% (BldA) [Mass fraction] 96 % [facility] 11-10-2023 18:50-0500 Systolic blood pressure 130 mm[Hg] [facility] 11-10-2023 13:50-0500 Body height 157.48 cm [facility] 11-10-2023 13:50-0500 Body mass index (BMI) [Ratio] 42 kg/m2 [facility] 11-10-2023 13:50-0500 Body temperature 99 [degF] [facility] 11-10-2023 13:50-0500 Body weight 104.4 kg [facility] 08-28-2022 09:59-0500 Body height 157.48 cm Paulina Eun [employer] Work Phone: [facility] Work Phone: 08-28-2022 09:59-0500 Body mass index (BMI) [Ratio] 43.9 kg/m2 Paulina L [employer] Work Phone: [facility] Work Phone: 08-28-2022 09:59-0500 Body surface area Derived from formula 2.07 m2 Paulina Haq Oberhauser Work Phone: [facility] Work Phone: 08-28-2022 09:59-0500 Body weight 108.86 kg Paulina Haq Oberhauser Work Phone: [facility] Work Phone: 08-28-2022 09:59-0500 Diastolic blood pressure 83 mm[Hg] Paulina Haq Oberhauser Work Phone: [facility] Work Phone: 08-28-2022 09:59-0500 Heart rate 83 /min Paulina Haq Oberhauser Work Phone: [facility] Work Phone: 08-28-2022 09:59-0500 Systolic blood pressure 133 mm[Hg] Paulina Haq Oberhauser Work Phone: [facility] Work Phone: 07-30-2022 10:04-0400 Body temperature 97.59 [degF] Bing P[employer] EDUCATION REVIEWER.C++ PROFESSOR Work Phone: [facility] [facility] 07-30-2022 10:04-0400 Body weight 107.41 kg Bing Praisler-Wood EDUCATION REVIEWER.C++ PROFESSOR Work Phone: [facility] 07-30-2022 10:04-0400 Diastolic blood pressure 80 mm[Hg] Bing Praisler-Wood EDUCATION REVIEWER.C++ PROFESSOR Work Phone: [facility] 07-30-2022 10:04-0400 Heart rate 87 /min Bing Praisler-Wood EDUCATION REVIEWER.C++ PROFESSOR Work Phone: [facility] 07-30-2022 10:04-0400 Respiratory rate 18 /min Bing Praisler-Wood EDUCATION REVIEWER.C++ PROFESSOR Work Phone: [facility] 07-30-2022 10:04-0400 SaO2% (BldA) [Mass fraction] 97 % Bing Bauer APRN.C++ PROFESSOR Work Phone: [facility] 07-30-2022 10:04-0400 Systolic blood pressure 118 mm[Hg] Bing Bauer APRN.C++ PROFESSOR Work Phone: [facility] 04-07-2022 09:46-0400 Body temperature 98.29 [degF] Reggie Major MD, PhD Work Phone: [facility] 04-07-2022 09:46-0400 Diastolic blood pressure 68 mm[Hg] Reggie Major MD, PhD Work Phone: [facility] 04-07-2022 09:46-0400 Heart rate 80 /min Reggie Major MD, PhD Work Phone: [facility] 04-07-2022 09:46-0400 Respiratory rate 18 /min Reggie Major MD, PhD Work Phone: [facility] 04-07-2022 09:46-0400 SaO2% (BldA) [Mass fraction] 95 % Reggie Major MD, PhD Work Phone: [facility] 04-07-2022 09:46-0400 Systolic blood pressure 116 mm[Hg] Reggie Major MD, PhD Work Phone: [facility] 04-05-2022 17:15-0400 Body height 157.5 cm Reggie Major MD, PhD Work Phone: [facility] 04-05-2022 17:15-0400 Body mass index (BMI) [Ratio] 41.92 kg/m2 Reggie Major MD, PhD Work Phone: [facility] 04-05-2022 17:15-0400 Body weight 103.96 kg Reggie Major MD, PhD Work Phone: [facility] 03-27-2022 13:27-0400 Body height 157.5 cm Moriah Dry Run PA-C Work Phone: [facility] 03-27-2022 13:27-0400 Body temperature 97.3 [degF] Moriah Jony PA-C Work Phone: [facility] 03-27-2022 13:27-0400 Body weight 107.05 kg Moriah Dry Run PA-C Work Phone: [facility] 03-27-2022 13:27-0400 Diastolic blood pressure 80 mm[Hg] Moriah Dry Run PA-C Work Phone: [facility] 03-27-2022 13:27-0400 Heart rate 103 /min Moriah Dry Run PA-C Work Phone: [facility] 03-27-2022 13:27-0400 SaO2% (BldA) [Mass fraction] 98 % Moriah Jony PA-C Work Phone: [facility] 03-27-2022 13:27-0400 Systolic blood pressure 118 mm[Hg] Moriah Jony PA-C Work Phone: [facility] 03-20-2022 16:36-0400 Diastolic blood pressure 72 mm[Hg] [facility] Work Phone: 03-20-2022 16:36-0400 Heart rate 98 /min [facility] Work Phone: 03-20-2022 16:36-0400 Respiratory rate 16 /min [facility] Work Phone: 03-20-2022 16:36-0400 SaO2% (BldA) [Mass fraction] 98 % [facility] Work Phone: 03-20-2022 16:36-0400 Systolic blood pressure 120 mm[Hg] [facility] Work Phone: 03-20-2022 16:04-0400 Body temperature 99.6 [degF] [facility] Work Phone: 03-20-2022 13:10-0400 Body height 157.48 cm [facility] Work Phone: 03-20-2022 12:58-0400 Body temperature 97 [degF] [facility] Work Phone: 03-20-2022 12:58-0400 Diastolic blood pressure 101 mm[Hg] [facility] Work Phone: 03-20-2022 12:58-0400 Heart rate 96 /min [facility] Work Phone: 03-20-2022 12:58-0400 Respiratory rate 14 /min [facility] Work Phone: 03-20-2022 12:58-0400 SaO2% (BldA) [Mass fraction] 99 % [facility] Work Phone: 03-20-2022 12:58-0400 Systolic blood pressure 153 mm[Hg] [facility] Work Phone: 03-20-2022 12:42-0400 Body height 157.48 cm [facility] Work Phone: 03-20-2022 12:42-0400 Body mass index (BMI) [Ratio] 36.9 kg/m2 [facility] Work Phone: 03-20-2022 12:42-0400 Body weight 91.62 kg [facility] Work Phone: 09-05-2021 16:04-0500 Body height 157.4 cm Text Entry [facility] 09-05-2021 16:04-0500 Body temperature 97.7 [degF] Text Entry [facility] 09-05-2021 16:04-0500 Diastolic blood pressure 85 mm[Hg] Text Entry [facility] 09-05-2021 16:04-0500 Heart rate 87 /min Text Entry [facility] 09-05-2021 16:04-0500 SaO2% (BldA) [Mass fraction] 95 % Text Entry [facility] 09-05-2021 16:04-0500 Systolic blood pressure 135 mm[Hg] Text Entry [facility] Encounters Encounter Date Encounter Type Care Provider Facility Start: 03-10-2025 End: 03-10-2025 Office outpatient visit 15 minutes Paulina Bowers DO Work Phone: [facility] Comment on above: Leg edema (Primary D x) Start: 03-10-2025 ambulatory [facility] Start: 03-05-2025 End: 03-05-2025 Emergency department patient visit Dr. Vj Andersen DO Work Phone: -Emergency Department Work Phone: Start: 01-12-2025 End: 01-12-2025 Office outpatient visit 25 minutes Paulina Bowers DO Work Phone: [facility] Comment on above: Chronic nasal conges tion (Primary Dx); Anxiety; body mass index of 40.0-49.9 Start: 01-12-2025 [facility] Start: 12-26-2024 End: 12-26-2024 ambulatory [facility] Facility:[facility] Start: 12-26-2024 End: 12-26-2024 Office outpatient visit 15 minutes Virgil Arana MD Work Phone: [facility] Comment on above: Viral URI (Primary D x) Start: 04-30-2024 End: 04-30-2024 Subsequent hospital visit by physician Xr [facility] Kathi Work Phone: Radiology Comment on above: Acute cough [R05.1] Start: 04-30-2024 End: 04-30-2024 ambulatory JOANN ANDINO Facility:[facility] Start: 04-30-2024 End: 04-30-2024 Patient encounter procedure Joann Andino EDUCATION REVIEWER.C++ PROFESSOR Work Phone: [facility] Comment on above: Acute cough (Primary Dx); Pneumonia of right lung due to infectious organism, unspecified part of lung Start: 02-09-2024 End: 02-09-2024 [facility] Start: 11-10-2023 End: 11-10-2023 Emergency department patient visit [facility] Work Phone: Start: 04-09-2023 End: 04-09-2023 ambulatory [facility] Start: 11-22-2022 AUDIT Paulina Richard user Work Phone: [facility] Work Phone: Start: 11-10-2022 AUDIT Paulina Richard user Work Phone: [facility] Work Phone: Start: 10-27-2022 AUDIT Paulina Palacioserdariel user Work Phone: [facility] Work Phone: Start: 08-28-2022 Office outpatient ne w 45 minutes Paulina Bowers Work Phone: [facility] Work Phone: Start: 08-28-[address] PAULINA BOWERS Facility:[id number] Start: 07-30-2022 End: 07-30-2022 Patient encounter procedure Bing Bauer EDUCATION REVIEWER.C++ PROFESSOR Work Phone: [facility] Comment on above: Bacterial sinusitis (Primary Dx) Start: 04-05-2022 End: 04-07-2022 Evaluation and management of inpatient SURGERY - GENERAL (EMERGENT) CONSULT Facility:[facility] Start: 04-05-2022 End: 04-07-2022 Evaluation and management of inpatient Reggie Major MD, PhD Work Phone: [email or web address] Comment on above: Superior mesenteric artery thrombosis Start: 03-27-2022 End: 03-27-2022 Patient encounter procedure Moriah Borges PA-C Work Phone: General Surgery Comment on above: S/P appendectomy, fo llow-up exam (Primary Dx) Start: 03-21-2022 Telephone encounter Joaquin arenas MD Work Phone: General Surgery Comment on above: Pain (post surgical ) Start: 03-20-2022 End: 03-20-2022 Admission to same day surgery [facility] Start: 11-29-2021 End: 11-29-2021 Emergency department patient visit DR EDGARD SUMMERS [facility] Start: 10-28-2021 End: 10-28-2021 ambulatory [facility] Start: 09-05-2021 End: 09-05-2021 Emergency department patient visit Lev Quick [facility] Start: 04-21-2021 End: 04-21-2021 Subsequent hospital visit by physician [facility] Work Phone: Radiology Comment on above: Acute pain of left k nee [M25.562] Start: 11-10-2017 End: 11-10-2017 Ambulatory Lev Quick Facility:[facility] Start: 11-06-2017 End: 11-06-2017 Ambulatory Lev Quick Facility:[facility] Procedures Date Procedure Procedure Detail Performing Clinician Start: 03-05-2025 Plain chest X-ray Dr. Hipolito Adrian Work Phone: Start: 03-05-2025 D-dimer assay, quantitative Dr. Vj Adrian Work Phone: Comment on above: NORMAL D-Dimer level (<0.50) indicates no DVT or PE. Start: 03-05-[address] Vj Adrian Work Phone: Start: 04-30-2024 Radiologic exam ches t 2 views Joann Andino EDUCATION REVIEWER.C++ PROFESSOR Work Phone: Start: 11-10-2023 Transvaginal echography Start: 11-10-2023 CT of abdomen and pe lvis without contrast Start: 04-07-2022 CONTINUOUS CARDIAC MONITORING STRIP Other Other Start: 04-07-2022 Assay of magnesium Jason Mccarthy MD Start: 04-06-2022 CONTINUOUS CARDIAC MONITORING [...] Adi Mccarthy MD Start: 04-05-2022 Fibrinogen activity Jeane Moore MD Work Phone: Start: 04-05-2022 EXTRA MICRO Collins burk MD Work Phone: Start: 04-05-2022 URINALYSIS REFLEX TO CULTURE Collins Wright MD Work Phone: Start: 04-05-2022 Urnls dip stick/tabl et reagent auto microscopy Collins Wright MD Work Phone: Start: 04-05-2022 Thromboplastin time partial plasma/whole blood Lev Lind MD Work Phone: Start: 04-05-2022 Assay of lactate Abdoulaye Moon MD Work Phone: Start: 04-05-2022 Assay of lipase Reggie Major MD, PhD Work Phone: Start: 04-05-2022 CBC AND ELECTRONIC DIFF Reggie Major MD, PhD Work Phone: Start: 04-05-2022 Complete blood count with white cell differential, automated Reggie Major MD, PhD Work Phone: Start: 04-05-2022 DNA EXTRACTION, EZ1 Jeane Moore MD Work Phone: Start: 04-05-2022 F2 gene analysis 202 10g >a variant Yisel Moore MD Work Phone: Start: 04-05-2022 GOLD TOP TUBE Reggie Major MD, PhD Work Phone: Start: 04-05-2022 Hepatic function panel Reggie Major MD, PhD Work Phone: Start: 04-05-2022 JAK2 SUB-TEST, BLOOD Sr jyoti Moore MD Work Phone: Start: 04-05-2022 LAVENDER TOP TUBE Kt s Odell Major MD, PhD Work Phone: Start: 04-05-2022 LT BLUE TOP TUBE Rgegie Major MD, PhD Work Phone: Start: 04-05-2022 MINT GREEN TOP TUBE Tra lali Major MD, PhD Work Phone: Start: 04-05-2022 MOLECULAR SUMMARY Shamir Moore MD Work Phone: Start: 04-05-2022 RAINBOW DRAW Reggie Major MD, PhD Work Phone: Start: 03-20-2022 Laparoscopic appendectomy Start: 03-20-2022 Computed tomography of abdomen and pelvis with intravenous contrast Start: 04-21-2021 Radiologic exam knee complete 4/more views Chadd Nelson APRN.C++ PROFESSOR Work Phone: Appendectomy Paulina L Oberhau ser Work Phone: Cholecystectomy Paulina L Johana ismael Work Phone: History of appendectomy S/P appe ndectomy, follow-up exam Moriah Borges PA-C Work Phone: Operative procedure on ankle Paulina Haq Antoniocarson Work Phone: Plan of Treatment Date Care Activity Detail Author Start: 06-01-2025 Influenza vaccination INFLUENZA VACCINE (Season Ended) [facility] Start: 03-05-2025 [facility] Start: 03-05-2025 [facility] Start: 06-01-2024 Covid-19 Vaccine ( season) Covid-19 Vaccine ( season) [facility] Start: 06-01-2024 Covid-19 Vaccine ( season) Covid-19 Vaccine () [facility] Start: 06-01-2024 Influenza vaccination Influenza Vaccine (#1) [facility] Start: 11-10-2023 [facility] Start: 06-01-2023 Covid-19 Vaccine ( season) Covid-19 Vaccine ( season) [facility] Start: 04-07-2023 Potassium [Moles/volume] in Serum or Plasma POTASSIUM [facility] Start: 2022 Lipid panel LIPID SCREENING [facility] Start: 2022 Screening for malignant neoplasm of breast [facility] Start: 06-01-2022 Influenza vaccination [facility] Start: 03-20-2022 Patient discharge [facility] Work Phone: Start: 03-20-2022 Laparoscopic appendectomy Laparoscopic, Appendectomy (Not Applicable) [facility] Work Phone: Start: 03-20-2022 [facility] Work Phone: Start: 2021 DEPRESSION ASSESSMENT DEPRESSION ASSESSMENT [facility] Start: 2012 HPV TESTING HPV TESTING [facility] Start: 2003 PAP TESTING PAP TESTING [facility] Start: 2003 Screening for malignant neoplasm of cervix [facility] Start: 2001 Hepatitis B vaccination HEP B VACCINE (1 of 3 - 19+ 3-dose series) [facility] Start: 2001 Hepatitis B Vaccine (1 of 3 - 19+ 3-dose series) Hepatitis B Vaccine (1 of 3 - 19+ 3-dose series) [facility] Start: 2001 Third diphtheria, tetanus and acellular pertussis (DTaP) vaccination TDAP (ADULT) [facility] Start: 2001 [facility] Start: 2000 Anxiety Screening Anxiety Screening [facility] Start: 2000 Depression Screening Depression Screening [facility] Start: 2000 HEPATITIS C SCREENING HEPATITIS C SCREENING [facility] Start: 2000 Hepatitis C screening Hepatitis C Screening [facility] Start: 2000 HIV SCREENING HIV SCREENING [facility] Start: 2000 HIV screening HIV Screening [facility] Start: 2000 Tetanus vaccination TETANUS [facility] Start: 1997 HIV screening HIV SCREENING DISCUSSION [facility] Start: 1994 Adult depression screening assessment DEPRESSION SCREENING [facility] Start: 1987 COVID-19 VACCINE (#1) COVID-19 VACCINE (#1) [facility] Start: 03-31-1983 COVID-19 VACCINE (#1) COVID-19 VACCINE (#1) [facility] Start: 1982 HEPATITIS B (1 of 3 - 3-dose series) HEPATITIS B (1 of 3 - 3-dose series) [facility] Start: 1982 Hepatitis C antibody, confirmatory test HEPATITIS C VIRUS SCREENING [facility] Start: 1982 Hepatitis C screening HEPATITIS C VIRUS SCREENING [facility] Start: 1982 Tetanus vaccination TETANUS [facility] CALR JIG BUILDER HELPER, BLOOD CALR JIG BUILDER HELPER, BLOOD Lab Routine 04/05/2022 2:27 AM EDT [facility] CALR MUTATION ANALYS IS, MYELOPROLIFERATIVE NEOPLASM MPN, BLOOD, FINAL CALR MUTATION ANALYSIS, MYELOPROLIFERATIVE NEOPLASM MPN, BLOOD, FINAL Lab Routine 04/05/2022 2:27 AM EDT [facility] EXTRA LAVENDER TOP EXTRA LAVENDE R TOP Lab Routine 04/06/2022 6:08 AM EDT [facility] EXTRA TUBES [facility] EXTRA URINE EXTRA URINE Lab Routine 04/06/2022 6:12 [facility] V & PROTHROMB IN ANALYSIS, FINAL FACTOR V & PROTHROMBIN ANALYSIS, FINAL Lab Routine 04/05/2022 2:27 AM EDT [facility] FACTOR V LEIDEN, JIG BUILDER HELPER FACT OR V LEIDEN, JIG BUILDER HELPER Lab Routine 04/05/2022 2:27 AM EDT [facility] Patient Education [facility] Work Phone: Patient referral [facility] Work Phone: PI LINKED AG PI LINKED AG Lab Routine 04/06/2022 8:30 AM EDT [facility] Work Phone: PROTHROMBIN VARIANT, JIG BUILDER HELPER PROTHROMBIN VARIANT, JIG BUILDER HELPER Lab Routine 04/05/2022 2:27 AM EDT [facility] Payers Date Payer Category Payer Self-pay [id number] 2024 Medicaid (Managed Care) [id number] 2022 Medicaid [place] [id number] 2022-Present [phone] [address] [place] [address] Medicaid [id number] 2022 Unknown [id number] 2021 Unknown [id number] 2021 Unknown MMO MMO ALICIA [id number] 2021-Present [phone] [address] [address] [place] [address] PPO [id number] 2016 Unknown 2016 Unknown [employer] CARD PPO OOS [id number] 2016-Present [phone] [facility] [id number] [place] [address] PPO [id number] 1982 Unknown [id number] 51 1982 Unknown [id number] 51 1982 Unknown [id number] 94 1982 Unknown [id number] 56 1982 Unknown [id number] 02 1982 Unknown [id number] 03 1982 Unknown [id number] 83 1982 Unknown [id number] 83 Unknown [id number] Unknown [id number] Social History Date Type Detail Facility [facility] Start: 03-20-2022 End: 11-10-2023 Tobacco smoking consumption unknown [facility] Start: 1980 Sex Assigned At Female W [facility] Start: 05-09-2015 End: 01-12-2025 Tobacco smoking status NHIS Never smoked tobacco [facility] Work Phone: Start: 05-09-2015 End: 01-12-2025 Tobacco use and exposure Smokeless tobacco non-user [facility] Work Phone: Start: 03-27-2022 End: 12-26-2024 Alcohol intake Not Asked [facility] Start: 1980 Sex Assigned At Not on file [facility] Start: 03-22-2021 End: 04-05-2022 Exposure to SARS-CoV-2 (event) Not sure [facility] Start: 04-06-2022 End: 01-12-2025 Alcohol intake Current drinker of alcohol (finding) [facility] Start: 04-06-2022 History SDOH Alcohol Comment Social [facility] Start: 04-30-2024 End: 01-12-2025 Drinks caffeinated tea Drinks caffeinated tea [facility] Work Phone: Start: 04-30-2024 End: 01-12-2025 Tobacco use panel [facility] National Score (1-10 0), lower number is lower risk [address] [facility] Start: 04-04-2022 Sex Female (finding) [facility] Start: 03-10-2025 Alcoholic beverage intake Ex-drinker (finding) [facility] How hard is it for y ou to pay for the very basics like food, housing, medical care, and heating Not very hard [facility] Start: 03-09-2025 Gender identity Identifies as female gender (finding) [facility] Start: 03-09-2025 Sexual orientation Heterosexual (fin emeka) [facility] Medical Equipment Procedure Code Equipment Code Equipment Origin al Text Equipment Identifier Dates Appendectomy, laparoscopic Surgical staple loading unit, non-cutting [id number] [facility] Start: 03-20-2022 Goals Date Patient Goal Desired Activity /State Functional Status Date Assessment Result Facility 04-05-2022 Are you deaf, or do you have serious difficulty hearing No 04/05/2022 10:00 PM Summer Em RN [facility] 04-05-2022 Are you blind, or do you have serious difficulty seeing, even when wearing glasses No 04/05/2022 10:00 PM Summer Em RN [facility] 04-05-2022 Do you have serious difficulty walking or climbing stairs No 04/05/2022 10:00 PM Summer Em, JASON No [facility] 04-05-2022 Do you have difficul ty dressing or bathing No 04/05/2022 10:00 PM Summer Em, JASON No [facility] 04-05-2022 Because of a physica l, mental, or emotional condition, do you have difficulty doing errands alone such as visiting a physician's office or shopping No 04/05/2022 10:00 PM Summer Em RN No [facility] 05-09-2015 Are you deaf, or do you have serious difficulty hearing No 05/09/2015 9:15 AM Bindu Angel MA [facility] 05-09-2015 Are you blind, or do you have serious difficulty seeing, even when wearing glasses No 05/09/2015 9:15 AM Bindu Angel MA [facility] 05-09-2015 Do you have serious difficulty walking or climbing stairs No 05/09/2015 9:15 AM Bindu Angel MA [facility] 05-09-2015 Do you have difficul ty dressing or bathing No 05/09/2015 9:15 AM Bindu Angel MA [facility] 05-09-2015 Because of a physica l, mental, or emotional condition, do you have difficulty doing errands alone such as visiting a physician's office or shopping No 05/09/2015 9:15 AM Bindu Angel MA [facility] Mental Status Date Assessment Result Facility 03-05-2025 Cognitive function Level Of Cons ciousness Awake;Alert;Appropriate;Fol lows Commands [facility] Work Phone: 04-05-2022 Because of a physica l, mental, or emotional condition, do you have serious difficulty concentrating, remembering, or making decisions No 04/05/2022 10:00 PM Summer Em RN No [facility] 03-20-2022 Cognitive function Voice/Name [facility] Work Phone: 05-09-2015 Because of a physica l, mental, or emotional condition, do you have serious difficulty concentrating, remembering, or making decisions No 05/09/2015 9:15 AM EDT Bindu Loredo, CAROLINE No [facility] Clinical Notes 04-21-2021 to 03-10-2025 Paulina Bowers, DO - 03/10/2025 3:40 PM EDT Note Date & Type Note Facility 03-10-2025 History of Presen t illness Narrative Chief Complaint Patient presents with ED Follow-up [facility] Leg swelling beginning of last week along with pain Concerns for DVT; testing came back negative Concerns with blood pressure; she does report having headaches 187/115 morning at the hospital 140/109 Sunday 129/110 Sunday 133Sunday Family hx of hypertension Subjective Patient ID: Viridiana Nick is a 44 y.o. female who presents for ED Follow-up ([facility]/Leg swelling beginning of last week along with pain/Concerns for DVT; testing came back negative/Concerns with blood pressure; she does report having headaches //187/115 morning at the hospital/140/109 Sunday/129/110 Sunday//Sunday/Sunday//Family hx of hypertension ). HPI Patient is here today for ED follow up Pt reports that one day last week she noticed that she was swollen in her legs, it would go down in the Am but it never completely resolved. 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 She then developed a chest pressure and feeling like she could not breathe on night so I had advised her to go to the ED with her hx of previous DVT. She eports that she otherise has not really changed in her diet or medications. Her bp in the ED was very 187 /108. She has never previously had high blood pressure. She has been checking her bp at on it was 187/115, Sunday 140/109, 138/119, 129/97, 133/122, 129/90s. It has progressively come down. Today she feels like she has no swelling She went to [place] [facility] and she had an US of her legs and labwork and everything was normal. No chest pressure today. Review of Systems Respiratory: Negative for shortness of breath and wheezing. Cardiovascular: Negative for chest pain and leg swelling. Objective BP 131/89 (BP Location: Left arm, BP Position: Sitting) Pulse 98 Ht 1.575 m (5' 2) Wt 110.7 kg (244 lb) BMI 44.63 kg/m Smoking Status Never Physical Exam Constitutional: General: She is not in acute distress. Appearance: Normal appearance. HENT: Head: Normocephalic. Right Ear: Tympanic membrane, ear canal and external ear normal. Left Ear: Tympanic membrane, ear canal and external ear normal. Nose: Nose normal. Eyes: Extraocular Movements: Extraocular movements intact. Pupils: Pupils are equal, round, and reactive to light. Cardiovascular: Rate and Rhythm: Normal rate and regular rhythm. Pulses: Normal pulses. Heart sounds: No murmur heard. Pulmonary: Effort: Pulmonary effort is normal. No respiratory distress. Breath sounds: Normal breath sounds. Abdominal: General: Bowel sounds are normal. There is no distension. Palpations: Abdomen is soft. Tenderness: There is no abdominal tenderness. Musculoskeletal: Cervical back: Neck supple. Right lower leg: No edema. Left lower leg: No edema. Skin: General: Skin is warm. Coloration: Skin is not jaundiced. Neurological: General: No focal deficit present. Mental Status: She is alert and oriented to person, place, and time. Psychiatric: Mood and Affect: Mood normal. Behavior: Behavior normal. Assessment & Plan Problem List Items Addressed This Visit None Visit Diagnoses Leg edema - Primary Relevant Medications furOSEmide (Lasix) 20 MG tablet 1. ED visit for chest pressure, sob, and leg swelling - ED did bloodwork and us which were reportedly normal, do not have records as was from [facility] - pt has been taking lasix, no edema today advised can hold medicine - continue checking blood pressures at home and keep a log - as they are persistently going down will hold off on bp meds for now - call in 2 weeks with blood pressure log - recommend watching salt and caffeine - would wear compression socks while working on her feet all day Patient Active Problem List Diagnosis Date Noted POA body mass index of 40.0-49.9 [E66.01] 01/12/2025 Unknown Anxiety [F41.9] 04/06/2022 Unknown 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 Imaging Services [address] [place] [place] [id number] Chest 1 View (Portable) MR#: [id number] Acct: [id number] Name: VIRIDIANA NICK Rep #: [id number] : 1980 F 44 From: Faizan Hale DO PCP: Dr. Paulina Bowers DO Status: R EG ER Study:Chest 1 View (Portable) Date of Exam: 03/05/25 Exam# [id number] Ordering Dr: Vj Andersen DO PROCEDURE: CHEST 1 VIEW (PORTABLE) 03/05/2025 REASON FOR EXAM: CHEST PAIN TECHNIQUE: Frontal view of the chest. COMPARISON: None FINDINGS: Cardiomediastinal silhouette is within normal limits. Lungs are clear. No sizable pneumothorax. RAD/Chest 1 View (Portable) IMPRESSION: No acute airspace abnormality. Reading Location: [facility] CC: Dr. Paulina Bowers DO; Dr. Vj Andersen DO ~ Enterprise Architect Manager: Signed [facility] 03-05-2025 Radiology Diagnostic study note [facility] Imaging Services [address] [place], [place] [address] Venous Duplex Imag/Heber Extrem MR#: [id number] Acct: [id number] Name: VIRIDIANA NICK Rep #: [id number] : 1980 F 44 From: Nelly Tariq MD PCP: Dr. Paulina Bowers DO Status: R EG ER Study:Venous Duplex Imag/Heber Extrem Date of E xam: 03/05/25 Exam# [id number] Ordering Dr: Vj Andersen DO PROCEDURE: VENOUS DUPLEX IMAG/HEBER EXTREM 03/05/2025 REASON FOR EXAM: F 44 y/o with bilateral lower extremity swelling TECHNIQUE: Grayscale color flow and doppler analysis of the bilateral lower extremities. COMPARISON: None FINDINGS: There is no intraluminal echogenicity to suggest the presence of a deep venous thrombosis. Appropriate respiratory variation, augmentation and venous compression is noted. US/Venous Duplex Imag/Heber Extrem IMPRESSION: No evidence of deep venous thrombosis in either lower extremity. Reading Location: [facility] CC: Dr. Paulina Bowers DO; Dr. Vj Andersen DO ~ Enterprise Architect Manager: Signed [facility] 03-05-2025 Discharge summary Note Date/Time March 05, 2025 9:34p m [facility] Medical Records Department [address] [facility] [place] [address] Emergency Department Summary 03/05/25 MR#: [id number] Acct: [id number] Name: VIRIDIANA NICK Rep #:[id number] : 1980 44 From: Vj Adrian PCP: Dr. Paulina Bowers DO Status:R EG ER Location: ED HPI History of Present Illness Chief Complaint: Edema Informant: patient and parent Narrative Narrative: Here with mother for evaluation on off leg swelling last 2 weeks however worsening left side. Today noticed some chest discomfort. No dyspnea. No recent travel or surgeries. No PEs however she had a right lower extremity nonprovoked DVT 6 years ago. She had later abdominal vein DVT post appendectomy. She was on anticoagulants both x 3 to 6 months. None currently. Denies cough. Called her PCP started on Lasix today. Swelling seems warm worsening throughout the day improves in the morning. Mild pain at the ankles. Denies tobacco history. Denies family history of MIs at young age. Denies hypertension diabetes or hyperlipidemia. 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 Right leg DVT DVT (deep venous thrombosis) Knee injury Home Medications ?Medication ?Instructions ?Recorded ?Last Taken ?Type sertraline 25 mg tablet (Zoloft) 50 mg PO DAILY 02/08/ 18 02/07/18 History hydroxyzine HCl 25 mg tablet 25 mg PO Q8H PRN anxiety 05/04/22 Unknown History ondansetron 4 mg disintegrating 4 mg PO Q8H PRN PRN Na usea #10 tabs 11/10/23 Unknown Rx tablet oxycodone-acetaminophen 5 mg-325 1 tab PO Q6H PRN PRN Pain 3 days 11/10/23 Unknown Rx mg tablet #12 TABLETS sulfamethoxazole 800 1 tab PO BID #14 tabs Unknown Rx mg-trimethoprim 160 mg tablet (Bactrim DS) tamsulosin 0.4 mg capsule (Flomax) 0.4 mg PO DAILY #7 caps 11/10/23 Unknown Rx Allergy/AdvReac Type Severity Reaction Status Date / Time No Known Allergies Allergy Verified 03/05/25 18:45 Family History Mother Hypertension Grandmother Hypertension Grandfather DVT (deep venous thrombosis) maternal Surgical History Hx of cholecystectomy Hx of appendectomy Social History number of children: 3 current occupational status: employed 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 Smoking Status: Never smoker alcohol intake: never substance use type: does not use caffeine: No ROS ROS ED Constitutional Constitutional ED: Denies chills, fever(s) or sweats ENT ENT ED: Denies sore throat Cardiovascular Cardiovascular: Reports chest pain and leg edema; Denies palpitations or racing heartbeat Respiratory/Chest Respiratory/Chest: Denies cough, dyspnea or dyspnea on exertion Gastrointestinal Gastrointestinal: Denies abdominal pain, diarrhea, nausea or vomiting Genitourinary Genitourinary ED: Denies dysuria, hematuria or urinary frequency Musculoskeletal Musculoskeletal: Denies back pain, extremity pain or neck pain Integumentary Denies rash or wounds Neurologic Neurologic: Denies headache(s), paresthesias or weakness EXAM Physical Exam Const Vital Signs: 03/05/25 18:45 03/05/25 19:05 03/05/25 19:06 Temperature 98.7 F Temperature Source Temporal Pulse Rate 101 H Respiratory Rate 16 Respiratory Effort Normal Non-Labored Respiratory Pattern Normal Blood Pressure 187/109 H Blood Pressure Mean 135 Pulse Ox 98 Oxygen Delivery Method Room Air Room Air 03/05/25 20:43 Temperature Temperature Source Pulse Rate 83 Respiratory Rate Respiratory Effort Respiratory Pattern Blood Pressure 151/102 H Blood Pressure Mean 118 Pulse Ox Oxygen Delivery Method Positive well nourished and well developed General Appearance ED: well developed and NAD HEENT Reports moist mucous membranes normocephalic and atraumatic Eyes General Eye ED: Yes normal appearance of both eyes Neck full ROM Chest Wall Chest: Negative for tenderness Resp normal respiratory effort and normal air movement Effort and Inspection: symmetric chest movement; Negative for respiratory distress Cardio regular rhythm and no murmurs Peripheral Pulses: pulses 2+ throughout GI normal to inspection, nondistended, normoactive bowel sounds and non-tender Palpation: Negative for guarding or rebound tenderness present Extremity normal to inspection Extremity Narrative: No calf tenderness bilaterally. Pulses intact distally. General Extremety ED: Negative for edema or tenderness General Extremity: Negative for edema Neuro oriented x3 and no sensory deficits noted Sensorium / Orientation: awake and alert Skin no rashes or lesions noted and no wounds MDM MDM MDM Narrative Medical decision making narrative: Interventions / MDM: Differential diagnosis: Atypical chest pain, peripheral edema Diagnosis considered but do not suspect: DVT ultrasound negative. PE however D-dimer negative. My EKG interpretation: Sinus rhythm 86, no ST changes isolated T wave version lead III nonspecific. QTc 473. Imaging independently reviewed and interpreted by myself: 1 view chest x-ray: Noacute process. External documents reviewed: N/A Test considered but not ordered:N/A ED course: Bilateral leg swelling left greater than right. No significant swelling on my exam. Slight tachycardia in triage at 101. She has chest discomfort. Ultrasounds of legs will be ordered. Cardiac workup including D-dimer for low risk Wells criteria for PE. 2133: Workup negative. Troponin negative x 2 D-dimer negative. Chest x-ray negative. Ultrasounds negative for DVT both legs. Reassured on findings. She will continue her diuretics and follow-up with her PCP. She states that appointment on Sunday. All questions were answered. Re-evaluation: stable Disposition discussed with patient/family/significant other: Patient and mother Case discussed with consulting clinician: N/A This note was generated with [employer]ation software. It may contain incorrectwords, spelling, and punctuation that were not noted in checking the note beforesigning. Lab Data Attestation: I reviewed the patient's lab results. Labs: Laboratory Results - last 24 hr 03/05/25 03/05/25 03/05/25 19:00 19:05 20:48 WBC 12.6 H RBC 4.42 Hgb 13.3 Hct 39.5 MCV 89.4 MCH 30.1 MCHC 33.7 RDW Std Deviation 42.0 RDW Coeff of [place] 12.9 Plt Count 275 MPV 10.1 Immature Gran % (Auto) 0.400 Neut % (Auto) 66.7 Lymph % (Auto) 22.7 [place] % (Auto) 6.5 Eos % (Auto) 2.9 Baso % (Auto) 0.8 Absolute Neuts (auto) 8.4 H Absolute Lymphs (auto) 2.85 Nucleated RBC % 0 PT 12.7 INR 0.9 APTT 23.8 L D-Dimer Quant (PE/DVT) < 0.27 L Sodium 138 Potassium 3.6 Chloride 103 Carbon Dioxide 22.0 Anion Gap 13 BUN 10 Creatinine 0.70 Estim Creat Clear Calc 123.59 Est GFR (MDRD) Non-Af 111 BUN/Creatinine Ratio 14.3 Glucose 109 H Calcium 8.5 Troponin T High Sens < 6 Troponin T Hi Sens 2 Hr < 6 Urine Test Negative Radiography Diagnostic Testing: Clinical Impression(s) from Imaging Studies Venous Duplex 03/05/25 19:04 IMPRESSION: No evidence of deep venous thrombosis in either lower extremity. Reading Location: [facility] Chest X-Ray 03/05/25 21:10 IMPRESSION: No acute airspace abnormality. Reading Location[facility] Discharge Plan Triage Chief Complaint: Edema ED Provider: Vj Andersen Dx/Rx/DC Orders Clinical Impression: Peripheral edema, Chest pain Instructions: ED Chest Pain, Uncertain Cause, ED Peripheral Edema, Bilateral Prescriptions: No Action hydroxyzine HCl 25 mg tablet 25 mg PO Q8H PRN (Reason: anxiety) sertraline [Zoloft] 25 MG tablet 50 mg PO DAILY oxycodone-acetaminophen [oxycodone-acetaminophen] 5-325 mg tablet 1 tab PO Q6H PRN PRN (Reason: Pain) 3 Days Qty: 12 0RF ondansetron [ondansetron] 4 mg tablet,disintegrating 4 mg PO Q8H PRN PRN (Reason: Nausea) Qty: 10 0RF tamsulosin [Flomax] 0.4 mg capsule 0.4 mg PO DAILY Qty: 7 0RF sulfamethoxazole-trimethoprim [Bactrim DS] 800-160 mg tablet 1 tab PO BID Qty: 14 0RF Primary Care Provider: Paulina Bowers Referrals: Paulina Bowers DO [Primary Care Provider] - 3-5 Days Activity Restrictions/Additional Instructions: Ultrasound of both legs negative for DVT. Your cardiac workup including D-dimernegative. Continue your diuretics by your PCP. Follow-up with your doctor for reevaluation. Print Language: Tunisian Disposition Disposition: Home, Self Care What to do if you have Problems For any increased pain, shortness of breath, bleeding, nausea or vomiting, chestpain, or any unexpected problems, contact your Primary Care Provider. Call [facility] ([phone]) or report to the closest Emergency Room. Call 911 if necessary. 03/05/252133 <Electronically signed by Vj Adrian> Cosigner Signature (if applicable): CC: Dr. Paulina Bowers DO ~ Signed [facility] Work Phone: [phone] History of Present illness Narrative* Paulina Bowers DO - 01/12/2025 3:40 PM EDT Chief Complaint Patient presents with Re-establish Care Unsure when patients last visit was at ; looks like its been a few years Subjective Patient ID: Viridiana Enrique is a 44 y.o. female who presents for Re-establish Care (Unsure when patients last visit was at ; looks like its been a few years ). HPI Patient is here today to re-establish care. Pt has a pmhx of anxiety. Pt reports that she feels like her nose is constantly plugged, she has tried to take otc allergy medicine. Pt has not tried flonase. Review of Systems HENT: Positive for congestion. Negative for sneezing, sore throat and voice change. Gastrointestinal: Negative for constipation, diarrhea, nausea and vomiting. Musculoskeletal: Negative for arthralgias. Objective BP 130/82 (BP Location: Right arm, BP Position: Sitting) Pulse 92 Ht 1.575 m (5' 2) Wt 109.8kg (242 lb) BMI 44.26 kg/m Smoking Status Never Physical Exam Constitutional: General: She is not in acute distress. Appearance: Normal appearance. HENT: Head: Normocephalic. Right Ear: Tympanic membrane, ear canal and external ear normal. Left Ear: Tympanic membrane, ear canal and external ear normal. Nose: Nose normal. Eyes: Extraocular Movements: Extraocular movements intact. Pupils: Pupils are equal, round, and reactive to light. Cardiovascular: Rate and Rhythm: Normal rate and regular rhythm. Pulses: Normal pulses. Heart sounds: No murmur heard. Pulmonary: Effort: Pulmonary effort is normal. No respiratory distress. Breath sounds: Normal breath sounds. Musculoskeletal: Cervical back: Neck supple. Neurological: General: No focal deficit present. Mental Status: She is alert and oriented to person, place, and time. Psychiatric: Mood and Affect: Mood normal. Behavior: Behavior normal. Assessment & Plan Problem List Items Addressed This Visit Digestive body mass index of 40.0-49.9 Other Anxiety Other Visit Diagnoses Chronic nasal congestion - Primary Relevant Orders AMB REFERRAL TO OTOLARYNGOLOGY Immunizations Flu shot declines COVID declines PNA -- Shingles -- RSV -- Mammo 2022 Pap has been a few years, 2022 DEXA -- Colon cancer screening 2022 Lung cancer screening -- Anxiety, controlled - continue sertraline 100mg po daily 2. 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 On control - recommend updating mammo and pap with ob/gyn physician 4. 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 Author Type: Physician Type: Progress Notes Filed: 12/26/2024 10:05 Note Text: [facility] Subjective Viridiana Nick is a 44 year old female. Patient presents with: Cough: Chest congestion, sore throat, sinus pressure and pain, pressure in teeth, headeache x 3 days Patient had 4 days of upper respiratory symptoms. Has had nasal congestion, rhinorrhea, postnasal drainage, sore throat from drainage, ear pressure, and sinus pressure with radiation to her teeth. She denies fever vomiting or diarrhea but has had nausea. She has used NyQuil, cold and sinus medicine, and Sudafed. Cough Review of Systems Respiratory: Positive for cough. Objective BP 132/85 Pulse 80 Temp 36.2 ?C (97.1 ?F) Resp 20 Wt 108 kg (238 lb 1.6 oz) LMP 12/04/2024 (Approximate) SpO2 96% BMI 43.55 kg/m? Physical Exam Constitutional: Appearance: She is ill-appearing (Mild). HENT: Right Ear: Tympanic membrane and ear canal normal. Left Ear: Tympanic membrane and ear canal normal. Nose: Congestion present. Mouth/Throat: Pharynx: No oropharyngeal exudate or posterior oropharyngeal erythema. Eyes: Extraocular Movements: Extraocular movements intact. Conjunctiva/sclera: Conjunctivae normal. Pupils: Pupils are equal, round, and reactive to light. Cardiovascular: Rate and Rhythm: Normal rate and regular rhythm. Heart sounds: No murmur heard. Pulmonary: Effort: No respiratory distress. Breath sounds: No wheezing, rhonchi or rales. Musculoskeletal: Cervical back: Neck supple. No tenderness. Lymphadenopathy: Cervical: No cervical adenopathy. Neurological: Mental Status: She is alert. {ASSESSMENT/PLAN: 1. Viral URI - ICD9: 465.9, ICD10: J06.9 - suspect viral URI - Discussed supportive care treatment with rest, cold medicine, and analgesia (she can add ibuprofen for sore throat and sinus pressure). Decline strep testing - feels sore throat is related to drainage. She has viral sinusitis. An antibiotic may be useful if sinus symptoms persist beyond 1 week without improvement suggesting a secondary bacterial infection. Virgil Arana MD Differential Diagnoses - Viral URI is more likely for the following reason(s): [facility] by [facility] History of Present illness Narrative* Virgil Arana MD - 12/26/2024 9:56 AM EDT [facility] Subjective Viridiana Nick is a 44 year old female. Patient presents with: Cough: Chest congestion, sore throat, sinus pressure and pain, pressure in teeth, headeache x 3 days Patient had 4 days of upper respiratory symptoms. Has had nasal congestion, rhinorrhea, postnasal drainage, sore throat from drainage, ear pressure, and sinus pressure with radiation to her teeth. She denies fever vomiting or diarrhea but has had nausea. She has used NyQuil, cold and sinus medicine, and Sudafed. Cough Review of Systems Respiratory: Positive for cough. Objective BP 132/85 Pulse 80 Temp 36.2 C (97.1 F) Resp 20 Wt 108 kg (238 lb 1.6 oz) LMP 12/04/2024 (Approximate) SpO2 96% BMI 43.55 kg/m Physical Exam Constitutional: Appearance: She is ill-appearing (Mild). HENT: Right Ear: Tympanic membrane and ear canal normal. Left Ear: Tympanic membrane and ear canal normal. Nose: Congestion present. Mouth/Throat: Pharynx: No oropharyngeal exudate or posterior oropharyngeal erythema. Eyes: Extraocular Movements: Extraocular movements intact. Conjunctiva/sclera: Conjunctivae normal. Pupils: Pupils are equal, round, and reactive to light. Cardiovascular: Rate and Rhythm: Normal rate and regular rhythm. Heart sounds: No murmur heard. Pulmonary: Effort: No respiratory distress. Breath sounds: No wheezing, rhonchi or rales. Musculoskeletal: Cervical back: Neck supple. No tenderness. Lymphadenopathy: Cervical: No cervical adenopathy. Neurological: Mental Status: She is alert. {ASSESSMENT/PLAN: 1. Viral URI - ICD9: 465.9, ICD10: J06.9 - suspect viral URI - Discussed supportive care treatment with rest, cold medicine, and analgesia (she can add ibuprofen for sore throat and sinus pressure). Decline strep testing - feels sore throat is related to drainage. She has viral sinusitis. An antibiotic may be useful if sinus symptoms persist beyond 1 week without improvement suggesting a secondary bacterial infection. Virgil Arana MD Differential Diagnoses - Viral URI is more likely for the following reason(s): suggested by H&P Procedures [facility] History of Present illness Narrative* Tigre eJffers RT(R) - 04/30/2024 12:00 PM EDT Radiology Service Progress Note PATIENT NAME: Viridiana Nick DATE OF SERVICE: April 30, 2024 TIME: 11:59 AM PATIENT IDENTITY VERIFICATION COMPLETED USING TWO (2) IDENTIFIERS: Name and Date of confirmedby patient verbally. FALL SCREENING: Has the patient had 2 falls in the last year or 1 fall with injury or currently using an Ambulatory Assistive Device (Walker, Cane, Wheelchair, Crutches, etc.)? No PATIENT GENDER DATA: Female. status: : No status: NO. PATIENT RELEVANT IMPLANT DATA REVIEWED: Yes PATIENT PRESENTS WITH AN IMPLANTABLE OR ATTACHED BUSINESS CONTINUITY CONSULTANT: No RADIOLOGY DEPARTMENT: General X-ray: Exam(s) Completed: Chest X-Ray PERIPHERAL IV DATA: Not applicable SIGNED BY: RT Teodora(Charles) April 30, 2024 11:59 AM documented in this [facility]24 NoteHNO ID: [id number] Author: TIGRE JEFFERS RT(Charles) Service: ? Author Type: Public Aid Eligibility Assistant Type: Progress Notes Filed: 04/30/2024 12:06 Note Text: Radiology Service Progress Note PATIENT NAME: Viridiana Nick DATE OF SERVICE: April 30, 2024 TIME: 11:59 AM PATIENT IDENTITY VERIFICATION COMPLETED USING TWO (2) IDENTIFIERS: Name and Date of confirmed by patient verbally. FALL SCREENING: Has the patient had 2 falls in the last year or 1 fall with injury or currently using an Ambulatory Assistive Device (Walker, Cane, Wheelchair, Crutches, etc.)? No PATIENT GENDER DATA: Female. status: : No status: NO. PATIENT RELEVANT IMPLANT DATA REVIEWED: Yes PATIENT PRESENTS WITH AN IMPLANTABLE OR ATTACHED BUSINESS CONTINUITY CONSULTANT: No RADIOLOGY DEPARTMENT: General X-ray: Exam(s) Completed: Chest X-Ray PERIPHERAL IV DATA: Not applicable SIGNED BY: RT Teodora(R) April 30, 2024 11:59 [facility]07-31-2024 NoteHNO ID: [id number] Author: JOANN ANDINO APRN.C++ PROFESSOR Service: ? Author Type: Nurse Practitioner Type: Progress Notes Filed: 04/30/2024 12:45 Note Text: This note was created using Tuteeriter. Subjective Viridiana Nick is a 43 year old female. 43 year old female with PMH presents for illness. Acute onset 4 days ago +fever +chest congestion + cough Non productive +body aches +fatigue, citing she has been sleeping nonstop Feeling of ear fullness Denies N/V/D Denies hemoptysis. Denies CP. Denies SOB Denies rhinorrhea Has used Robitussin, Tylenol and Ibuprofen Denies tobacco usage The history is provided by the patient. No senior application software engineer was used. Sinus Problem This is a new problem. The current episode started in the past 7 days. The problem occurs constantly. The problem has been gradually worsening. Associated symptoms include congestion, coughing, fatigue, a fever and headaches. Pertinent negatives include no abdominal pain, anorexia, arthralgias, change in bowel habit, chest pain, chills, diaphoresis, joint swelling, myalgias, nausea, neck pain, numbness, rash, sore throat, swollen glands, urinary symptoms, vertigo, visual change, vomiting or weakness. Nothing aggravates the symptoms. Treatments tried: see HPI. The treatment provided no relief. PAST MEDICAL HISTORY No date: Depression No date: Viral meningitis PAST SURGICAL HISTORY 03/20/2022: APPENDECTOMY Comment: No date: LAPAROSCOPY SURG CHOLECYSTECTOMY Comment: Cholecystectomy, lap ALLERGIES Oxycodone MEDICATIONS sertraline (ZOLOFT) 50 mg tablet doxycycline monohydrate 100 mg tablet Take 1 tablet by mouth two times a day for 7 days. benzonatate (TESSALON PERLES) 100 mg capsule Take 1 capsule by mouth three times a day as needed. ondansetron (ZOFRAN) 8 mg tablet Take 1 [...] Use Smoking status: Never Smokeless tobacco: Never Review of Systems Constitutional: Positive for fatigue and fever. Negative for chills and diaphoresis. HENT: Positive for congestion. Negative for sore throat. Respiratory: Positive for cough. Negative for apnea, choking and chest tightness. Cardiovascular: Negative for chest pain, palpitations and leg swelling. Gastrointestinal: Negative for abdominal pain, anorexia, change in bowel habit, nausea and vomiting. Musculoskeletal: Negative for arthralgias, joint swelling, myalgias and neck pain. Skin: Negative for color change, pallor and rash. Allergic/Immunologic: Negative for environmental allergies, food allergies and immunocompromised state. Neurological: Positive for headaches. Negative for dizziness, vertigo, facial asymmetry, weakness and numbness. Hematological: Negative for adenopathy. Does not bruise/bleed easily. Psychiatric/Behavioral: Negative for agitation and behavioral problems. Objective BP 110/70 Pulse 98 Temp 36.5 ?C (97.7 ?F) Resp 16 Wt 105.2 kg (231 lb 14.8 oz) LMP 01/06/2019 SpO2 97% BMI 42.42 kg/m? Physical Exam Vitals and nursing note reviewed. Constitutional: General: She is not in acute distress. Appearance: Normal appearance. She is normal weight. She is not ill-appearing, toxic-appearing or diaphoretic. HENT: Head: Normocephalic and atraumatic. Right Ear: Ear canal and external ear normal. Left Ear: Ear canal and external ear normal. Nose: Nose normal. No congestion or rhinorrhea. Mouth/Throat: Mouth: Mucous membranes are moist. Pharynx: No oropharyngeal exudate or posterior oropharyngeal erythema. Eyes: General: Right eye: No discharge. Left eye: No discharge. Extraocular Movements: Extraocular movements intact. Conjunctiva/sclera: Conjunctivae normal. Pupils: Pupils are equal, round, and reactive to light. Cardiovascular: Rate and Rhythm: Normal rate and regular rhythm. Pulses: Normal pulses. Heart sounds: Normal heart sounds. No murmur heard. No friction rub. Pulmonary: Effort: Pulmonary effort is normal. No respiratory distress. Breath sounds: Normal breath sounds. No stridor. No wheezing, rhonchi or rales. Chest: Chest wall: No tenderness. Abdominal: General: Abdomen is flat. There is no distension. Palpations: Abdomen is soft. There is no mass. Tenderness: There is no abdominal tenderness. There is no right CVA tenderness, left CVA tenderness, guarding or rebound. Hernia: No hernia is present. Musculoskeletal: General: No swelling, tenderness, (more content not included)...[facility]07-31-2024 History of Present illness Narrative* Joann Andino APRN.[facility] - 04/30/2024 11:51 AM EDT This note was created using NoteWriter. Subjective Viridiana Nick is a 43 year old female. 43 year old female with PMH presents for illness. Acute onset 4 days ago +fever +chest congestion + cough Non productive +body aches +fatigue, citing she has been sleeping nonstop Feeling of ear fullness Denies N/V/D Denies hemoptysis. Denies CP. Denies SOB Denies rhinorrhea Has used Robitussin, Tylenol and Ibuprofen Denies tobacco usage The history is provided by the patient. No senior application software engineer was used. Sinus Problem This is a new problem. The current episode started in the past 7 days. The problem occurs constantly. The problem has been gradually worsening. Associated symptoms include congestion, coughing, fatigue, a fever and headaches. Pertinent negatives include no abdominal pain, anorexia, arthralgias, change in bowel habit, chest pain, chills, diaphoresis, joint swelling, myalgias, nausea, neck pain, numbness, rash, sore throat, swollen glands, urinary symptoms, vertigo, visual change, vomiting or weakness. Nothing aggravates the symptoms. Treatments tried: see HPI. The treatment provided no relief. PAST MEDICAL HISTORY No date: Depression No date: Viral meningitis PAST SURGICAL HISTORY 03/20/2022: APPENDECTOMY Comment: No date: LAPAROSCOPY SURG CHOLECYSTECTOMY Comment: Cholecystectomy, lap ALLERGIES Oxycodone MEDICATIONS sertraline (ZOLOFT) 50 mg tablet doxycycline monohydrate 100 mg tablet Take 1 tablet by mouth two times a day for 7 days. benzonatate (TESSALON PERLES) 100 mg capsule Take 1 capsule by mouth three times a day as needed. ondansetron (ZOFRAN) 8 mg tablet Take 1 [...] Use Smoking status: Never Smokeless tobacco: Never Review of Systems Constitutional: Positive for fatigue and fever. Negative for chills and diaphoresis. HENT: Positive for congestion. Negative for sore throat. Respiratory: Positive for cough. Negative for apnea, choking and chest tightness. Cardiovascular: Negative for chest pain, palpitations and leg swelling. Gastrointestinal: Negative for abdominal pain, anorexia, change in bowel habit, nausea and vomiting. Musculoskeletal: Negative for arthralgias, joint swelling, myalgias and neck pain. Skin: Negative for color change, pallor and rash. Allergic/Immunologic: Negative for environmental allergies, food allergies and immunocompromised state. Neurological: Positive for headaches. Negative for dizziness, vertigo, facial asymmetry, weakness and numbness. Hematological: Negative for adenopathy. Does not bruise/bleed easily. Psychiatric/Behavioral: Negative for agitation and behavioral problems. Objective BP 110/70 Pulse 98 Temp 36.5 C (97.7 F) Resp 16 Wt 105.2 kg (231 lb 14.8 oz) LMP 01/06/2019 SpO2 97% BMI 42.42 kg/m Physical Exam Vitals and nursing note reviewed. Constitutional: General: She is not in acute distress. Appearance: Normal appearance. She is normal weight. She is not ill-appearing, toxic-appearing or diaphoretic. HENT: Head: Normocephalic and atraumatic. Right Ear: Ear canal and external ear normal. Left Ear: Ear canal and external ear normal. Nose: Nose normal. No congestion or rhinorrhea. Mouth/Throat: Mouth: Mucous membranes are moist. Pharynx: No oropharyngeal exudate or posterior oropharyngeal erythema. Eyes: General: Right eye: No discharge. Left eye: No discharge. Extraocular Movements: Extraocular movements intact. Conjunctiva/sclera: Conjunctivae normal. Pupils: Pupils are equal, round, and reactive to light. Cardiovascular: Rate and Rhythm: Normal rate and regular rhythm. Pulses: Normal pulses. Heart sounds: Normal heart sounds. No murmur heard. No friction rub. Pulmonary: Effort: Pulmonary effort is normal. No respiratory distress. Breath sounds: Normal breath sounds. No stridor. No wheezing, rhonchi or rales. Chest: Chest wall: No tenderness. Abdominal: General: Abdomen is flat. There is no distension. Palpations: Abdomen is soft. There is no mass. Tenderness: There is no abdominal tenderness. There is no right CVA tenderness, left CVA tenderness, guarding or rebound. Hernia: No hernia is present. Musculoskeletal: General: No swelling, tenderness, deformity or signs of injury. Normal range of motion. Cervical back: Normal range of motion and neck supple. No rigidity. Right lower leg: No edema. Left lower leg: No edema. Lymphadenopathy: Cervical: No cervical adenopathy. Skin: General: Skin is warm and dry. Capillary Refill: Capillary refill takes less than 2 seconds. Coloration: Skin is not jaundiced or pale. Findings: No bruising, erythema, lesion or rash. Neurological: General: No focal deficit present. Mental Status: She is alert and oriented to person, place, and time. Cranial Nerves: No cranial nerve deficit. Sensory: No sensory deficit. Motor: No weakness. Coordination: Coordination normal. Gait: Gait normal. Psychiatric: Mood and Affect: Mood normal. Behavior: Behavior normal. Thought Content: Thought content normal. Judgment: Judgment normal. Assessment and Plan ASSESSMENT/PLAN: 1. Acute cough - ICD9: 786.2, ICD10: R05.1 (primary diagnosis) X 5 days NO red flags Lungs CTA - XR CHEST 2V FRONTAL/LAT-reveals pneumonia right lobe 2. Pneumonia of right lung due to infectious organism, unspecified part of lung - ICD9: 483.8, ICD10: J18.9 Community acquired. NO red flags RX Doxy RX Debbi Quintero F/U with PCP Joann Andino APRN.C++ PROFESSOR documented in this encounter[facility] Discharge summary Author Yared Polanco [facility] November 10, 2023 6:42pm Note Date/Time November 10, 2023 2:35pm [facility] Medical Records Department [address] [place] [address] Emergency Department Summary 11/10/23 MR#: [id number] Acct: [id number] Name: VIRIDIANA NICK Rep #:[id number] : 1980 43 From: Yared Polanco MD PCP: AMADA Lemus Status:REG ER Location: ED HPI History of Present Illness Chief Complaint: Flank Pain Informant: patient Narrative Narrative: Patient presents with right lower quadrant and flank pain. Patient states she woke up about 4:00 this morning. Thought she just had a little upset stomach. She had some discomfort in the right lower quadrant. Occasionally radiates to the back. She thinks the pain woke her up but it was not as bad then. Has been waxing and waning since but never goes away. When the pain is bad she gets nauseated. Still in the same position. No urinary symptoms. No vaginal symptoms. Last menstrual period couple weeks ago and normal. She has had appendectomy and cholecystectomy in the past. No fevers orchills. Never had kidney stones. She states at home she just could not get comfortable and was pacing and moving. 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 Home Medications sertraline 25 mg tablet (Zoloft) 50 mg PO DAILY 11/08/17 [History Last Taken 11/07/17] hydroxyzine HCl 25 mg tablet 25 mg PO Q8H PRN anxiety 05/04/22 [History Last Taken Unknown] ondansetron 4 mg disintegrating tablet 4 mg PO Q8H PRN PRN Nausea #10 tabs 11/10/23 [Rx Last Taken Unknown] oxycodone-acetaminophen 5 mg-325 mg tablet 1 tab PO Q6H PRN PRN Pain 3 days #12 TABLETS 11/10/23 [Rx Last Taken Unknown] sulfamethoxazole 800 mg-trimethoprim 160 mg tablet (Bactrim DS) 1 tab PO BID #14tabs 11/10/23 [Rx Last Taken Unknown] tamsulosin 0.4 mg capsule (Flomax) 0.4 mg PO DAILY #7 caps 11/10/23 [Rx Last Taken Unknown] Allergy/AdvReac Type Severity Reaction Status Date / Time No Known Allergies Allergy Verified 11/10/23 13:49 Family History Mother Hypertension Grandmother Hypertension Grandfather DVT (deep venous thrombosis) maternal Surgical History Hx of appendectomy Hx of cholecystectomy Social History number of children: 3 current occupational status: employed 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 Some specific details below. Constitutional: No recent fevers or chills. EYE: No visual complaints or pain. ENT: No difficulty swallowing. No swelling. No pain. CV: No chest pain or palpitations. Respiratory: No dyspnea. No hemoptysis. No difficulty taking breaths. GI: Please see history of present illness. : No frequency dysuria or hematuria. Some radiation of the pain to her right flank area. Musculoskeletal: No recent trauma. No pains. No numbness tingling weakness or radicular symptoms. Skin: No rash. Nondiaphoretic. Neuro: No weakness or numbness. Endocrine: No polyuria or polydipsia. EXAM Physical Exam Narrative Exam Narrative: CONSTITUTIONAL: Patient is nontoxic in appearance. The patient looks somewhat uncomfortable. She is sitting on a chair at the edge of the bed leaning forwardon her hands. HEENT: No notable trauma. Mucous membranes moist. EYES: No conjunctival injection. No pallor. CARDIOVASCULAR: Regular rate. Regular rhythm. No notable murmur. No JVD. RESPIRATORY: No respiratory distress. Breathing is unlabored. No wheezes. No rhonchi. No rales. No pain with a deep breath. GASTROINTESTINAL: Not distended. Bowel sounds are normal. Despite the pain, pressing on her abdomen really does not change it. No rebound or guarding. GENITOURINARY: No tenderness over the bladder. She does have some mild right- sided CVA tenderness. MUSCULOSKELETAL: Atraumatic. No peripheral edema. No cord. No tenderness along the deep venous system. No asymmetry. NEUROLOGICAL: Patient is alert and appropriate. No focal deficit noted. SKIN: No noted rashes. No diaphoresis. PSYCHIATRIC: Patient is calm. Mood is appropriate. Const Vital Signs: 11/10/23 13:50 11/10/23 16:07 Temperature 99 F Temperature Source Temporal Pulse Rate 107 H 90 Respiratory Rate 18 16 Blood Pressure 139/111 H 123/80 H Blood Pressure Mean 120 94 Pulse Ox 99 94 Oxygen Delivery Method Room Air Room Air MDM MDM MDM Narrative Medical decision making narrative: My independent interpretation of her CT does show a stone in the right kidney and a few calcifications along the right ureter but no significant hydro. Finalreading shows no acute process. Patient's CBC is normal. Patient's electrolytes show no marked abnormalities. Minimally low potassium. LFTs are normal. Lipase is normal. Serum is negative. Urine does show some red cells few white cells 2+ bacteria. A little bit concerning for potential UTI. Although this does not seem to fully explain her symptoms. Since there was some ovarian cyst on scan, I did do pelvic ultrasoundto make sure there is no sign of torsion and this is negative. Patient's uncomfortable. Her onset of pain was somewhat sudden. She is pacing when it started. She could not get comfortable. But there is really no tenderness. Everything points to a kidney stone is the origin of her symptoms and I am going to treat this as if it is a kidney stone. Because her urine shows some borderline findings I am going to treat as a UTI also. We discussed returning with fevers, vomiting, worsening pain, lightheadedness or any other concern. Lab Data Attestation: I reviewed the patient's lab results. Labs: Laboratory Results - last 24 hr 11/10/23 14:17 WBC 9.8 RBC 4.45 Hgb 13.2 Hct 40.5 MCV 91.0 MCH 29.7 MCHC 32.6 RDW Std Deviation 43.2 RDW Coeff of [place] 13.0 Plt Count 265 MPV 10.4 Immature Gran % (Auto) 0.300 Neut % (Auto) 73.9 H Lymph % (Auto) 18.3 L [place] % (Auto) 5.2 Eos % (Auto) 1.7 Baso % (Auto) 0.6 Absolute Neuts (auto) 7.2 Absolute Lymphs (auto) 1.79 Nucleated RBC % 0 Sodium 141 Potassium 3.4 L Chloride 111 H Carbon Dioxide 26.0 Anion Gap 4 L BUN 10 Creatinine 0.92 Estim Creat Clear Calc 91.24 Est GFR (MDRD) Af Amer 87 Est GFR (MDRD) Non-Af 72 BUN/Creatinine Ratio 10.9 Glucose 119 H Calcium 8.9 Total Bilirubin 0.30 AST 18 ALT 15 Alkaline Phosphatase 78 Total Protein 7.1 Albumin 3.3 Globulin 3.8 Albumin/Globulin Ratio 0.9 Lipase 29 Serum , Qual NEGATIVE Urine Color Yellow Urine Clarity Clear Urine pH 6.0 Ur Specific [place] 1.020 Urine Protein 30 H Urine Glucose (UA) Normal Urine Ketones 5 H Urine Occult Blood 250 H Urine Nitrite Negative Urine Bilirubin 1 H Urine Urobilinogen 1 H Ur Leukocyte Esterase 100 H Urine RBC 10-25 SEEN Urine WBC 5-10 SEEN Ur Squamous Epith Cells 0-5 SEEN Urine Bacteria 2+ Urine Mucus 0 SEEN Radiography Diagnostic Testing: Clinical Impression(s) from Imaging Studies Abdomen/Pelvis CT 11/10/23 14:23 IMPRESSION: 1. No focal acute inflammatory changes. 2. Small bilateral adnexal cysts. Electronically Signed: Khoi Foote MD at 15:08 EST , Transvaginal US 11/10/23 15:59 IMPRESSION: No evidence of ovarian torsion. Multi fibroid uterus. Electronically Signed: David Kaplan MD at 17:59 EST , Discharge Plan Triage Chief Complaint: Flank Pain ED Provider: Yared Polanco Dx/Rx/DC Orders Clinical Impression: Acute right flank pain, UTI (urinary tract infection) Instructions: ED Flank Pain, Uncertain Cause, ED Kidney Stone with Pain Prescriptions: New oxycodone-acetaminophen [oxycodone-acetaminophen] 5-325 mg tablet 1 tab PO Q6H PRN PRN (Reason: Pain) 3 Days Qty: 12 0RF ondansetron [ondansetron] 4 mg tablet,disintegrating 4 mg PO Q8H PRN PRN (Reason: Nausea) Qty: 10 0RF tamsulosin [Flomax] 0.4 mg capsule 0.4 mg PO DAILY Qty: 7 0RF sulfamethoxazole-trimethoprim [Bactrim DS] 800-160 mg tablet 1 tab PO BID Qty: 14 0RF No Action hydroxyzine HCl 25 mg tablet 25 mg PO Q8H PRN (Reason: anxiety) sertraline [Zoloft] 25 MG tablet 50 mg PO DAILY Primary Care Provider: Bindu Finley Referrals: Bindu Finley PA [Primary Care Provider] - 3-5 Days Disposition Disposition: Home, Self Care What to do if you have Problems For any increased pain, shortness of breath, bleeding, nausea or vomiting, chestpain, or any unexpected problems, contact your Primary Care Provider. Call [facility] ([phone]) or report to the closest Emergency Room. Call 911 if necessary. 11/10/231841 <Electronically signed by Yared Polanco MD> Cosigner Signature (if applicable): CC: AMADA Lemus ~ Signed [facility] Work Phone: 1(306) 693-246010-30-2022 History of Present illness Narrative* Bing Bauer APRN.C++ PROFESSOR - 07/30/2022 10:19 AM EDT Subjective Sinus Problem Associated symptoms include congestion, coughing and headaches. Pertinent negatives include no chills, fever, myalgias or sore throat. Viridiana Enrique is a 41 year old female who presents with 2 weeksof cough, nasal congestion and drainage, sinus pressure [...] Discussed expected course of illness Bing Bauer APRN.CNP documented in this encounter[facility]30-2022 Instructions* Patient Instructions* Bing Bauer APRN.CNP - 07/30/2022 10:18 AM EDT ASSESSMENT/PLAN: 1. [...] Discussed expected course of illness Bing Bauer APRN.CNP [facility] PATIENT INFO ACUTE SINUSITIS OVERVIEW Rhinosinusitis, or more commonly sinusitis, is the medical term for inflammation (swelling) of the lining of the sinuses and nose. The sinuses are the hollow areas within the facial bones that are connected to the nasal openings. The sinuses are lined with mucous membranes, similar to the inside ofthe nose. There are two main types of [...] bacterial, and not viral, infections, most people donot need antibiotics for acute sinusitis. ACUTE SINUSITIS [...] within seven to 10 days after symptoms begin.Bacterial sinusitis also sometimes improves without treatment, although [...] such as acetaminophen (eg, Tylenol ) or ibuprofen(eg, Motrin , Advil ) are recommended for [...] by rinsing out allergens and irritants from thenose. Saline rinses also clean the nasal lining and can be used before applying sprays containing medications, to get a better effect from the medication. Nasal lavage with warmed saline can be performed as needed, once per day, or twice daily for increased symptoms. Nasal lavage carries few risks when performed correctly. Saline nasal sprays and irrigation kits can be purchased [id number]. Saline mixes can also be purchased or patients can make their own solution. A variety of devices, including bulb syringes, Neti pots, and bottle sprayers, may be used to perform nasal lavage; instructions for nasal lavage are provided in the table. At least 200 mL (about 3/4cup) of fluid is recommended for each nostril. Nasal decongestants -- Nasal decongestant sprays, including oxymetazoline (Afrin ) and phenylephrine (Glenn-synephrine ) can be used to temporarily treat congestion. However, these sprays should not beused for more than two to three days [...] allergic to penicillin. Regardless of which antibiotic isprescribed, it is important to follow the dosing instructions carefully and to finish the entire course of treatment. Taking the medication less often than prescribed or stopping the medication earlycan lead to complications, such as a recurrent [...] upon your individual situation. documented in this encounterMer[facility]07-08-2022 Note* Nursing Notes - Collins Pedroza RN - 04/07/2022 1:23 PM EDT Patient discharge home in stable condition with stable vital signs. Patient left with all personal belonging, discharge instructions, and scripts, IV access discontinued, all patient questions answered at this time. Patient assisted to vehicle by [facility] staff via wheelchair, Collins Pedroza RN [facility]07-08-2022 Miscellaneous Notes* Nursing Notes - Collins Pedroza RN - 04/07/2022 1:23 PM EDT Patient discharge home in stable condition with stable vital signs. Patient left with all personal belonging, discharge instructions, and scripts, IV access discontinued, all patient questions answered at this time. Patient assisted to vehicle by [facility] staff via wheelchair, Collins Pedroza RN * Plan of Care - Collins Pedroza RN - 04/07/2022 1:22 PM EDT Problem: Patient Care Overview Goal: Plan of [...] Response Clinical Practice Guideline (CPG) Outcome: Ongoing * Certification - Yisel Moore MD - 04/06/2022 6:38 AM EDT I certify that this patient requires inpatient services at this time. I anticipate the expected length of stay will include at least two midnights. Inpatient services are due to the following medicalconcerns 41 y.o. 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 Plans for post hospitalization care will be discharge to home vs home w/ HHC pending PT/OT evaluation. * Nursing Notes - Brooklyn Crain RN - 04/05/2022 5:42 PM EDT 16:02 Called [phone] to get report from ED RN, Fransisca - No answer 16:05 Called [phone] to get report from ED RN, Fransisca - No answer 16:08 Called [phone] to get report from ED RN, Fransisca - No answer 16:12 Called [phone] to get report from ED RN, Fransisca - No answer * Nursing Notes - Brooklyn Crain RN - 04/05/2022 5:39 PM EDT On admission to [facility], from the ED a dual RN initial assessment of skin condition was performed by Brooklyn Crain RN and Jovany Matute RN. Skin Assessment: WDL LDA Added: N Brooklyn Crain RN * Nursing Notes - Fransisca Kumar RN - 04/05/2022 4:34 PM EDT Report given to Jeanne on the floor at this time. All questions and concerns addressed at this time. * Nursing Notes - Julita Zamarripa RN - 04/05/2022 4:19 PM EDT Spoke with devulcanizer charger in ED, who stated he would have Fransisca the bedside nurse call to give repot on patient to receiving bed side nurse * Nursing Notes - Julita Zamarripa RN - 04/05/2022 4:16 PM EDT hospital recruiter attempted to call and receive report from ED RN, no answer. Will await call back documented in this encounterUniversity [facility]07-08-2022 Note* Plan of Care - Collins Pedroza RN - 04/07/2022 1:22 PM EDT Problem: Patient Care Overview Goal: Plan of [...] Response Clinical Practice Guideline (CPG) Outcome: Ongoing [facility]07-08-2022 History of Present illness Narrative* Hayley Gilliam RN - 04/07/2022 1:13 PM EDT Patient discharged prior to hematology clinic appointment was scheduled. Resident to call patient to advise making appointment, phone is [phone] Hayley DOMINGO RN [facility] Clinical Physical Security Manager #[id number] * Hayley Gilliam RN - 04/06/2022 12:19 PM EDT Admission Screening for Discharge Planning Patient is here for thrombus in superior mesenteric artery. After review of chart, Physical Security Manager hasnot identified needs at this time. Patient is expected to discharge in 2-3 days. Should discharge needs arise please place a consult order for case management. Risk of Readmission: 2.6 Category Reference: High:16-100 Mod-High:10-16 Mod-Low: 5-10 Low: 0-5 Hayley DOMINGO RN [facility] Clinical Physical Security Manager #[id number] * Paulina Simmons OT - 04/06/2022 10:06 AM EDT Occupational Therapy Attempt Note 04/06/2022 OT Therapy [...] Treatment Time (skilled, billable minutes): 0 minutes * Danyelle Chang PT - 04/06/2022 7:28 AM EDT Acute Physical Therapy Evaluation Prior to Admission [facility] score(s): PRIOR LEVEL AM-PAC Mobility Raw Score: [...] assessed this session; no adverse event to warrantvitals assessment. Cognition Overall Cognitive Status: Within Functional [...] noted Mobility Assessment: Supine to Sit Mobility [place] Level: Supine->Sit: modified independence Bed Features/Set-up: Supine->Sit: Use of bed rail, Head of bed elevated Balance: Sitting Balance Static Sitting-Level of Assistance: Independent Dynamic Sitting-Level of Assistance: Independent Standing Balance Static Standing-Level of Assistance: Supervision, Independent Dynamic Standing-Level of Assistance: Supervision Transfer Assessment: Sit to Stand Transfer [place] Level: Sit->Stand: (supervision - I) Stand to Sit Transfer [place] Level: Stand->Sit: (supervision - I) Gait/Functional Mobility: Gait Assessment [place] Level: Gait: supervision Gait Distance (feet): 100 Gait Deviations Identified: decreased gait speed, decreased curtis Gait Skilled Rationale: verbal Skilled Intervention/Details - Gait: pt denies need for cane/WW Wheelchair Assessment Patient currently uses wheelchair?: No Stairs: Stairs Assessment [place] Level: Stair Negotiation: supervision Assistive Device: Stair Negotiation: right rail (ascending) Number of stairs: 6 Stairs Skilled Rationale: verbal, nonreciprocal pattern, reciprocal pattern Outcome Score(s): [facility] Basic Mobility Inpatient Short Form Turning over in bed: 4 - No Assistance Sitting/standing from chair: 4 - No Assistance Moving from lying on back to sittin - No Assistance Moving to and from bed to chair: 4 - No Assistance Walk in hospital room: 3 - A Little Assistance Climbing 3-5 steps with a railin - A Little Assistance [facility] Mobility Raw Score: 22 [facility] Mobility Functional Limitation/Modifier: 20.91% Currently Impaired in Basic Mobility- CJ Assessment & Plan: Patient was admitted for with a history of unprovoked 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 Pt presents as a transfer from [facility], where she was seen earlier today and [...] Therapy Services or patient discharge from the hospitalthis note represents the current Physical Therapy Discharge Summary. [facility] Discharge instructions* Discharge Instructions* Yisel Moore MD - 04/07/2022 12:20 PM EDT - Continue taking Xarelto for 6 months. Follow up with your PCP 1-2 weeks after discharge (and after completion of 6 months of treatment) * Attachments The following attachments cannot be sent through Care Everywhere. * rivaroxaban (Tunisian) documented in this encounterOS[facility]07-[facility]-2022 Consult note* Laly Jones - 04/06/2022 10:22 AM EDTAssociated Order(s): IP CONSULT TO HEMATOLOGY HEMATOLOGY CONSULT INITIAL [...] on Xarelto for 3 months. Prior to thishospitalization, she was not on any anticoagulations. On 03/20/22, Ms. Enrique underwent appendectomy for acute appendicitis. On 04/02/22, began experiencingmild epigastric which worsened over the course of 2 days. Pain is a 10/10 stabbing pain, radiating along her right flank and around to her back. 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 She was placed on heparin gtt and transferred to [facility]. She states that she has been on a combined progesterone-estrogen OCP (norgestimate ethinyl estradiol) for a year now. She stopped taking it after presenting to OSH for this SMV thrombosis. She has nohistory of miscarriages or other clotting complications. PAST [...] risk factor. Recommend switching to progesterone OCP ornon-estrogen contraception. Can continue estrogen-based OCP IF patient is on full dose of anticoagulation. In terms of anticoagulation, would recommend switching from heparin to DOAC if that is okay from perspective of acute care surgery team. Pt needs to be on full dose Xarelto for at least 6 months withpeak and trough monitoring at anticoagulation clinic. RECOMMENDATIONS: [...] at anticoag clinic - recommend switching to vhk-dcnccewn-djles contraception - okay to continue estrogen-based OCP as long as also taking full dose of Xarelto / anticoagulant This consult was discussed with Dr. Lui, the attending physician. If you have any questionsor need any further information, please feel free to contact the Hematology Consult Service. Our pager number is found under the heading IM Consult Serv Hematology on WebJobrge. Thank you for allowing us to participate in the care of Viridiana Enrique. Laly Jones MS3 Associated attestation - David Carrasquillo MD - 04/06/2022 10:17 PM EDT I saw the patient independently and did a history physical exam review of the records and labs. I discussed the plan on rounds and with ARTHUR Jones and reviewed his note. 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 Patient should be followed at 6 months from anticoagulation to determine length of anticoagulation. David Chavez MD [facility] Consult note* Laly Jones - 04/06/2022 10:22 AM EDTAssociated Order(s): IP CONSULT TO HEMATOLOGY HEMATOLOGY CONSULT INITIAL [...] on Xarelto for 3 months. Prior to thishospitalization, she was not on any anticoagulations. On 03/20/22, Ms. Enrique underwent appendectomy for acute appendicitis. On 04/02/22, began experiencingmild epigastric which worsened over the course of [...] OSH for this SMV thrombosis. She has nohistory of miscarriages or other clotting complications. PAST [...] of PMH of unprovoked proximal LLE DVT (2016), cholecystectomy and anxiety who presents from OSH [...] risk factor. Recommend switching to progesterone OCP ornon-estrogen contraception. Can continue estrogen-based OCP IF patient is on full dose of anticoagulation. In terms of anticoagulation, would recommend switching from heparin to DOAC if that is okay from perspective of acute care surgery team. Pt needs to be on full dose Xarelto for at least 6 months withpeak and trough monitoring at anticoagulation clinic. RECOMMENDATIONS: [...] at anticoag clinic - recommend switching to hhp-vlczzldy-tbtur contraception - okay to continue estrogen-based OCP as long as also taking full dose of Xarelto / anticoagulant This consult was discussed with Dr. Lui, the attending physician. If you have any questionsor need any further information, please feel free to contact the Hematology Consult Service. Our pager number is found under the heading IM Consult Serv Hematology on WebJobrge. Thank you for allowing us to participate in the care of Viridiana Enrique. JEREMY Gonzalez Associated attestation - David Carrasquillo MD - 04/06/2022 10:17 PM EDT I saw the patient independently and did a history physical exam review of the records and labs. I discussed the plan on rounds and with ARTHUR Jones and reviewed his note. 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 Patient should be followed at 6 months from anticoagulation to determine length of anticoagulation. David Chavez MD Hematology documented in this encounterOSTri[facility] Note* Certification - Yisel Moore MD - 04/06/2022 6:38 AM EDT I certify that this patient requires inpatient services at this time. I anticipate the expected length of stay will include at least two midnights. Inpatient services are due to the following medicalconcerns 41 y.o. 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 Plans for post hospitalization care will be discharge to home vs home w/ HHC pending PT/OT evaluation. [facility]07-06-2022 Note* Nursing Notes - Brooklyn Crain RN - 04/05/2022 5:42 PM EDT 16:02 Called [phone] to get report from ED Fransisca GOMEZ - No answer 16:05 Called [phone] to get report from ED RNFransisca - No answer 16:08 Called [phone] to get report from ED Fransisca GOMEZ - No answer 16:12 Called [phone] to get report from ED Fransisca GOMEZ - No answer [facility]07-06-2022 Note* Nursing Notes - Brooklyn Crain RN - 04/05/2022 5:39 PM EDT On admission to [facility], from the ED a dual RN initial assessment of skin condition was performed by Brooklyn Crain RN and Jovany Matute RN. Skin Assessment: WDL LDA Added: N Brooklyn Crain RN [facility]07-06-2022 Note* Nursing Notes - Fransisca Kumar RN - 04/05/2022 4:34 PM EDT Report given to Jeanne on the floor at this time. All questions and concerns addressed at this time. [facility]07-06-2022 Note* Nursing Notes - Julita Zamarripa RN - 04/05/2022 4:19 PM EDT Spoke with devulcanizer charger in ED, who stated he would have Fransisca the bedside nurse call to give repot on patient to receiving bed side nurse [facility]07-06-2022 Note* Nursing Notes - Julita Zamarripa RN - 04/05/2022 4:16 PM EDT hospital recruiter attempted to call and receive report from ED RN, no answer. Will await call back [facility]07-06-2022 Emergency department Note* Fransisca Kumar RN - 04/05/2022 3:47 PM EDT Call to the floor to give report at this time. They will have to call me back. [facility]07-06-2022 Emergency department Note* Fransisca Kumar RN - 04/05/2022 3:47 PM EDT Call to the floor to give report at this time. They will have to call me back. * Fransisca Kumar RN - 04/05/2022 2:18 PM EDT Pt was laying on cot tearful at this time. Inquired about same and she stated, I have just been here so long and I am so tired. * Fransisca Kumar RN - 04/05/2022 1:26 PM EDT Pt stated she is still in pain of 9/10 and PO medication did not help. ERP notified of same. * Fransisca Kumar RN - 04/05/2022 12:37 PM EDT Pt medicated for pain at this time per MAR. * Fransisca Kumar RN - 04/05/2022 11:47 AM EDT Pt has c/o pain of 8/10 at this time. Pt is able to ambulate to the bathroom with slow steady gait.Pt is A/O x4. NAD. Denies NVD. * Fransisca Kumar RN - 04/05/2022 11:42 AM EDT Pt resting on bed. No c/o at this time. Heparin gtt running at ordered dose. See MAR for details. NAD. A/Ox4. Able to make own needs known. * Reggie Major MD, PhD - 04/05/2022 3:30 AM EDT ED ATTENDING NOTE Please see resident notes [...] 122/72 Pulse 96 Ht 1.575 m (5' 2) SpO2 95% Alert, oriented x4. In no [...] Auto 2.82 1.16 - 3.51 K/uL Abs [place] Auto 0.63 0.22 - 0.87 K/uL Abs [...] occur. Reggie Major MD, PhD 04/05/22 0333 * Abdoulaye Moon MD - 04/05/2022 2:05 AM EDT dEPARTMENT of Emergency Medicine CHIEF COMPLAINT Critical Lab Values HPI Viridiana Enrique is a 41 y.o. female with a PMH of LLE DVT (5 years ago) and depression who presents asan OSH transfer for superior occluded mesenteric vein [...] lower extremity edema, hemoptysis, history of cancer. ACCESS CLERK medications: Morphine 1924 Zofran 1924 Heparin (7500 units) 2045; heparin (1400 units [...] Auto 2.82 1.16 - 3.51 K/uL Abs [place] Auto 0.63 0.22 - 0.87 K/uL Abs [...] (5 years ago) and depression who presents asan OSH transfer for superior occluded mesenteric vein on CT with overlying infectious changes of mesentery in the setting of 2 days of worsening abdominal pain, NBNB N/V, and watery diarrhea. Of note, did have appendectomy 2 weeks ago. ACCESS CLERK received Morphine, Zofran, Heparin, Dilaudid, and anormal saline 1L bolus. Patient was afebrile and hemodynamically stable on arrival. On exam, abdomen is softand without sites of acute abdomen. There is [...] 04/05/22 Abdoulaye Moon MD Resident 04/05/22 0530 * Doc Mejia RN - 04/05/2022 2:02 AM EDT Pt transferred from OSH c/o abdominal pain associated with n/v. 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 Pt transferred for further evaluation at this time. Pt started on Heparin at OSH. 8 mg zofran and 100 mcg given by ems prior to arrival * Darcy Grajeda RN - 04/05/2022 2:01 AM EDT Bed: [facility] Expected date: Expected time: Means of arrival: Comments: John Pauleta 10 documented in this encounterOS[facility] Emergency department Note* Fransisca Kumar RN - 04/05/2022 2:18 PM EDT Pt was laying on cot tearful at this time. Inquired about same and she stated, I have just been here so long and I am so tired. [facility]07-06-2022 Emergency department Note* Fransisca Kumar RN - 04/05/2022 1:26 PM EDT Pt stated she is still in pain of 9/10 and PO medication did not help. ERP notified of same. [facility]07-06-2022 Emergency department Note* Fransisca Kumar RN - 04/05/2022 12:37 PM EDT Pt medicated for pain at this time per MAR. [facility]07-06-2022 Emergency department Note* Fransisca Kumar RN - 04/05/2022 11:47 AM EDT Pt has c/o pain of 8/10 at this time. Pt is able to ambulate to the bathroom with slow steady gait.Pt is A/O x4. NAD. Denies NVD. [facility]07-06-2022 Emergency department Note* Fransisca Kumar RN - 04/05/2022 11:42 AM EDT Pt resting on bed. No c/o at this time. Heparin gtt running at ordered dose. See MAR for details. NAD. A/Ox4. Able to make own needs known. [facility] Phys[facility] Emergency department Note* Reggie Major MD, PhD - 04/05/2022 3:30 AM EDT ED ATTENDING NOTE Please see resident notes [...] 122/72 Pulse 96 Ht 1.575 m (5' 2) SpO2 95% Alert, oriented x4. In no [...] Auto 2.82 1.16 - 3.51 K/uL Abs [place] Auto 0.63 0.22 - 0.87 K/uL Abs [...] occur. Reggie Major MD, PhD 04/05/22 0333 [facility] Work Phone: 1(441) 941-684207-06-2022 Physician Emergency department Note* Abdoulaye Moon MD - 04/05/2022 2:05 AM EDT dEPARTMENT of Emergency Medicine CHIEF COMPLAINT Critical Lab Values HPI Viridiana Enrique is a 41 y.o. female with a PMH of LLE DVT (5 years ago) and depression who presents asan OSH transfer for superior occluded mesenteric vein [...] lower extremity edema, hemoptysis, history of cancer. ACCESS CLERK medications: Morphine 1924 Zofran 192 Heparin (7500 [...] Auto 2.82 1.16 - 3.51 K/uL Abs [place] Auto 0.63 0.22 - 0.87 K/uL Abs [...] (5 years ago) and depression who presents asan OSH transfer for superior occluded mesenteric vein on CT with overlying infectious changes of mesentery in the setting of 2 days of worsening abdominal pain, NBNB N/V, and watery diarrhea. Of note, did have appendectomy 2 weeks ago. ACCESS CLERK received Morphine, Zofran, Heparin, Dilaudid, and anormal saline 1L bolus. Patient was afebrile and hemodynamically stable on arrival. On exam, abdomen is softand without sites of acute abdomen. There is [...] MD Resident 04/05/22 Abdoulaye Moon MD Resident 04/05/22529 [facility] Work Phone: 1(345) 166-715407-06-2022 Emergency department Note* Doc Mejia RN - 04/05/2022 2:02 AM EDT Pt transferred from OSH c/o abdominal pain associated with n/v. 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 Pt transferred for further evaluation at this time. Pt started on Heparin at OSH. 8 mg zofran and 100 mcg given by ems prior to [facility] Note* Darcy Grajeda RN - 04/05/2022 2:01 AM EDT Bed: [facility] Expected date: Expected time: Means of arrival: Comments: [place]-eta 10 [facility] Instructions* Patient Instructions* Moriah Borges PA-C - 03/27/2022 1:39 PM EDT The following instructions are important for you related to your office visit today with the [facility] General Surgeons. INSTRUCTIONS FOLLOWING YOUR RECENT SURGERY [...] you should contact our office immediately @ [phone] and ask to be transferred to the General Surgery department. documented in this [facility]20[facility] History of Present illness Narrative* Moriah Borges PA-C - 03/27/2022 1:31 PM EDT FOLLOW UP VISIT - APPENDICITIS NAME: Viridiana Enrique [facility] NO.: [id number] DATE OF SERVICE: 03/27/2022 : 1980 REFERRING PHYSICIAN: Akbar Marinelli MD Viridiana is a patient I am following with Dr. Malcolm for acute appendicitis. Dr. Malcolm performed a laparoscopic appendectomy on 03/20/22. The patient's appendix demonstrated acute appendicitis and periappendicitis without perforation. The patient did well post operatively. The patient currently notes nausea since surgery. She states otherwise she has been doing well, andpain has been improving each day. She is no longer taking the narcotic pain medication. she denies fever, chills or abdominal pain. she does note some mild incisional discomfort. VITALS: Blood pressure 118/80, pulse 103, temperature 36.3 C (97.3 F), height 157.5 cm (5' 2), weight 107 kg (236 lb), last menstrual period 01/06/2019, SpO2 98 %. On examination, the abdomen is benign. The incisions are healing well without signs of infection orinflammation. There is no right lower quadrant tenderness. [...] needed. Moriah Borges PA-C documented in this encounterMer[facility]. [facility]06-21-2022 Miscellaneous Notes* Telephone Encounter - Joaquin Malcolm MD - 03/21/2022 8:33 AM EDT Sent an order for Percocet to her pharmacy in [facility] since the Ariel is not working. * Telephone Encounter - Louise Sandoval LPN - 03/21/2022 8:20 AM EDT Patient called stating that the Ariel is not working, taking every 4 hours, taking 500 mg of tylenol with the Ariel and ibuprofen 600mg in between. Is walking and icing site, unable control pain. Patient willing to take benadryl d/t itching with oxycode. Please advise. documented in this encounterMercy [facility]07-22-2021 History of Present illness Narrative* Jeanne Sage RT(R) - 04/21/2021 9:50 AM EDT Radiology Service Progress Note PATIENT NAME: Viridiana Enrique DATE OF SERVICE: April 21, 2021 TIME: 9:53 AM PATIENT IDENTITY VERIFICATION COMPLETED USING TWO (2) IDENTIFIERS: Name and Date of confirmedby patient verbally. FALL SCREENING: Has the patient had 2 falls in the last year or 1 fall with injury or currently using an Ambulatory Assistive Device (Walker, Cane, Wheelchair, Crutches, etc.)? No PATIENT GENDER DATA: Female. status: : No status: NO. PATIENT RELEVANT IMPLANT DATA REVIEWED: Not Applicable RADIOLOGY DEPARTMENT: General X-ray: Exam(s) Completed: Lower Extremity X- Ray(s): Knee, AP / LAT Left and Wt. Bearing with obliques PERIPHERAL IV DATA: Not applicable SIGNED BY: RT Sammy(R) April 21, 2021 9:53 AM [facility]* Diagnosis Onset Date Resolution Status Abdominal pain acute Acute appendicitis acute [facility] Work Phone: Evaluation note* Diagnosis S/P appendectomy, follow-up exam- Primary Follow-up examination, following unspecified surgery [facility] Diagnosis Acute appendicitis with localized peritonitis, without perforation, abscess, or gangrene- Primary documented in this encounter [facility]* Diagnosis Superior mesenteric vein thrombosis- Primary Acute vascular insufficiency of intestine Superior mesenteric artery thrombosis Acute vascular insufficiency of intestine [facility] Diagnosis Bacterial sinusitis- Primary Unspecified sinusitis (chronic) documented in this encounter [facility] noteNo assessment information availableWTriHealth [facility] Work Phone: Evaluation note* Diagnosis Acute cough- Primary Pneumonia of right lung due to infectious organism, unspecified part of lung Acute cough documented in this encounter [facility]* Diagnosis Acute cough [facility]* Diagnosis Acute pain of left knee documented [facility]* Diagnosis Viral URI- Primary Acute upper respiratory infections of unspecified site documented [facility] this encounter [facility]* Diagnosis Chronic nasal congestion- Primary Other diseases of nasal cavity and sinuses Anxiety Anxiety state, unspecified body mass index of 40.0-49.9 [facility]* Diagnosis Leg edema- Primary Edema [facility]* Patient is a 41 y.o. female who is here to establish care. * Pt has a PMHx of anxiety, appendectomy complicated by mesentery artery thrombus, she was on blood thinners for 3 mo, was just recently released from Hematology in [place]. They did not find anything clotting disorder. * Anxiety - she is on sertraline 150mg qhs and Vistaril prn. She has tried to get off of it and has withdrawal symptoms. [facility] Work Phone: History of Present illness Narrative* Patient is a 41 y.o. female who is here to establish care. * Pt has a PMHx of anxiety, appendectomy complicated by mesentery artery thrombus, she was on blood thinners for 3 mo, was just recently released from Hematology in [place]. They did not find anything clotting disorder. * Anxiety - she is on sertraline 150mg qhs and Vistaril prn. She has tried to get off of it and has withdrawal symptoms. [facility] Work Phone: Hospital Discharge instructions Additional Instructions Ultrasound of both legs negative for DVT. Your cardiac workup including D-dimer negative. Continue your diuretics by your PCP. Follow-up with your doctor for reevaluation.[facility] Work Phone: Reason for referral (narrative)* Consultation (Routine) - New Request Specialty Diagnoses / Procedures Referred By Contac t Referred To Contact Hematology Diagnoses Superior mesenteric vein thrombosis Martin Dickens MD [address] [place] [address] Referral ID Status Reason Start Date Expiration Date V isits Requested Visits Authorized [id number] New Request 04/07/2022 05/02/2023 1 1 * Adjunctive Therapy (Routine) - New Request Specialty Diagnoses / Procedures Referred By Contac t Referred To Contact Cardiovascular Medicine Diagnoses Superior mesenteric vein thrombosis David Carrasquillo MD [address] [place] [address] Referral ID Status Reason Start Date Expiration Date V isits Requested Visits Authorized [id number] New Request 04/07/2022 05/02/2023 1 1 * (Routine) Specialty Diagnoses / Procedures Referred By Contac t Referred To Contact Adi Mccarthy MD Referral ID Status Reason Start Date Expiration Date Visits Re quested Visits Authorized * (Routine) Specialty Diagnoses / Procedures Referred By Contac t Referred To Contact Adi Mccarthy MD Referral ID Status Reason Start Date Expiration Date Visits Re quested Visits Authorized * (Routine) - New Request Specialty Diagnoses / Procedures Referred By Contac t Referred To Contact Procedures DVT/VTE RISK ASSESSMENT Martin Dickens MD [address] [place] [address] Referral ID Status Reason Start Date Expiration Date V isits Requested Visits Authorized [id number] New Request 04/05/2022 04/30/2023 1 1 * (Routine) - New Request Specialty Diagnoses / Procedures Referred By Contac t Referred To Contact Procedures PLATELET MONITORING PER PROTOCOL Reggie Major MD, PhD [address] [place] [address] Referral ID Status Reason Start Date Expiration Date V isits Requested Visits Authorized [id number] New Request 04/05/2022 04/30/2023 1 1 [facility] (narrative)No reason for referral information availableWTriHealth [facility] Work Phone: Summary Purpose Family History No Family History [...] of diabetes m ellitus: Other(V18.0, Z83.3) Status:Active Relationship Condition Age at Onset Recorded Date/T ju mother Hypertension Unknown grandmother Hypertension Unknown grandfather Deep vein thrombosis (DVT) Unknown Advance Directives No Advanced Directives Records Found Advance Directive Response Recorded Date/ Time Advance Directives No November 08, 2017 4:59pm Living Will No March 20, 2022 11:16am Power of Glass Bulb Silverer No March 20 11:16am Latest Code Status on File Code Status Date Activated Date Inactivated Comments Full Code 04/05/2022 3:39 PM Advance Directive Response Recorded Date/ Time Advance Directives No May 04, 2 022 2:23pm Living Will No November 10, 024 2:10pm Power of Glass Bulb Silverer No November 10, 2023 2:10pm Date Activated Date Inactivated Comments 04/05/2022 3:39 PM Advance Directive Response Recorded Date/ Time Do you have a Healthcare Power of Glass Bulb Silverer? 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 * Medication proposed * Pt recently released from hematology due to DVT in stomach * 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 Additional Source Comments INFORMATION SOURCE (unrecogn ized section and content) DATE CREATED AUTHOR 03/25/2018 [facility] DATE CREATED AUTHOR AUTHOR'S ORGANIZ ATION 09/09/2021 [facility] DATE CREATED AUTHOR AUTHOR'S ORGANIZ ATION 10/29/2021 [facility] DATE CREATED AUTHOR AUTHOR'S ORGANIZ ATION 12/08/2021 [facility] DATE CREATED AUTHOR AUTHOR'S ORGANIZ ATION 05/12/2022 [facility] DATE CREATED AUTHOR AUTHOR'S ORGANIZ ATION 08/28/2022 [facility] DATE CREATED AUTHOR AUTHOR'S ORGANIZ ATION 08/28/2022 [facility] DATE CREATED AUTHOR AUTHOR'S ORGANIZ ATION 03/09/2024 [facility] DATE CREATED AUTHOR AUTHOR'S ORGANIZ ATION 06/15/2024 [facility] DATE CREATED AUTHOR AUTHOR'S ORGANIZ ATION 12/27/2024 [facility] DATE CREATED AUTHOR AUTHOR'S ORGANIZ ATION 01/20/2025 [facility] DATE CREATED AUTHOR AUTHOR'S ORGANIZ ATION 03/12/2025 [facility] DATE CREATED AUTHOR AUTHOR'S ORGANIZ ATION 03/14/2025 [facility] <item> Privacy Markings (unrecogniz ed section [...] or prosecute any alcohol or drug abuse patient.[facility] Center[facility] the event this information is protected by the Federal Confidentiality of Alcohol and Drug Abuse Patient Records regulations: The Federal rules restrict any use of the information to criminally investigate or prosecute any alcohol or drug abuse patient.[facility] CenterIn the event this information is protected by the Federal Confidentiality of Alcohol and Drug Abuse Patient Records regulations: The Federal rules restrict any use of the information to criminally investigate or prosecute any alcohol or drug abuse patient.[facility] CenterIn the event this information is protected by the Federal Confidentiality of Alcohol and Drug Abuse Patient Records regulations: The Federal rules restrict any use of the information to criminally investigate or prosecute any alcohol or drug abuse patient.[facility] CenterIn the event this information is protected by the Federal Confidentiality of Alcohol and Drug Abuse Patient Records regulations: The Federal rules restrict any use of the information to criminally investigate or prosecute any alcohol or drug abuse patient.[facility] CenterIn the event this information is protected by the Federal Confidentiality of Alcohol and Drug Abuse Patient Records regulations: The Federal rules restrict any use of the information to criminally investigate or prosecute any alcohol or drug abuse patient.[facility] CenterIn the event this information is protected by the Federal Confidentiality of Alcohol and Drug Abuse Patient Records regulations: The Federal rules restrict any use of the information to criminally investigate or prosecute any alcohol or drug abuse patient.[facility] Reason for Visit (unrecogniz ed section and content) Reason Comments Post Op Appendectomy 03/20/20 22 Reason Comments Pain post surgical Reason Comments Abdominal Pain Occlusion of mesente ismael vein Specialty Diagnoses / Procedures Referred By Dominique sandoval Referred To Contact Martin Dickens MD [address] [place] [address] [facility] [address] [place] [address] Referral ID Status Reason Start Date Expiration Date Visits Re quested Visits Authorized [id number] 1 1 Reason Comments Sinus Problem Sinus pain and press ure, WARD and chest congestion x 2 weeks Reason Comments Sinus Problem sinus pressure, drai nage, chest congestion, cough, sore throat and fever x 5 days Reason Comments Cough Chest congestion, so re throat, sinus pressure and pain, pressure in teeth, headeache x 3 days Reason Comments Re-establish Care Unsure when patients last visit was at ; looks like its been a few years Specialty Diagnoses / Procedures Referred By Dominique sandoval Referred To Contact Diagnoses Encounter to establish care System, Provider Not In Paulina Bowers, [address] [place] [address] Phone: tel: fax: Referral ID Status Reason Start Date Expiration Date V isits Requested Visits Authorized [id number] Pending Review 01/06/2025 01/31/2026 1 1 Reason Comments ED [facility] beg[facility] nning of last week along with painConcerns for DVT; testing came back negativeConcerns with blood pressure; she does report having headaches 187/115 morning at the piwvmmto460/109 Lnxwpr389/110 Oiltdfzm620/91 Fscwfb055/97 SundayFamily hx of hypertension Care Teams (unrecognized sec tion and content) Manager Talent Relationship Specialty Start Date End Date Akbar Marinelli [address] [place] [phone] PCP - General Family Practice 06/03/17 Manager Talent Relationship Specialty Start Date End Date Akbar Marinelli [address] [place] [phone] PCP - General Family Practice 06/03/17 Manager Talent Relationship Specialty Start Date End Date Bindu Finley PA-C [address] [place] [address] PCP - General Physician Customer Order Clerk 04/05/22 Manager Talent Relationship Specialty Start Date End Date Akbar Marinelli [address] [place] [phone] PCP - General Family Medicine 06/03/17 Team Status: Active Member Role Status Dates Dr. Akbar Marinelli MD Family Provider Active Bindu YBARRA PA Primary Care Provider Active Team Status: Inactive Member Role Status Dates AMADA Dong Primary Care Provider Active Dr. Yared Polanco MD Emergency Provider Active Manager Talent Relationship Specialty Start Date End Date Paulina Bowers DO [address] [facility] [address] [place] [address] PCP - General Internal Medicine 04/30/24 Manager Talent Relationship Specialty Start Date End Date Paulina Bowers DO [address] [facility] [place] [address] PCP - General Internal Medicine 04/30/24 Manager Talent Relationship Specialty Start Date End Date Akbar Marinelli [address] [place] [address] PCP - General Family Medicine 06/03/17 04/29/24 Manager Talent Relationship Specialty Start Date End Date Paulina Bowers DO [address] [facility] [place] [address] PCP - General Internal Medicine 04/30/24 Team Status: Active Member Role Status Dates Dr. Paulina Bowers DO Primary Care Provider Active Team Status: Inactive Member Role Status Dates Dr. Vj Andersen DO Emergency Provider Active Start : March 05, 2025 End: March 05, 2025 Dr. Paulina Bowers DO Primary Care Provider Active Start: March 05, 2025 End: March 05, 2025 Scheduled Active and Recently Administ ered Medications (unrecognized section and content) Medication Order 04/05/2022 04/06/2022 04/07/2022 acetaminophen (TYLENOL) tablet 650 mg 650 mg, Oral, EVERY 4 HOURS, First dose on Sun04/05/22 at 1800, Until Discontinued, Maximum dose of acetaminophen is 4000 mg from all sources in 24 hours. 1853 (Given - Provider: Brooklyn Crain RN - Comment: RUQ)2203 (Given - Provider: Summer Keating RN) 0252 (Given - Provider: Summer Keating RN)0609 (Given - Provider: Summer Keating RN)1112 (Given - Provider: Libertad Bergeron RN)1355 (Given - Provider: Libertad Bergeron RN)1821 (Given - Provider: Libertad Bergeron RN)2219 (Given - Provider: Summer Keating RN) 0213 (Given - Provider: Summer Keating RN)0606 (Not Given - Provider: Summer Keating RN - Reason: Other - Comment: It will go over maximum recommended dose over 24 hours of 4 g.)1028 (Given - Provider: Collins Pedroza RN)1400 (Canceled Entry - Provider: System Discharge - Comment: Automatically canceled at discontinue of medication order) HYDROmorphone (DILAUDID) injection 0.5 mg (COMPLETED) 0.5 mg, Intravenous, ONCE, 1 dose, On Sun04/05/22 at 0900 0846 (Given - Provider: Luda Eagle, JASON) HYDROmorphone (DILAUDID) injection 0.5 mg (COMPLETED) 0.5 mg, Intravenous, ONCE, 1 dose, On Sun04/05/22 at 1015 0943 (Given - Provider: Joann Ng RN) HYDROmorphone (DILAUDID) injection 0.5 mg (COMPLETED) 0.5 mg, Intravenous, ONCE, 1 dose, On Sun04/06/22 at 1645 1723 (Given - Provider: Libertad Bergeron RN) HYDROmorphone (DILAUDID) injection 1 mg (COMPLETED) 1 mg, Intravenous, ONCE, 1 dose, On Sun04/05/22 at 0445 0441 (Given - Provider: Sunshine Campo RN) HYDROmorphone (DILAUDID) injection 1 mg (COMPLETED) 1 mg, Intravenous, ONCE, 1 dose, On Sun04/05/22 at 1630 1655 (Given - Provider: Brooklyn Crain RN - Comment: RUQ) ondansetron 4mg/2ml (ZOFRAN) injection 4 mg (COMPLETED) 4 mg, Intravenous, ONCE, 1 dose, On Sun04/05/22 at 0900 0846 (Given - Provider: Luda Eagle, JASON) ondansetron 4mg/2ml (ZOFRAN) injection 4 mg (COMPLETED) 4 mg, Intravenous, ONCE, 1 dose, On Sun04/05/22 at 1630 1701 (Given - Provider: Brooklyn Crain RN) oxyCODONE (ROXICODONE) tablet 5 mg (COMPLETED) 5 mg, Oral, ONCE, 1 dose, On Sun04/05/22 at 1300 1236 (Given - Provider: Aliyah Murillo RN) oxyCODONE (ROXICODONE) tablet 5 mg (COMPLETED) 5 mg, Oral, ONCE, 1 dose, On Sun04/05/22 at 1415 1337 (Given - Provider: Aliyah Murillo RN) polyethylene glycol (MIRALAX) packet 17 g 17 g, Oral, EVERY 12 HOURS, First dose on Sun04/06/22 at 1615, Until Discontinued 1725 (Given - Provider: Libertad Bergeron RN) 0820 (Not Given - Provider: Collins Pedroza RN - Reason: Patient/family refused) Rivaroxaban (XARELTO) tablet 15 mg(Linked Group 1) 15 mg, Oral, 2 TIMES DAILY, 42 doses, First dose on Sun04/06/22 at 1700, Last dose on Sun04/27/22 at 0900, Due to the rapid onset of action [...] empty into the stomach for this route. , Indications: Venous Thromboembolism 182 (Given - Provider: Libertad Bergeron RN) 0817 (Given - Provider: Collins Pedroza RN) Rivaroxaban (XARELTO) tablet 20 mg(Linked Group 1) 20 mg, Oral, DAILY WITH DINNER, First dose on Sun04/27/22 at 1700, Until Discontinued, Due to the rapid onset of action [...] empty into the stomach for this route. , Indications: Venous Thromboembolism sertraline (ZOLOFT) tablet 100 mg 100 mg, Oral, DAILY, First dose on Sun04/06/22 at 0900, Until Discontinued 0802 (Given - Provider: Libertad Bergeron RN) 0817 (Given - Provider: Collins Pedroza RN) Continuous Medication Order 04/05/2022 04/06/2022 04/07/2022 heparin [...] Luda Eagle RN)0725 (Paused - Provider: Luda Egale RN)0725 (Paused - Provider: Ldua aEgle RN)0731 (Rate/Dose Change - Provider: Luda Eagle [...] mg from all sources in 24 hours. 231 (Given - Provider: Summer Keating RN - [...] 0817 (See Alternative - Provider: Collins Pedroza, JASON) ondansetron 4mg/2ml (ZOFRAN) injection 4 mg(Linked Group 2) 4 mg, Intravenous, EVERY 6 HOURS NEEDED, Starting on Sun04/05/22 at 1538, Until Sun04/07/22 at 1529, Nausea / Vomiting, 1st line for Nausea/Vomiting 0609 (Given - Provider: Summer Keating RN)1452 (Given - Provider: Libertad Bergeron RN)2311 (Given - Provider: Summer Keating RN) 0817 (Given - Provider: Collins Pedroza, JASON) oxyCODONE (ROXICODONE) tablet 5 mg 5 mg, Oral, EVERY 4 HOURS NEEDED, Starting on Sun04/05/22 at 1710, Until Sun04/07/22 at 1529, Moderate Pain, Severe Pain 2000 (Given - Provider: Azalia Worrell RN) 0252 (Given - Provider: Summer Keating RN)0650 (Given - Provider: Summer Keating RN)1356 (Given - Provider: Libertad Bergeron RN)2027 (Given - Provider: Summer Keating RN) 0024 (Given - Provider: Summer Keating RN)0817 (Given - Provider: Collins Pedroza, RN)1259 (Given - Provider: Collins Pedroza, RN) polyethylene glycol (MIRALAX) packet 17 g 17 [...] Nausea / Vomiting, 1st line for Nausea/Vomiting Goals (unrecognized section and content) Goals may be documented in a n alternate sectionGoals may be documented in an alternate section FOR RECORDS PERTAINING TO PATIENTS WHO ARE [...] BE BASED ON THE PRIMARY CLINICAL RECORDS. [facility]. provides no warranty or guarantee of the accuracy or completeness of information in this document.
[2025-03-17 03:35] VITALS: BP 120/60; PULSE 95; RESP 18; TEMP 36.9; O2SAT 96
--- NOTE | 2025-03-17 03:35 | EX.ED.DYSGE1 ---
HPI History of Present Illness Chief Complaint: Flank Pain Informant: patient and spouse/S.O. Narrative Narrative: Patient is a 44-year-old female with past medical history of anxiety as well as remote kidney stone. She reports pain in her right flank/abdomen that began roughly 24 hours ago. She states that there was no trauma or excessive activity. She states the pain was mild but over the last 24 hours has increased in severity. She states she is taken [id number] medications without any symptom improvement. She reports there is no comfortable position. She denies any dysuria or concern for . She states this reminds her of her previous kidney stone and secondary to this comes in for evaluation. 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 DVT (deep venous thrombosis) Knee injury Home Medications ?Medication ?Instructions ?Recorded ?Last Taken ?Type sertraline 25 mg tablet (Zoloft) 50 mg PO DAILY 11/08/17 11/07/17 History hydroxyzine HCl 25 mg tablet 25 mg PO Q8H PRN anxiety 05/04/22 Unknown History ondansetron 4 mg disintegrating 4 mg PO Q8H PRN PRN Nausea #10 tabs 11/10/23 Unknown Rx tablet oxycodone-acetaminophen 5 mg-325 1 tab PO Q6H PRN PRN Pain 3 days 11/10/23 Unknown Rx mg tablet #12 TABLETS sulfamethoxazole 800 1 tab PO BID #14 tabs 11/10/23 Unknown Rx mg-trimethoprim 160 mg tablet (Bactrim DS) tamsulosin 0.4 mg capsule (Flomax) 0.4 mg PO DAILY #7 caps 11/10/23 Unknown Rx cephalexin 500 mg capsule 500 mg PO TID 7 days #21 caps 03/17/25 Unknown Rx ketorolac 10 mg tablet 10 mg PO 4X/DAY PRN pain 5 days 03/17/25 Unknown Rx #20 tabs ondansetron 4 mg disintegrating 4 mg PO TID PRN nausea and 03/17/25 Unknown Rx tablet vomiting #21 tabs oxycodone-acetaminophen 5 mg-325 1 tab PO Q6H PRN pain 5 days #20 03/17/25 Unknown Rx mg tablet (Percocet) tabs tamsulosin 0.4 mg capsule (Flomax) 0.4 mg PO DAILY 14 days #14 caps 03/17/25 Unknown Rx Allergy/AdvReac Type Severity Reaction Status Date / Time No Known Allergies Allergy Verified 03/17/25 00:12 Family History Mother Hypertension Grandmother Hypertension Grandfather DVT (deep venous thrombosis) maternal Surgical History Hx of cholecystectomy Hx of appendectomy Social History number of children: 3 current occupational status: employed 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 Smoking Status: Never smoker alcohol intake: never substance use type: does not use caffeine: No ROS ROS ED Constitutional Constitutional ED: Denies chills or fever(s) Eyes Eyes: Denies change in vision ENT ENT ED: Denies sore throat Cardiovascular Cardiovascular: Denies chest pain Respiratory/Chest Respiratory/Chest: Denies cough or dyspnea Gastrointestinal Gastrointestinal: Reports abdominal pain and nausea; Denies diarrhea or vomiting Genitourinary Genitourinary ED: Denies dysuria or hematuria Musculoskeletal Musculoskeletal: Reports back pain Integumentary Denies rash Neurologic Neurologic: Denies headache(s) Hematologic/Lymphatic Hematologic/Lymphatic: Denies easy bleeding or easy bruising EXAM Physical Exam Const Vital Signs: 03/17/25 00:13 03/17/25 01:44 03/17/25 02:34 Temperature 97.6 F L Temperature Source Temporal Pulse Rate 103 H 75 Respiratory Rate 18 12 Blood Pressure 166/102 H 115/57 L 118/56 L Blood Pressure Mean 123 76 76 Pulse Ox 97 96 Oxygen Delivery Method Room Air Room Air 03/17/25 03:35 Temperature 98.4 F Temperature Source Pulse Rate 95 Respiratory Rate 18 Blood Pressure 120/60 Blood Pressure Mean 80 Pulse Ox 96 Oxygen Delivery Method Positive well nourished, well developed and obese General Appearance ED: well developed; Negative for pallor Nutritional Appearance: obese HEENT HEENT Narrative: Normocephalic atraumatic Eyes PERRL and EOMs intact bilaterally General Eye ED: Negative for scleral icterus Neck supple Neck Narrative: No nuchal rigidity or meningeal signs Resp normal respiratory effort and clear to auscultation bilaterally Cardio regular rate and regular rhythm Rate: other Other Details: Heart is regular rate and rhythm without murmurs rubs or gallops Radial and carotid pulses are equal and symmetric GI non-distended and no masses GI Narrative: Abdomen is soft and nondistended with normoactive bowel sounds. There is pain with palpation along the right lateral abdomen diffusely without voluntary guarding or rigidity No pulsatile mass or fluid wave Auscultation: normoactive bowel sounds Palpation: soft Back/Spine Back/Spine Narrative: Positive right CVA pain noted Extremity normal to inspection Neuro oriented x3, CN's II-XII intact bilaterally and no sensory deficits noted Sensorium / Orientation: alert Motor Exam: strength 5/5 throughout Psych mental status grossly normal Skin no rashes or lesions noted and no wounds Skin Narrative: No overlying soft tissue skin changes to suggest trauma or infection General Skin Exam: Negative for jaundice or pallor MDM MDM MDM Narrative Medical decision making narrative: Patient presented to the ER hypertensive but is in pain and this is a normal physiologic response and otherwise with stable vitals. She reported right sided pain that came on gradually increased without trauma. History and exam is concerning for kidney stone versus UTI versus pyelonephritis versus complication. As her history and exam are most consistent with kidney stone basic labs and a urine sample were obtained. Labs revealed no signs of acute kidney injury or electrolyte abnormality. Her urine sample does show +2 bacteria but there are no white cells or nitrites present and therefore this is most likely normal amy. Her CAT scan shows changes concerning for potential kidney stone and hydronephrosis. After receiving IV Dilaudid and Toradol she has had improvement of her pain and her vitals are stabilized as well. Therefore this time with improvement of symptoms and vitals and no signs of JENNIFER or urosepsis there is no need for admission and patient is otherwise safe for discharge with symptomatic care and outpatient follow-up History & Record Review Discussion w/independent historian: Patient and Significant other Lab Data Attestation: I reviewed the patient's lab results. Labs: Laboratory Results - last 24 hr 03/17/25 00:50 WBC 13.1 H RBC 4.64 Hgb 13.8 Hct 41.8 MCV 90.1 MCH 29.7 MCHC 33.0 RDW Std Deviation 42.8 RDW Coeff of Pippa 13.1 Plt Count 288 MPV 10.3 Immature Gran % (Auto) 0.300 Neut % (Auto) 57.2 Lymph % (Auto) 30.4 [place] % (Auto) 7.9 Eos % (Auto) 3.1 Baso % (Auto) 1.1 H Absolute Neuts (auto) 7.5 Absolute Lymphs (auto) 4.00 Nucleated RBC % 0 Sodium 138 Potassium 3.5 Chloride 102 Carbon Dioxide 22.6 Anion Gap 13 BUN 13 Creatinine 0.80 Estim Creat Clear Calc 108.20 Est GFR (MDRD) Non-Af 95 BUN/Creatinine Ratio 15.7 Glucose 106 H Calcium 9.4 Urine Color Yellow Urine Clarity Sl. Cloudy Urine pH 6.0 Ur Specific [place] 1.025 Urine Protein 30 H Urine Glucose (UA) Normal Urine Ketones Negative Urine Occult Blood 250 H Urine Nitrite Negative Urine Bilirubin 1 H Urine Urobilinogen Normal Ur Leukocyte Esterase 100 H Urine RBC 5-10 SEEN Urine WBC 0-5 SEEN Ur Squamous Epith Cells 0 SEEN Urine Bacteria 2+ Urine Mucus 0 SEEN Urine Test Negative Radiography Diagnostic Testing: Clinical Impression(s) from Imaging Studies Abdomen/Pelvis CT 03/17/25 01:38 IMPRESSION: Non visualized right renal calculus. Currently detected mild right hydroureteronephrosis with no obvious distal ureteric calculi, possibly sequel of passed stone. No acute pelvi-abdominal abnormalities, collections or free air. [facility] T[facility] Chief Complaint: Flank Pain ED Provider: David Brasher Dx/Rx/DC Orders Clinical Impression: Kidney stone, Renal colic, Anxiety Instructions: ED Kidney Stone with Pain Prescriptions: New ondansetron 4 mg tablet,disintegrating 4 mg PO TID PRN (Reason: nausea and vomiting) Qty: 21 0RF cephalexin 500 mg capsule 500 mg PO TID 7 Days Qty: 21 0RF tamsulosin [Flomax] 0.4 mg capsule 0.4 mg PO DAILY 14 Days Qty: 14 0RF ketorolac 10 mg tablet 10 mg PO 4X/DAY PRN (Reason: pain) 5 Days Qty: 20 0RF oxycodone-acetaminophen [Percocet] 5-325 mg tablet 1 tab PO Q6H PRN (Reason: pain) 5 Days Qty: 20 0RF No Action hydroxyzine HCl 25 mg tablet 25 mg PO Q8H PRN (Reason: anxiety) sertraline [Zoloft] 25 MG tablet 50 mg PO DAILY oxycodone-acetaminophen [oxycodone-acetaminophen] 5-325 mg tablet 1 tab PO Q6H PRN PRN (Reason: Pain) 3 Days Qty: 12 0RF ondansetron [ondansetron] 4 mg tablet,disintegrating 4 mg PO Q8H PRN PRN (Reason: Nausea) Qty: 10 0RF tamsulosin [Flomax] 0.4 mg capsule 0.4 mg PO DAILY Qty: 7 0RF sulfamethoxazole-trimethoprim [Bactrim DS] 800-160 mg tablet 1 tab PO BID Qty: 14 0RF Primary Care Provider: Luisa Bowers Referrals: Donald Candelario MD [Med Staff - Active Staff] - Luisa Bowers DO [Primary Care Provider] - Activity Restrictions/Additional Instructions: Please take your Toradol and Percocet together as this will help control pain better. Follow-up with urology for repeat evaluation and to discuss potential further intervention such as lithotripsy or stent placement if needed. If you develop a fever of 100.4 or higher or your pain is not controlled with the prescribed medication please return to the ER for repeat evaluation. Print Language: Sammarinese Disposition Disposition: Home, Self Care Discharge Date/Time: 03/17/25 03:44
[2025-03-17] MEDS: oxyCODONE 5 MG Tablet 10 MG PO (03:40)
== END 2025-03-17 03:44 | disposition home or self-care (01) ==
PROVIDERS: Emergency Provider Emergency Medicine; PCP Internal Medicine; Visit Provider Emergency Medicine
DX: N13.2 Hydronephrosis with renal and ureteral calculous obstruction (principal); F41.9 Anxiety disorder, unspecified; Z79.899 Other long term (current) drug therapy
CPT/HCPCS: 74176; 80048; 81001; 81025; 85025; 87086; 96361; 96374; 96375; 99283; A4216; J2405